=== PATIENT | male | born 1960 | race Caucasian/White ===

== ENCOUNTER → 2018-09-13 | Outpatient (CLI) | payer MEDICAID ==
[~2018-09-13] MED LIST: AMIT100T2 PO; ASPI325T4 PO; ATEN50TA PO; CLON2TAB3 PO; FLUO40CA PO; FLUT1DIS27 INH; HYDR50TA3 PO; NIAC1TBM5 PO; POTA20TA15 PO; REGADENOSON 0.4 MG/5 ML SYR (LEXISCAN) IV ONE; SPIRIVA INH; ZOLP10TA5 PO
[2018-09-13] MEDS: CATHETER FLUSH 10 ML SYR IV PRN ×2 (12:56→13:38)
[2018-09-13 13:36] VITALS: BP 127/93
--- NOTE | 2018-09-13 20:23 | STRESS TEST ---
DATE OF SERVICE: 09/13/2018 LEXISCAN MYOVIEW STRESS TEST REPORT REFERRING PHYSICIAN: Dr. Chela Madrid. Baseline heart rate is 55. Baseline blood pressure 139/88. Baseline EKG sinus rhythm with no ischemic changes. In summary, the patient was injected with 9.81 mCi of technetium-99 Myoview and the resting images were obtained. Then, the patient received 0.4 mg of Lexiscan followed by 30.0 mCi of technetium-99 Myoview. Throughout the test, there were no EKG changes. The resting and stress images were reviewed and compared in the short axis, horizontal long axis, and vertical long axis views. Review of the images showed diaphragmatic attenuation with mild decreased uptake at the mid to apical inferolateral wall with subtle reversibility, no significant ischemia was noted. SSS is 3, SDS 3, TID value 1.02. On the gated images, the left ventricle appeared to be normal size with normal contractility. Calculated ejection fraction 61%. CONCLUSION: 1. The patient tolerated Lexiscan well. 2. Diaphragmatic attenuation with mild decreased uptake at the mid to apical inferolateral wall with subtle reversibility, no significant ischemia or infarction was noted. 3. Normal left ventricular size with normal contractility. Calculated ejection fraction 61%. Job ID: [id number] DocumentID: [id number] Dictated Date: 09/13/2018 15:02:43 [employer] Machine Operator Date: 09/13/2018 20:23:03 Dictated By: YESICA ACEVEDO MD
== END ==
LOC: CARD 12:39
PROVIDERS: ATTEND Internal Medicine Cardiovascular Disease
DX: R07.9 Chest pain, unspecified (principal); I10 Essential (primary) hypertension; I08.1 Rheumatic disorders of both mitral and tricuspid valves; J44.9 Chronic obstructive pulmonary disease, unspecified; E66.9 Obesity, unspecified
CPT/HCPCS: 78452; 93017

== ENCOUNTER → 2019-09-03 | Outpatient (CLI) | payer MEDICAID ==
[~2019-09-03] MED LIST changes: -REGADENOSON 0.4 MG/5 ML SYR (LEXISCAN) IV ONE
== END ==
LOC: CARD 11:12
PROVIDERS: ATTEND Internal Medicine Cardiovascular Disease
DX: I08.1 Rheumatic disorders of both mitral and tricuspid valves (principal); I10 Essential (primary) hypertension; J44.9 Chronic obstructive pulmonary disease, unspecified
CPT/HCPCS: 93306

== ENCOUNTER → 2020-09-03 | Outpatient (CLI) | payer MEDICAID ==
[~2020-09-03] VITALS: Ht 170 cm; Wt 114.0 kg
[~2020-09-03] MED LIST changes: +CATHETER FLUSH 10 ML SYR IV PRN; +REGADENOSON 0.4 MG/5 ML SYR (LEXISCAN) IV ONE
[2020-09-03 11:28] VITALS: BP 132/69
--- NOTE | 2020-09-03 14:10 | Cardiology Stress Test Report ---
Stress Test Report Date of Procedure/Referring: Date of Procedure: Sep 03, 2020 PCP Chrissy Jenkins Admitting Physician Santana Mckenna MD Indications: Hypertension, hyperlipidemia Baseline Heart Rate: 46 Baseline Blood Pressure: Blood Pressure Systolic: 132 Blood Pressure Diastolic: 69 Baseline Vitals Vital Signs Date Time Temp Pulse Resp B/P (MAP) Pulse Ox O2 Delivery O2 Flow Rate FiO2 09/03/20 11:28 46 18 132/69 (90) 99 Room Air Baseline EKG: Baseline EKG: normal sinus rhythm Summary After explaining the procedure to the patient, he signed a consent and then brought to the stress nuclear laboratory. Patient received 0.4 mg Lexiscan for stress test, ECG, heart rate and blood pressure were monitored continuously. Resting and stress dose of radio tracer were injected, imaging was acquired and reviewed in short axis, horizontal long axis and vertical long axis views. TID: 1.1 SSS: 1 SDS: 1 EF: 52 1. Patient tolerated Lexiscan well 2. Baseline sinus bradycardia persisted during test 3. Diaphragmatic attenuation with typical male pattern with no significant ischemia or infarction on SPECT images 4. Normal left ventricular size, EF 52 percent YESICA ACEVEDO MD Sep 03, 2020 14:10
== END ==
LOC: CARD 11:30
PROVIDERS: ATTEND Physician Assistant
DX: J44.9 Chronic obstructive pulmonary disease, unspecified (principal); I10 Essential (primary) hypertension; Z72.0 Tobacco use
CPT/HCPCS: 78452; 93017

== ENCOUNTER → 2021-03-04 | Outpatient (CLI) | payer MEDICAID ==
[~2021-03-04] MED LIST changes: -CATHETER FLUSH 10 ML SYR IV PRN; -REGADENOSON 0.4 MG/5 ML SYR (LEXISCAN) IV ONE
== END ==
LOC: CARD 13:16
PROVIDERS: ATTEND Internal Medicine Cardiovascular Disease
DX: I10 Essential (primary) hypertension (principal)
CPT/HCPCS: 93306

== ENCOUNTER 2021-08-23 10:07 | Observation (INO) | payer MEDICAID ==
[~2021-08-23] VITALS: Ht 170.1 cm; Wt 90.8 kg
[2021-08-23] MEDS ORDERED: fentaNYL INJ 100 MCG/2 ML AMP IVP ONE ×2 (11:00→14:15)
[2021-08-23] MEDS ORDERED: NITROGLYCERIN 0.4 MG SL TABS BTL 25'S SL PRN (11:00)
[2021-08-23 11:12] LABS: BASOPHILS % (AUTO) 0 % (0-10); EOSINOPHILS % (AUTO) 0 % (0-10); HEMATOCRIT 29 % (40-54); HEMOGLOBIN 9.2 g/dL (13.3-17.7); LYMPHOCYTES # (AUTO) 1.3 10^3/uL (1.0-4.0); LYMPHOCYTES % (AUTO) 12 % (12-44); MEAN CORPUSCULAR HEMOGLOBIN 25 pg (25-34); MEAN CORPUSCULAR HGB CONC 32 g/dL (32-36); MEAN CORPUSCULAR VOLUME 80 fL (80-99); MEAN PLATELET VOLUME 8.9 fL (9.0-12.2); MONOCYTES # (AUTO) 0.9 10^3/uL (0.0-1.0); MONOCYTES % (AUTO) 8 % (0-12); NEUTROPHILS # (AUTO) 8.8 10^3/uL (1.8-7.8); NEUTROPHILS % (AUTO) 78 % (42-75); PLATELET COUNT 500 10^3/uL (130-400); WHITE BLOOD COUNT 11.3 10^3/uL (4.3-11.0)
[2021-08-23 11:31] LABS: LIPASE 27 U/L (8-78)
[2021-08-23 11:33] LABS: ALBUMIN 3.7 GM/DL (3.2-4.5); BILIRUBIN,TOTAL 0.2 MG/DL (0.1-1.0); CALCIUM 9.6 MG/DL (8.5-10.1); CREATININE SERUM 1.2 MG/DL (0.60-1.30); MAGNESIUM 1.6 MG/DL (1.6-2.4); POTASSIUM 5.1 MMOL/L (3.6-5.0); TOTAL PROTEIN 7.7 GM/DL (6.4-8.2)
[2021-08-23 11:40] LABS: FIBRIN DEGRADATION PRODUCTS 0.64 UG/ML (0.00-0.49); INR 1.1 (0.8-1.4); PROTHROMBIN TIME PATIENT 14.1 SEC (12.2-14.7)
--- NOTE | 2021-08-23 11:41 | Diagnostic Imaging Report ---
Indication: Chest pain COMPARISON: None available. TECHNIQUE: Single frontal radiograph of the chest dated 08/23/2021 FINDINGS: The cardiac silhouette is within normal limits in size. Minimal central pulmonary vascular congestion. The lungs are clear. No pleural effusion. No pneumothorax. No acute osseous abnormality. IMPRESSION: Minimal central pulmonary vascular congestion without significant interstitial edema or pleural effusion. Dictated by: Dictated on workstation # [id number]
[2021-08-23] MEDS ORDERED: NS IV 1000 ML 1,000 ML ONE ×2 (11:50→16:02)
[2021-08-23] MEDS ORDERED: NS IV 1000 ML 1,000 ML IV SCH (12:00)
[2021-08-23] MEDS ORDERED: NS 100 ML (IVPB) BAG IV ONE (12:15)
[2021-08-23] MEDS ORDERED: IOHEXOL 350 MG/ML 100 ML (OMNIPAQUE 350) VIAL IV ONE (12:15)
[2021-08-23] MEDS ORDERED: HOLD METFORMIN - RECEIVED CONTRAST 20 ML VIAL IV SCH (12:15)
--- NOTE | 2021-08-23 12:36 | Diagnostic Imaging Report ---
INDICATION: Chest and abdominal pain. Back pain. CTA chest, abdomen and pelvis Thin axial sections through the chest, abdomen and pelvis are obtained following intravenous contrast bolus. Multiplanar MIP images were reconstructed and reviewed. All CT scans use one or more of the following dose optimizing techniques: automated exposure control, MA and/or KvP adjustment based on patient size and exam type or iterative reconstruction. COMPARISON: None. CTA chest: No evidence of pulmonary emboli to the subsegmental pulmonary arteries. Thoracic aorta is normal. The heart size is within normal limits. No pericardial effusion is present. There is no mediastinal, hilar, or axillary lymphadenopathy. The lung windows demonstrate no pulmonary nodules or masses. There are no focal areas of consolidation. No pneumothoraces are present. No central endobronchial obstructing lesions are identified. There are no pleural effusions. No acute fracture is identified. Old right 10th rib fracture is seen. CT abdomen and pelvis: There is wall thickening throughout the esophagus with moderate hiatal hernia present. Fluid is seen up to the midesophagus. Additional wall thickening is seen in the stomach. There is hyperemia in the distal stomach/proximal duodenum. No bowel obstruction. No free fluid or free air. Normal appendix. The liver, spleen, pancreas, adrenal glands, and kidneys have a normal appearance. There is no pathologically enlarged mesenteric or retroperitoneal adenopathy. No acute fractures identified. There is grade 1 anterolisthesis of L4 on L5. Ureters and bladder are grossly normal. There is no free air, loculated collection, or adenopathy in the pelvis. IMPRESSION: 1. Findings suggestive of esophagitis, gastritis, and duodenitis. Reflux is seen up to the middle 3rd of the esophagus. There is also bowel wall hyperemia in the distal stomach/proximal duodenum which may represent gastric or duodenal ulcer. No free fluid or free air suggests perforation. 2. No evidence of pulmonary emboli to the subsegmental pulmonary arteries. No evidence of dissection in the thoracic and abdominal aorta. Dictated by: Dictated on workstation # [id number]
[2021-08-23 14:14] LABS: BILIRUBIN,URINE NEGATIVE (NEGATIVE); CLARITY,URINE CLEAR; COLOR,URINE YELLOW; GLUCOSE, URINE (UA) NEGATIVE (NEGATIVE); KETONES,URINE NEGATIVE (NEGATIVE); LEUKOCYTE ESTERASE ,URINE NEGATIVE (NEGATIVE); NITRITE,URINE NEGATIVE (NEGATIVE); PROTEIN,URINE NEGATIVE (NEGATIVE)
[2021-08-23] MEDS ORDERED: PANTOPRAZOLE 40 MG (PROTONIX) VIAL IV ONE (14:15)
[2021-08-23] MEDS ORDERED: FAMOTIDINE 20MG/2ML IV (PEPCID) IVP ONE (14:15)
[2021-08-23 14:21] LABS: BACTERIA,URINE NEGATIVE /HPF
--- NOTE | 2021-08-23 14:25 | ED General ---
General Chief Complaint: Chest Pain Stated Complaint: BACK PAIN Nursing Triage Note: PATIENT REPORTS HE HAS CHRONIC BACK PAIN BUT THE BACK PAIN IS WORSE TODAY THAN USUAL, ITS ALSO ACCOMPANIED BY RIB AND SHOULDER PAIN. PATIENT DOES REPORT HE ACCIDENTALLY ROLLED OUT OF BED THIS MORNING BUT DID NOT EXPERIENCE ANY PAIN WHEN THIS OCCURRED. Source of Information: Patient Exam Limitations: No Limitations History of Present Illness Date Seen by Provider: Aug 23, 2021 Time Seen by Provider: 10:43 Initial Comments This is 60-year-old gentleman presents to the emergency room with progressive worsening of upper back pain and chest pain which he has noted for 2-3 weeks. He also is noted to have upper abdominal tenderness on exam. Patient reports x- rays were ordered by his primary care provider for evaluation of the spine. He reports they noted degenerative disc disease but no other abnormalities. His pain was becoming intolerable today. He denies any fever, cough, vomiting, or diarrhea. Dr. Mckenna is his primary care provider. He has seen Dr. Servin in the past but he denies any cardiac disease. Stress test a year ago demonstrated no ischemic changes. 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 WITH PRICING CONSULTANT DEMEROL, 09/13/18) Patient Home Medication List Home Medication List Reviewed: Yes Amitriptyline Hcl (Amitriptyline Hcl) 100 Mg Tablet, 100 MG PO HS, (Reported) Entered as Reported by: MARVEL WILSON on 12/24/13 1141 Aspirin (Aspirin Tab) 325 Mg Tab, 325 MG PO DAILY, (Reported) Entered as Reported by: MARVEL WILSON on 12/24/13 1141 Atenolol (Tenormin 50 Mg) 50 Mg Tablet, 50 MG PO DAILY, (Reported) Entered as Reported by: MARVEL WILSON on 12/24/13 1142 Cetirizine HCl (Zyrtec) 10 Mg Capsule, 10 MG PO DAILY, (Reported) Entered as Reported by: Mallory Ewing on 08/23/21 1721 Last Action: New Order Clonazepam (Clonazepam) 2 Mg Tablet, 2 MG PO HS, (Reported) Entered as Reported by: MARVEL WILSON on 12/24/13 1141 Clonazepam (Clonazepam) 0.5 Mg Tab.rapdis, 0.5 MG PO TID, (Reported) Entered as Reported by: Mallory Ewing on 08/23/211720 Last Action: New Order Fluoxetine Hcl (Fluoxetine Hcl) 40 Mg Capsule, 40 MG PO DAILY, (Reported) Entered as Reported by: MARVEL WILSON on 12/24/13 114 Fluticasone/Salmeterol (Advair 500 Mcg/50 Mcg 60's) 1 Disk Inhp, 1 PUFF INH BID, (Reported) Entered as Reported by: MARVEL WILSON on 12/24/13 114 Furosemide (Lasix) 20 Mg Tablet, 20 MG PO DAILY , (Reported) Entered as Reported by: Mallory Ewing on 08/23/211720 Last Action: New Order Lisinopril (Lisinopril) 10 Mg Tablet, 10 MG PO DAILY, (Reported) Entered as Reported by: Mallory Ewing on 08/23/211720 Last Action: New Order Meloxicam (Mobic) 15 Mg Tablet, 15 MG PO DAILY, (Reported) Entered as Reported by: Mallory Ewing on 08/23/211710 Last Action: New Order Naproxen Sodium (Anaprox Ds) 550 Mg Tablet, 250 MG PO BID, (Reported) Entered as Reported by: Mallory Ewing on 08/23/211720 Last Action: New Order Niacin/Simvastatin (Simcor 500-20 Mg Tablet) 1 Each Tbmp.24hr, 20 MG PO DAILY, (Reported) Entered as Reported by: MARVEL WILSON on 12/24/13 114 Potassium Chloride (Potassium Chloride) 20 Meq Tab.prt.sr, 20 MEQ PO BID, (Reported) Entered as Reported by: AMRVEL WILSON on 12/24/13 114 Potassium Chloride (Potassium Chloride) 10 Meq Capsule.er, 10 MEQ PO DAILY, (Reported) Entered as Reported by: Mallory Ewing on 08/23/211720 Last Action: New Order Tiotropium [place] (Spiriva) 1 Inh Aerp, 1 INH IH PRN, (Reported) Entered as Reported by: Mallory Ewing on 08/23/211720 Last Action: New Order Zolpidem Tartrate (Zolpidem Tartrate) 10 Mg Tablet, 10 MG PO HS, (Reported) Entered as Reported by: MARVEL WILSON on 12/24/13 1141 [Spiriva] , 1 PUFF INH DAILY, (Reported) Entered as Reported by: MARVEL WILSON on 12/24/13 1141 Discontinued Medications Hydrochlorothiazide (Hydrochlorothiazide) 50 Mg Tablet, 50 MG PO HS, (Reported) Discontinued Reason: No Longer Taking Entered as Reported by: MARVEL WILSON on 12/24/13 1141 Last Action: Discontinued Review of Systems Review of Systems Constitutional: no symptoms reported EENTM: no symptoms reported Respiratory: no symptoms reported Cardiovascular: see HPI Gastrointestinal: see HPI Genitourinary: no symptoms reported Musculoskeletal: see HPI Skin: no symptoms reported Psychiatric/Neurological: No Symptoms Reported Hematologic/Lymphatic: No Symptoms Reported Immunological/Allergic: no symptoms reported Past Ceewxzm-Eioiik-Nzeyfr Hx Patient Social History Tobacco Use?: Yes Tobacco type used: Cigarettes Smoking Status: Current Everyday Smoker Substance use?: No Alcohol Use?: No Immunizations Up To Date Tetanus Booster (TDap): More than 5yrs Influenza Vaccine Up-to-Date: No; Not Current First/Initial COVID19 Vaccinat: 0 Second COVID19 Vaccination Yoshi: 0 Third COVID19 Vaccination Date: 0 Past Medical History Surgeries: Yes Gallbladder Respiratory: Yes COPD Cardiac: Yes High Cholesterol, Hypertension Neurological: No Genitourinary: No Gastrointestinal: No Musculoskeletal: No Gout Endocrine: Yes (History of hypokalemia) HEENT: No Cancer: No Psychosocial: Yes Anxiety, Depression Adverse Reaction/Blood Tranf: No Physical Exam Vital Signs Vital Signs - First Documented 08/23/21 08/23/21 08/23/21 10:14 12:48 14:41 Temp 36.3 Pulse 63 Resp 20 B/P (MAP) 156/87 (110) Pulse Ox 100 O2 Delivery Room Air Capillary Refill : Less Than 3 Seconds Height, Weight, BMI Height: 5'9" Weight: 250lbs. oz. 113.268280jq; 160.00 BMI Method:Stated General Appearance: WD/WN, Mild Distress HEENT: PERRL/EOMI, Normal ENT Inspection Neck: Normal Inspection Respiratory: Lungs Clear, Normal Breath Sounds, No Accessory Muscle Use Cardiovascular: Regular Rate, Rhythm, No Edema, No Murmur Gastrointestinal: Normal Bowel Sounds, Soft, Tenderness (Across the upper abdomen) Back: Normal Inspection Extremity: Normal Inspection, No Pedal Edema Neurologic/Psychiatric: Alert, Oriented x3, No Motor/Sensory Deficits, Normal Mood/Affect, merchandiser II-XII Norm as Tested Skin: Normal Color, Warm/Dry Progress/Results/Core Measures Suspected Sepsis SIRS Temperature: Pulse: 63 Respiratory Rate: 20 Laboratory Tests 08/23/21 11:07: White Blood Count 11.3H Blood Pressure 156 /87 Mean: 89 Laboratory Tests 08/23/21 11:07: Creatinine 1.20, INR Comment 1.1, Platelet Count 500H, Total Bilirubin 0.2 Results/Orders Lab Results Laboratory Tests Test 08/23/21 11:07 08/23/21 14:00 Range/Units White Blood Count 11.3 H 4.3-11.0 10^3/uL Red Blood Count 3.63 L 4.30-5.52 10^6/uL Hemoglobin 9.2 L 13.3-17.7 g/dL Hematocrit 29 L 40-54 % Mean Corpuscular Volume 80 80-99 fL Mean Corpuscular Hemoglobin 25 25-34 pg Mean Corpuscular Hemoglobin Concent 32 32-36 g/dL Red Cell Distribution Width 15.8 H 10.0-14.5 % Platelet Count 500 H 130-400 10^3/uL Mean Platelet Volume 8.9 L 9.0-12.2 fL Immature Granulocyte % (Auto) 2 % Neutrophils (%) (Auto) 78 H 42-75 % Lymphocytes (%) (Auto) 12 12-44 % Monocytes (%) (Auto) 8 0-12 % Eosinophils (%) (Auto) 0 0-10 % Basophils (%) (Auto) 0 0-10 % Neutrophils # (Auto) 8.8 H 1.8-7.8 10^3/uL Lymphocytes # (Auto) 1.3 1.0-4.0 10^3/uL Monocytes # (Auto) 0.9 0.0-1.0 10^3/uL Eosinophils # (Auto) 0.0 0.0-0.3 10^3/uL Basophils # (Auto) 0.0 0.0-0.1 10^3/uL Immature Granulocyte # (Auto) 0.2 H 0.0-0.1 10^3/uL Prothrombin Time 14.1 12.2-14.7 SEC INR Comment 1.1 0.8-1.4 Activated Partial Thromboplast Time 37 H 24-35 SEC D-Dimer 0.64 H 0.00-0.49 UG/ML Sodium Level 119 *L 135-145 MMOL/L Potassium Level 5.1 H 3.6-5.0 MMOL/L Chloride Level 88 L 98-107 MMOL/L Carbon Dioxide Level 20 L 21-32 MMOL/L Anion Gap 11 5-14 MMOL/L Blood Urea Nitrogen 27 H 7-18 MG/DL Creatinine 1.20 0.60-1.30 MG/DL Estimat Glomerular Filtration Rate 62 BUN/Creatinine Ratio 23 Glucose Level 116 H 70-105 MG/DL Calcium Level 9.6 8.5-10.1 MG/DL Corrected Calcium 9.8 8.5-10.1 MG/DL Magnesium Level 1.6 1.6-2.4 MG/DL Total Bilirubin 0.2 0.1-1.0 MG/DL Aspartate Amino Transf (AST/SGOT) 78 H 5-34 U/L Alanine Aminotransferase (ALT/SGPT) 77 H 0-55 U/L Alkaline Phosphatase 86 40-136 U/L Myoglobin 57.4 10.0-92.0 NG/ML Troponin I < 0.028 <0.028 NG/ML Total Protein 7.7 6.4-8.2 GM/DL Albumin 3.7 3.2-4.5 GM/DL Lipase 27 8-78 U/L Serum Alcohol < 10 <10 MG/DL Urine Color YELLOW Urine Clarity CLEAR Urine pH 6.0 5-9 Urine Specific [place] <=1.005 1.016-1.022 Urine Protein NEGATIVE NEGATIVE Urine Glucose (UA) NEGATIVE NEGATIVE Urine Ketones NEGATIVE NEGATIVE Urine Nitrite NEGATIVE NEGATIVE Urine Bilirubin NEGATIVE NEGATIVE Urine Urobilinogen 0.2 < = 1.0 MG/DL Urine Leukocyte Esterase NEGATIVE NEGATIVE Urine RBC (Auto) NEGATIVE NEGATIVE Urine RBC NONE /HPF Urine WBC NONE /HPF Urine Squamous Epithelial Cells NONE /HPF Urine Crystals NONE /LPF Urine Bacteria NEGATIVE /HPF Urine Casts NONE /LPF Urine Mucus NEGATIVE /LPF Urine Culture Indicated NO Urine Opiates Screen NEGATIVE NEGATIVE Urine Oxycodone Screen NEGATIVE NEGATIVE Urine Methadone Screen NEGATIVE NEGATIVE Urine Propoxyphene Screen NEGATIVE NEGATIVE Urine Barbiturates Screen NEGATIVE NEGATIVE Ur Tricyclic Antidepressants Screen NEGATIVE NEGATIVE Urine Phencyclidine Screen NEGATIVE NEGATIVE Urine Amphetamines Screen NEGATIVE NEGATIVE Urine Methamphetamines Screen NEGATIVE NEGATIVE Urine Benzodiazepines Screen NEGATIVE NEGATIVE Urine Cocaine Screen NEGATIVE NEGATIVE Urine Cannabinoids Screen NEGATIVE NEGATIVE My Orders Orders - MONAE BAUTISTA MD Cbc With Automated Diff (08/23/21 10:44) Magnesium (08/23/21 10:44) Chest 1 View, Ap/Pa Only (08/23/21 10:44) Ekg Tracing (08/23/21 10:44) Comprehensive Metabolic Panel (08/23/21 10:44) Myoglobin Serum (08/23/21 10:44) Protime With Inr (08/23/21 10:44) Partial Thromboplastin Time (08/23/21 10:44) O2 (08/23/21 10:44) Monitor-Rhythm Ecg Trace Only (08/23/21 10:44) Lipid Panel (08/24/21 06:00) Ed Iv/Invasive Line Start (08/23/21 10:44) Troponin I (08/23/21 10:44) Nitroglycerin 0.4 Mg Btl 25's (Nitrostat (08/23/21 11:00) Fentanyl Inj (Sublimaze Injection) (08/23/21 11:00) Lipase (08/23/21 10:52) Fibrin Degradation Products (08/23/21 11:07) Ns Iv 1000 Ml (Sodium Chloride 0.9%) (08/23/21 11:50) Ed Iv/Invasive Line Start (08/23/21 11:54) Ns Iv 1000 Ml (Sodium Chloride 0.9%) (08/23/21 12:00) Ct [place] Chest/Noang Abd-Pelv W (08/23/21 11:54) Alcohol (08/23/21 11:55) Drug Screen Stat (Urine) (08/23/21 11:55) Ua Culture If Indicated (08/23/21 11:55) Iohexol Injection (Omnipaque 350 Mg/Ml 1 (08/23/21 12:15) Received Contrast (Hold Metformin- Contr (08/23/21 12:15) Ns (Ivpb) (Sodium Chloride 0.9% Ivpb Bag (08/23/21 12:15) Fentanyl Inj (Sublimaze Injection) (08/23/21 14:15) Famotidine Injection (Pepcid Injection) (08/23/21 14:15) Pantoprazole Injection (Protonix Injecti (08/23/21 14:15) Medications Given in ED Current Medications Medications Dose Ordered Sig/Jarek Route Start Time Stop Time Status Last Admin Dose Admin Famotidine 20 mg ONCE ONCE IVP 08/23/21 14:15 08/23/21 14:16 DC 08/23/21 14:15 20 MG Fentanyl Citrate 50 mcg ONCE ONCE IVP 08/23/21 11:00 08/23/21 11:01 DC 08/23/21 11:28 50 MCG Fentanyl Citrate 50 mcg ONCE ONCE IVP 08/23/21 14:15 08/23/21 14:16 DC 08/23/21 14:15 50 MCG Iohexol 75 ml ONCE ONCE IV 08/23/21 12:15 08/23/21 12:16 DC 08/23/21 12:17 73 ML Nitroglycerin 0.4 mg UD PRN SL 08/23/21 11:00 08/23/21 16:03 DC 08/23/21 11:08 0.4 MG Pantoprazole 40 mg ONCE ONCE IV 08/23/21 14:15 08/23/21 14:16 DC 08/23/21 14:14 40 MG Vital Signs/I&O 08/23/21 08/23/21 08/23/21 08/23/21 10:14 12:48 13:45 14:41 Temp 36.3 Pulse 63 59 61 61 Resp 20 23 15 B/P (MAP) 156/87 (110) 128/68 134/67 148/88 Pulse Ox 100 100 O2 Delivery Room Air 08/23/21 14:47 Pulse 61 Resp 16 B/P (MAP) 149/83 Pulse Ox 100 Capillary Refill : Less Than 3 Seconds Blood Pressure Mean: 89 Progress Note : Progress Note Cardiopulmonary work-up was relatively unremarkable. No explanation for his pain was revealed through lab work-up. Because of the extensive nature of his pain including the back, chest, and abdomen, thorough imaging with CT scan was obtained. CT angiogram of the chest and CT of the abdomen and pelvis with contrast were ordered. No pulmonary emboli or significant thoracic pathology was noted. He did have significant inflammation of the esophagus, stomach, and duodenum with possible ulcer. He was treated with Pepcid and Protonix. Dr. Siegel was consulted. Patient was also found to be significantly hyponatremic. Treatment was started with a normal saline infusion in the ER. Patient was ultimately admitted to Dr. Oliva. CODE STATUS was discussed and he would like to remain full code. Pain was treated with fentanyl. ECG Initial ECG Impression Date: Aug 23, 2021 Initial ECG Impression Time: 11:38 Initial ECG Rate: 61 Initial ECG Rhythm: Normal Sinus Initial ECG Intervals: Normal Initial ECG Impression: Normal Comment Normal sinus rhythm with no ST elevation or depression. Right bundle branch b lock. No axis deviation. Diagnostic Imaging Diagonstic Imaging: Xray Plain Films/CT/US/NM/MRI: chest Comments Chest x-ray viewed by me and report reviewed. See report below: NAME: [facility] REC#: [id number] PT STATUS: REG ER : 1960 PHYSICIAN: MONAE BAUTISTA MD ADMIT DATE: 08/23/21/ER Signed Date of Exam:08/23/21 CHEST 1 VIEW, AP/PA ONLY Indication: Chest pain COMPARISON: None available. TECHNIQUE: Single frontal radiograph of the chest dated 08/23/2021 FINDINGS: The cardiac silhouette is within normal limits in size. Minimal central pulmonary vascular congestion. The lungs are clear. No pleural effusion. No pneumothorax. No acute osseous abnormality. IMPRESSION: Minimal central pulmonary vascular congestion without significant interstitial edema or pleural effusion. Dictated by: Dictated on workstation # [id number] Dict: 08/23/21 1136 Trans: 08/23/21 1140 [facility] [id number] Interpreted by: ELIAN PARTIDA MD Electronically signed by: ELIAN PARTIDA MD 08/23/21 1140 Diagonstic Imaging: CT Plain Films/CT/US/NM/MRI: chest, abdomen, pelvis Comments CT chest, abdomen and pelvis with angiogram of the chest reviewed by me and report reviewed. See report below: NAME: TARA BARRETT [facility] REC#: [id number] PT STATUS: REG ER : 1960 PHYSICIAN: MONAE BAUTISTA MD ADMIT DATE: 08/23/21/ER Signed Date of Exam:08/23/21 CT SLOANE CHEST/NOANG ABD-PELV W INDICATION: Chest and abdominal pain. Back pain. CTA chest, abdomen and pelvis Thin axial sections through the chest, abdomen and pelvis are obtained following intravenous contrast bolus. Multiplanar MIP images were reconstructed and reviewed. All CT scans use one or more of the following dose optimizing techniques: automated exposure control, MA and/or KvP adjustment based on patient size and exam type or iterative reconstruction. COMPARISON: None. CTA chest: No evidence of pulmonary emboli to the subsegmental pulmonary arteries. Thoracic aorta is normal. The heart size is within normal limits. No pericardial effusion is present. There is no mediastinal, hilar, or axillary lymphadenopathy. The lung windows demonstrate no pulmonary nodules or masses. There are no focal areas of consolidation. No pneumothoraces are present. No central endobronchial obstructing lesions are identified. There are no pleural effusions. No acute fracture is identified. Old right 10th rib fracture is seen. CT abdomen and pelvis: There is wall thickening throughout the esophagus with moderate hiatal hernia present. Fluid is seen up to the midesophagus. Additional wall thickening is seen in the stomach. There is hyperemia in the distal stomach/proximal duodenum. No bowel obstruction. No free fluid or free air. Normal appendix. The liver, spleen, pancreas, adrenal glands, and kidneys have a normal appearance. There is no pathologically enlarged mesenteric or retroperitoneal adenopathy. No acute fractures identified. There is grade 1 anterolisthesis of L4 on L5. Ureters and bladder are grossly normal. There is no free air, loculated collection, or adenopathy in the pelvis. IMPRESSION: 1. Findings suggestive of esophagitis, gastritis, and duodenitis. Reflux is seen up to the middle 3rd of the esophagus. There is also bowel wall hyperemia in the distal stomach/proximal duodenum which may represent gastric or duodenal ulcer. No free fluid or free air suggests perforation. 2. No evidence of pulmonary emboli to the subsegmental pulmonary arteries. No evidence of dissection in the thoracic and abdominal aorta. Dictated by: Dictated on workstation # [id number] Dict: 08/23/21 1228 Trans: 08/23/21 1251 [facility] [id number] Interpreted by: ELINA SULLIVAN DO Electronically signed by: ELINA SULLIVAN DO 08/23/21 1251 Departure Communication (Admissions) Time/Spoke to Admitting Phy: 14:00 Dr. Oliva Time/Spoke to Consulting Phy: 13:00 Dr. Siegel Impression Primary Impression: Hyponatremia Additional Impressions: Atypical chest pain Upper abdominal pain Gastritis Qualified Codes: K29.70 - Gastritis, unspecified, without bleeding Esophagitis Duodenitis Anemia Qualified Codes: D64.9 - Anemia, unspecified Disposition: ADMITTED INPATIENT Condition: Improved Admissions Decision to Admit Reason: Admit from ER (General) Decision to Admit/Date: Aug 23, 2021 Time/Decision to Admit Time: 13:00 Departure-Patient Inst. Referrals: VALENTINE MCKENNA MD (PCP/Family) Primary Care Physician MONAE BAUTISTA MD Aug 23, 2021 14:25
[2021-08-23 14:26] LABS: AMPHETAMINE SCREEN, URINE NEGATIVE (NEGATIVE); BARBITURATE SCREEN URINE NEGATIVE (NEGATIVE); BENZODIAZEPINES SCREEN URINE NEGATIVE (NEGATIVE); CANNABINOID SCREEN, URINE NEGATIVE (NEGATIVE); COCAINE SCREEN URINE NEGATIVE (NEGATIVE); METHADONE STAT NEGATIVE (NEGATIVE); METHAMPHETAMINE SCREEN URINE S NEGATIVE (NEGATIVE); OPIATE SCREEN URINE NEGATIVE (NEGATIVE); OXYCODONE STAT NEGATIVE (NEGATIVE); PROPOXYPHENE STAT NEGATIVE (NEGATIVE); TRICYCLIC ANTIDEPRESSANTS SCRE NEGATIVE (NEGATIVE)
--- NOTE | 2021-08-23 15:19 | CONSULTATION REPORT ---
DATE OF SERVICE: HISTORY OF PRESENT ILLNESS: The patient is a 60-year-old male who presented to the Emergency Department with chronic back pain, which is not new; however, this was worse today. He also states that he had some rib and shoulder pain as well. He also had reported substernal chest pain and underwent a CT scan of the chest and abdomen with the chest CT being a PE protocol, which was negative. The CT scan also did show a significant esophagitis, middle third of the esophagus as well as gastritis, duodenitis and bowel wall hyperemia along the distal stomach and proximal duodenum, which may indicate a gastric or duodenal ulcer, there is no perforation. He has a known history of peptic ulcer disease. PAST MEDICAL HISTORY: Hypertension, hypercholesterolemia, depression, COPD, gout. PAST SURGICAL HISTORY: Open cholecystectomy. ALLERGIES: SULFA, MEPERIDINE. MEDICATIONS: 1. Amitriptyline 100 mg daily. 2. Aspirin 325 mg daily. 3. Atenolol 50 mg daily. 4. Clonazepam 2 mg daily. 5. Fluoxetine 40 mg daily. 6. Advair 1 puff b.i.d. 7. Hydrochlorothiazide 50 mg daily. 8. 500/20 mg daily. 9. Potassium 20 mEq daily. 10. Zolpidem 10 mg at bedtime. 11. Spiriva 1 puff daily. SOCIAL HISTORY: Positive smoke 40 pack years. Negative alcohol. FAMILY HISTORY: Noncontributory. VITAL SIGNS: Temperature 36.3, blood pressure 158/87, pulse 63, respirations 20, pulse ox 100% on room air. REVIEW OF SYSTEMS: Well-nourished male in no acute distress. He is not experiencing any shortness of breath or difficulty breathing. No chest pain, palpitations, diaphoresis. He does have epigastric as well as substernal chest crampy pain as well as mild nausea; however, no vomiting. No hematemesis, no coffee ground emesis. He states that his bowel movements have been normal. No red blood per rectum, no dark tarry stools. No fever, chills, no recent inadvertent weight loss. All other review of systems negative. PHYSICAL EXAMINATION: CHEST: Scattered wheezes bilaterally. HEART: Regular, no murmurs. EXTREMITIES: No lower extremity edema, negative Homans sign. HEENT: No scleral icterus. NECK: No cervical lymphadenopathy. ABDOMEN: Soft, nondistended. There is pain in the epigastric region upon deep palpation, voluntary guarding, no rebound. No hernias. SKIN: Warm, dry. LABORATORY DATA: WBC 11.3, hemoglobin 9.2, hematocrit 29, platelets 500. Sodium was 119. Potassium 5.1, BUN 27, creatinine 1.20. Liver function enzymes are for the most part normal. ASSESSMENT AND PLAN: A 60-year-old male with a strong suspicion for gastroesophageal reflux disease as well as peptic ulcer disease. We will start with medical management with clear liquids, IV hydration as well as PPI acid pole shaver on a b.i.d. basis. At some point on this admission, we will also proceed with an EGD as well as biopsies as appropriate. Job ID: [id number] DocumentID: [id number] Dictated Date: 08/23/2021 14:56:15 Treating And Pumping Supervisor Date: 08/23/2021 15:18:53 Dictated By: MEL SHOEMAKER MD
[2021-08-23 16:00] VITALS: BP 125/86
[2021-08-23] MEDS: NS IV 1000 ML 1,000 ML IV SCH (16:09)
[2021-08-23] MEDS ORDERED: ONDANSETRON 4 MG/2 ML (SDV) Z0FRAN IV PRN (16:15)
[2021-08-23] MEDS: HYDROcodone/APAP 5 MG/325 MG (LORTAB) TAB PO PRN ×2 (16:15→21:50)
[2021-08-23] MEDS ORDERED: fentaNYL INJ 100 MCG/2 ML AMP IV PRN (16:15)
[2021-08-23] MEDS ORDERED: CATHETER FLUSH 10 ML SYR IV PRN (16:15)
[2021-08-23] MEDS ORDERED: MELO15TA14 PO (17:11)
[2021-08-23] MEDS ORDERED: CLON0.5T25 PO (17:21)
[2021-08-23] MEDS ORDERED: TIOT18CA2 IH (17:21)
[2021-08-23] MEDS ORDERED: POTA10CA43 PO (17:21)
[2021-08-23] MEDS ORDERED: FURO-125 PO (17:21)
[2021-08-23] MEDS ORDERED: LISI10TA25 PO (17:21)
[2021-08-23] MEDS ORDERED: CETI10CA PO (17:21)
[2021-08-23] MEDS ORDERED: NAPR-1070 PO (17:21)
[2021-08-23] MEDS: PANTOPRAZOLE 40 MG (PROTONIX) VIAL IV SCH (19:42)
[2021-08-23] MEDS: FAMOTIDINE 20MG/2ML IV (PEPCID) IV SCH (19:42)
[2021-08-23 19:55] VITALS: BP_SYST 115; BP_SYST 97; BP_DIAS 45; BP_DIAS 65
[2021-08-23] MEDS: SUCRALFATE 1 GM (CARAFATE) TAB PO SCH (21:50)
[2021-08-24 00:14] VITALS: BP 109/58
[2021-08-24] MEDS: NS IV 1000 ML 1,000 ML IV SCH ×2 (00:19→08:27)
[2021-08-24] MEDS: HYDROcodone/APAP 5 MG/325 MG (LORTAB) TAB PO PRN ×2 (03:48→09:44)
[2021-08-24 04:11] VITALS: BP 103/57
[2021-08-24 06:48] LABS: BASOPHILS % (AUTO) 0 % (0-10); EOSINOPHILS % (AUTO) 0 % (0-10); HEMATOCRIT 28 % (40-54); HEMOGLOBIN 8.7 g/dL (13.3-17.7); LYMPHOCYTES # (AUTO) 1.3 10^3/uL (1.0-4.0); LYMPHOCYTES % (AUTO) 15 % (12-44); MEAN CORPUSCULAR HEMOGLOBIN 26 pg (25-34); MEAN CORPUSCULAR HGB CONC 32 g/dL (32-36); MEAN CORPUSCULAR VOLUME 81 fL (80-99); MEAN PLATELET VOLUME 8.1 fL (9.0-12.2); MONOCYTES # (AUTO) 0.7 10^3/uL (0.0-1.0); MONOCYTES % (AUTO) 8 % (0-12); NEUTROPHILS # (AUTO) 6.5 10^3/uL (1.8-7.8); NEUTROPHILS % (AUTO) 76 % (42-75); PLATELET COUNT 398 10^3/uL (130-400); WHITE BLOOD COUNT 8.6 10^3/uL (4.3-11.0)
[2021-08-24 07:16] LABS: TRIGLYCERIDES 110 MG/DL (<150); VLDL CHOLESTEROL 22 MG/DL (5-40)
[2021-08-24 07:21] LABS: CHOLESTEROL 83 MG/DL (< 200)
[2021-08-24 07:22] LABS: HDL CHOLESTEROL 29 MG/DL (40-60)
[2021-08-24 07:49] LABS: POTASSIUM 4.5 MMOL/L (3.6-5.0)
[2021-08-24 07:50] LABS: CALCIUM 9.2 MG/DL (8.5-10.1)
[2021-08-24 07:54] LABS: CREATININE SERUM 0.97 MG/DL (0.60-1.30)
[2021-08-24 08:00] VITALS: BP 120/77
[2021-08-24] MEDS: FAMOTIDINE 20MG/2ML IV (PEPCID) IV SCH (08:26)
[2021-08-24] MEDS: PANTOPRAZOLE 40 MG (PROTONIX) VIAL IV SCH (08:26)
[2021-08-24] MEDS: SUCRALFATE 1 GM (CARAFATE) TAB PO SCH (08:27)
[2021-08-24 09:08] VITALS: BP 120/77
--- NOTE | 2021-08-24 10:01 | Short Stay Summary-Hospitalist ---
History of Present Illness HPI/Chief Complaint Pt is a 60yoCM with a PMH of HTN, tobacco abuse and remote history of alcohol and illicit drug abuse who presented to the ER due to abdominal pain. He had originally complained of chest pain in triage but with further questioning describes it as upper abdominal pain. This has been going on for a few weeks and he has been seen by his primary care provider who ordered x-rays of his back. Yesterday the symptoms worsened prompting him to seek evaluation in the emergency department. He was found to be quite tender on exam and CT abdomen revealed inflammation of the esophagus stomach, and duodenum. He was admitted for pain control. This morning he reports that his pain is much improved and is controlled with oral pain medication. He has tolerated a clear liquid diet already. Source: patient Date Seen 08/24/21 Time Seen by a Provider: 09:56 Attending Physician Ju Oliva MD PCP Santana Mckenna MD Referring Physician Date of Admission Aug 23, 2021 at 15:04 Home Medications & Allergies Home Medications Reviewed patient Home Medication Reconciliation performed by pharmacy medication reconciliations ammonia technician and/or nursing. Patients Allergies have been reviewed. Allergies Allergies Coded Allergies Sulfa (Sulfonamide Antibiotics) (Unverified Allergy, Unknown, GETS SICK, 09/13/18) meperidine (Unverified Allergy, Unknown, PSYCHOTIC EVENTS WITH ENGINEERING MANAGER DEMEROL, 09/13/18) Past Rijvcwq-Pyndzr-Ciahsh Hx Patient Social History Tobacco Use?: Yes Tobacco type used: Cigarettes Smoking Status: Current Everyday Smoker Substance use?: No (quit 11 years ago) Alcohol Use?: No (quit 2 years ago) Immunizations Up To Date First/Initial COVID19 Vaccinat: 0 Second COVID19 Vaccination Yoshi: 0 Current Status Advance Directives: No Primary Language: Urdu Preferred Spoken Language: Urdu Past Medical History Surgeries: Gallbladder COPD High Cholesterol, Hypertension Gout Anxiety, Depression Adverse Reaction/Blood Tranf: No Family Medical History Reviewed Nursing Family Hx Diabetes Review of Systems Constitutional: No chills, No fever, No malaise EENTM: no symptoms reported Respiratory: No cough, No short of breath Cardiovascular: see HPI; No edema, No Hx of Intervention Gastrointestinal: see HPI Genitourinary: no symptoms reported Musculoskeletal: back pain; No joint pain Skin: no symptoms reported Psychiatric/Neurological: No Symptoms Reported Physical Exam Physical Exam Vital Signs Vital Signs - First Documented 08/23/21 08/23/21 08/23/21 10:14 12:48 14:41 Temp 36.3 Pulse 63 Resp 20 B/P (MAP) 156/87 (110) Pulse Ox 100 O2 Delivery Room Air Capillary Refill : Less Than 3 Seconds Height, Weight, BMI Height: 5'9" Weight: 250lbs. oz. 113.013413iu; 31.38 BMI Method:Stated General Appearance: No Apparent Distress, Chronically ill, Obese HEENT: PERRL/EOMI, Moist Mucous Membranes; No Scleral Icterus (L), No Scleral Icterus (R) Neck: Normal Inspection, Supple Respiratory: Lungs Clear, No Accessory Muscle Use, No Respiratory Distress Cardiovascular: Regular Rate, Rhythm, No Edema, No Murmur Gastrointestinal: Normal Bowel Sounds, Non Tender, Soft; No Distended, No Guarding, No Rebound Back: Normal Inspection Extremity: Normal Inspection, No Pedal Edema Neurologic/Psychiatric: Alert, Oriented x3, Normal Mood/Affect; No Aphasia, No Facial Droop Skin: Normal Color, Warm/Dry Results Results/Procedures Labs Laboratory Tests 08/23/21 11:07 08/24/21 06:10 08/24/21 06:40 Patient resulted labs reviewed. Imaging: Reviewed Imaging Report Imaging [facility], [place] NAME: TARA BARRETT [facility] REC#: [id number] PT STATUS: REG ER : 1960 PHYSICIAN: MONAE BAUTISTA MD ADMIT DATE: 08/23/21/ER Signed Date of Exam:08/23/21 CHEST 1 VIEW, AP/PA ONLY Indication: Chest pain COMPARISON: None available. TECHNIQUE: Single frontal radiograph of the chest dated 08/23/2021 FINDINGS: The cardiac silhouette is within normal limits in size. Minimal central pulmonary vascular congestion. The lungs are clear. No pleural effusion. No pneumothorax. No acute osseous abnormality. IMPRESSION: Minimal central pulmonary vascular congestion without significant interstitial edema or pleural effusion. Dictated by: Dictated on workstation # [id number] Dict: 08/23/21 1136 Trans: 08/23/21 1140 [facility] [id number] Interpreted by: ELIAN PARTIDA MD Electronically signed by: ELIAN PARTIDA MD 08/23/21 1140 [facility] [place], [place] NAME: TARA BARRETT [facility] REC#: [id number] PT STATUS: REG ER : 1960 PHYSICIAN: MONAE BAUTISTA MD ADMIT DATE: 08/23/21/ER Signed Date of Exam:08/23/21 CT SUZE CHEST/NOANG ABD-PELV W INDICATION: Chest and abdominal pain. Back pain. CTA chest, abdomen and pelvis Thin axial sections through the chest, abdomen and pelvis are obtained following intravenous contrast bolus. Multiplanar MIP images were reconstructed and reviewed. All CT scans use one or more of the following dose optimizing techniques: automated exposure control, MA and/or KvP adjustment based on patient size and exam type or iterative reconstruction. COMPARISON: None. CTA chest: No evidence of pulmonary emboli to the subsegmental pulmonary arteries. Thoracic aorta is normal. The heart size is within normal limits. No pericardial effusion is present. There is no mediastinal, hilar, or axillary lymphadenopathy. The lung windows demonstrate no pulmonary nodules or masses. There are no focal areas of consolidation. No pneumothoraces are present. No central endobronchial obstructing lesions are identified. There are no pleural effusions. No acute fracture is identified. Old right 10th rib fracture is seen. CT abdomen and pelvis: There is wall thickening throughout the esophagus with moderate hiatal hernia present. Fluid is seen up to the midesophagus. Additional wall thickening is seen in the stomach. There is hyperemia in the distal stomach/proximal duodenum. No bowel obstruction. No free fluid or free air. Normal appendix. The liver, spleen, pancreas, adrenal glands, and kidneys have a normal appearance. There is no pathologically enlarged mesenteric or retroperitoneal adenopathy. No acute fractures identified. There is grade 1 anterolisthesis of L4 on L5. Ureters and bladder are grossly normal. There is no free air, loculated collection, or adenopathy in the pelvis. IMPRESSION: 1. Findings suggestive of esophagitis, gastritis, and duodenitis. Reflux is seen up to the middle 3rd of the esophagus. There is also bowel wall hyperemia in the distal stomach/proximal duodenum which may represent gastric or duodenal ulcer. No free fluid or free air suggests perforation. 2. No evidence of pulmonary emboli to the subsegmental pulmonary arteries. No evidence of dissection in the thoracic and abdominal aorta. Dictated by: Dictated on workstation # [id number] Dict: 08/23/21 1228 Trans: 08/23/21 1251 [facility] [id number] Interpreted by: ELINA SULLIVAN DO Electronically signed by: ELINA SULLIVAN DO 08/23/21 1251 Short Stay Diagnosis Discharge Diagnosis-Short Stay Admission Diagnosis Intractable abdominal pain Final Discharge Diagnosis Intractable abdominal pain Conclusion Plan Intractable abdominal pain Likely duet o esophagitis and gastritis as seen on imaging Surgery consulted, appreciate recs Pain now improved and tolerating diet Due to scheduling unable to get patient in for EGD before 08/26 Will monitor with bland diet and if pain remains controlled will DC home with outpatient follow up on 08/26 HTN Continue home meds Tobacco abuse Recommended cessation, states he is not ready and has no desire to quit Clinical Quality Measures AMI/AHF: ASA po Prior to arrival: No Copy Copies To 1: JU Marshall MD Aug 24, 2021 10:01
--- NOTE | 2021-08-24 10:16 | Discharge Inst-Simple/Standard ---
Discharge Inst-Standard Discharge Medications New, Converted or Re-Newed RX: Transmitted to Pharmacy Patient Instructions/Follow Up Plan of Care/Instructions/FU: Please continue to take your medications as written. Please follow up with your primary care doctor to follow up this hospital stay and with Dr Siegel for your EGD this week. Activity as Tolerated: Yes Discharge Diet: No Restrictions Return to The Hospital For: Chest pain, abdominal pain, shortness of breath, fever, vomiting, if you feel you are getting worse. JU SAMANIEGO MD Aug 24, 2021 10:12
[2021-08-24] MEDS ORDERED: FAMO-119 PO (11:15)
[2021-08-24] MEDS ORDERED: PANT40TA2 PO (11:15)
[2021-08-24] MEDS ORDERED: SUCR1TAB PO (11:15)
== END 2021-08-24 12:15 | disposition home or self-care (01) ==
LOC: ER 10:07 → 4TH 15:04
PROVIDERS: ADMIT Family Medicine; ATTEND Family Medicine
DX: R10.9 Unspecified abdominal pain (principal); J44.9 Chronic obstructive pulmonary disease, unspecified; E78.00 Pure hypercholesterolemia, unspecified; I10 Essential (primary) hypertension; M10.9 Gout, unspecified; K29.70 Gastritis, unspecified, without bleeding; K29.80 Duodenitis without bleeding; K20.90 Esophagitis, unspecified without bleeding; E87.1 Hypo-osmolality and hyponatremia; R07.89 Other chest pain; D64.9 Anemia, unspecified; F32.A Depression, unspecified; F41.9 Anxiety disorder, unspecified; F17.210 Nicotine dependence, cigarettes, uncomplicated; Z79.82 Long term (current) use of aspirin; Z79.899 Other long term (current) drug therapy; Z83.3 Family history of diabetes mellitus
CPT/HCPCS: 36415; 71045; 71275; 74177; 80048; 80053; 80061; 80306; 80320; 81000; 83690; 83735; 83874; 84484; 85025; 85379; 85610; 85730; 87081; 87636; 93005; 93041; 96374; 96375; 96376; G0378

== ENCOUNTER 2021-09-08 06:01 | Outpatient (RCR) | payer MEDICAID ==
[~2021-09-08] VITALS: Ht 170 cm; Wt 89.0 kg
[~2021-09-08 06:01] MED LIST changes: +CETI10CA PO; +CLON0.5T25 PO; +FAMO-119 PO; +FURO-125 PO; +LISI10TA25 PO; +MELO15TA14 PO; +NAPR-1070 PO; +PANT40TA2 PO; +POTA10CA43 PO; +RT-ALBUINH IH; +SUCR1TAB PO; +TIOT18CA2 IH
[2021-09-15] MEDS ORDERED: ATEN50TA PO (11:40)
[2021-09-15] MEDS ORDERED: AMIT100T2 PO (11:40)
[2021-09-15] MEDS ORDERED: SIMV20TA26 PO (11:40)
[2021-09-15] MEDS ORDERED: NIAC-4 PO (11:40)
[2021-09-15] MEDS ORDERED: POTA10TA PO (11:40)
[2021-09-15] MEDS ORDERED: ACET-2840 PO (11:40)
[2021-09-15] MEDS ORDERED: FLUT1DIS27 INH (11:40)
[2021-09-15] MEDS ORDERED: CLON0.5T4 PO (11:40)
[2021-09-15] MEDS ORDERED: NAPR-1088 PO (11:40)
[2021-09-15] MEDS ORDERED: ZOLP5TAB7 PO (11:40)
[2021-09-15] MEDS ORDERED: CETI10TA17 PO (11:40)
[2021-09-15] MEDS ORDERED: FLUO40CA PO (11:40)
[2021-09-15] MEDS ORDERED: OMEP40CA6 PO (11:40)
[2021-10-02] MEDS ORDERED: FAMO20TA5 PO (11:07)
[2021-10-02] MEDS ORDERED: ATEN50TA PO (11:07)
[2021-10-02] MEDS ORDERED: RT-ALBUINH IH (11:07)
[2021-10-02] MEDS ORDERED: FURO-125 PO (11:07)
[2021-10-02] MEDS ORDERED: ACHD5005 PO (11:07)
[2021-10-02] MEDS ORDERED: PANT40TA52 PO (11:07)
[2021-10-02] MEDS ORDERED: LACT20SO2 PO (11:07)
[2021-10-02] MEDS ORDERED: ACET-2840 PO (11:07)
[2021-10-02] MEDS ORDERED: POTA10TA PO (11:07)
[2021-10-02] MEDS ORDERED: LEVE10006 PO (11:07)
[2021-10-02] MEDS ORDERED: ZOLP5TAB7 PO (11:07)
[2021-10-02] MEDS ORDERED: FLUT1DIS27 INH (11:07)
[2021-10-02] MEDS ORDERED: TIOT18CA2 IH (11:07)
[2021-10-02] MEDS ORDERED: AMIT100T2 PO (11:07)
[2021-10-02] MEDS ORDERED: SIMV20TA26 PO (11:07)
[2021-10-02] MEDS ORDERED: ENOX40DI8 SC (11:07)
[2021-10-02] MEDS ORDERED: FLUO40CA PO (11:07)
[2021-10-02] MEDS ORDERED: NIAC-4 PO (11:07)
[2021-10-02] MEDS ORDERED: CLON0.5T4 PO (11:07)
[2021-10-02] MEDS ORDERED: CETI10TA17 PO (11:07)
[2021-10-02] MEDS ORDERED: LISI10TA25 PO (11:07)
== END 2021-10-16 | disposition home or self-care (01) ==
LOC: PREOP 06:01
PROVIDERS: ATTEND Surgery
DX: Z01.812 Encounter for preprocedural laboratory examination (principal); K21.9 Gastro-esophageal reflux disease without esophagitis; Z20.822 Contact with and (suspected) exposure to COVID-19; Z01.818 Encounter for other preprocedural examination
CPT/HCPCS: 87635; 87636

== ENCOUNTER 2021-09-09 11:23 | Day surgery (SDC) | payer MEDICAID ==
[~2021-09-09] VITALS: Ht 170 cm; Wt 89.0 kg
--- NOTE | 2021-09-09 11:29 | Progress Note-Pre Operative ---
Pre-Operative Progress Note H&P Reviewed The H&P was reviewed, patient examined and no changes noted. Date Seen by Provider: Sep 09, 2021 Time Seen by Provider: 11:20 Date H&P Reviewed: Sep 09, 2021 Time H&P Reviewed: 11:20 Pre-Operative Diagnosis: dysphagia/GERD MEL SHOEMAKER MD Sep 09, 2021 11:29
[2021-09-09] MEDS ORDERED: ONDANSETRON 4 MG/2 ML (SDV) Z0FRAN IVP PRN (11:30)
[2021-09-09] MEDS ORDERED: ONDANSETRON 4 MG (ZOFRAN) ORAL DISSOLVE TAB PO PRN (11:30)
--- NOTE | 2021-09-09 11:30 | Discharge Inst-Surgical ---
D/C Lap Instructions-SAHARA Follow Up Activity as tolerated High Fiber Diet 25g or more per day Avoid Alcohol, Caffeine, Spicy Lefors and Acid foods. Drink 64 fluid oz or more of fluids per day. Symptoms to Report: Fever over 101 degree F, Nausea/Vomiting If any problems/questions: Contact your physician or go to Emergency Room MEL SHOEMAKER MD Sep 09, 2021 11:30
[2021-09-09] MEDS ORDERED: LACTATED RINGERS 1,000 ML IV ONE (11:32)
[2021-09-09] MEDS ORDERED: LACTATED RINGERS 1,000 ML IV STA (11:33)
[2021-09-09 11:39] VITALS: BP 114/69
[2021-09-09] MEDS ORDERED: LIDOCAINE JELLY 2% 6 ML SYRINGE MM PRN (11:45)
[2021-09-09] MEDS ORDERED: HURRICAINE EXT TUBE (BENZOCAINE) XX PRN (11:45)
[2021-09-09] MEDS ORDERED: proPOfol 200 MG/20 ML (DIPRIVAN) VIAL IV ONE ×2 (12:12→12:46)
[2021-09-09] MEDS ORDERED: MIDAZOLAM 2 MG/2 ML (VERSED) VIAL ONE (12:12)
--- NOTE | 2021-09-09 13:10 | Progress Note-Post Operative ---
Post-Operative Progess Note Surgeon (s)/Stumper Feller (s) Surgeon MEL SHOEMAKER MD Stumper Feller: none Pre-Operative Diagnosis dysphagia/GERD Post-Operative Diagnosis reflux esophagitis(stage 3), dist esoph stricture, large HH(4cm), severe gastritis with type 4 and type 3 gastric ulcers(1cm). Procedure & Operative Findings Date of Procedure 09/09/21 Procedure Performed/Findings EGD with bx and balloon dilatation. Anesthesia Type mac Estimated Blood Loss Estimated blood loss (mL): minimal Specimens/Packing Specimens Removed 2 gastic ulcers, antrum, ge jxn MEL SHOEMAKER MD Sep 09, 2021 13:09
--- NOTE | 2021-09-09 13:15 | Anesthesia-General Post-Op ---
MAC Patient Condition Mental Status/LOC: Same as Preop Cardiovascular: Satisfactory Nausea/Vomiting: Absent Respiratory: Satisfactory Pain: Controlled Complications: Absent Post Op Complications Complications None Follow Up Care/Instructions Patient Instructions None needed. Anesthesiology Discharge Order Discharge Order Patient is doing well, no complaints, stable vital signs, no apparent adverse anesthesia problems. No complications reported per nursing. MAC DAVIS CRNA Sep 09, 2021 13:15
[2021-09-09 13:20] VITALS: BP 114/69
[2021-09-09 13:45] VITALS: BP 110/69
[2021-09-09 14:10] VITALS: BP 110/69
--- NOTE | 2021-09-09 18:33 | OPERATIVE REPORT ---
DATE OF SERVICE: 09/09/2021 ATTENDING PRIMARY CARE PHYSICIAN: Dr. Jian Mckenna. PREOPERATIVE DIAGNOSES: Gastroesophageal reflux disease and peptic ulcer disease. POSTOPERATIVE DIAGNOSES: Reflux esophagitis stage III with distal esophageal stricture, moderate to large hiatal hernia approximately 4 cm in size, type 4 ulcer along the lesser curvature as well as a type 3 prepyloric ulcer. PROCEDURES PERFORMED: EGD with biopsy and balloon dilatation. SURGEON: Mel Shoemaker MD. ANESTHESIA: Monitored anesthesia care. ESTIMATED BLOOD LOSS: Minimal. FINDINGS: Reflux esophagitis stage III with distal esophageal stricture, moderate to large hiatal hernia approximately 4 cm in size, type 4 ulcer along the lesser curvature as well as a type 3 prepyloric ulcer. DISPOSITION: The patient tolerated the procedure well. INDICATIONS FOR PROCEDURE: The patient is a 60-year-old male, who has had difficulty swallowing and has constant reflux as well as epigastric burning sensation as well as crampy pain. He does have risk factors for peptic ulcer disease and reflux esophagitis including smoking one and a half packs a day for many years. DESCRIPTION OF PROCEDURE: The patient was brought to the endoscopy suite and laid in the left lateral decubitus position. After adequate IV pain and sedative medications and monitored anesthesia care, the mouthpiece was applied. The endoscope was then placed in the mouth, visualizing the pharynx and hypopharyngeal region. Vocal cords, epiglottis, and vallecula identified and appeared to be normal. The endoscope was intubated, the esophageal opening and esophagus insufflated. The endoscope was then advanced through the first, second and third portion of the esophagus. At the level of the GE junction, a reflux esophagitis stage III with a distal esophageal stricture identified. A biopsy was taken with forceps with visualization of good hemostasis. The endoscope was then advanced into the stomach, where a significant size type 4 gastric ulcer along the lesser curvature distal to the GE junction and was approximately 1 cm in size. This was biopsied at the edge with forceps with visualization of good hemostasis. A moderate to severe gastritis was noted and he also was found to have a type 3 prepyloric ulcer approximately the same size and this was also biopsied as well. The antrum was also biopsied to rule out H. pylori. The endoscope was retroflexed, visualizing a significant size hiatal hernia approximately 4 cm in size. The endoscope was then advanced to the pylorus and the first and second portion of the duodenum with no distal obstructions identified. We then proceeded with balloon dilatation of distal esophageal stricture and the balloon was placed in the stomach and pulled back to the area of the stricture. We then proceeded in a graded stepwise fashion from 2, 4, and then eventually 6 atmospheres of pressure or 20 mm in luminal diameter with moderate resistance and left this in place for approximately 60 seconds. The balloon was then desufflated and removed with visualization of good hemostasis as well as no mucosal tears. The endoscope was then slowly withdrawn while taking a second look and suctioning of residual air with no additional findings. The patient tolerated the procedure well. He has a severe peptic ulcer disease, reflux esophagitis as well as a hiatal hernia and symptomatic esophageal stricture. He will need to proceed with all the necessary lifestyle and dietary changes to promote resolution of these ulcers, which would first encompass smoking cessation as well as avoidance of caffeinated beverages, spicy, greasy, and acidic foods. He also needs to take in small and more frequent meals and avoidance of eating at night. At this time, we are unsure of how medically compliant he is with his medications; however, we will place him on two proton pump inhibitors to be taken at different times during the day. We will also await the biopsy results. He will need a followup EGD in eight weeks to see if there is resolution of the ulcers or persistence. Job ID: [id number] DocumentID: [id number] Dictated Date: 09/09/2021 13:05:37 Thermometer Maker Date: 09/09/2021 18:32:33 Dictated By: MEL SHOEMAKER MD [facility]
== END 2021-09-09 14:10 | disposition home or self-care (01) ==
LOC: ENDO 11:23
PROVIDERS: ATTEND Surgery
DX: K21.00 Gastro-esophageal reflux disease with esophagitis, without bleeding (principal); K22.2 Esophageal obstruction; K44.9 Diaphragmatic hernia without obstruction or gangrene; K25.9 Gastric ulcer, unspecified as acute or chronic, without hemorrhage or perforation; K31.89 Other diseases of stomach and duodenum; K29.50 Unspecified chronic gastritis without bleeding; I10 Essential (primary) hypertension; J44.9 Chronic obstructive pulmonary disease, unspecified; F32.A Depression, unspecified; G89.29 Other chronic pain; M54.50 Low back pain, unspecified; M10.9 Gout, unspecified; Z90.49 Acquired absence of other specified parts of digestive tract; Z79.899 Other long term (current) drug therapy

== ENCOUNTER 2021-09-14 17:40 | Inpatient (IN) | payer MEDICAID ==
[~2021-09-14] VITALS: Ht 172.7 cm; Wt 81.8 kg
[2021-09-14] MEDS ORDERED: MELATONIN 3 MG TABLET PO PRN (19:30)
[2021-09-14] MEDS ORDERED: LOPERAMIDE 2 MG (IMODIUM) TABLET PO PRN (19:30)
[2021-09-14] MEDS ORDERED: HEParin 1000 UNIT/ML (10ML VIAL) FOR BOLUS IV SCH (19:30)
[2021-09-14] MEDS ORDERED: diphenhydrAMINE 25 MG TAB (BENADRYL) PO PRN (19:30)
[2021-09-14] MEDS ORDERED: ALPRAZolam 0.25 MG (XANAX) TAB PO PRN (19:30)
[2021-09-14] MEDS ORDERED: DOCUSATE SODIUM 100 MG (COLACE) CAP PO PRN (19:30)
[2021-09-14] MEDS ORDERED: dilTIAZem DRIP PRE-MIX 125 ML IV SCH (19:30)
[2021-09-14] MEDS ORDERED: ACETAMINOPHEN 500 MG TAB (TYLENOL) PO PRN (19:30)
[2021-09-14] MEDS ORDERED: ONDANSETRON 4 MG (ZOFRAN) ORAL DISSOLVE TAB PO PRN (19:30)
[2021-09-14] MEDS ORDERED: NS IV 1000 ML 1,000 ML ONE (20:53)
[2021-09-14] MEDS ORDERED: CEFEPIME INJECTION 1,000 MG in NS (IVPB) 50 ML IV ONE (22:00)
[2021-09-14] MEDS ORDERED: VANCOMYCIN INJECTION 1,000 MG in NS (IVPB) 250 ML IV ONE (22:00)
[2021-09-14] MEDS ORDERED: NS (IVPB) 100 ML ONE (22:05)
[2021-09-14] MEDS ORDERED: HEParin DRIP 25000 UNIT/500ML 500 ML IV ONE (22:14)
[2021-09-14] MEDS: SENNA W/DOCUSATE (SENOKOT S) TABLET PO SCH (22:35)
[2021-09-14] MEDS: FAMOTIDINE 20MG/2ML IV (PEPCID) IVP SCH (22:35)
[2021-09-14] MEDS: polyethylene glycoL POWDER 17 GM (MIRALAX) PACK PO SCH (22:35)
[2021-09-14] MEDS: NS IV 1000 ML 1,000 ML IV SCH (22:38)
[2021-09-14 23:19] LABS: BASOPHILS % (AUTO) 0 % (0-10); EOSINOPHILS % (AUTO) 0 % (0-10); HEMATOCRIT 24 % (40-54); HEMOGLOBIN 7.9 g/dL (13.3-17.7); LYMPHOCYTES # (AUTO) 1.1 10^3/uL (1.0-4.0); LYMPHOCYTES % (AUTO) 12 % (12-44); MEAN CORPUSCULAR HEMOGLOBIN 25 pg (25-34); MEAN CORPUSCULAR HGB CONC 33 g/dL (32-36); MEAN CORPUSCULAR VOLUME 76 fL (80-99); MEAN PLATELET VOLUME 8.4 fL (9.0-12.2); MONOCYTES # (AUTO) 0.7 10^3/uL (0.0-1.0); MONOCYTES % (AUTO) 8 % (0-12); NEUTROPHILS # (AUTO) 7.1 10^3/uL (1.8-7.8); NEUTROPHILS % (AUTO) 79 % (42-75); PLATELET COUNT 292 10^3/uL (130-400)
[2021-09-14] MEDS ORDERED: inSUlin ASPART (NovoLOG) 1 UNIT/0.01 ML (CHARGE PER UNIT) SC SCH (23:30)
[2021-09-14] MEDS ORDERED: HEParin 1000 UNIT/ML (10ML VIAL) FOR BOLUS IV PRN (23:30)
[2021-09-14] MEDS ORDERED: HEParin DRIP 25000 UNIT/500ML 500 ML IV SCH (23:30)
--- NOTE | 2021-09-14 23:35 | Tele-ICU Progress Note ---
Progress Note 60M with HTN, DM, HLD, COPD, gout, open jon, GERD/PUD s/p EGD 09/09/21 with reflux esophagitis stage 3 with distal esophageal stricture, moderate to large hiatal hernia and multiple ulcerations. Underwent balloon dilation of stricture. Apparently experienced some sort of weakness and fell in the shower. Unclear whether he syncopized or collapsed. He was confused on arrival to outside hospital and unable to provide a history. In ER had witnessed seizure and afib. Had planned on shocking afib but patient converted spontaneously. Reported CT head negative - awaiting outside chart for review. - seizure: first seizure of unclear etiology. Has been started on keppra. Add acyclovir to cover for viral meningitis. Cefepime and vanco already initiated. May need transfer to hospital with neuro services. Noted to have Na 119 on 08/23 without follow up. Potential etiology - awaiting fax from OSH for lab review - afib: resolved, likely provoked secondary to seizure, catacholamine storm. Hold cardizem. Heparin ongoing, will defer to cardiology whether it is still needed. - DM: initiate insulin sliding scale. - PUD: add BID protonix as indicated by recent Focused Exam Height, Weight, BMI Height: 5'9" Weight: 250lbs. oz. 113.937826qw; 29.10 BMI Method:Stated ALDEN GORDON MD Sep 14, 2021 23:35
[2021-09-14 23:41] LABS: CALCIUM 7.9 MG/DL (8.5-10.1)
[2021-09-14 23:41] LABS: ABG BASE EXCESS -4.2 MMOL/L (-2.5-2.5); ABG OXYGEN SATURATION 100 % (94-100); ABG PCO2 32 MMHG (35-45); ABG PH 7.41 (7.37-7.43); ABG PO2 158 MMHG (79-93); ABG TCO2 20.8 MMOL/L (21.0-31.0)
[2021-09-14 23:42] LABS: ALLENS TEST ART LINE; INSPIRED O2 4L; PATIENT TEMP 36.5; VENTILATOR NO
[2021-09-14 23:42] LABS: TOTAL PROTEIN 5.5 GM/DL (6.4-8.2)
[2021-09-14 23:44] LABS: BILIRUBIN,TOTAL 0.2 MG/DL (0.1-1.0)
[2021-09-14] MEDS: inSUlin ASPART (NovoLOG) 1 UNIT/0.01 ML (CHARGE PER UNIT) SC SCH (23:44)
[2021-09-14 23:46] LABS: CREATININE SERUM 1.01 MG/DL (0.60-1.30)
[2021-09-14 23:47] LABS: INR 1.2 (0.8-1.4); PROTHROMBIN TIME PATIENT 15.3 SEC (12.2-14.7)
[2021-09-15 00:12] VITALS: BP 119/64
[2021-09-15] MEDS ORDERED: RT-ALBUTEROL/IPRATROPIUM 3 ML (DUONEB) VIAL INH PRN (00:30)
[2021-09-15] MEDS: HYDROcodone/APAP 5 MG/325 MG (LORTAB) TAB PO PRN (02:33)
[2021-09-15] MEDS ORDERED: NS (IVPB) 250 ML ONE (05:28)
[2021-09-15] MEDS ORDERED: KCL 20 MEQ TAB (K-DUR) PO SCH (06:00)
[2021-09-15] MEDS ORDERED: POTASSIUM CL 10MEQ/50ML IVPB 50 ML IV SCH (06:00)
[2021-09-15] MEDS ORDERED: MAGNESIUM 1 GM/100 ML IVPB 100 ML IV SCH (06:00)
[2021-09-15] MEDS: NS IV 1000 ML 1,000 ML IV SCH ×3 (06:03→20:23)
[2021-09-15] MEDS: PANTOPRAZOLE 40 MG (PROTONIX) TAB PO SCH ×2 (06:03→16:55)
[2021-09-15] MEDS: ACYCLOVIR INJECTION 800 MG in NS (IVPB) 250 ML IV SCH ×3 (06:03→20:29)
[2021-09-15] MEDS: CEFEPIME INJECTION 1,000 MG in NS (IVPB) 50 ML IV SCH ×4 (06:03→23:54)
[2021-09-15 06:25] LABS: BASOPHILS % (AUTO) 0 % (0-10); EOSINOPHILS % (AUTO) 0 % (0-10); HEMATOCRIT 23 % (40-54); HEMOGLOBIN 7.3 g/dL (13.3-17.7); LYMPHOCYTES # (AUTO) 1.7 10^3/uL (1.0-4.0); LYMPHOCYTES % (AUTO) 18 % (12-44); MEAN CORPUSCULAR HEMOGLOBIN 25 pg (25-34); MEAN CORPUSCULAR HGB CONC 32 g/dL (32-36); MEAN CORPUSCULAR VOLUME 77 fL (80-99); MEAN PLATELET VOLUME 8.3 fL (9.0-12.2); MONOCYTES # (AUTO) 0.8 10^3/uL (0.0-1.0); MONOCYTES % (AUTO) 9 % (0-12); NEUTROPHILS # (AUTO) 6.4 10^3/uL (1.8-7.8); NEUTROPHILS % (AUTO) 71 % (42-75); PLATELET COUNT 268 10^3/uL (130-400); WHITE BLOOD COUNT 9.1 10^3/uL (4.3-11.0)
[2021-09-15 06:31] LABS: ALBUMIN 2.8 GM/DL (3.2-4.5); POTASSIUM 3.7 MMOL/L (3.6-5.0)
[2021-09-15 06:33] LABS: CALCIUM 7.7 MG/DL (8.5-10.1)
[2021-09-15] MEDS: inSUlin ASPART (NovoLOG) 1 UNIT/0.01 ML (CHARGE PER UNIT) SC SCH (06:35)
[2021-09-15 06:36] LABS: BILIRUBIN,TOTAL 0.2 MG/DL (0.1-1.0)
[2021-09-15 06:37] LABS: PHOSPHORUS 3.1 MG/DL (2.3-4.7)
[2021-09-15 06:38] LABS: CREATININE SERUM 0.83 MG/DL (0.60-1.30)
[2021-09-15 06:41] LABS: MAGNESIUM 1.8 MG/DL (1.6-2.4)
[2021-09-15] MEDS: SENNA W/DOCUSATE (SENOKOT S) TABLET PO SCH ×2 (08:00→23:54)
[2021-09-15] MEDS: polyethylene glycoL POWDER 17 GM (MIRALAX) PACK PO SCH ×2 (08:00→23:53)
[2021-09-15] MEDS: VANCOMYCIN INJECTION 1,000 MG in NS (IVPB) 250 ML IV SCH ×2 (08:58→20:23)
[2021-09-15] MEDS: FAMOTIDINE 20MG/2ML IV (PEPCID) IVP SCH ×2 (08:59→20:28)
--- NOTE | 2021-09-15 10:28 | Diagnostic Imaging Report ---
EXAMINATION: Chest 1 view, AP/PA only. INDICATION: Pneumonia. COMPARISON: 08/23/2021. FINDINGS: The right IJ central venous catheter has its tip terminating in the superior cavoatrial junction. Right basilar opacities have developed along with a probable small right pleural effusion. Subacute fracture of a lateral lower right rib. No pneumothorax. Stable cardiac silhouette. IMPRESSION: 1. Well-positioned right IJ central venous catheter without pneumothorax. 2. Basilar pulmonary opacities have worsened and could be due to multifocal pneumonia, especially with the provided history. Dictated by: Dictated on workstation # [id number]
[2021-09-15] MEDS: ENOXAPARIN 100 MG/1 ML (LOVENOX) SYR SQ SCH ×2 (11:01→20:28)
[2021-09-15] MEDS ORDERED: NIAC-4 PO (11:40)
[2021-09-15] MEDS ORDERED: SIMV20TA26 PO (11:40)
[2021-09-15] MEDS ORDERED: FLUT1DIS27 INH (11:40)
[2021-09-15] MEDS ORDERED: FLUO40CA PO (11:40)
[2021-09-15] MEDS ORDERED: POTA10TA PO (11:40)
[2021-09-15] MEDS ORDERED: CETI10TA17 PO (11:40)
[2021-09-15] MEDS ORDERED: ZOLP5TAB7 PO (11:40)
[2021-09-15] MEDS ORDERED: CLON0.5T4 PO (11:40)
[2021-09-15] MEDS ORDERED: AMIT100T2 PO (11:40)
[2021-09-15] MEDS ORDERED: NAPR-1088 PO (11:40)
[2021-09-15] MEDS ORDERED: ACET-2840 PO (11:40)
[2021-09-15] MEDS ORDERED: OMEP40CA6 PO (11:40)
[2021-09-15] MEDS ORDERED: ATEN50TA PO (11:40)
[2021-09-15] MEDS ORDERED: GADOTERATE 0.5 MMOL/ML (CLARISCAN) 20 ML VIAL IV ONE (12:00)
--- NOTE | 2021-09-15 12:18 | History & Physical-Hospitalist ---
HOSSEIN WARD 09/15/21 1218: History of Present Illness HPI/Chief Complaint CC: Syncope HPI: Mr. Carrasco is a 60 year old male with a PMHx of HTN who presented to [facility] from [facility] after a syncopal episode yesterday. Patient is a poor historian. He reports he had a seizure while sitting on the edge of his bed which caused him to lose consciousness, fall, and hit his head on the ground. He reported a prodrome of lightheadedness before he lost consciousness. He denied nausea or vomiting. He reports the was witnessed by two of his children. An ambulance was called and [place] [facility] [place] he was transferred to the ICU in [facility]. He was in AFib last night but was in sinus rhythm this morning. He says he has never had a seizure before or an event like this before. This morning he reports he is feeling okay and denied any pain. He follows Dr. Servin with cardiology but he does not know why. He denied a history of an TX or CVA. Source: patient Exam Limitations: no limitations Date Seen 09/15/21 Time Seen by a Provider: 08:21 Attending Physician Merlyn Rodriguez Ronald D MD Referring Physician Date of Admission Sep 14, 2021 at 20:39 Home Medications & Allergies Home Medications Reviewed patient Home Medication Reconciliation performed by pharmacy medication reconciliations ammonia refrigeration technician and/or nursing. Patients Allergies have been reviewed. Allergies Allergies Coded Allergies Sulfa (Sulfonamide Antibiotics) (Unverified Allergy, Unknown, GETS SICK, 09/13/18) meperidine (Unverified Allergy, Unknown, PSYCHOTIC EVENTS WITH STORE [employer] DEMEROL, 09/13/18) Past Zuemebm-Vxloqn-Mcojan Hx Patient Social History Tobacco Use?: Yes Tobacco type used: Cigarettes Smoking Status: Current Everyday Smoker (Smoked 1.5 PPD for 50 years) Smokeless Tobacco Frequency: Never a User Substance use?: No (Former. Has not used in 1 year.) Substance type: Marijuana (Former) Alcohol Use?: No (Has not drank for 1 year.) Pt feels they are or have been: No Immunizations Up To Date First/Initial COVID19 Vaccinat: 0 Second COVID19 Vaccination Yoshi: 0 Tetanus Booster (TDap): Unknown Current Status Advance Directives: No Communicates: Verbally Primary Language: Israeli Preferred Spoken Language: Israeli Is interpretation needed?: No Implanted or Applied Medical D: Central venous access Past Medical History Surgeries: Abdominal (Inguinal hernia repair), Gallbladder, Tonsillectomy Asthma, COPD Atrial Fibrillation, High Cholesterol, Hypertension Hiatal Hernia, Ulcer Gout Anxiety, Depression Blood Disorders: No Adverse Reaction/Blood Tranf: No Family Medical History Diabetes (Mom, brother, sister, son) Review of Systems Constitutional: No chills; other (Fatigue) Respiratory: cough (Productive), short of breath Cardiovascular: No chest pain, No palpitations Gastrointestinal: abdominal pain; No constipation, No diarrhea, No nausea, No vomiting Physical Exam Physical Exam Vital Signs Vital Signs - First Documented 09/14/21 09/14/21 09/15/21 20:49 20:56 00:12 Temp 36.5 Pulse 65 Resp 12 B/P (MAP) 119/64 Pulse Ox 98 O2 Delivery Nasal Cannula O2 Flow Rate 4.00 FiO2 36 Capillary Refill : Height, Weight, BMI Height: 5'9" Weight: 250lbs. oz. [id number]; 29.10 BMI Method:Stated General Appearance: No Apparent Distress, WD/WN HEENT: PERRL/EOMI, Moist Mucous Membranes; No Scleral Icterus (L), No Scleral Icterus (R) Neck: Normal Inspection, Non Tender; No Lymphadenopathy (L), No Lymphadenopathy (R) Respiratory: Chest Non Tender, Lungs Clear, Normal Breath Sounds, No Accessory Muscle Use, No Respiratory Distress Cardiovascular: Regular Rate, Rhythm (Had AFib yesterday. Sinus this morning.), No Edema, No Murmur, Normal Peripheral Pulses Gastrointestinal: Normal Bowel Sounds, Non Tender, Soft Extremity: Normal Capillary Refill, Normal Inspection, Non Tender, No Pedal Edema Neurologic/Psychiatric: Alert, Oriented x3, No Motor/Sensory Deficits, Normal Mood/Affect, hypoid gear tester II-XII Norm as Tested Skin: Normal Color, Warm/Dry Lymphatic: No Adenopathy (Head and neck) Results Results/Procedures Labs Laboratory Tests 09/14/21 23:10 09/15/21 06:15 Patient resulted labs reviewed. Assessment/Plan Admission Diagnosis Assessment Syncope of unknown origin - Denies cardiac history - Consider pursuing cardiac w/u, anemia w/u, and/or neuro w/u Paroxysmal Atrial Fibrillation - Sinus this morning Anemia - Hgb at 7.3 from 7.9 yesterday Poor historian - Largely denies any medical history Hyponatremic Plan Cardiology consult for AFib and w/u for syncope of unknown origin (Holter or ILR?) Surgery consult for possible anemia d/t GIB - Endorsed h/o ulcers Continue cefepime Move to 4th floor MERLYN RODRIGUEZ DO 09/16/21 0605: History of Present Illness HPI/Chief Complaint CC: AFIB with RVR new onset HPI: This is a 60yoWM who is chronically ill of Dr. Mckenna who presented to [place] [facility] with AFIB with RVR, Pt was in need of transfer to [facility], empiric antibiotics will be initiated, and Hgb was noted to be decreased, Heparin was DC and Lovenox was initiated by Dr. Servin and Dr. Fajardo will be consulted for colonoscopy and EGD. He will be transferred to the fourth floor. Source: patient Exam Limitations: no limitations Past Soemjgy-Pjjgxp-Jsziea Hx Patient Social History Marrital Status: single Employed/Student: unemployed Smoking Status: Current Everyday Smoker (Smoked 1.5 PPD for 50 years) Past Medical History Atrial Fibrillation, High Cholesterol, Hypertension Review of Systems Constitutional: see HPI, malaise, weakness EENTM: no symptoms reported Respiratory: no symptoms reported Cardiovascular: palpitations Gastrointestinal: no symptoms reported Genitourinary: no symptoms reported Musculoskeletal: no symptoms reported Skin: no symptoms reported Psychiatric/Neurological: No Symptoms Reported All Other Systems Reviewed Negative Unless Noted: Yes Physical Exam Physical Exam General Appearance: No Apparent Distress, Chronically ill Eyes: Right Eye Normal Inspection, Right Eye PERRL HEENT: PERRL/EOMI, Normal ENT Inspection, Pharynx Normal, Moist Mucous Membranes Neck: Full Range of Motion, Normal Inspection, Non Tender Respiratory: Chest Non Tender, Lungs Clear, No Accessory Muscle Use, No Respiratory Distress, Decreased Breath Sounds Cardiovascular: Regular Rate, Rhythm, No Edema, No Gallop, No JVD, No Murmur, Normal Peripheral Pulses Gastrointestinal: Normal Bowel Sounds, No Organomegaly, No Pulsatile Mass, Non Tender, Soft Back: Normal Inspection, No CVA Tenderness, No Vertebral Tenderness Extremity: Normal Capillary Refill, Normal Inspection, Normal Range of Motion, Non Tender, No Calf Tenderness, No Pedal Edema Neurologic/Psychiatric: Alert, Oriented x3, No Motor/Sensory Deficits, Normal Mood/Affect Skin: Normal Color, Warm/Dry Lymphatic: No Adenopathy Assessment/Plan Admission Diagnosis Assessment: Sepsis Pneumonia A. fib with RVR Syncopal episode suspicious for new onset seizure disorder Right-sided weakness but MRI showed no evidence of CVA Anemia Plan: Consult Dr. Servin Consult Dr. Scotty Coto Anemia work-up Admission Status: Inpatient Order (span 2 midnights) Reason for Inpatient Admission: Sepsis with pneumonia and A. fib with RVR Diagnosis/Problems Diagnosis/Problems (1) Sepsis (2) Seizures (3) Syncope (4) Right sided weakness (5) Atrial fibrillation with rapid ventricular response (6) Anemia Status: Acute Supervisory-Addendum Brief Verification & Attestation Participated in pt care: history, MDM, physical Personally performed: exam, history, MDM, supervision of care Care discussed with: Medical Student Procedures: n/a Results interpretation: Verified all documentation Verification and Attestation of Medical Student E/M Service A medical student performed and documented this service in my presence. I reviewed and verified all information documented by the medical student and made modifications to such information, when appropriate. I personally performed the physical exam and medical decision making. Merlyn Rodriguez, Sep 16, 2021,06:06 HOSSEIN WARD Sep 15, 2021 12:18 MERLYN RODRIGUEZ DO Sep 16, 2021 06:05
--- NOTE | 2021-09-15 13:09 | Diagnostic Imaging Report ---
PROCEDURE: MR imaging of the brain with and without contrast. TECHNIQUE: Multiplanar, multisequence MR imaging of the brain was performed with and without contrast. INDICATION: Seizure. COMPARISON: None available. FINDINGS: No restricted diffusion that would indicate acute infarct. No gradient blooming hypointensities that would suggest ischemia or vascular malformation. Cerebral atrophy appears more pronounced in the bilateral parietal lobes relative to the degree of volume loss elsewhere. Periventricular and subcortical FLAIR hyperintensities are most compatible with chronic microvascular ischemic disease. The mesial temporal lobes are symmetric. Postcontrast imaging does not show any concerning mass-like or meningeal enhancement. Small air-fluid level in the left maxillary sinus has mucoperiosteal thickening and is likely chronic in nature. Other paranasal sinuses are clear. Orbits are unremarkable. Pituitary and pineal regions are normal. No sagging of the brainstem. IMPRESSION: 1. No acute intracranial process. Specifically, no infarct, hemorrhage, or hydrocephalus. 2. No mass or pathologic enhancement. 3. Advanced atrophy in the bilateral parietal lobes is nonspecific, but can be seen with certain forms of dementia. Dictated by: Dictated on workstation # [id number]
--- NOTE | 2021-09-15 13:36 | Physical Therapy Evaluation ---
PT Evaluation-General Medical Diagnosis Admission Date Sep 14, 2021 at 20:39 Medical Diagnosis: syncopal episode Onset Date: Sep 14, 2021 Therapy Diagnosis Therapy Diagnosis: impaired mobility, strength, endurance, balance Height/Weight Height (Feet): 5 Height (Inches): 9 Weight (Pounds): 250 Precautions Precautions/Isolations: Seizure, Fall Prevention, Standard Precautions Referral Physician: Merlyn Armstrong DO Reason for Referral: Evaluation/Treatment Medical History Additional Medical History Past Medical History Surgeries: Abdominal (Inguinal hernia repair), Gallbladder, Tonsillectomy Asthma, COPD Atrial Fibrillation, High Cholesterol, Hypertension Hiatal Hernia, Ulcer Gout Anxiety, Depression Reviewed History: Yes Social History Home: Apartment Current Living Status: Alone Entry Into Home: Level Entry Prior Prior Level of Function SCALE: Activities may be completed with or without assistive devices. 2-Dqfojcwewj-nhkdqfm completes the activity by him/herself with no assistance from a helper. 5-Set-up or Clean-up Assistance-helper sets up or cleans up; patient completes activity. [place] assists only prior to or following the activity. 4-Supervision or Touching Assistance-helper provides verbal cues and/or touching/steadying and/or contact guard assistance as patient completes activity. Assistance may be provided throughout the activity or intermittently. 3-Partial/Moderate Assistance-helper does LESS THAN HALF the effort. [place] lifts, holds or supports trunk or limbs, but provides less than half the effort. 2-Substantial/Maximal Assistance-helper does MORE THAN HALF the effort. [place] lifts or holds trunk or limbs and provides more than half the effort. 1-Urwsueoaw-uhwaoe does ALL the effort. Patient does none of the effort to complete the activity. Or, the assistance of 2 or more helpers is required for the patient to complete the activity. If activity was not attempted, code reason: 7-Patient Refused. 9-Not Applicable-not attempted and the patient did not perform the activity before the current illness, exacerbation or injury. 10-Not Attempted due to Environmental Limitations-(lack of equipment, weather restraints, etc.). 88-Not Attempted due to Medical Conditions or Safety Concerns. Bed Mobility: 6 Transfers (B,C,W/C): 6 Gait: 6 Indoor Mobility (Ambulation): Independent Prior Devices Use: Walker PT Evaluation-Current Subjective Patient in bed pre tx, agrees to PT, has no complaints of pain. Pt/Family Goals to be independent at home Objective Patient Orientation: Person, Eyes Open Attachments: Moore Catheter ROM/Strength ROM Lower Extremities WNL Strength Lower Extremities LLE (hip flexion 3/5, knee flexion 3+/5, knee extension 4+/5, dorsiflexion 5/5), RLE (hip flexion 3+/5, knee flexion 4/5, knee extension 4+/5, dorsiflexion 5/5) Neuromuscular (Tone, Coordination, Reflexes) Patient seems to have impaired peripheral vision bilaterally but worse on the left side, impaired tracking on the left side Sensory Hearing: Functional Sensation Right Lower Extremit: Impaired Sensation Left Lower Extremity: Impaired Transfers Roll Left to Right (QC): 6 Sit to Lying (QC): 4 Lying to Sitting/Side of Bed(Q: 3 Sit to Stand (QC): 3 Chair/Wxo-xy-Aaufd Xfer(QC): 3 Patient needs assist with supine to sit and sit to stand, he is unsteady on his feet and needs assist with transfers using a rolling walker Gait Does the Patient Walk?: Yes Mode of Locomotion: Walk Anticipated Mode of Locomotion: Walk Walk 10 feet (QC): 3 Walk 50 ft with 2 Turns(QC): 3 Distance: 80' Gait Assistive Device: FWW Comments/Gait Description Patient has very unsteady gait, required occasional assist for balance and to guide walker, he tends to drift to the left side and catch his left wheel of his walker on things. Balance Sitting Static: Fair Sitting Dynamic: Fair Standing Static: Poor Standing Dynamic: Poor Assessment/Needs Patient in bed post tx with nurse call, phone, tray, all needs met. Patient has impaired mobility ,strength, endurance, balance. He needs assist with transfers and ambulation. Rehab Potential: Fair PT Granite Worker Goals Granite Worker Goals PT Mcfp Goals Time Frame: Sep 22, 2021 Roll Left & Right (QC): 6 Sit to Lying (QC): 4 Lying-Sitting on Side/Bed(QC): 4 Sit to Stand (QC): 4 Chair/Ixd-vg-Wmwgh Xfer(QC): 4 Walk 10 feet (QC): 4 Walk 50ft with 2 Turns (QC): 4 Walk 150 ft (QC): 4 PT Plan Problem List Problem List: Activity Tolerance, Functional Strength, Safety, Balance, Gait, Transfer, Bed Mobility, ROM Treatment/Plan Treatment Plan: Continue Plan of Care Treatment Plan: Bed Mobility, Education, Functional Activity Shannon, Functional Strength, Gait, Safety, Therapeutic Exercise, Transfers Treatment Duration: Sep 22, 2021 Frequency: 6 times per week Estimated Hrs Per Day: .25 hour per day Patient and/or Family Agrees t: Yes Safety Risks/Education Patient Education: Gait Training, Transfer Techniques, Correct Positioning, Safety Issues Teaching Recipient: Patient Teaching Methods: Demonstration, Discussion Response to Teaching: Reinforcement Needed Discharge Recommendations Plan Patient will perform bed mobility and transfer training, balance and endurance training, functional strengthening, stair training, gait training, and education, to improve functional mobility and independence at home. Therapy Discharge Recommendati: Scheduled Assistance, Home & Family, Post Acute PT Time/GCodes Time In: 1305 Time Out: 1323 Total Billed Treatment Time: 18 Total Billed Treatment 1 visit LAURIE 18' ALFONZO GARCIA PT Sep 15, 2021 13:36
--- NOTE | 2021-09-15 13:36 | Occupational Therapy Eval ---
OT Evaluation-General/PLF Medical Diagnosis Admission Date Sep 14, 2021 at 20:39 Medical Diagnosis: Syncope episode Onset Date: Sep 15, 2021 Therapy Diagnosis Therapy Diagnosis: impaired balance, adls, vision, endurance, safety Height/Weight Height (Feet): 5 Height (Inches): 9 Weight (Pounds): 250 Precautions Precautions/Isolations: Seizure, Fall Prevention, Standard Precautions Safety Interventions: Bed Exit Alarm Referral Physician: macho Referral Reason: Evaluation/Treatment Medical History Pertinent Medical History: Atrial Fib, COPD, HTN Current History Pt presents to ER post syncopal episode. Per chart, pt had a seizure at [facility], fell, and hit his head. Per caregiver, pt had a seizure in shower and fell. Pt is a poor historian, confused. Caregiver reports he was indep with adls. He receives 7 hours per week for iadl assistance. He was not using a walker due to fear after falling over the top of his walker. Reviewed History: Yes Social History Home: Apartment Current Living Status: Alone Entry Into Home: Level Entry ADL-Prior Level of Function SCALE: Activities may be completed with or without assistive devices. 4-Huqjlfwwmi-lncaxwn completes the activity by him/herself with no assistance from a helper. 5-Set-up or Clean-up Assistance-helper sets up or cleans up; patient completes activity. [place] assists only prior to or following the activity. 4-Supervision or Touching Assistance-helper provides verbal cues and/or touching/steadying and/or contact guard assistance as patient completes activity. Assistance may be provided throughout the activity or intermittently. 3-Partial/Moderate Assistance-helper does LESS THAN HALF the effort. [place] lifts, holds or supports trunk or limbs, but provides less than half the effort. 2-Substantial/Maximal Assistance-helper does MORE THAN HALF the effort. [place] lifts or holds trunk or limbs and provides more than half the effort. 4-Aimohrkbe-kissui does ALL the effort. Patient does none of the effort to complete the activity. Or, the assistance of 2 or more helpers is required for the patient to complete the activity. If activity was not attempted, code reason: 7-Patient Refused. 9-Not Applicable-not attempted and the patient did not perform the activity before the current illness, exacerbation or injury. 10-Not Attempted due to Environmental Limitations-(lack of equipment, weather restraints, etc.). 88-Not Attempted due to Medical Conditions or Safety Concerns. Self Care: Independent Functional Cognition: Needed Some Help DME/Equipment: Tub/Shower Drive Self: No OT Current Status Subjective Pt reluctant to participate. Confused, requires extra time for processing. Appearance Returned to supine in bed with lunch tray in front. Caregiver in room. Mental Status/Objective Patient Orientation: Person, Confused Attachments: Ann Catheter, Telemetry Current Hand Dominance: Right Upper Extremity ROM Extra time to come to full range Upper Extremity Coordination impaired Upper Extremity Strength Difficulty following directions, unable to accurately assess Impaired tracking ADL-Treatment Lower Body Dressing (QC): 1 On/Off Footwear (QC): 1 Toileting Hygiene (QC): 1 (ann catheter) Supine>sit: CGA. Reduced sitting balance during functional tasks with pt falling back towards bed. No c/o dizziness upon sitting upright. Pt able to demonstrate ability to cross feet over contralateral knee however unable to complete task of donning socks due to impaired sequencing and comprehension. Pt often asking how to perform. Dep to don. Sit<>stand: min-mod A. He ambulated ~80 feet with min- mod A. Very unsteady on feet with poor safety awareness and obstacle avoidance. Needs mod-max a for management of walker, especially with turns. Appears to have some left sided neglect. Education OT Patient Education: Correct positioning, Instructions to caregiver, Progress toward Goal/Update tx plan, Purpose of tx/functional activities, Reviewed precautions, Safety issues, Transfer techniques Teaching Recipient: Patient Teaching Methods: Discussion Response to Teaching: Unable to Return Demonstration, Unable to Comprehend, Reinforcement Needed OT Fci Goals Fci Goals Time Frame: Oct 06, 2021 Oral Hygiene (QC): 5 Toileting Hygiene (QC): 4 Upper Body Dressing (QC): 4 Lower Body Dressing (QC): 4 On/Off Footwear (QC): 4 1=Demonstrate adherence to instructed precautions during ADL tasks. 2=Patient will verbalize/demonstrate understanding of assistive devices/modifications for ADL. 3=Patient will improve strength/tolerance for activity to enable patient to perform ADL's. OT Education/Plan Problem List/Assessment Assessment: Decreased Activ Tolerance, Decreased Safety Aware, Decreased UE Strength, Impaired Coordination, Impaired Funct Balance, Impaired Self-Care Skills, Visual-Perceptual Deficit Discharge Recommendations Plan/Recommendations: Continue POC Therapy Discharge Recommendati: Post Acute OT Treatment Plan/Plan of Care Treatment,Training & Education: Yes Patient would benefit from OT for education, treatment and training to promote independence in ADL's, mobility, safety and/or upper extremity function for ADL's. Plan of Care: ADL Retraining, Caregiver Training, Functional Mobility, Group Exercise/Act as Ind, UE Funct Exercise/Act, UE Neuromus Re-Ed/Coord, Visual/Perceptual Retrain Treatment Duration: Oct 06, 2021 Frequency: 5 times per week Estimated Hrs Per Day: .25 hour per day Time/GCodes Start Time: 13:05 Stop Time: 13:23 Total Time Billed (hr/min): 18 Billed Treatment Time 1 visit Ronda Ngo OT Sep 15, 2021 13:36
--- NOTE | 2021-09-15 13:49 | Consultation-Cardiology ---
HPI-Cardiology Cardiology Consultation Date of Consultation 09/15/21 Date of Admission Time Seen by Provider: 09:00 Indication: Atrial fibrillation HPI 60 years old gentleman with history of hypertension, transferred from urology emergency room, he is a poor historian, very questionable seizure episode while he was sitting in the edge of the bed. He was confused on arrival to the hospital, was in atrial fibrillation converted to sinus rhythm, had abnormal electrolytes with metabolic acidosis and all his lab improved today. On my evaluation he was laying down in bed comfortably, denied any active chest pain, complaining of generalized fatigue and weakness. 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, 09/13/18) Home Medication List Reviewed: Yes [id number] Hx Patient Social History Smoking Status: Current Everyday Smoker (Smoked 1.5 PPD for 50 years) Type Used: Cigarettes 2nd Hand Smoke Exposure: No Have you traveled recently?: No Alcohol Use?: No (Has not drank for 1 year.) Substance type: Marijuana (Former) Immunizations Up To Date Tetanus Booster (TDap): More than 5yrs Past Medical History Discussed with Family Medical History Significant Family History: Diabetes (Mom, brother, sister, son) Family Medical Hx Noncontributory Review of Systems-General Review of Systems Constitutional: No chills; malaise, weakness EENTM: see HPI, no symptoms reported Respiratory: see HPI, cough (Productive), short of breath Cardiovascular: see HPI; No chest pain, No palpitations Gastrointestinal: see HPI, abdominal pain; No constipation, No diarrhea, No nausea, No vomiting Genitourinary: no symptoms reported, see HPI Musculoskeletal: no symptoms reported, see HPI Skin: no symptoms reported, see HPI Psychiatric/Neurological: No Symptoms Reported, See HPI Reviewed Test Results Reviewed Test Results Lab Laboratory Tests Test 09/14/21 23:10 09/14/21 23:30 09/15/21 06:15 Range/Units White Blood Count 9.0 9.1 4.3-11.0 10^3/uL Red Blood Count 3.17 L 2.98 L 4.30-5.52 10^6/uL Hemoglobin 7.9 L 7.3 L 13.3-17.7 g/dL Hematocrit 24 L 23 L 40-54 % Mean Corpuscular Volume 76 L 77 L 80-99 fL Mean Corpuscular Hemoglobin 25 25 25-34 pg Mean Corpuscular Hemoglobin Concent 33 32 32-36 g/dL Red Cell Distribution Width 15.9 H 16.0 H 10.0-14.5 % Platelet Count 292 268 130-400 10^3/uL Mean Platelet Volume 8.4 L 8.3 L 9.0-12.2 fL Immature Granulocyte % (Auto) 1 1 % Neutrophils (%) (Auto) 79 H 71 42-75 % Lymphocytes (%) (Auto) 12 18 12-44 % Monocytes (%) (Auto) 8 9 0-12 % Eosinophils (%) (Auto) 0 0 0-10 % Basophils (%) (Auto) 0 0 0-10 % Neutrophils # (Auto) 7.1 6.4 1.8-7.8 10^3/uL Lymphocytes # (Auto) 1.1 1.7 1.0-4.0 10^3/uL Monocytes # (Auto) 0.7 0.8 0.0-1.0 10^3/uL Eosinophils # (Auto) 0.0 0.0 0.0-0.3 10^3/uL Basophils # (Auto) 0.0 0.0 0.0-0.1 10^3/uL Immature Granulocyte # (Auto) 0.1 0.1 0.0-0.1 10^3/uL Prothrombin Time 15.3 H 12.2-14.7 SEC INR Comment 1.2 0.8-1.4 Activated Partial Thromboplast Time 34 168 *H 24-35 SEC Sodium Level 131 L 131 L 135-145 MMOL/L Potassium Level 4.0 3.7 3.6-5.0 MMOL/L Chloride Level 104 104 98-107 MMOL/L Carbon Dioxide Level 18 L 20 L 21-32 MMOL/L Anion Gap 9 7 5-14 MMOL/L Blood Urea Nitrogen 29 H 23 H 7-18 MG/DL Creatinine 1.01 0.83 0.60-1.30 MG/DL Estimat Glomerular Filtration Rate 75 94 BUN/Creatinine Ratio 29 28 Glucose Level 108 H 89 70-105 MG/DL Calcium Level 7.9 L 7.7 L 8.5-10.1 MG/DL Corrected Calcium 8.7 8.7 8.5-10.1 MG/DL Total Bilirubin 0.2 0.2 0.1-1.0 MG/DL Aspartate Amino Transf (AST/SGOT) 26 24 5-34 U/L Alanine Aminotransferase (ALT/SGPT) 41 37 0-55 U/L Alkaline Phosphatase 65 63 40-136 U/L Total Protein 5.5 L 5.0 L 6.4-8.2 GM/DL Albumin 3.0 L 2.8 L 3.2-4.5 GM/DL Blood Gas Puncture Site LEFT ART LINE Blood Gas Patient Temperature 36.5 Arterial Blood pH 7.41 7.37-7.43 Arterial Blood Partial Pressure CO2 32 L 35-45 MMHG Arterial Blood Partial Pressure O2 158 H 79-93 MMHG Arterial Blood HCO3 20 L 23-27 MMOL/L Arterial Blood Total CO2 20.8 L 21.0-31.0 MMOL/L Arterial Blood Oxygen Saturation 100 94-100 % Arterial Blood Base Excess -4.2 L -2.5-2.5 MMOL/L Casey Test ART LINE Blood Gas Ventilator Setting NO Blood Gas Inspired Oxygen 4L Phosphorus Level 3.1 2.3-4.7 MG/DL Magnesium Level 1.8 1.6-2.4 MG/DL Physical Exam Physical Exam Vital Signs Vital Signs - First Documented 09/14/21 09/14/21 09/15/21 20:49 20:56 00:12 Temp 36.5 Pulse 65 Resp 12 B/P (MAP) 119/64 Pulse Ox 98 O2 Delivery Nasal Cannula O2 Flow Rate 4.00 FiO2 36 Capillary Refill : Height, Weight, BMI Height: 5'9" Weight: 250lbs. oz. 113.389600xp; 29.10 BMI Method:Stated General Appearance: No Apparent Distress, WD/WN Eyes: Bilateral Eye Normal Inspection, Bilateral Eye PERRL, Bilateral Eye EOMI HEENT: PERRL/EOMI, Moist Mucous Membranes; No Scleral Icterus (L), No Scleral Icterus (R) Neck: Normal Inspection, Non Tender; No Lymphadenopathy (L), No Lymphadenopathy (R) Respiratory: Chest Non Tender, Lungs Clear, Normal Breath Sounds, No Accessory Muscle Use, No Respiratory Distress Cardiovascular: Regular Rate, Rhythm (Had AFib yesterday. Sinus this morning.), No Edema, No Murmur, Normal Peripheral Pulses Gastrointestinal: Normal Bowel Sounds, Non Tender, Soft Back: Normal Inspection, No CVA Tenderness, No Vertebral Tenderness Extremity: Normal Capillary Refill, Normal Inspection, Non Tender, No Pedal Edema Neurologic/Psychiatric: Alert, Oriented x3, No Motor/Sensory Deficits, Normal Mood/Affect, snout puller II-XII Norm as Tested Skin: Normal Color, Warm/Dry Lymphatic: No Adenopathy (Head and neck) A/P-Cardiology Admission Diagnosis Syncope Paroxysmal atrial fibrillation Anemia Metabolic acidosis Assessment/Plan Syncope, questionable seizure episode, regained consciousness had another seizure-like episode during the emergency room stay. No further episodes were reported. Comfortable at this time. No new complaint Paroxysmal atrial fibrillation, converted to sinus rhythm while in the emergency room in [place]. Has been in sinus rhythm primary no further episodes of syncope [id number] score of 2, yearly risk of stroke without oral anticoagulation is 3%. Patient will need to be on oral anticoagulation to reduce the risk of stroke. At this time due to his significant anemia and concern about having an underlying GI loss. We will continue Lovenox and monitor Electrolyte imbalance with hyponatremia, metabolic acidosis, lactic acidosis. Improved. Work-up is in progress Anemia, managed by primary care physician Echocardiogram was done in September 15, 2021 showing normal LV size, ejection fraction 60%, normal PA pressure. YESICA ACEVEDO MD Sep 15, 2021 13:49
--- NOTE | 2021-09-15 15:51 | Consultation - Surgery ---
LEANDRA MCLEAN MED STUDENT 09/15/21 1550: History of Present Illness History of Present Illness Patient Consulted On(la nena/time) 09/15/21 15:43 Date Seen by Provider: Sep 15, 2021 Time Seen by Provider: 14:00 Reason for Visit: Atrial fibrillation History of Present Illness This is Zeus a 60 yo male with the chief complaint of afib RVR. Pt was laying in bed upon entering the room. Surgery was consulted for anemia. He fell at home yesterday and hit his head. Pt states that he lives alone but that a friend of his was sleeping on his couch and witnessed the event and was able to take him to [facility]. At [facility] he experienced new onset seizures and was taken to [facility] via EMS. Pt states that he has only had that one seizure and that he doesn't remember anything about the event. Pt is a very poor historian. His chief complaint was trouble swallowing that has been present for the last week. He has been unable to eat and has been drinking only milk and water during this time. Pt states that he has lost about 50 pound in the last couple weeks as a result. 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, 09/13/18) Patient Home Medication List Acetaminophen (Tylenol 8 Hour) 650 Mg Tablet.er, 1,300 MG PO Q8H PRN for PAIN- MILD (1-4), (Reported) Entered as Reported by: CAIO BUENO on 09/15/21 114 Last Action: Converted Albuterol Sulfate (Proair Hfa) 1 Puff Puff, 2 PUFF IH Q4H PRN for SHORTNESS OF BREATH, (Reported) Entered as Reported by: NILAM SETHI on 09/02/21 4405 Last Action: Continued Amitriptyline HCl (Amitriptyline HCl) 100 Mg Tablet, 100 MG PO HS, (Reported) Entered as Reported by: CAIO BUENO on 09/15/21 114 Last Action: Converted Atenolol (Atenolol) 50 Mg Tablet, 50 MG PO BID, (Reported) Entered as Reported by: CAIO BUENO on 11/1139 Last Action: Continued Cetirizine HCl (Cetirizine HCl) 10 Mg Tablet, 10 MG PO DAILY, (Reported) Entered as Reported by: CAIO BUENO on 09/15/211139 Last Action: Converted Clonazepam (Clonazepam) 0.5 Mg Tablet, 0.5 MG PO TID, (Reported) Entered as Reported by: CAIO BUENO on 09/15/211139 Last Action: Continued Fluoxetine HCl (Fluoxetine HCl) 40 Mg Capsule, 40 MG PO DAILY, (Reported) Entered as Reported by: CAIO BUENO on 09/15/211139 Last Action: Converted Fluticasone/Salmeterol (Advair 500-50 Diskus) 1 Each Blst.w.dev, 1 PUFF INH BID, (Reported) Entered as Reported by: CAIO BUENO on 09/15/211139 Last Action: Converted Furosemide (Lasix) 20 Mg Tablet, 20 MG PO 1400, (Reported) Entered as Reported by: Mallory Ewing on 08/23/211720 Last Action: Continued Lisinopril (Lisinopril) 10 Mg Tablet, 10 MG PO DAILY, (Reported) Entered as Reported by: Mallory Ewing on 08/23/211720 Last Action: Continued Naproxen (Naproxen) 250 Mg Tablet, 500 MG PO BID, (Reported) Entered as Reported by: CAIO BUENO on 09/15/211139 Last Action: Held Niacin (Niacin ER) 500 Mg Tab.er.24h, 500 MG PO HS, (Reported) Entered as Reported by: CAIO BUENO on 09/15/211139 Last Action: Continued Omeprazole (Omeprazole) 40 Mg Capsule.dr, 40 MG PO 1400, (Reported) Entered as Reported by: CAIO BUENO on 09/15/211139 Last Action: Converted Potassium Chloride (K-Tab ER) 10 Meq Tablet.er, 10 MEQ PO 1400, (Reported) Entered as Reported by: CAIO BUENO on 09/15/211139 Last Action: Continued Simvastatin (Simvastatin) 20 Mg Tablet, 20 MG PO HS, (Reported) Entered as Reported by: CAIO BUENO on 09/15/211139 Last Action: Continued Tiotropium [place] (Spiriva) 1 Inh Aerp, 1 INH IH 1400, (Reported) Entered as Reported by: NILAM SETHI on 09/02/21 1515 Last Action: Continued Zolpidem Tartrate (Zolpidem Tartrate) 5 Mg Tablet, 5 MG PO HS, (Reported) Entered as Reported by: CAIO BUENO on 09/15/21 1140 Last Action: Continued Discontinued Medications Atenolol (Tenormin 50 Mg) 50 Mg Tablet, 50 MG PO DAILY, (Reported) Discontinued Reason: Duplicate Order Entered as Reported by: MARVEL WILSON on 12/24/13 1142 Last Action: Discontinued Clonazepam (Clonazepam) 0.5 Mg Tab.rapdis, 0.5 MG PO TID, (Reported) Discontinued Reason: Duplicate Order Entered as Reported by: Mallory Ewing on 08/23/211720 Last Action: Discontinued Famotidine (Pepcid) 20 Mg Tablet, 20 MG PO BID Discontinued Reason: No Longer Taking Prescribed by: JU SAMANIEGO on 08/24/211114 Last Action: Discontinued Fluoxetine Hcl (Fluoxetine Hcl) 40 Mg Capsule, 40 MG PO DAILY, (Reported) Discontinued Reason: Duplicate Order Entered as Reported by: MARVEL WILSON on 12/24/13 1141 Last Action: Discontinued Fluticasone/Salmeterol (Advair 500 Mcg/50 Mcg 60's) 1 Disk Inhp, 1 PUFF INH BID, (Reported) Discontinued Reason: Duplicate Order Entered as Reported by: MARVEL WILSON on 12/24/13 1141 Last Action: Discontinued Naproxen Sodium (Anaprox Ds) 550 Mg Tablet, 250 MG PO BID, (Reported) Discontinued Reason: Duplicate Order Entered as Reported by: Mallory Ewing on 08/23/211720 Last Action: Discontinued Pantoprazole Sodium (Protonix) 40 Mg Tablet.dr, 40 MG PO DAILY Discontinued Reason: No Longer Taking Prescribed by: JU SAMANIEGO on 08/24/211114 Last Action: Discontinued Potassium Chloride (Potassium Chloride) 10 Meq Capsule.er, 10 MEQ PO DAILY, (Reported) Discontinued Reason: No Longer Taking Entered as Reported by: Mallory Ewing on 08/23/211720 Last Action: Discontinued Sucralfate (Sucralfate) 1 Gm Tablet, 1 GM PO BID Discontinued Reason: No Longer Taking Prescribed by: JU SAMANIEGO on 08/24/21 1115 Last Action: Discontinued Past Tgqrovp-Viwbjs-Bdlasq Hx Patient Social History Smoking Status: Former Smoker (1.5 packs for 50 years) Cigarettes Per Day: 30 Type Used: Cigarettes 2nd Hand Smoke Exposure: No Alcohol Use?: No (Has not drank for 1 year.) Substance type: Marijuana (Former) Have you traveled recently?: No Immunizations Up To Date Tetanus Booster (TDap): More than 5yrs Surgeries History of Surgeries: Yes (HERNIA) Surgeries: Abdominal (Inguinal hernia repair), Gallbladder, Tonsillectomy Respiratory History of Respiratory Disorde: Yes Respiratory Disorders: Asthma, COPD Cardiovascular History of Cardiac Disorders: Yes Cardiac Disorders: Atrial Fibrillation, High Cholesterol, Hypertension Neurological History of Neurological Disord: Yes Neurological Disorders: Seizure Disorder (new onset) Genitourinary History of Genitourinary Disor: No Gastrointestinal History of Gastrointestinal Di: Yes Gastrointestinal Disorders: Hiatal Hernia, Ulcer Musculoskeletal History of Musculoskeletal Dis: Yes Musculoskeletal Disorders: Gout Endocrine History of Endocrine Disorders: No (History of hypokalemia) HEENT History of HEENT Disorders: No Cancer History of Cancer: No Psychosocial History of Psychiatric Problem: Yes Behavioral Health Disorders: Anxiety, Depression Integumentary History of Skin or Integumenta: No Blood Transfusions History of Blood Disorders: No Adverse Reaction to a Blood Tr: No Family Medical History Significant Family History: Diabetes (Mom, brother, sister, son) Review of Systems-General Constitutional: No chills, No diaphoresis, No fever; weakness (primarily in his right leg); No weight gain; weight loss EENTM: blurred vision, throat pain; No ear pain, No double vision, No eye pain, No hoarseness Respiratory: cough; No hemoptysis; short of breath Cardiovascular: No chest pain, No Hx of Intervention, No palpitations Gastrointestinal: abdominal pain (diffuse), constipation (cannot recall when last BM was); No diarrhea, No hematemesis; loss of appetite, nausea, vomiting Genitourinary: No decreased output, No discharge, No dysuria, No frequency, No hematuria, No pain Musculoskeletal: No back pain, No joint pain, No muscle pain; muscle weakness; No neck pain Skin: No change in color, No lesions, No rash Psychiatric/Neurological: Denies Anxiety; Depressed, Numbness, Seizure, Other (neuropathy in right leg) Physical Exam-General Problems Physical Exam Vital Signs Vital Signs - First Documented 09/14/21 09/14/21 09/15/21 20:49 20:56 00:12 Temp 36.5 Pulse 65 Resp 12 B/P (MAP) 119/64 Pulse Ox 98 O2 Delivery Nasal Cannula O2 Flow Rate 4.00 FiO2 36 Capillary Refill : General Appearance: no apparent distress HEENT: PERRL/EOMI, pharynx normal Neck: non-tender, supple, normal inspection Respiratory: chest non-tender, no respiratory distress, no accessory muscle use, crackles (scattered fine crackles throughout ) Cardiovascular: normal peripheral pulses, regular rate, rhythm, no edema, no gallop, no murmur Gastrointestinal: non tender (non tender to palptation even though he stated he has diffuse abdominal pain/discomfort), soft Rectal: deferred Back: normal inspection, no CVA tenderness, no vertebral tenderness Extremities: normal inspection, no pedal edema, other (pain in right leg to palpation) Neurologic/Psychiatric: alert, oriented x 3 Skin: normal color, warm/dry Lymphatic: no adenopathy (cervical and supraclavicular) Data Review Labs Laboratory Tests 09/14/21 23:10: White Blood Count 9.0, Red Blood Count 3.17L, Hemoglobin 7.9L, Hematocrit 24L, Mean Corpuscular Volume 76L, Mean Corpuscular Hemoglobin 25, Mean Corpuscular Hemoglobin Concent 33, Red Cell Distribution Width 15.9H, Platelet Count 292, Mean Platelet Volume 8.4L, Immature Granulocyte % (Auto) 1, Neutrophils (%) (Auto) 79H, Lymphocytes (%) (Auto) 12, Monocytes (%) (Auto) 8, Eosinophils (%) (Auto) 0, Basophils (%) (Auto) 0, Neutrophils # (Auto) 7.1, Lymphocytes # (Auto) 1.1, Monocytes # (Auto) 0.7, Eosinophils # (Auto) 0.0, Basophils # (Auto) 0.0, Immature Granulocyte # (Auto) 0.1, Prothrombin Time 15.3H, INR Comment 1.2, Activated Partial Thromboplast Time 34, Sodium Level 131L, Potassium Level 4.0, Chloride Level 104, Carbon Dioxide Level 18L, Anion Gap 9, Blood Urea Nitrogen 29H, Creatinine 1.01, Estimat Glomerular Filtration Rate 75, BUN/Creatinine Ratio 29, Glucose Level 108H, Calcium Level 7.9L, Corrected Calcium 8.7, Total Bilirubin 0.2, Aspartate Amino Transf (AST/SGOT) 26, Alanine Aminotransferase (ALT/SGPT) 41, Alkaline Phosphatase 65, Total Protein 5.5L, Albumin 3.0L 09/14/21 23:30: Blood Gas Puncture Site LEFT ART LINE, Blood Gas Patient Temperature 36.5, Arterial Blood pH 7.41, Arterial Blood Partial Pressure CO2 32L, Arterial Blood Partial Pressure O2 158H, Arterial Blood HCO3 20L, Arterial Blood Total CO2 20.8L, Arterial Blood Oxygen Saturation 100, Arterial Blood Base Excess -4.2L, Casey Test ART LINE, Blood Gas Ventilator Setting NO, Blood Gas Inspired Oxygen 4L 09/15/21 06:15: White Blood Count 9.1, Red Blood Count 2.98L, Hemoglobin 7.3L, Hematocrit 23L, Mean Corpuscular Volume 77L, Mean Corpuscular Hemoglobin 25, Mean Corpuscular Hemoglobin Concent 32, Red Cell Distribution Width 16.0H, Platelet Count 268, Mean Platelet Volume 8.3L, Immature Granulocyte % (Auto) 1, Neutrophils (%) (Auto) 71, Lymphocytes (%) (Auto) 18, Monocytes (%) (Auto) 9, Eosinophils (%) (Auto) 0, Basophils (%) (Auto) 0, Neutrophils # (Auto) 6.4, Lymphocytes # (Auto) 1.7, Monocytes # (Auto) 0.8, Eosinophils # (Auto) 0.0, Basophils # (Auto) 0.0, Immature Granulocyte # (Auto) 0.1, Activated Partial Thromboplast Time 168*H, Sodium Level 131L, Potassium Level 3.7, Chloride Level 104, Carbon Dioxide Level 20L, Anion Gap 7, Blood Urea Nitrogen 23H, Creatinine 0.83, Estimat Glomerular Filtration Rate 94, BUN/Creatinine Ratio 28, Glucose Level 89, Calcium Level 7.7L, Corrected Calcium 8.7, Total Bilirubin 0.2, Aspartate Amino Transf (AST/SGOT) 24, Alanine Aminotransferase (ALT/SGPT) 37, Alkaline Phosphatase 63, Total Protein 5.0L, Albumin 2.8L, Phosphorus Level 3.1, Magnesium Level 1.8 Assessment/Plan Assessment/Plan Assessment/Plan Assessment: anemia- Hgb of 7.3 on 09/15 new onset seizures multifocal pneumonia difficulty swallowing Plan: monitor labs and symptoms of anemia continue antibiotics possible colonoscopy after prep MARLINE DOMINGUEZ DO 09/15/212126: History of Present Illness History of Present Illness Time Seen by Provider: 19:08 History of Present Illness Surgery asked to consult regarding Anemia. When I spoke to pt this evening he denied any abdominal pain. States he does not ever remember being told he was anemic previously and does not have any medical conditions that could cause anemia. He denied hematemesis, hematachezia and melena. He denies any hx of previous EGD or colonoscopy. 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, 09/13/18) Patient Home Medication List Home Medication List Reviewed: Yes Acetaminophen (Tylenol 8 Hour) 650 Mg Tablet.er, 1,300 MG PO Q8H PRN for PAIN- MILD (1-4), (Reported) Entered as Reported by: CAIO BUENO on 09/15/21 114 Last Action: Converted Albuterol Sulfate (Proair Hfa) 1 Puff Puff, 2 PUFF IH Q4H PRN for SHORTNESS OF BREATH, (Reported) Entered as Reported by: NILAM SETHI on 09/02/21 1515 Last Action: Continued Amitriptyline HCl (Amitriptyline HCl) 100 Mg Tablet, 100 MG PO HS, (Reported) Entered as Reported by: CAIO BUENO on 09/15/21 114 Last Action: Converted Atenolol (Atenolol) 50 Mg Tablet, 50 MG PO BID, (Reported) Entered as Reported by: CAIO BUENO on 09/15/21 114 Last Action: Continued Cetirizine HCl (Cetirizine HCl) 10 Mg Tablet, 10 MG PO DAILY, (Reported) Entered as Reported by: CAIO BUENO on 09/15/21 114 Last Action: Converted Clonazepam (Clonazepam) 0.5 Mg Tablet, 0.5 MG PO TID, (Reported) Entered as Reported by: CAIO BUENO on 09/15/211139 Last Action: Continued Fluoxetine HCl (Fluoxetine HCl) 40 Mg Capsule, 40 MG PO DAILY, (Reported) Entered as Reported by: CAIO BUENO on 09/15/211139 Last Action: Converted Fluticasone/Salmeterol (Advair 500-50 Diskus) 1 Each Blst.w.dev, 1 PUFF INH BID, (Reported) Entered as Reported by: CAIO BUENO on 09/15/211139 Last Action: Converted Furosemide (Lasix) 20 Mg Tablet, 20 MG PO 1400, (Reported) Entered as Reported by: Mallory Ewing on 08/23/211720 Last Action: Continued Lisinopril (Lisinopril) 10 Mg Tablet, 10 MG PO DAILY, (Reported) Entered as Reported by: Mallory Ewing on 08/23/211720 Last Action: Continued Naproxen (Naproxen) 250 Mg Tablet, 500 MG PO BID, (Reported) Entered as Reported by: CAIO BUENO on 09/15/211139 Last Action: Held Niacin (Niacin ER) 500 Mg Tab.er.24h, 500 MG PO HS, (Reported) Entered as Reported by: CAIO BUENO on 09/15/211139 Last Action: Continued Omeprazole (Omeprazole) 40 Mg Capsule.dr, 40 MG PO 1400, (Reported) Entered as Reported by: CAIO BUENO on 09/15/211139 Last Action: Converted Potassium Chloride (K-Tab ER) 10 Meq Tablet.er, 10 MEQ PO 1400, (Reported) Entered as Reported by: CAIO BUENO on 09/15/211139 Last Action: Continued Simvastatin (Simvastatin) 20 Mg Tablet, 20 MG PO HS, (Reported) Entered as Reported by: CAIO BUENO on 09/15/211139 Last Action: Continued Tiotropium [place] (Spiriva) 1 Inh Aerp, 1 INH IH 1400, (Reported) Entered as Reported by: NILAM SETHI on 09/02/21 1515 Last Action: Continued Zolpidem Tartrate (Zolpidem Tartrate) 5 Mg Tablet, 5 MG PO HS, (Reported) Entered as Reported by: CAIO BUENO on 09/15/211139 Last Action: Continued Discontinued Medications Atenolol (Tenormin 50 Mg) 50 Mg Tablet, 50 MG PO DAILY, (Reported) Discontinued Reason: Duplicate Order Entered as Reported by: MARVEL WILSON on 12/24/13 114 Last Action: Discontinued Clonazepam (Clonazepam) 0.5 Mg Tab.rapdis, 0.5 MG PO TID, (Reported) Discontinued Reason: Duplicate Order Entered as Reported by: Mallory Ewing on 08/23/211720 Last Action: Discontinued Famotidine (Pepcid) 20 Mg Tablet, 20 MG PO BID Discontinued Reason: No Longer Taking Prescribed by: JU SAMANIEGO on 08/24/211114 Last Action: Discontinued Fluoxetine Hcl (Fluoxetine Hcl) 40 Mg Capsule, 40 MG PO DAILY, (Reported) Discontinued Reason: Duplicate Order Entered as Reported by: MARVEL WILSON on 12/24/131140 Last Action: Discontinued Fluticasone/Salmeterol (Advair 500 Mcg/50 Mcg 60's) 1 Disk Inhp, 1 PUFF INH BID, (Reported) Discontinued Reason: Duplicate Order Entered as Reported by: MARVEL WILSON on 12/24/13 114 Last Action: Discontinued Naproxen Sodium (Anaprox Ds) 550 Mg Tablet, 250 MG PO BID, (Reported) Discontinued Reason: Duplicate Order Entered as Reported by: Mallory Ewing on 08/23/211720 Last Action: Discontinued Pantoprazole Sodium (Protonix) 40 Mg Tablet.dr, 40 MG PO DAILY Discontinued Reason: No Longer Taking Prescribed by: JU SAMANIEGO on 08/24/211114 Last Action: Discontinued Potassium Chloride (Potassium Chloride) 10 Meq Capsule.er, 10 MEQ PO DAILY, (Reported) Discontinued Reason: No Longer Taking Entered as Reported by: Mallory Ewing on 08/23/211720 Last Action: Discontinued Sucralfate (Sucralfate) 1 Gm Tablet, 1 GM PO BID Discontinued Reason: No Longer Taking Prescribed by: JU SAMANIEGO on 08/24/211114 Last Action: Discontinued Past [id number]-Hoqzlp-[id number] Hx Patient Social History Smoking Status: Former Smoker (1.5 packs for 50 years) Surgeries History of Surgeries: Yes Surgeries: Abdominal (hernia), Gallbladder, Tonsillectomy Respiratory History of Respiratory Disorde: Yes Respiratory Disorders: Asthma, COPD Cardiovascular History of Cardiac Disorders: Yes Cardiac Disorders: Atrial Fibrillation, High Cholesterol, Hypertension Neurological History of Neurological Disord: Yes Neurological Disorders: Seizure Disorder (new onset) Genitourinary History of Genitourinary Disor: No Gastrointestinal History of Gastrointestinal Di: Yes Gastrointestinal Disorders: Hiatal Hernia, Ulcer Musculoskeletal History of Musculoskeletal Dis: Yes Musculoskeletal Disorders: Gout Endocrine History of Endocrine Disorders: Yes (hyponatremia) HEENT History of HEENT Disorders: No Cancer History of Cancer: No Psychosocial History of Psychiatric Problem: Yes Behavioral Health Disorders: Anxiety, Depression Family Medical History Significant Family History: Diabetes Review of Systems-General Constitutional: No chills, No diaphoresis, No fever; weakness (primarily in his right leg), weight loss EENTM: blurred vision, throat pain; No ear pain, No double vision, No hoarseness Respiratory: cough; No hemoptysis; short of breath Cardiovascular: No chest pain, No Hx of Intervention; palpitations Gastrointestinal: abdominal pain (diffuse), constipation (cannot recall when last BM was); No diarrhea, No hematemesis; loss of appetite; No melena; nausea, vomiting Genitourinary: No decreased output, No discharge, No dysuria, No frequency, No hematuria Musculoskeletal: No back pain, No joint pain, No muscle pain; muscle weakness; No neck pain Skin: No change in color, No lesions, No rash Psychiatric/Neurological: Anxiety, Depressed, Headache; Denies Numbness; Seizure, Other (neuropathy in right leg, was confused this am) Physical Exam-General Problems Physical Exam General Appearance: WD/WN, no apparent distress Eyes: Bilateral Eye PERRL, Bilateral Eye EOMI HEENT: pharynx normal; No scleral icterus (R), No scleral icterus (L) Neck: non-tender, supple Respiratory: chest non-tender, no respiratory distress, no accessory muscle use, crackles (scattered fine crackles throughout ) Cardiovascular: normal peripheral pulses, regular rate, rhythm, no murmur Gastrointestinal: non tender (non tender to palptation even though he stated he has diffuse abdominal pain/discomfort), soft, no organomegaly Rectal: deferred Back: no CVA tenderness, no vertebral tenderness Extremities: normal inspection, no pedal edema Neurologic/Psychiatric: alert, oriented x 3 Skin: normal color, warm/dry Lymphatic: no adenopathy (cervical and supraclavicular) Assessment/Plan Assessment/Plan Assessment/Plan Assessment: Anemia- Hgb of 7.3 on 09/15 new onset seizures multifocal pneumonia difficulty swallowing Plan: Plan to start bowel prep tomorrow and do EGD and Colonoscopy on . Discussed procedure with pt; including risks and complications not limited to pain, bleeding, infection, even intestinal or esophageal perforation and need for further procedure. In the meantime will monitor labs and symptoms of anemia, continue antibiotics. Supervisory-Addendum Brief Verification & Attestation Participated in pt care: history, MDM, physical Personally performed: exam, history, MDM, supervision of care Care discussed with: Medical Student Procedures: n/a Verification and Attestation of Medical Student E/M Service A medical student performed and documented this service. I then reviewed and verified all information documented by the medical student and made modifications to such information, when appropriate. I personally performed a physical exam, medical decision making and then discussed any differences betwee n the notes and made revisions as necessary to create one note. Marline Dominguez , 09/15/21 , 21:32 LEANDRA MCLEAN MED STUDENT Sep 15, 2021 15:50 MARLINE DOMINGUEZ DO Sep 15, 2021 21:27
[2021-09-15] MEDS ORDERED: RT-ALBUTEROL SULF 2.5 MG/3 ML PRE-MIX VIAL IH PRN (21:00)
[2021-09-15] MEDS: AMITRIPTYLINE 50 MG (ELAVIL) TAB PO SCH (23:53)
[2021-09-15] MEDS: ZOLPIDEM 5 MG (AMBIEN) TAB PO SCH (23:54)
[2021-09-15] MEDS: SIMvastatin 20 MG (ZOCOR) TAB PO SCH (23:54)
[2021-09-15] MEDS: clonazePAM 0.5 MG (KlonoPIN) TAB PO SCH (23:54)
[2021-09-16] MEDS: ATENOLOL 50 MG (TENORMIN) TAB PO SCH ×3 (00:05→20:29)
[2021-09-16] MEDS: NIACIN ER (NIASPAN) 500 MG TAB PO SCH ×2 (00:06→20:28)
[2021-09-16] MEDS: ACYCLOVIR INJECTION 800 MG in NS (IVPB) 250 ML IV SCH (04:44)
[2021-09-16] MEDS: NS IV 1000 ML 1,000 ML IV SCH ×3 (04:44→17:50)
[2021-09-16 05:05] LABS: BASOPHILS % (AUTO) 0 % (0-10); EOSINOPHILS % (AUTO) 0 % (0-10); HEMATOCRIT 23 % (40-54); LYMPHOCYTES # (AUTO) 0.6 10^3/uL (1.0-4.0); LYMPHOCYTES % (AUTO) 16 % (12-44); MEAN CORPUSCULAR HEMOGLOBIN 24 pg (25-34); MEAN CORPUSCULAR HGB CONC 31 g/dL (32-36); MEAN CORPUSCULAR VOLUME 78 fL (80-99); MEAN PLATELET VOLUME 8.6 fL (9.0-12.2); MONOCYTES # (AUTO) 0.4 10^3/uL (0.0-1.0); MONOCYTES % (AUTO) 11 % (0-12); NEUTROPHILS # (AUTO) 2.8 10^3/uL (1.8-7.8); NEUTROPHILS % (AUTO) 72 % (42-75); PLATELET COUNT 231 10^3/uL (130-400); WHITE BLOOD COUNT 3.8 10^3/uL (4.3-11.0)
[2021-09-16 05:19] LABS: ALBUMIN 2.8 GM/DL (3.2-4.5); POTASSIUM 3.8 MMOL/L (3.6-5.0)
[2021-09-16 05:20] LABS: CALCIUM 7.8 MG/DL (8.5-10.1)
[2021-09-16 05:23] LABS: BILIRUBIN,TOTAL 0.3 MG/DL (0.1-1.0)
[2021-09-16 05:25] LABS: CREATININE SERUM 0.83 MG/DL (0.60-1.30)
[2021-09-16] MEDS: CEFEPIME INJECTION 1,000 MG in NS (IVPB) 50 ML IV SCH ×3 (06:16→17:51)
[2021-09-16] MEDS: PANTOPRAZOLE 40 MG (PROTONIX) TAB PO SCH ×2 (06:16→16:14)
[2021-09-16] MEDS ORDERED: CYANOCOBALAMIN INJ 1000 MCG/ML IM ONE (07:00)
[2021-09-16] MEDS ORDERED: IRON DEXTRAN INJECTION 1,000 MG in NS (IVPB) 250 ML IV ONE (07:00)
[2021-09-16] MEDS ORDERED: IRON DEXTRAN INJECTION 25 MG in NS (IVPB) 5.75 ML, SYRINGE-IVPB 1 SYRINGE IV ONE ×3 (07:00)
[2021-09-16] MEDS ORDERED: ACETAMINOPHEN 325 MG TABLET PO PRN (08:00)
[2021-09-16] MEDS ORDERED: TROUGH ORDER-PHARMACY XX ONE (08:00)
--- NOTE | 2021-09-16 08:56 | Physical Therapy Daily Note ---
PT Daily Note-Current Subjective Patient in bed pre tx, agrees to exercises in bed, has no complaints of pain. Encouraged patient to ambulate and he says "oh, no, no, no, not today". Educated patient on the importance of ambulation for strengthening and to work on his balance but he continued to refuse. Appearance Patient in bed post tx with nurse call, phone, tray, all needs met. Mental Status Patient Orientation: Person, Place, Situation Attachments: IV Transfers SCALE: Activities may be completed with or without assistive devices. 7-Cbmwpnwpti-pouudtm completes the activity by him/herself with no assistance from a helper. 5-Set-up or Clean-up Assistance-helper sets up or cleans up; patient completes activity. [place] assists only prior to or following the activity. 4-Supervision or Touching Assistance-helper provides verbal cues and/or touching/steadying and/or contact guard assistance as patient completes activity. Assistance may be provided throughout the activity or intermittently. 3-Partial/Moderate Assistance-helper does LESS THAN HALF the effort. [place] lifts, holds or supports trunk or limbs, but provides less than half the effort. 2-Substantial/Maximal Assistance-helper does MORE THAN HALF the effort. [place] lifts or holds trunk or limbs and provides more than half the effort. 0-Otzbtwsei-wcruhk does ALL the effort. Patient does none of the effort to complete the activity. Or, the assistance of 2 or more helpers is required for the patient to complete the activity. If activity was not attempted, code reason: 7-Patient Refused. 9-Not Applicable-not attempted and the patient did not perform the activity before the current illness, exacerbation or injury. 10-Not Attempted due to Environmental Limitations-(lack of equipment, weather restraints, etc.). 88-Not Attempted due to Medical Conditions or Safety Concerns. Exercises Supine Ex: Ankle pumps, Quad Set, Glut sets, Heel Slides, Straight leg raise, Hip abd/add Supine Reps: 20 Treatments LE exercise Assessment Current Status: Poor Progress Patient refused to get out of bed today PT Figure Model Goals Assisted Goals PT Assisted Goals Time Frame: Sep 22, 2021 Roll Left & Right (QC): 6 Sit to Lying (QC): 4 Lying-Sitting on Side/Bed(QC): 4 Sit to Stand (QC): 4 Chair/Hzv-pj-Ftxdu Xfer(QC): 4 Walk 10 feet (QC): 4 Walk 50ft with 2 Turns (QC): 4 Walk 150 ft (QC): 4 PT Plan Problem List Problem List: Activity Tolerance, Functional Strength, Safety, Balance, Gait, Transfer, Bed Mobility, ROM Treatment/Plan Treatment Plan: Continue Plan of Care Treatment Plan: Bed Mobility, Education, Functional Activity Shannon, Functional Strength, Gait, Safety, Therapeutic Exercise, Transfers Treatment Duration: Sep 22, 2021 Frequency: 6 times per week Estimated Hrs Per Day: .25 hour per day Patient and/or Family Agrees t: Yes Safety Risks/Education Patient Education: Correct Positioning, Safety Issues Teaching Recipient: Patient Teaching Methods: Demonstration, Discussion Response to Teaching: Reinforcement Needed Time/GCodes Time In: 0839 Time Out: 0849 Total Billed Treatment Time: 10 Total Billed Treatment 1 visit EX Papi' ALFONZO GARCIA PT Sep 16, 2021 08:55
--- NOTE | 2021-09-16 09:14 | Cardiology Progress Note ---
Subjective Date Seen by Provider: Sep 16, 2021 Time Seen by Provider: 08:35 Subjective/Events-last exam Zeus is lying in bed this morning, watching tv. He states that he is feeling slightly better, but still having complaints of fatigue. Denies any chest pain, tachycardia, palpitations, dyspnea, or edema. Pt is still unsure of what happened during his self-described seizures leading to his admission. Review of Systems General: Fatigue, Malaise HEENT: No Head Aches, No Visual Changes Pulmonary: No Dyspnea, No Cough Cardiovascular: No: Chest Pain, Palpitations, Edema Gastrointestinal: No: Nausea, Vomiting Objective-Cardiology Exam Last Set of Vital Signs Vital Signs 09/15/21 09/15/21 09/16/21 00:12 09:15 16:04 Temp 36.7 Pulse 64 Resp 18 B/P (MAP) 97/63 Pulse Ox 93 O2 Delivery Room Air O2 Flow Rate 4.00 FiO2 36 I&O Intake and Output 09/16/21 00:00 Intake Total 3812 ml Output Total 1725 ml Balance 2087 ml Intake Oral 690 ml IV Total 3122 ml Output Urine Total 1625 ml Oral Regurgitation 100 ml General: Alert, Oriented X3, Cooperative, No Acute Distress Neck: Supple Lungs: Clear to Auscultation, Normal Air Movement Heart: Regular Rate, Normal S1, Normal S2, No Murmurs Extremities: No Cyanosis, No Edema, Normal Pulses, No Tenderness/Swelling Psych/Mental Status: Mental Status NL Results Lab Laboratory Tests 09/16/21 04:00 A/P-Cardiology Admission Diagnosis Syncope Paroxysmal atrial fibrillation Anemia Metabolic acidosis Assessment/Plan Syncope - Self-reported seizure episode, regained consciousness had another seizure-like episode during the emergency room stay. - No further episodes during current admission - No complaints at this time Paroxysmal atrial fibrillation, - Return to to sinus rhythm after [facility] [place] [facility] - Stable in sinus rhythm - No further syncopal episodes during current admission Anemia - Oral anticoagulation needed for CHADS-VASC score of 2, will not start due to Hgb of 7.0 - Will continue Lovenox for upcoming EGD/Colonoscopy - Continue to monitor Electrolyte imbalance - Hyponatremia - Hypocalcemia - Metabolic acidosis - Mild improvement - Continue management with medical services Anemia - Managed by primary care physician - Stable at 7.0 Echocardiogram was done in September 15, 2021 showing normal LV size, ejection fraction 60%, normal PA pressure. Supervisory-Addendum Brief Verification & Attestation Participated in pt care: history, MDM, physical Personally performed: exam, history, MDM, supervision of care Care discussed with: Medical Student Procedures: n/a Results interpretation: Verified all documentation Verification and Attestation of Medical Student E/M Service A medical student performed and documented this service in my presence. I reviewed and verified all information documented by the medical student and made modifications to such information, when appropriate. I personally performed the physical exam and medical decision making. Patient was seen and evaluated, doing better at this time. No changes are recommended. Continue to monitor Yesica Servin, Sep 16, 2021,16:13 MARIEL ALCALA MED STUDENT Sep 16, 2021 09:14 YESICA SERVIN MD Sep 16, 2021 16:13
[2021-09-16] MEDS: LORATADINE (CLARITIN) 10 MG TAB PO SCH (09:46)
[2021-09-16] MEDS: SENNA W/DOCUSATE (SENOKOT S) TABLET PO SCH ×4 (09:46→20:27)
[2021-09-16] MEDS: lisINopril 10 MG (PRINIVIL) TABLET PO SCH (09:46)
[2021-09-16] MEDS: polyethylene glycoL POWDER 17 GM (MIRALAX) PACK PO SCH ×3 (09:48→20:28)
[2021-09-16] MEDS: clonazePAM 0.5 MG (KlonoPIN) TAB PO SCH ×3 (09:59→20:27)
[2021-09-16] MEDS: FLUoxetine HCL 20 MG (PROzac) CAP PO SCH (09:59)
--- NOTE | 2021-09-16 09:59 | Progress Note - Surgery ---
SUNITATRENT 09/16/21 0959: Subjective Date Seen by a Provider: Sep 16, 2021 Time Seen by a Provider: 07:53 Subjective/Events-last exam When I visited the pt today he was resting comfortably in bed, but very tired and grogy. Confirmed that he has not observed any blood in his stool nor vomiting any blood. He does state that he continues to have difficulty swallowing food and when he does it alonzo as it travels down and continues to burn in his stomach until he vomits up the food. At this time he has only been able to consume water. He was encouraged to consume as much of the bowel prep solution as possible for EGD and Colonoscopy scheduled for tomorrow. 09/17/2021 He states it has been at least a week since he was able to consume a normal meal. Hgb and protiens continue to trend down. Pt indicates that he understands. He has no other comlaints at this time. Review of Systems General: No Chills, No Night Sweats; Fatigue; No Appetite HEENT: No Head Aches; Dysphasia, Sore Throat Pulmonary: No Dyspnea; Cough; No Pleuritic Chest Pain Cardiovascular: No: Chest Pain, Palpitations, Edema Gastrointestinal: Nausea, Vomiting, Abdominal Pain ( - only after eating); No: Diarrhea, Melena, Hematochezia Genitourinary: No Dysuria, No Frequency Musculoskeletal: No: neck pain, shoulder pain, back pain, hand pain Neurological: No: Numbness, Change in speech, Confusion Objective Exam Vital Signs Date Time Temp Pulse Resp B/P (MAP) Pulse Ox O2 Delivery O2 Flow Rate FiO2 09/16/21 09:08 93 Room Air 09/16/21 07:00 80 09/16/21 04:07 36.8 78 18 110/66 93 Room Air 09/16/21 01:00 80 09/16/21 00:00 36.8 77 20 128/74 97 Room Air 09/15/21 22:00 94 Room Air 09/15/21 21:00 94 Room Air 09/15/21 20:00 36.4 73 20 117/58 96 Room Air 09/15/21 19:06 Room Air 09/15/21 19:00 70 09/15/21 16:00 36.4 76 20 111/54 94 Room Air 09/15/21 14:30 94 Room Air 09/15/21 13:00 75 09/15/21 11:25 37.0 I & O 09/16/21 06:59 Intake Total 4012 ml Output Total 1575 ml Balance 2437 ml Capillary Refill : General Appearance: No Apparent Distress, Chronically ill HEENT: PERRL/EOMI, Normal ENT Inspection, Pharynx Normal, Moist Mucous Membranes Neck: Full Range of Motion, Normal Inspection, Non Tender Respiratory: Chest Non Tender, Lungs Clear, Normal Breath Sounds, No Accessory Muscle Use, No Respiratory Distress Cardiovascular: Regular Rate, Rhythm, No Edema, No Gallop, No JVD, No Murmur, Normal Peripheral Pulses Gastrointestinal: non tender ( - pain only after consuming a meal), soft, no organomegaly, no pulsatile mass Extremity: Normal Capillary Refill, Normal Inspection, Normal Range of Motion, Non Tender, No Calf Tenderness, No Pedal Edema Neurologic/Psychiatric: Alert, Oriented x3, No Motor/Sensory Deficits, Normal Mood/Affect Skin: Normal Color, Warm/Dry Lymphatic: No Adenopathy (cervical and axillary) Results Lab Laboratory Tests 09/16/21 04:00: White Blood Count 3.8L, Red Blood Count 2.89L, Hemoglobin 7.0L, Hematocrit 23L, Mean Corpuscular Volume 78L, Mean Corpuscular Hemoglobin 24L, Mean Corpuscular Hemoglobin Concent 31L, Red Cell Distribution Width 15.9H, Platelet Count 231, Mean Platelet Volume 8.6L, Immature Granulocyte % (Auto) 1, Neutrophils (%) (Auto) 72, Lymphocytes (%) (Auto) 16, Monocytes (%) (Auto) 11, Eosinophils (%) (Auto) 0, Basophils (%) (Auto) 0, Neutrophils # (Auto) 2.8, Lymphocytes # (Auto) 0.6L, Monocytes # (Auto) 0.4, Eosinophils # (Auto) 0.0, Basophils # (Auto) 0.0, Immature Granulocyte # (Auto) 0.0, Sodium Level 132L, Potassium Level 3.8, Chloride Level 104, Carbon Dioxide Level 20L, Anion Gap 8, Blood Urea Nitrogen 13, Creatinine 0.83, Estimat Glomerular Filtration Rate 94, BUN/Creatinine Ratio 16, Glucose Level 92, Calcium Level 7.8L, Corrected Calcium 8.8, Total Bilirubin 0.3, Aspartate Amino Transf (AST/SGOT) 24, Alanine Aminotransferase (ALT/SGPT) 36, Alkaline Phosphatase 68, Total Protein 5.0L, Albumin 2.8L 09/16/21 09:00: Microbiology 09/14/21 MRSA Screen - Final, Complete MRSA not isolated Assessment/Plan Assessment/Plan Assessment/Plan Assessment: Anemia- Hgb of 7.3 on 09/15 new onset seizures multifocal pneumonia difficulty swallowing Plan: Plan to start bowel prep today and do EGD and Colonoscopy on . - monitor labs and symptoms of anemia, continue antibiotics. YOHAN FAJARDO DO 09/16/21 1444: Subjective Time Seen by a Provider: 12:13 Subjective/Events-last exam Pt seen and examined, no new complaints. States he has started his prep. Review of Systems General: No Chills; Fatigue Pulmonary: No Dyspnea; Cough; No Pleuritic Chest Pain Cardiovascular: No: Palpitations Gastrointestinal: Nausea, Vomiting, Abdominal Pain ( - only after eating); No: Hematochezia Genitourinary: No Dysuria, No Frequency Objective Exam General Appearance: No Apparent Distress, Chronically ill HEENT: PERRL/EOMI, Moist Mucous Membranes Respiratory: Lungs Clear, Normal Breath Sounds, No Accessory Muscle Use, No Respiratory Distress Cardiovascular: Regular Rate, Rhythm, No Murmur Gastrointestinal: non tender ( - pain only after consuming a meal), soft, no organomegaly Neurologic/Psychiatric: Alert, Oriented x3 Skin: Pallor Assessment/Plan Assessment/Plan Assessment/Plan Assessment: Anemia- Hgb of 7.3 on 09/15 new onset seizures multifocal pneumonia difficulty swallowing Plan: Plan to start bowel prep today and do EGD and Colonoscopy on . - monitor labs and symptoms of anemia, continue antibiotics. Supervisory-Addendum Brief Verification & Attestation Participated in pt care: history, MDM, physical Personally performed: exam, history, MDM, supervision of care Care discussed with: Medical Student Procedures: n/a Verification and Attestation of Medical Student E/M Service A medical student performed and documented this service. I then reviewed and verified all information documented by the medical student and made modifications to such information, when appropriate. I personally performed a physical exam, medical decision making and then discussed any differences between the notes and made revisions as necessary to create one note. Yohan Fajardo , 09/16/21 , 14:44 TRENT DORSEY Sep 16, 2021 09:59 YOHAN FAJARDO DO Sep 16, 2021 14:44
[2021-09-16] MEDS: FAMOTIDINE 20MG/2ML IV (PEPCID) IVP SCH ×2 (10:01→20:28)
--- NOTE | 2021-09-16 10:54 | Occupational Ther Daily Note ---
OT Current Status-Daily Note Subjective Pt still with some confusion, but able to follow instruction better this date. Appearance Returned to supine, all needs within reach. Mental Status/Objective Patient Orientation: Person, Confused ADL-Treatment Therapy Code Descriptions/Definitions Functional [place] Measure: 0=Not Assessed/NA 4=Minimal Assistance 1=Total Assistance 5=Supervision or Setup 2=Maximal Assistance 6=Modified [place] 3=Moderate Assistance 7=Complete IndependenceSCALE: Activities may be completed with or without assistive devices. 8-Lxypbhsxqn-fdnkdxi completes the activity by him/herself with no assistance from a helper. 5-Set-up or Clean-up Assistance-helper sets up or cleans up; patient completes activity. [place] assists only prior to or following the activity. 4-Supervision or Touching Assistance-helper provides verbal cues and/or touching/steadying and/or contact guard assistance as patient completes a ctivity. Assistance may be provided throughout the activity or intermittently. 3-Partial/Moderate Assistance-helper does LESS THAN HALF the effort. [place] lifts, holds or supports trunk or limbs, but provides less than half the effort. 2-Substantial/Maximal Assistance-helper does MORE THAN HALF the effort. [place] lifts or holds trunk or limbs and provides more than half the effort. 0-Ualtxhuug-kcphrs does ALL the effort. Patient does none of the effort to complete the activity. Or, the assistance of 2 or more helpers is required for the patient to complete the activity. If activity was not attempted, code reason: 7-Patient Refused. 9-Not Applicable-not attempted and the patient did not perform the activity before the current illness, exacerbation or injury. 10-Not Attempted due to Environmental Limitations-(lack of equipment, weather restraints, etc.). 88-Not Attempted due to Medical Conditions or Safety Concerns. Other Treatment Pt able to follow directions better this date. Improved tracking notable. Supine<>sit: min-mod a. Initially, fait+ sitting balance. With dynamic tasks, balance worsens. Returned to supine to complete UE exercises due to poor sitting balance without UE support. Several tactile cues to slow pace with all movements. Poor coordination notable, L >R. 10 x1 in all planes. Education OT Patient Education: Correct positioning, Exercise program, Modified ADL techniques, Purpose of tx/functional activities, Safety issues, Transfer techniques Teaching Recipient: Patient Teaching Methods: Demonstration, Discussion Response to Teaching: Verbalize Understanding, Reinforcement Needed OT Half-Way Goals Business Analyst Consultant Goals Time Frame: Oct 06, 2021 Oral Hygiene (QC): 5 Toileting Hygiene (QC): 4 Upper Body Dressing (QC): 4 Lower Body Dressing (QC): 4 On/Off Footwear (QC): 4 1=Demonstrate adherence to instructed precautions during ADL tasks. 2=Patient will verbalize/demonstrate understanding of assistive devices/modifications for ADL. 3=Patient will improve strength/tolerance for activity to enable patient to perform ADL's. OT Education/Plan Problem List/Assessment Assessment: Decreased Activ Tolerance, Decreased Safety Aware, Decreased UE Strength, Impaired Cognition, Impaired Coordination, Impaired Funct Balance, Impaired I ADL's, Impaired Self-Care Skills Discharge Recommendations Plan/Recommendations: Continue POC Treatment Plan/Plan of Care Treatment,Training & Education: Yes Patient would benefit from OT for education, treatment and training to promote independence in ADL's, mobility, safety and/or upper extremity function for ADL's. Plan of Care: ADL Retraining, Caregiver Training, Functional Mobility, Group Exercise/Act as Ind, UE Funct Exercise/Act, UE Neuromus Re-Ed/Coord, Visual/Perceptual Retrain Treatment Duration: Oct 06, 2021 Frequency: 5 times per week Estimated Hrs Per Day: .25 hour per day Rehab Potential: Fair Time/GCodes Start Time: 10:03 Stop Time: 10:17 Total Time Billed (hr/min): 14 Billed Treatment Time 1 visit EX Ronda Ortega OT Sep 16, 2021 10:54
[2021-09-16] MEDS: HYDROcodone/APAP 5 MG/325 MG (LORTAB) TAB PO PRN (11:35)
[2021-09-16] MEDS: LACTULOSE SYRUP 10GM/15ML (ENULOSE) 30ML UDC PO SCH ×2 (11:36→20:27)
[2021-09-16] MEDS ORDERED: BISACODYL 5 MG (DULCOLAX) TABLET PO SCH ×2 (12:00→15:00)
--- NOTE | 2021-09-16 13:23 | Progress Note - Hospitalist ---
IVONNE ZAVALA MED STUDENT 09/16/21 1323: Subjective HPI/CC On Admission Date Seen by Provider: Sep 16, 2021 Time Seen by Provider: 07:45 CC: AFIB with RVR new onset HPI: This is a 60yoWM who is chronically ill of Dr. Mckenna who presented to [facility] with AFIB with RVR, Pt was in need of transfer to [facility], empiric antibiotics will be initiated, and Hgb was noted to be decreased, Heparin was DC and Lovenox was initiated by Dr. Servin and Dr. Fajardo will be consulted for colonoscopy and EGD. He will be transferred to the fourth floor. Subjective/Events-last exam Mr Carrasco is sitting up in bed watching TV this morning. He does not appear to be in any discomfort. He is a poor historian and while he remembers he is in the hospital for a seizure he has no recollection of being told he is anemic and that a scope is planned for tomorrow. He is alert and oriented x3. He states boy t he is not in any pain this morning. He is currently receiving an iron transfusion. He states that he has not had a bowel movement since coming to the hospital. He will be starting bowel prep today though. He did complain of an episode of vomiting after eating this morning. He also states he has been coughing up a lot of phlegm. He does not have any concerns or questions this morning. He was seen by surgery and has EGD/Colonoscopy scheduled for tomorrow. Review of Systems General: No Chills, No Night Sweats, No Appetite HEENT: No Head Aches, No Visual Changes Pulmonary: Cough Cardiovascular: No: Chest Pain, Palpitations, Edema Gastrointestinal: Vomiting, Constipation; No: Nausea, Abdominal Pain, Diarrhea, Melena, Hematochezia Genitourinary: No Dysuria, No Hematuria Musculoskeletal: No: leg pain, foot pain Objective Exam Vital Signs Vital Signs Date Time Temp Pulse Resp B/P (MAP) Pulse Ox O2 Delivery O2 Flow Rate FiO2 09/16/21 09:08 93 Room Air 09/16/21 07:00 80 09/16/21 04:07 36.8 18 110/66 09/15/21 09:15 4.00 09/15/21 00:12 36 Capillary Refill : General Appearance: No Apparent Distress, WD/WN HEENT: PERRL/EOMI, Pharynx Normal Neck: Supple Respiratory: Chest Non Tender, Lungs Clear, No Accessory Muscle Use, No Respiratory Distress, Decreased Breath Sounds (Bilaterally), Other (Productive cough with clear sputum) Cardiovascular: Regular Rate, Rhythm, No Edema, No Murmur, Normal Peripheral Pulses Gastrointestinal: Normal Bowel Sounds, No Organomegaly, No Pulsatile Mass, Non Tender, Soft Rectal: Deferred Extremity: Non Tender, No Calf Tenderness, No Pedal Edema Neurologic/Psychiatric: Alert, Oriented x3 Skin: Normal Color, Warm/Dry Results/Procedures Lab Laboratory Tests 09/16/21 04:00 Patient resulted labs reviewed. Assessment/Plan Assessment and Plan Assess & Plan/Chief Complaint Pneumonia -Continue ABX -Still coughing up sputum, watch for any sign of worsening infection Anemia -Pt receiving Iron transfusion -If HGB continues to fall consider transfusion, currently now showing clinical signs of anemia -EGD/Colonoscopy tomorrow -Continue CBCs Hyponatremia -Fluid restriction Constipation -Bowel prep for colonoscopy started Supervisory-Addendum Brief Verification & Attestation Participated in pt care: history, physical Personally performed: exam, history Care discussed with: Medical Student Procedures: n/a n/a MERLYN RODRIGUEZ DO 09/17/21 0527: Subjective Subjective/Events-last exam Pt very debilitated Complaining of right knee and right hip pain so will get X-rays PT and OT think he is a rehab candidate Holding Lovenox and due to the falls he is just not a candidate and especially with the Hgb at 7.0 Receiving iron infusion NFED of 1000 mg Bowel regimen ordered Updated Dr. Servin Review of Systems General: Fatigue Musculoskeletal: leg pain Objective Exam General Appearance: No Apparent Distress, WD/WN, Chronically ill Respiratory: No Accessory Muscle Use, No Respiratory Distress, Decreased Breath Sounds (Bilaterally) Cardiovascular: Regular Rate, Rhythm Neurologic/Psychiatric: Alert, Oriented x3, Depressed Affect Assessment/Plan Assessment and Plan Assess & Plan/Chief Complaint Supportive care Scopes Inpatient rehab Iron infusion Supervisory-Addendum Brief Verification & Attestation Participated in pt care: history, MDM, physical Personally performed: exam, history, MDM, supervision of care Care discussed with: Medical Student Procedures: n/a Results interpretation: Verified all documentation Verification and Attestation of Medical Student E/M Service A medical student performed and documented this service in my presence. I reviewed and verified all information documented by the medical student and made modifications to such information, when appropriate. I personally performed the physical exam and medical decision making. Merlyn Rodriguez, Sep 17, 2021,05:27 IVONNE ZAVALA MED STUDENT Sep 16, 2021 13:23 MERLYN RODRIGUEZ DO Sep 17, 2021 05:27
[2021-09-16] MEDS: FUROSEMIDE 20 MG (LASIX) TAB PO SCH (13:49)
[2021-09-16] MEDS: KCL 10 MEQ TAB (MICRO K) PO SCH (13:49)
[2021-09-16] MEDS ORDERED: UMECLIDINIUM BROMIDE (INCRUSE ELLIPTA) 7'S IH SCH (14:00)
[2021-09-16] MEDS ORDERED: NON-FORMULARY MEDICATION 1 EA EA (Omeprazole 40 MG) PO SCH (14:00)
[2021-09-16] MEDS: RT--FLUTICASONE/SALMETEROL 232-14 (AIRDUO RespiCLICK) IH SCH ×2 (14:27→20:39)
--- NOTE | 2021-09-16 14:37 | Diagnostic Imaging Report ---
INDICATION: Pain. 2 views were obtained FINDINGS: There is moderate 3 compartment osteoarthritic change. There is no fracture or dislocation. No joint effusion. Soft tissues are unremarkable. IMPRESSION: Moderate 3 compartment osteoarthritic change. Dictated by: Dictated on workstation # [id number]
--- NOTE | 2021-09-16 17:08 | Diagnostic Imaging Report ---
HISTORY: Right hip pain. TECHNIQUE: Frontal view of the pelvis. Frontal and lateral views of the right hip. COMPARISON: None. FINDINGS: No acute fracture is seen in the pelvis or the right hip. Alignment appears normal. Joint spaces are generally preserved. Bilateral sacroiliac joints appear patent. IMPRESSION: 1. No acute osseous abnormality is seen in the pelvis or right hip. Dictated by: Dictated on workstation # [id number]
[2021-09-16] MEDS ORDERED: polyethylene glycoL Bowel Prep(MIRALAX) 238 GM PO SCH (18:00)
[2021-09-16] MEDS: AMITRIPTYLINE 50 MG (ELAVIL) TAB PO SCH (20:27)
[2021-09-16] MEDS: SIMvastatin 20 MG (ZOCOR) TAB PO SCH (20:27)
[2021-09-16] MEDS: ZOLPIDEM 5 MG (AMBIEN) TAB PO SCH (20:40)
[2021-09-17] VITALS (9 sets, daily range): BP systolic 82–120; BP diastolic 51–77
[2021-09-17] MEDS: CEFEPIME INJECTION 1,000 MG in NS (IVPB) 50 ML IV SCH ×4 (00:15→18:13)
[2021-09-17] MEDS: NS IV 1000 ML 1,000 ML IV SCH ×3 (02:00→16:45)
[2021-09-17 04:17] LABS: BASOPHILS % (AUTO) 0 % (0-10); EOSINOPHILS % (AUTO) 1 % (0-10); HEMATOCRIT 23 % (40-54); LYMPHOCYTES # (AUTO) 0.8 10^3/uL (1.0-4.0); LYMPHOCYTES % (AUTO) 24 % (12-44); MEAN CORPUSCULAR HEMOGLOBIN 24 pg (25-34); MEAN CORPUSCULAR HGB CONC 31 g/dL (32-36); MEAN CORPUSCULAR VOLUME 79 fL (80-99); MEAN PLATELET VOLUME 8.6 fL (9.0-12.2); MONOCYTES # (AUTO) 0.5 10^3/uL (0.0-1.0); MONOCYTES % (AUTO) 14 % (0-12); NEUTROPHILS # (AUTO) 2.1 10^3/uL (1.8-7.8); NEUTROPHILS % (AUTO) 61 % (42-75); PLATELET COUNT 182 10^3/uL (130-400); WHITE BLOOD COUNT 3.4 10^3/uL (4.3-11.0)
[2021-09-17 04:20] LABS: HEMOGLOBIN 6.9 g/dL (13.3-17.7)
[2021-09-17 04:29] LABS: ALBUMIN 2.7 GM/DL (3.2-4.5)
[2021-09-17 04:30] LABS: POTASSIUM 3.5 MMOL/L (3.6-5.0)
[2021-09-17 04:31] LABS: CALCIUM 7.9 MG/DL (8.5-10.1)
[2021-09-17 04:34] LABS: BILIRUBIN,TOTAL 0.2 MG/DL (0.1-1.0)
[2021-09-17 04:36] LABS: CREATININE SERUM 0.82 MG/DL (0.60-1.30)
[2021-09-17] MEDS: PANTOPRAZOLE 40 MG (PROTONIX) TAB PO SCH ×2 (05:07→16:45)
[2021-09-17] MEDS ORDERED: NS IV 500 ML 500 ML IV SCH (07:00)
[2021-09-17] MEDS: LORATADINE (CLARITIN) 10 MG TAB PO SCH (08:28)
[2021-09-17] MEDS: FLUoxetine HCL 20 MG (PROzac) CAP PO SCH (08:29)
[2021-09-17] MEDS: ATENOLOL 50 MG (TENORMIN) TAB PO SCH ×2 (08:29→19:44)
[2021-09-17] MEDS: SENNA W/DOCUSATE (SENOKOT S) TABLET PO SCH ×4 (08:29→19:44)
[2021-09-17] MEDS: LACTULOSE SYRUP 10GM/15ML (ENULOSE) 30ML UDC PO SCH ×2 (08:29→19:43)
[2021-09-17] MEDS: polyethylene glycoL POWDER 17 GM (MIRALAX) PACK PO SCH ×2 (08:29→19:43)
[2021-09-17] MEDS: clonazePAM 0.5 MG (KlonoPIN) TAB PO SCH ×3 (08:29→19:42)
[2021-09-17] MEDS: lisINopril 10 MG (PRINIVIL) TABLET PO SCH (08:30)
--- NOTE | 2021-09-17 08:30 | Cardiology Progress Note ---
Subjective Date Seen by Provider: Sep 17, 2021 Time Seen by Provider: 08:22 Subjective/Events-last exam Zeus is lying in bed this morning. He endorses continuing fatigue, L knee pain and R hip pain. Denies any chest pain, dyspnea, tachycardia, edema, or palpitations. He has completed bowel prep for EGD/Colonoscopy today. Review of Systems General: Fatigue, Malaise HEENT: No Head Aches, No Visual Changes Pulmonary: No Dyspnea, No Cough Cardiovascular: No: Chest Pain, Palpitations, Edema Gastrointestinal: No: Nausea, Vomiting Objective-Cardiology Exam Last Set of Vital Signs Vital Signs 09/15/21 09/17/21 09/17/21 00:12 11:30 11:59 Temp 36.2 Pulse 59 Resp 20 B/P (MAP) 101/64 Pulse Ox 95 O2 Delivery Room Air O2 Flow Rate 10 FiO2 36 I&O Intake and Output 09/17/21 00:00 Intake Total 2400 ml Output Total 3350 ml Balance -950 ml Intake Oral 2190 ml IV Total 210 ml Output Urine Total 3350 ml # Bowel Movements 4 General: Alert, Oriented X3, Cooperative, No Acute Distress Neck: Supple Lungs: Clear to Auscultation, Normal Air Movement Heart: Regular Rate, Normal S1, Normal S2, No Murmurs Extremities: No Cyanosis, No Edema, Normal Pulses, No Tenderness/Swelling Neuro: Normal Speech Psych/Mental Status: Mental Status NL Results Lab Laboratory Tests 09/17/21 04:08 A/P-Cardiology Admission Diagnosis Syncope Paroxysmal atrial fibrillation Anemia Metabolic acidosis Assessment/Plan Syncope - Self-reported seizure episode, regained consciousness had another seizure-like episode during the emergency room stay. - No further episodes during current admission - Complaints of L knee pain and R hip pain at this time, medical management Paroxysmal atrial fibrillation, - Return to to sinus rhythm after conversion, [facility] - Stable in sinus rhythm - No further syncopal episodes during current admission Anemia - Oral anticoagulation needed for CHADS-VASC score of 2, will not start due to Hgb of 7.0 - Will continue to hold Lovenox for upcoming EGD/Colonoscopy - Hgb of 6.9 today, despite transfusion of 1 unit yesterday - Transfusion ordered for today - FOBT positive - Planned EGD and Colonscopy today with Dr. Fajardo Electrolyte imbalance - Hyponatremia - Hypocalcemia, improved, normal corrected calcium - Hypokalemia, on Potassium Chloride supplement while taking Furosemide - Metabolic acidosis - Mild improvement - Continue management with medical services Echocardiogram was done in September 15, 2021 showing normal LV size, ejection fraction 60%, normal PA pressure. Supervisory-Addendum Brief Verification & Attestation Participated in pt care: history, MDM, physical Personally performed: exam, history, MDM, supervision of care Care discussed with: Medical Student Procedures: n/a Results interpretation: Verified all documentation Verification and Attestation of Medical Student E/M Service A medical student performed and documented this service in my presence. I reviewed and verified all information documented by the medical student and made modifications to such information, when appropriate. I personally performed the physical exam and medical decision making. Patient was seen at bedside laying down comfortably, no new complaint, still having generalized fatigue Blood transfusion x2 units today, monitor H&H He is scheduled for EGD Cannot tolerate anticoagulation at this time Yesica Servin, Sep 17, 2021,12:33 MARIEL ALCALA MED STUDENT Sep 17, 2021 08:30 YESICA SERVIN MD Sep 17, 2021 12:34
[2021-09-17] MEDS: FAMOTIDINE 20MG/2ML IV (PEPCID) IVP SCH (08:36)
--- NOTE | 2021-09-17 08:38 | Progress Note - Surgery ---
TRENT DORSEY 09/17/21 0838: Subjective Date Seen by a Provider: Sep 17, 2021 Time Seen by a Provider: 08:02 Subjective/Events-last exam When I visited the pt today he was resting comfortably in bed. He states that he is feeling okay, but does feel weak. He is able to sit up and use the bathroom as needed. He denies any difficulty breathing and has completed his bowel prep for the EGD and colonoscopy scheduled today. Review of Systems General: No Chills, No Night Sweats, No Fatigue; Malaise HEENT: No Head Aches, No Visual Changes; Other (odenophasia) Pulmonary: No Dyspnea; Cough; No Pleuritic Chest Pain Cardiovascular: Lt Headedness; No: Chest Pain, Palpitations, Edema Gastrointestinal: Abdominal Pain, Diarrhea; No: Nausea, Vomiting Genitourinary: No Dysuria, No Frequency, No Incontinence Musculoskeletal: leg pain, foot pain; No: neck pain, shoulder pain, back pain Neurological: Weakness; No: Numbness, Confusion, Seizures Objective Exam Vital Signs Date Time Temp Pulse Resp B/P (MAP) Pulse Ox O2 Delivery O2 Flow Rate FiO2 09/17/21 08:21 94 Room Air 09/17/21 07:41 37.2 69 18 121/71 91 Room Air 09/17/21 07:00 80 09/17/21 03:13 36.5 65 18 92/60 94 09/17/21 01:00 60 09/17/21 00:00 36.4 61 18 96/61 93 09/16/21 21:41 94 Room Air 09/16/21 20:54 95 Room Air 09/16/21 20:24 65 18 94/60 93 09/16/21 19:00 70 09/16/21 16:04 36.7 64 18 97/63 93 Room Air 09/16/21 14:27 91 Room Air 09/16/21 12:00 35.9 61 16 151/72 94 Room Air 09/16/21 09:08 93 Room Air 09/16/21 09:00 94 Room Air I & O 09/17/21 07:00 Intake Total 2100 ml Output Total 2750 ml Balance -650 ml Capillary Refill : General Appearance: No Apparent Distress, WD/WN, Chronically ill HEENT: PERRL/EOMI, Pharynx Normal, Moist Mucous Membranes Neck: Full Range of Motion, Non Tender, Supple Respiratory: Chest Non Tender, Lungs Clear, Normal Breath Sounds, No Accessory Muscle Use, No Respiratory Distress Cardiovascular: Regular Rate, Rhythm, No Edema, No Gallop, No Murmur, Normal Peripheral Pulses Peripheral Pulses: 2+ Radial Pulses (R), 2+ Radial Pulses (L) Gastrointestinal: normal bowel sounds, non tender ( - pain only after consuming a meal), soft, no organomegaly, no pulsatile mass Extremity: Normal Capillary Refill, Normal Range of Motion, Non Tender, No Calf Tenderness, No Pedal Edema Neurologic/Psychiatric: Alert, Oriented x3, No Motor/Sensory Deficits, Depressed Affect Skin: Warm/Dry, Pallor Lymphatic: No Adenopathy (cervical and axillary) Results Lab Laboratory Tests 09/16/21 09:00: Vitamin B12 Level 301 09/16/21 11:56: Glucometer 96 09/16/21 19:30: Stool Occult Blood Immunoassay POSITIVEH 09/17/21 04:08: White Blood Count 3.4L, Red Blood Count 2.87L, Hemoglobin 6.9*L, Hematocrit 23L, Mean Corpuscular Volume 79L, Mean Corpuscular Hemoglobin 24L, Mean Corpuscular Hemoglobin Concent 31L, Red Cell Distribution Width 16.0H, Platelet Count 182, Mean Platelet Volume 8.6L, Immature Granulocyte % (Auto) 1, Neutrophils (%) (Auto) 61, Lymphocytes (%) (Auto) 24, Monocytes (%) (Auto) 14H, Eosinophils (%) (Auto) 1, Basophils (%) (Auto) 0, Neutrophils # (Auto) 2.1, Lymphocytes # (Auto) 0.8L, Monocytes # (Auto) 0.5, Eosinophils # (Auto) 0.0, Basophils # (Auto) 0.0, Immature Granulocyte # (Auto) 0.0, Sodium Level 132L, Potassium Level 3.5L, Chloride Level 104, Carbon Dioxide Level 20L, Anion Gap 8, Blood Urea Nitrogen 7, Creatinine 0.82, Estimat Glomerular Filtration Rate 96, BUN/Creatinine Ratio 9, Glucose Level 88, Calcium Level 7.9L, Corrected Calcium 8.9, Total Bilirubin 0.2, Aspartate Amino Transf (AST/SGOT) 21, Alanine Aminotransferase (ALT/SGPT) 34, Alkaline Phosphatase 66, Total Protein 5.0L, Albumin 2.7L Microbiology 09/14/21 MRSA Screen - Final, Complete MRSA not isolated Assessment/Plan Assessment/Plan Assessment/Plan Assessment: Anemia- Hgb of 7.3 on 09/15 new onset seizures multifocal pneumonia difficulty swallowing Plan: Plan do EGD and Colonoscopy today - monitor labs and symptoms of anemia, continue antibiotics. YOHAN FAJARDO DO 09/17/21 1342: Subjective Time Seen by a Provider: 10:31 Subjective/Events-last exam Pt seen and examined, just prior to endo. He stated he was weak, but no other complaints. Did have a FOBT that was positive. Review of Systems General: No Chills, No Night Sweats; Fatigue, Malaise Pulmonary: No Dyspnea; Cough Cardiovascular: No: Chest Pain, Palpitations Gastrointestinal: Abdominal Pain, Diarrhea; No: Nausea, Vomiting Objective Exam General Appearance: No Apparent Distress, Chronically ill HEENT: PERRL/EOMI, Moist Mucous Membranes Respiratory: Lungs Clear, Normal Breath Sounds, No Accessory Muscle Use, No Respiratory Distress Cardiovascular: Regular Rate, Rhythm, No Murmur Gastrointestinal: non tender ( - pain only after consuming a meal), soft, no organomegaly, no pulsatile mass Neurologic/Psychiatric: Depressed Affect Skin: Pallor Assessment/Plan Assessment/Plan Assessment/Plan Assessment: Anemia- Hgb of 7.3 on 09/15 new onset seizures multifocal pneumonia difficulty swallowing Plan: Plan do EGD and Colonoscopy today - monitor labs and symptoms of anemia, continue antibiotics. Supervisory-Addendum Brief Verification & Attestation Participated in pt care: history, MDM, physical Personally performed: exam, history, MDM, supervision of care Care discussed with: Medical Student Procedures: n/a Verification and Attestation of Medical Student E/M Service A medical student performed and documented this service. I then reviewed and verified all information documented by the medical student and made modifications to such information, when appropriate. I personally performed a ph ysical exam, medical decision making and then discussed any differences between the notes and made revisions as necessary to create one note. Yohan Fajardo , 09/17/21 , 13:41 TRENT DORSEY Sep 17, 2021 08:38 YOHAN FAJARDO DO Sep 17, 2021 13:42
--- NOTE | 2021-09-17 10:11 | Occupational Ther Daily Note ---
OT Current Status-Daily Note Subjective Pt reports pain as 7/10 in L wrist and Aron legs. RN notified. Appearance Returned to supine in bed, all needs within reach, RN notified. Mental Status/Objective Patient Orientation: Person, Confused Attachments: Moore Catheter, IV, Telemetry ADL-Treatment Therapy Code Descriptions/Definitions Functional [place] Measure: 0=Not Assessed/NA 4=Minimal Assistance 1=Total Assistance 5=Supervision or Setup 2=Maximal Assistance 6=Modified [place] 3=Moderate Assistance 7=Complete IndependenceSCALE: Activities may be completed with or without assistive devices. 1-Jqvkcqlcwm-eobpfey completes the activity by him/herself with no assistance from a helper. 5-Set-up or Clean-up Assistance-helper sets up or cleans up; patient completes activity. [place] assists only prior to or following the activity. 4-Supervision or Touching Assistance-helper provides verbal cues and/or touch ing/steadying and/or contact guard assistance as patient completes activity. Assistance may be provided throughout the activity or intermittently. 3-Partial/Moderate Assistance-helper does LESS THAN HALF the effort. Kathleen lifts, holds or supports trunk or limbs, but provides less than half the effort. 2-Substantial/Maximal Assistance-helper does MORE THAN HALF the effort. Kathleen lifts or holds trunk or limbs and provides more than half the effort. 1-Wnztypsxc-mvfmii does ALL the effort. Patient does none of the effort to complete the activity. Or, the assistance of 2 or more helpers is required for the patient to complete the activity. If activity was not attempted, code reason: 7-Patient Refused. 9-Not Applicable-not attempted and the patient did not perform the activity before the current illness, exacerbation or injury. 10-Not Attempted due to Environmental Limitations-(lack of equipment, weather restraints, etc.). 88-Not Attempted due to Medical Conditions or Safety Concerns. Toileting Hygiene (QC): 2 Toilet Transfer (QC): 3 Pt supine at therapy arrival. Reports urgency to have BM. Able to sit EOB with CGA. Slight improvement in sitting balance observed this date. Sit<>stand: min- mod a for initial boost. Pt ambulated ~3-4 feet to/from commode. Unsteady on feet, min-mod a for balance. Cues for walker management. Pt able to stand from commode with CGA-min A. Dep for andrew care secondary to needing BUE support to maintain balance. He was able to return to supine with CGA. Education OT Patient Education: Correct positioning, Progress toward Goal/Update tx plan, Purpose of tx/functional activities, Safety issues, Transfer techniques Teaching Recipient: Patient Teaching Methods: Discussion Response to Teaching: Return Demonstration, Reinforcement Needed OT Phlebotomy Supervisor Goals Phlebotomy Supervisor Goals Time Frame: Oct 06, 2021 Oral Hygiene (QC): 5 Toileting Hygiene (QC): 4 Upper Body Dressing (QC): 4 Lower Body Dressing (QC): 4 On/Off Footwear (QC): 4 1=Demonstrate adherence to instructed precautions during ADL tasks. 2=Patient will verbalize/demonstrate understanding of assistive devices/modifications for ADL. 3=Patient will improve strength/tolerance for activity to enable patient to perform ADL's. OT Education/Plan Problem List/Assessment Assessment: Decreased Activ Tolerance, Decreased Safety Aware, Decreased UE Strength, Impaired Cognition, Impaired Coordination, Impaired Funct Balance, Impaired I ADL's, Impaired Self-Care Skills Discharge Recommendations Plan/Recommendations: Continue POC Treatment Plan/Plan of Care Treatment,Training & Education: Yes Patient would benefit from OT for education, treatment and training to promote independence in ADL's, mobility, safety and/or upper extremity function for ADL's. Plan of Care: ADL Retraining, Caregiver Training, Functional Mobility, Group Exercise/Act as Ind, UE Funct Exercise/Act, UE Neuromus Re-Ed/Coord, Visual/Perceptual Retrain Treatment Duration: Oct 06, 2021 Frequency: 5 times per week Estimated Hrs Per Day: .25 hour per day Rehab Potential: Fair Time/GCodes Start Time: 09:20 Stop Time: 09:32 Total Time Billed (hr/min): 12 Billed Treatment Time 1 visit ADL Ronda Ortega OT Sep 17, 2021 10:11
[2021-09-17] MEDS ORDERED: HURRICAINE EXT TUBE (BENZOCAINE) XX PRN (10:15)
[2021-09-17] MEDS ORDERED: LACTATED RINGERS 1,000 ML IV STA (10:15)
--- NOTE | 2021-09-17 10:19 | Physical Therapy Daily Note ---
PT Daily Note-Current Subjective Patient reluctantly agrees to PT. Mental Status Patient Orientation: Normal For Age Attachments: Moore Catheter, IV Transfers SCALE: Activities may be completed with or without assistive devices. 3-Cqczdvwszx-ijvnysy completes the activity by him/herself with no assistance from a helper. 5-Set-up or Clean-up Assistance-helper sets up or cleans up; patient completes activity. [place] assists only prior to or following the activity. 4-Supervision or Touching Assistance-helper provides verbal cues and/or touching/steadying and/or contact guard assistance as patient completes activity. Assistance may be provided throughout the activity or intermittently. 3-Partial/Moderate Assistance-helper does LESS THAN HALF the effort. [place] lifts, holds or supports trunk or limbs, but provides less than half the effort. 2-Substantial/Maximal Assistance-helper does MORE THAN HALF the effort. [place] lifts or holds trunk or limbs and provides more than half the effort. 8-Seavvtsnr-mwgkjc does ALL the effort. Patient does none of the effort to complete the activity. Or, the assistance of 2 or more helpers is required for the patient to complete the activity. If activity was not attempted, code reason: 7-Patient Refused. 9-Not Applicable-not attempted and the patient did not perform the activity before the current illness, exacerbation or injury. 10-Not Attempted due to Environmental Limitations-(lack of equipment, weather restraints, etc.). 88-Not Attempted due to Medical Conditions or Safety Concerns. Lying to Sitting/Side of Bed(Q: 6 Sit to Stand (QC): 4 Chair/Tif-az-Gdiby Xfer(QC): 4 Gait Training Does the Patient Walk?: Yes Distance: 300' Walk 10 feet (QC): 4 Walk 50 ft with 2 Turns(QC): 4 Walk 150 ft (QC): 4 Gait Assistive Device: FWW steady gait sequence with increase c/o right knee pain with activity. Assessment Patient to receive PRBC on this date. Up in recliner with needs met. Increase activity as tolerated by patient. PT Group Home Goals Soccer Referee Goals PT Soccer Referee Goals Time Frame: Sep 22, 2021 Roll Left & Right (QC): 6 Sit to Lying (QC): 4 Lying-Sitting on Side/Bed(QC): 4 Sit to Stand (QC): 4 Chair/Nqs-qz-Orlgk Xfer(QC): 4 Walk 10 feet (QC): 4 Walk 50ft with 2 Turns (QC): 4 Walk 150 ft (QC): 4 PT Plan Treatment/Plan Treatment Plan: Continue Plan of Care Treatment Plan: Bed Mobility, Education, Functional Activity Shannon, Functional Strength, Gait, Safety, Therapeutic Exercise, Transfers Treatment Duration: Sep 22, 2021 Frequency: 6 times per week Estimated Hrs Per Day: .25 hour per day Patient and/or Family Agrees t: Yes Time/GCodes Time In: 950 Time Out: 959 Total Billed Treatment Time: 9 Total Billed Treatment 1 visit FA 9 min DANNIE PRETTY PT Sep 17, 2021 10:19
[2021-09-17] MEDS ORDERED: PROPOFOL INJECTION 50 ML IV ONE (10:28)
[2021-09-17] MEDS ORDERED: KETAMINE SYRINGE 50 MG/5 ML SYRINGE ONE (10:28)
[2021-09-17] MEDS ORDERED: MIDAZOLAM 2 MG/2 ML (VERSED) VIAL ONE (10:28)
--- NOTE | 2021-09-17 11:39 | Anesthesia-General Post-Op ---
MAC Patient Condition Mental Status/LOC: Same as Preop Cardiovascular: Satisfactory Nausea/Vomiting: Absent Respiratory: Satisfactory Pain: Controlled Complications: Absent Post Op Complications Complications None Follow Up Care/Instructions Patient Instructions None needed. Anesthesiology Discharge Order Discharge Order Patient is doing well, no complaints, stable vital signs, no apparent adverse anesthesia problems. SUELLEN SAUCEDA DO Sep 17, 2021 11:39
--- NOTE | 2021-09-17 13:57 | Progress Note-Post Operative ---
Post-Operative Progess Note Surgeon (s)/Freight Receiver (s) Surgeon MARLINE DOMINGUEZ DO Freight Receiver: Hernán Orellana, MSIII Pre-Operative Diagnosis dysphagia/GERD, anemia Post-Operative Diagnosis Esophagitis Gastritis Hiatal hernia Polyp int hemorrhoids poor prep Procedure & Operative Findings Date of Procedure 09/17/21 Procedure Performed/Findings EGD with biopsy Colonoscopy with cold biopsy PROCEDURE NOTE: After informed consent was obtained, the patient was brought to the endoscopy suite, placed in bed in left lateral decubitus position. He was administered IV sedation by the FOOD SCIENCE PROFESSOR who then monitored vitals the entire time, heart rate, blood pressure and pulse ox and the scope was inserted down the mouth through the esophagus into the stomach. On the way down, noted some changes at the GE junction and took a picture. Pushed into the stomach and noted some gastritis, pushed past the antrum where there appeared to be some more inflamation and into the duodenum. Duodenum looked good. Pulled back and saw inflammation at antrum; however Dr. Siegel apparently just did EGD and bx. I then retroflexed the scope, saw 1-2cm hiatal hernia, took a picture of this and then pulled the scope into the GE junction. Saw what looked like a polyp took a picture and then did a biopsy of this polyp at GE junction. Pushed the scope back into the stomach, suctioned all the air out of the stomach. I did not see any ulcers, which also apparently were seen during last EGD. At this point pulled the scope up the esophagus and out the mouth. Switched camera, switched gloves, went down below, started the colonoscopy. Pushed all the way into about 160 cm to get all the way to cecum; unfortunately pt had a lot of retained liquid feces and large fecal pieces. Couldn't take a picture of the appendiceal orifice because it was covered by fecal material. did note the ileocecal valve and then slowly withdrew the scope, insufflating to look circumferentially at the lama starting at the cecum, up the ascending colon to the hepatic flexure, then down the transverse colon, splenic flexure and into the descending colon. Saw a polyp and did a cold biopsy. Then continued down into the sigmoid and finally into the rectum, retroflexed in the rectal vault again full of fecal material also saw some minimal internal hemorrhoids and took a picture of this. I did not see any bleeding or large mass, but could have missed something because of retained fecal material. Probably needs a repeat colonoscopy in a year. The patient tolerated the procedure and he recovered in the endoscopy suite. Anesthesia Type IV sedation by FOOD SCIENCE PROFESSOR Estimated Blood Loss Estimated blood loss (mL): scant Specimens/Packing Specimens Removed GE bx of mass Descending colon polyp MARLINE DOMINGUEZ DO Sep 17, 2021 13:57
[2021-09-17] MEDS: HYDROcodone/APAP 5 MG/325 MG (LORTAB) TAB PO PRN (14:01)
[2021-09-17] MEDS: KCL 10 MEQ TAB (MICRO K) PO SCH (14:01)
[2021-09-17] MEDS: FUROSEMIDE 20 MG (LASIX) TAB PO SCH (14:01)
--- NOTE | 2021-09-17 14:16 | Progress Note - Hospitalist ---
IVONNE ZAVALA MED STUDENT 09/17/21 1416: Subjective HPI/CC On Admission Date Seen by Provider: Sep 17, 2021 Time Seen by Provider: 08:10 CC: AFIB with RVR new onset HPI: This is a 60yoWM who is chronically ill of Dr. Mckenna who presented to [facility] with AFIB with RVR, Pt was in need of transfer to [facility], empiric antibiotics will be initiated, and Hgb was noted to be decreased, Heparin was DC and Lovenox was initiated by Dr. Servin and Dr. Fajardo will be consulted for colonoscopy and EGD. He will be transferred to the fourth floor. Subjective/Events-last exam Pt is lying in bed this morning and watching TV. He states that he is doing alright with pain and is not worse today that it is usually for him. He does have a scope scheduled for later in the day. Surgeon states after completion that he saw "minimal internal hemorrhoids and took a picture of this. Did not see any bleeding or large mass, but couldhave missed something because of retained fecal material. Probably needs a repeat colonoscopy in a year." He had been NPO/Bowel prep and been having lots of bowel movements. No blood as far as he could tell in BM. No problems urinating. Not nausea or vomiting. States that he denied PT yesterday. He does not have any other concerns or questions. Still continuing with abx. Is still coughing up some phlegm. Review of Systems General: No Chills, No Night Sweats HEENT: Head Aches; No Visual Changes Pulmonary: No Dyspnea; Cough Cardiovascular: No: Chest Pain, Palpitations, Edema Gastrointestinal: Diarrhea (Bowel Prep); No: Nausea, Vomiting, Abdominal Pain, Constipation, Melena, Hematochezia Genitourinary: No Dysuria, No Frequency Objective Exam Vital Signs Vital Signs Date Time Temp Pulse Resp B/P (MAP) Pulse Ox O2 Delivery O2 Flow Rate FiO2 09/17/21 13:25 36.7 63 18 116/77 93 Room Air 09/17/21 11:30 10 09/15/21 00:12 36 Capillary Refill : General Appearance: No Apparent Distress, WD/WN HEENT: Pharynx Normal, Moist Mucous Membranes Neck: Supple Respiratory: Chest Non Tender, Lungs Clear, Normal Breath Sounds, No Accessory Muscle Use, No Respiratory Distress, Other (productive cough with clear sputum) Cardiovascular: Regular Rate, Rhythm, No Edema, No Murmur, Normal Peripheral Pulses Gastrointestinal: Normal Bowel Sounds, No Organomegaly, No Pulsatile Mass, Non Tender, Soft Rectal: Deferred Extremity: Normal Capillary Refill, Normal Inspection, Non Tender, No Calf Tenderness, No Pedal Edema Neurologic/Psychiatric: Alert, Oriented x3, Normal Mood/Affect Skin: Normal Color, Warm/Dry Results/Procedures Lab Laboratory Tests 09/17/21 04:08 Patient resulted labs reviewed. Assessment/Plan Assessment and Plan Assess & Plan/Chief Complaint Pneumonia -Continue ABX -Still coughing up sputum, watch for any sign of worsening infection Anemia -Pt received transfusion 1 unit today -Recheck CBC -EGD/Colonoscopy showed some internal hemorrhoids but no obvious bleeding -Continue CBCs Hyponatremia -Fluid restriction Hypokalemia -KCl supplementation Supervisory-Addendum Brief Verification & Attestation Participated in pt care: history, physical Personally performed: exam, history Care discussed with: Medical Student Procedures: n/a n/a MERLYN RODRIGUEZ DO 09/18/21 0518: Subjective Subjective/Events-last exam Pt doing okay Hgb 6.9 requiring one unit of blood Scopes today revealed no evidence of any type of source Finished Infed iron infusion yesterday Review of Systems General: Fatigue, Malaise Objective Exam General Appearance: No Apparent Distress, WD/WN Respiratory: Lungs Clear Cardiovascular: Regular Rate, Rhythm Neurologic/Psychiatric: Alert, Oriented x3 Assessment/Plan Assessment and Plan Assess & Plan/Chief Complaint Monitor hemoglobin Supervisory-Addendum Brief Verification & Attestation Participated in pt care: history, MDM, physical Personally performed: exam, history, MDM, supervision of care Care discussed with: Medical Student Procedures: n/a Results interpretation: Verified all documentation Verification and Attestation of Medical Student E/M Service A medical student performed and documented this service in my presence. I reviewed and verified all information documented by the medical student and made modifications to such information, when appropriate. I personally performed the physical exam and medical decision making. Merlyn Rodriguez, Sep 18, 2021,05:18 IVONNE ZAVALA MED STUDENT Sep 17, 2021 14:16 MERLYN RODRIGUEZ DO Sep 18, 2021 05:18
[2021-09-17] MEDS: UMECLIDINIUM BROMIDE (INCRUSE ELLIPTA) 7'S IH SCH (14:38)
[2021-09-17] MEDS: RT--FLUTICASONE/SALMETEROL 232-14 (AIRDUO RespiCLICK) IH SCH ×2 (14:38→21:51)
[2021-09-17] MEDS: morphine INJ 4 MG/ML 1 ML (VIAL/SYRINGE) IVP PRN (15:36)
[2021-09-17 17:03] LABS: HEMOGLOBIN 9.3 g/dL (13.3-17.7)
[2021-09-17] MEDS: SIMvastatin 20 MG (ZOCOR) TAB PO SCH (19:42)
[2021-09-17] MEDS: FAMOTIDINE 20 MG (PEPCID) TABLET PO SCH (19:42)
[2021-09-17] MEDS: ZOLPIDEM 5 MG (AMBIEN) TAB PO SCH (19:42)
[2021-09-17] MEDS: AMITRIPTYLINE 50 MG (ELAVIL) TAB PO SCH (19:43)
[2021-09-17] MEDS: NIACIN ER (NIASPAN) 500 MG TAB PO SCH (19:43)
[2021-09-18] MEDS: HYDROcodone/APAP 5 MG/325 MG (LORTAB) TAB PO PRN ×5 (00:13→23:00)
[2021-09-18] MEDS: NS IV 1000 ML 1,000 ML IV SCH ×2 (00:13→10:07)
[2021-09-18] MEDS: CEFEPIME INJECTION 1,000 MG in NS (IVPB) 50 ML IV SCH ×2 (00:13→05:17)
[2021-09-18 04:22] LABS: BASOPHILS % (AUTO) 1 % (0-10); EOSINOPHILS % (AUTO) 1 % (0-10); HEMATOCRIT 29 % (40-54); HEMOGLOBIN 8.9 g/dL (13.3-17.7); LYMPHOCYTES # (AUTO) 0.7 10^3/uL (1.0-4.0); LYMPHOCYTES % (AUTO) 19 % (12-44); MEAN CORPUSCULAR HEMOGLOBIN 25 pg (25-34); MEAN CORPUSCULAR HGB CONC 31 g/dL (32-36); MEAN CORPUSCULAR VOLUME 80 fL (80-99); MEAN PLATELET VOLUME 10.3 fL (9.0-12.2); MONOCYTES # (AUTO) 0.3 10^3/uL (0.0-1.0); MONOCYTES % (AUTO) 10 % (0-12); NEUTROPHILS # (AUTO) 2.3 10^3/uL (1.8-7.8); NEUTROPHILS % (AUTO) 68 % (42-75); PLATELET COUNT 190 10^3/uL (130-400); WHITE BLOOD COUNT 3.4 10^3/uL (4.3-11.0)
[2021-09-18 04:38] LABS: ALBUMIN 2.7 GM/DL (3.2-4.5); POTASSIUM 3.3 MMOL/L (3.6-5.0)
[2021-09-18 04:39] LABS: CALCIUM 7.7 MG/DL (8.5-10.1)
[2021-09-18 04:42] LABS: BILIRUBIN,TOTAL 0.4 MG/DL (0.1-1.0)
[2021-09-18 04:44] LABS: CREATININE SERUM 0.78 MG/DL (0.60-1.30)
[2021-09-18 04:47] LABS: MAGNESIUM 1.4 MG/DL (1.6-2.4)
[2021-09-18] MEDS: PANTOPRAZOLE 40 MG (PROTONIX) TAB PO SCH ×2 (05:17→17:24)
[2021-09-18] MEDS ORDERED: KCL 20 MEQ TAB (K-DUR) PO NR (07:00)
[2021-09-18] MEDS: clonazePAM 0.5 MG (KlonoPIN) TAB PO SCH ×3 (08:44→20:17)
[2021-09-18] MEDS: FLUoxetine HCL 20 MG (PROzac) CAP PO SCH (08:44)
[2021-09-18] MEDS: LORATADINE (CLARITIN) 10 MG TAB PO SCH (08:44)
[2021-09-18] MEDS: FAMOTIDINE 20 MG (PEPCID) TABLET PO SCH ×2 (08:44→20:17)
[2021-09-18] MEDS: lisINopril 10 MG (PRINIVIL) TABLET PO SCH (08:44)
[2021-09-18] MEDS: polyethylene glycoL POWDER 17 GM (MIRALAX) PACK PO SCH ×2 (09:01→20:18)
--- NOTE | 2021-09-18 09:02 | Progress Note - Surgery ---
SUNITATRENT 09/18/21 0902: Subjective Date Seen by a Provider: Sep 18, 2021 Time Seen by a Provider: 08:13 Subjective/Events-last exam Pt was resting comfortably in bed when I visited him today. He was eating breakfast, and states that he is not having any upper gastric pain or dysphasia at this time. His only complaint today is MSK pain from his LLE - with muscle fasciculation. - I performed muscle energy OMT which gave him some relief & modest improvement of muscle fasciculation. I suggested that we need him to be up and moving some more today. Review of Systems General: No Chills, No Night Sweats; Fatigue, Appetite HEENT: No Head Aches, No Visual Changes, No Dysphasia, No Sore Throat Pulmonary: No Dyspnea; Cough; No Pleuritic Chest Pain Cardiovascular: Edema; No: Chest Pain, Palpitations, Orthopnea, Lt Headedness Gastrointestinal: No: Nausea, Vomiting, Abdominal Pain, Diarrhea, Melena, Hematochezia Genitourinary: No Dysuria, No Frequency, No Incontinence Musculoskeletal: leg pain; No: neck pain, shoulder pain, back pain Neurological: Weakness; No: Numbness, Confusion, Seizures Objective Exam Vital Signs Date Time Temp Pulse Resp B/P (MAP) Pulse Ox O2 Delivery O2 Flow Rate FiO2 09/18/21 07:59 36.2 67 20 128/73 91 Room Air 09/18/21 07:00 63 09/18/21 04:00 36.2 97 18 119/70 95 Room Air 09/18/21 01:00 61 09/18/21 00:18 36.1 78 19 130/68 97 Room Air 09/17/21 20:33 94 Room Air 09/17/21 19:12 36.6 98 18 109/70 93 Room Air 09/17/21 19:08 60 09/17/21 15:52 36.6 62 16 120/75 93 Room Air 09/17/21 15:47 36.6 75 16 120/75 93 Room Air 09/17/21 14:38 90 Room Air 09/17/21 13:25 36.7 63 18 116/77 93 Room Air 09/17/21 13:10 36.0 76 20 111/71 93 Room Air 09/17/21 13:00 66 09/17/21 12:55 36.0 76 20 111/71 94 Room Air 09/17/21 11:59 36.2 59 20 101/64 95 Room Air 09/17/21 11:35 80 18 94 Room Air 09/17/21 11:30 85 18 90 OxyMask 10 09/17/21 11:25 87 18 92 OxyMask 10 09/17/21 10:20 36.9 75 16 120/62 96 Room Air 09/17/21 09:55 36.8 78 16 116/65 99 Room Air I & O 09/18/21 07:00 Intake Total 1910 ml Output Total 3500 ml Balance -1590 ml Capillary Refill : General Appearance: No Apparent Distress, WD/WN HEENT: PERRL/EOMI, Normal ENT Inspection, Pharynx Normal, Moist Mucous Membranes Neck: Full Range of Motion, Non Tender, Supple Respiratory: Chest Non Tender, Lungs Clear, Normal Breath Sounds, No Accessory Muscle Use, No Respiratory Distress Cardiovascular: Regular Rate, Rhythm, No Gallop, No Murmur, Normal Peripheral Pulses Peripheral Pulses: 2+ Radial Pulses (R), 2+ Radial Pulses (L) Gastrointestinal: normal bowel sounds, non tender, soft, no organomegaly, no pulsatile mass Extremity: Normal Capillary Refill, Normal Inspection, Normal Range of Motion, Non Tender, No Calf Tenderness, No Pedal Edema Neurologic/Psychiatric: Alert, Oriented x3, Normal Mood/Affect Skin: Normal Color, Warm/Dry Lymphatic: No Adenopathy (cervical and axillary) Results Lab Laboratory Tests 09/17/21 16:55: Hemoglobin 9.3#L, Hematocrit 29L 09/18/21 04:05: Hemoglobin 8.9L, Hematocrit 29L, White Blood Count 3.4L, Red Blood Count 3.59L, Mean Corpuscular Volume 80, Mean Corpuscular Hemoglobin 25, Mean Corpuscular Hemoglobin Concent 31L, Red Cell Distribution Width 15.6H, Platelet Count 190, Mean Platelet Volume 10.3, Immature Granulocyte % (Auto) 1, Neutrophils (%) (Auto) 68, Lymphocytes (%) (Auto) 19, Monocytes (%) (Auto) 10, Eosinophils (%) (Auto) 1, Basophils (%) (Auto) 1, Neutrophils # (Auto) 2.3, Lymphocytes # (Auto) 0.7L, Monocytes # (Auto) 0.3, Eosinophils # (Auto) 0.0, Basophils # (Auto) 0.0, Immature Granulocyte # (Auto) 0.0, Sodium Level 137, Potassium Level 3.3L, Chloride Level 106, Carbon Dioxide Level 22, Anion Gap 9, Blood Urea Nitrogen 4L , Creatinine 0.78, Estimat Glomerular Filtration Rate 101, BUN/Creatinine Ratio 5, Glucose Level 85, Calcium Level 7.7L, Corrected Calcium 8.7, Magnesium Level 1.4L, Total Bilirubin 0.4, Aspartate Amino Transf (AST/SGOT) 22, Alanine Aminotransferase (ALT/SGPT) 37, Alkaline Phosphatase 112, Total Protein 5.0L, Albumin 2.7L Microbiology 09/16/21 MRSA Screen - Final, Complete MRSA not isolated Assessment/Plan Assessment/Plan Assessment/Plan Assessment: Anemia- Hgb of 7.3 on 09/15 new onset seizures - focal seizure? multifocal pneumonia difficulty swallowing Plan: Completed EGD and Colonoscopy yesterday - no obvious bleeding Supportive care PT&OT Neurology consult - monitor labs and symptoms of anemia, continue antibiotics. Cardiology also following YOHAN FAJARDO DO 09/18/21 1220: Subjective Time Seen by a Provider: 10:05 Subjective/Events-last exam Pt seen and examined, sitting up in chair in NAD. Pt without any complaints Review of Systems General: Fatigue Pulmonary: No Dyspnea; Cough; No Pleuritic Chest Pain Cardiovascular: Edema; No: Chest Pain, Palpitations Gastrointestinal: No: Nausea, Vomiting, Abdominal Pain, Melena, Hematochezia Musculoskeletal: leg pain Neurological: Weakness; No: Numbness, Seizures Objective Exam General Appearance: No Apparent Distress, Obese HEENT: PERRL/EOMI, Moist Mucous Membranes Respiratory: Lungs Clear, Normal Breath Sounds, No Accessory Muscle Use Cardiovascular: Regular Rate, Rhythm, No Murmur Gastrointestinal: non tender, soft, no organomegaly Extremity: No Pedal Edema Neurologic/Psychiatric: Alert, Oriented x3 Assessment/Plan Assessment/Plan Assessment/Plan Anemia- improved after transfusion New onset seizures - focal seizure?, nothing seen on MRI Multifocal pneumonia Difficulty swallowing Plan: Completed EGD and Colonoscopy yesterday - no obvious bleeding Supportive care PT&OT Neurology consult - monitor labs and symptoms of anemia, continue antibiotics. Cardiology also following Supervisory-Addendum Brief Verification & Attestation Participated in pt care: history, MDM, physical Personally performed: exam, history, MDM, supervision of care Care discussed with: Medical Student Procedures: n/a Verification and Attestation of Medical Student E/M Service A medical student performed and documented this service. I then reviewed and verified all information documented by the medical student and made modifications to such information, when appropriate. I personally performed a physical exam, medical decision making and then discussed any differences between the notes and made revisions as necessary to create one note. Yohan Fajardo , 09/18/21 , 12:20 TRENT DORSEY Sep 18, 2021 09:02 YOHAN FAJARDO DO Sep 18, 2021 12:20
[2021-09-18] MEDS: LACTULOSE SYRUP 10GM/15ML (ENULOSE) 30ML UDC PO SCH ×2 (09:11→20:18)
[2021-09-18] MEDS: ATENOLOL 50 MG (TENORMIN) TAB PO SCH ×2 (09:12→23:27)
[2021-09-18] MEDS: SENNA W/DOCUSATE (SENOKOT S) TABLET PO SCH ×4 (09:12→20:18)
--- NOTE | 2021-09-18 10:09 | Physical Therapy Daily Note ---
PT Daily Note-Current Subjective Patient reluctantly agrees to PT. Pain Numeric Pain Scale: 10-Worst Possible Pain Location: Right Location Body Site: Hip Pain Description: Sharp Comment: with pain medication issued Mental Status Patient Orientation: Normal For Age Attachments: Central Line, Moore Catheter Transfers SCALE: Activities may be completed with or without assistive devices. 3-Zcniuyndjl-mlftjpa completes the activity by him/herself with no assistance from a helper. 5-Set-up or Clean-up Assistance-helper sets up or cleans up; patient completes activity. Emden assists only prior to or following the activity. 4-Supervision or Touching Assistance-helper provides verbal cues and/or touching/steadying and/or contact guard assistance as patient completes activity. Assistance may be provided throughout the activity or intermittently. 3-Partial/Moderate Assistance-helper does LESS THAN HALF the effort. Emden lifts, holds or supports trunk or limbs, but provides less than half the effort. 2-Substantial/Maximal Assistance-helper does MORE THAN HALF the effort. Emden lifts or holds trunk or limbs and provides more than half the effort. 1-Ieumlxaje-eosjvn does ALL the effort. Patient does none of the effort to complete the activity. Or, the assistance of 2 or more helpers is required for the patient to complete the activity. If activity was not attempted, code reason: 7-Patient Refused. 9-Not Applicable-not attempted and the patient did not perform the activity before the current illness, exacerbation or injury. 10-Not Attempted due to Environmental Limitations-(lack of equipment, weather restraints, etc.). 88-Not Attempted due to Medical Conditions or Safety Concerns. Lying to Sitting/Side of Bed(Q: 6 Sit to Stand (QC): 4 (SBA) Chair/Edf-gk-Etefw Xfer(QC): 4 (SBA) Gait Training Distance: 300' Walk 10 feet (QC): 4 (SBA) Walk 50 ft with 2 Turns(QC): 4 (SBA) Walk 150 ft (QC): 4 (SBA) Gait Assistive Device: FWW steady, antalgic gait due to right hip pain Exercises Seated Therapy Exercises: Long arc quads Seated Reps: 2 (patient ceased exercises due to pain) Assessment Patient ceased session due to right hip pain. RN is aware. PT to increase activity as tolerated and allowed by patient. PT Physician Office Specialist Goals Physician Office Specialist Goals PT Jail Goals Time Frame: Sep 22, 2021 Roll Left & Right (QC): 6 Sit to Lying (QC): 4 Lying-Sitting on Side/Bed(QC): 4 Sit to Stand (QC): 4 Chair/Abv-yf-Vsvtv Xfer(QC): 4 Walk 10 feet (QC): 4 Walk 50ft with 2 Turns (QC): 4 Walk 150 ft (QC): 4 PT Plan Treatment/Plan Treatment Plan: Continue Plan of Care Treatment Plan: Bed Mobility, Education, Functional Activity Shannon, Functional Strength, Gait, Safety, Therapeutic Exercise, Transfers Treatment Duration: Sep 22, 2021 Frequency: 6 times per week Estimated Hrs Per Day: .25 hour per day Patient and/or Family Agrees t: Yes Time/GCodes Time In: 933 Time Out: 947 Total Billed Treatment Time: 14 Total Billed Treatment 1 visit FA 14 min DANNIE PRETTY PT Sep 18, 2021 10:09
--- NOTE | 2021-09-18 10:39 | Cardiology Progress Note ---
Subjective Date Seen by Provider: Sep 18, 2021 Time Seen by Provider: 10:36 Subjective/Events-last exam Patient was seen at bedside, laying down comfortably, still having generalized body ache Review of Systems General: No Chills, No Night Sweats; Fatigue, Malaise; No Appetite, No Other HEENT: No Head Aches, No Visual Changes, No Eye Pain, No Ear Pain, No Dysphasia, No Sinus Congestion, No Post Nasal Drip, No Sore Throat, No Other Pulmonary: No Dyspnea, No Cough, No Pleuritic Chest Pain, No Other Cardiovascular: No: Chest Pain, Palpitations, Orthopnea, Paroxysmal Noc. Dyspnea, Edema, Lt Headedness, Other Objective-Cardiology Exam Last Set of Vital Signs Vital Signs 09/15/21 09/17/21 09/18/21 09/18/21 00:12 11:30 07:59 09:00 Temp 36.2 Pulse 67 Resp 20 B/P (MAP) 128/73 Pulse Ox 94 O2 Delivery Room Air O2 Flow Rate 10 FiO2 36 I&O Intake and Output 09/18/21 00:00 Intake Total 1910 ml Output Total 2500 ml Balance -590 ml Intake Oral 200 ml IV Total 1710 ml Output Urine Total 2500 ml # Voids 3 # Bowel Movements 4 General: Alert, Oriented X3, Cooperative, No Acute Distress Neck: Supple Lungs: Clear to Auscultation, Normal Air Movement Heart: Regular Rate, Normal S1, Normal S2, No Murmurs Extremities: No Cyanosis, No Edema, Normal Pulses, No Tenderness/Swelling Neuro: Normal Speech, Strength at 5/5 X4 Ext Psych/Mental Status: Mental Status NL Results Lab Laboratory Tests 09/17/21 16:55 09/18/21 04:05 A/P-Cardiology Admission Diagnosis Syncope Paroxysmal atrial fibrillation Anemia Metabolic acidosis Assessment/Plan Syncope, reported having seizure episode, had another seizure-like episode during the emergency room stay. No further episodes noted on this admission. Managed by primary care team Left knee and hip pain, x-ray did not show any acute abnormality, managed by primary care team Paroxysmal atrial fibrillation, converted to sinus rhythm in [facility] emergency ro om, has been in sinus rhythm, no further episodes were noted during this admission Anemia, GI bleed, endoscopy showed esophagitis and gastritis in addition to polyp, no identified active bleeding. Received another 2 units of packed RBCs on September 17, 2021, H&H are better. Continue to monitor Patient will be unable to tolerate oral anticoagulation due to the significant blood loss while on anticoagulation. Echocardiogram was done in September 15, 2021 showing normal LV size, ejection fraction 60%, normal PA pressure. YESICA ACEVEDO MD Sep 18, 2021 10:39
[2021-09-18] MEDS: RT--FLUTICASONE/SALMETEROL 232-14 (AIRDUO RespiCLICK) IH SCH ×2 (12:53→20:43)
[2021-09-18] MEDS: UMECLIDINIUM BROMIDE (INCRUSE ELLIPTA) 7'S IH SCH (12:53)
[2021-09-18] MEDS: KCL 10 MEQ TAB (MICRO K) PO SCH (13:01)
[2021-09-18] MEDS: FUROSEMIDE 20 MG (LASIX) TAB PO SCH (13:01)
--- NOTE | 2021-09-18 13:32 | Progress Note - Hospitalist ---
IVONNE ZAVALA MED STUDENT 09/18/21 1332: Subjective HPI/CC On Admission Date Seen by Provider: Sep 18, 2021 Time Seen by Provider: 08:15 CC: AFIB with RVR new onset HPI: This is a 60yoWM who is chronically ill of Dr. Mckenna who presented to [facility] with AFIB with RVR, Pt was in need of transfer to [facility], empiric antibiotics will be initiated, and Hgb was noted to be decreased, Heparin was DC and Lovenox was initiated by Dr. Servin and Dr. Fajardo will be consulted for colonoscopy and EGD. He will be transferred to the fourth floor. Subjective/Events-last exam Mr moreno is being interviewed by surgery student this morning when I walk in. He advised be that he had performed some OMT on Mr. moreno due to his leg, foot and hip pain and that he seemed to have gotten some relief out of it. Mr moreno states that his chronic pains are a bit worse than they usually are this morning and that he does not remember when he got his last dose of pain meds. He states that his throat hurts when he swallows, likely due to EGD previous day. But he has been able to eat and has had no nausea or vomiting. He also states that he had a bowel movement and no pain or bleeding with urination or BM. He denied PT yesterday and states that he does not really want to get out of his chair today due to pain. Discussed with patient going to group home. Review of Systems General: No Chills, No Night Sweats HEENT: Head Aches; No Visual Changes, No Ear Pain; Dysphasia Pulmonary: No Dyspnea, No Cough, No Pleuritic Chest Pain Cardiovascular: No: Chest Pain, Palpitations, Edema Gastrointestinal: No: Nausea, Vomiting, Abdominal Pain, Diarrhea, Constipation, Melena Genitourinary: No Dysuria, No Frequency, No Hematuria Musculoskeletal: other (hip pain), leg pain, foot pain Objective Exam Vital Signs Vital Signs Date Time Temp Pulse Resp B/P (MAP) Pulse Ox O2 Delivery O2 Flow Rate FiO2 09/18/21 11:42 36.6 56 18 100/55 99 Room Air 09/17/21 11:30 10 09/15/21 00:12 36 Capillary Refill : General Appearance: Chronically ill, Mild Distress HEENT: Pharynx Normal, Moist Mucous Membranes Neck: Supple Respiratory: Chest Non Tender, Lungs Clear, Normal Breath Sounds, No Accessory Muscle Use, No Respiratory Distress Cardiovascular: Regular Rate, Rhythm, No Edema, No Murmur, Normal Peripheral Pulses Gastrointestinal: Normal Bowel Sounds, No Organomegaly, No Pulsatile Mass, Non Tender, Soft Rectal: Deferred Extremity: Normal Capillary Refill, Normal Inspection, Non Tender, No Calf Tenderness, No Pedal Edema Neurologic/Psychiatric: Alert, Oriented x3 Skin: Normal Color, Warm/Dry Results/Procedures Lab Laboratory Tests 09/17/21 16:55 09/18/21 04:05 Patient resulted labs reviewed. Assessment/Plan Assessment and Plan Assess & Plan/Chief Complaint Pneumonia -Continue ABX -Pt does not complain of SOB of sputum this morning Anemia -Pt received transfusion 1 unit yesterday, HGB 8.9 -Recheck CBC tomorrow -EGD/Colonoscopy showed some internal hemorrhoids but no obvious bleeding -Continue CBCs Hyponatremia -resolved today -Continue routine labs Hypokalemia -KCl supplementation Will work on finding patient placement in group home or with rehab Supervisory-Addendum Brief Verification & Attestation Participated in pt care: history, physical Personally performed: exam, history Care discussed with: Medical Student Procedures: n/a n/a MERLYN RODRIGUEZ DO 09/19/21 0709: Subjective Subjective/Events-last exam Pt doing a lot better Will heplock IV fluids Walking pretty well DC catheter Scopes had negative source for bleed Hgb 8.9 Potassium 3.3 adding supplement Chronic pain is an issue [facility] placement will be pursued Review of Systems General: Fatigue, Malaise Objective Exam General Appearance: No Apparent Distress, WD/WN, Chronically ill Respiratory: Lungs Clear, Normal Breath Sounds Cardiovascular: Regular Rate, Rhythm Neurologic/Psychiatric: Alert, Oriented x3 Assessment/Plan Assessment and Plan Assess & Plan/Chief Complaint Supportive care Monitor closely Supervisory-Addendum Brief Verification & Attestation Participated in pt care: history, MDM, physical Personally performed: exam, history, MDM, supervision of care Care discussed with: Medical Student Procedures: n/a Results interpretation: Verified all documentation Verification and Attestation of Medical Student E/M Service A medical student performed and documented this service in my presence. I reviewed and verified all information documented by the medical student and made modifications to such information, when appropriate. I personally performed the physical exam and medical decision making. Merlyn Rodriguez, Sep 19, 2021,07:09 IVONNE ZAVALA MED STUDENT Sep 18, 2021 13:32 MERLYN RODRIGUEZ DO Sep 19, 2021 07:09
--- NOTE | 2021-09-18 14:04 | Occupational Ther Daily Note ---
OT Current Status-Daily Note Subjective Pt reports 10/10 pain in RLE/hip. RN notified. Appearance Pt left sitting in chair, all needs within reach. Mental Status/Objective Patient Orientation: Person, Confused Attachments: Moore Catheter, IV ADL-Treatment Therapy Code Descriptions/Definitions Functional Ashley Measure: 0=Not Assessed/NA 4=Minimal Assistance 1=Total Assistance 5=Supervision or Setup 2=Maximal Assistance 6=Modified Ashley 3=Moderate Assistance 7=Complete IndependenceSCALE: Activities may be completed with or without assistive devices. 7-Jalmslzvwk-hynzcub completes the activity by him/herself with no assistance from a helper. 5-Set-up or Clean-up Assistance-helper sets up or cleans up; patient completes activity. [place] assists only prior to or following the activity. 4-Supervision or Touching Assistance-helper provides verbal cues and/or touching/steadying and/or contact guard assistance as patient completes activity. Assistance may be provided throughout the activity or intermittently. 3-Partial/Moderate Assistance-helper does LESS THAN HALF the effort. [place] lifts, holds or supports trunk or limbs, but provides less than half the effort. 2-Substantial/Maximal Assistance-helper does MORE THAN HALF the effort. [place] lifts or holds trunk or limbs and provides more than half the effort. 6-Xnlnzegzp-rsooci does ALL the effort. Patient does none of the effort to complete the activity. Or, the assistance of 2 or more helpers is required for the patient to complete the activity. If activity was not attempted, code reason: 7-Patient Refused. 9-Not Applicable-not attempted and the patient did not perform the activity before the current illness, exacerbation or injury. 10-Not Attempted due to Environmental Limitations-(lack of equipment, weather restraints, etc.). 88-Not Attempted due to Medical Conditions or Safety Concerns. Eating (QC): 6 Other Treatment Pt reluctant to participate. Requires encouragement. Declines any standing task secondary to 10/10 RLE/hip pain. Discussed using walker outside of hospital and pt verbalizes that he will not use one due to falling over his in the past. Pt completed UE exercises with goal to improve endurance and strength needed for adls and transfers; 10x1 in all planes. Several tactile cues to slow pace with all movements. Requires cues to continue through full 10 reps as pt will lose focus easily and stop after ~5-6 reps. Education OT Patient Education: Correct positioning, Exercise program, Purpose of tx/functional activities Teaching Recipient: Patient Teaching Methods: Demonstration, Discussion Response to Teaching: Reinforcement Needed OT Visitor Services Assistant Goals Visitor Services Assistant Goals Time Frame: Oct 06, 2021 Oral Hygiene (QC): 5 Toileting Hygiene (QC): 4 Upper Body Dressing (QC): 4 Lower Body Dressing (QC): 4 On/Off Footwear (QC): 4 1=Demonstrate adherence to instructed precautions during ADL tasks. 2=Patient will verbalize/demonstrate understanding of assistive devices/modifications for ADL. 3=Patient will improve strength/tolerance for activity to enable patient to perform ADL's. OT Education/Plan Problem List/Assessment Assessment: Decreased Activ Tolerance, Decreased UE Strength, Impaired Cognition, Impaired Funct Balance, Impaired Self-Care Skills Discharge Recommendations Plan/Recommendations: Continue POC Treatment Plan/Plan of Care Treatment,Training & Education: Yes Patient would benefit from OT for education, treatment and training to promote independence in ADL's, mobility, safety and/or upper extremity function for ADL's. Plan of Care: ADL Retraining, Caregiver Training, Functional Mobility, Group Exercise/Act as Ind, UE Funct Exercise/Act, UE Neuromus Re-Ed/Coord, Visual/Perceptual Retrain Treatment Duration: Oct 06, 2021 Frequency: 5 times per week Estimated Hrs Per Day: .25 hour per day Rehab Potential: Fair Time/GCodes Start Time: 13:20 Stop Time: 13:30 Total Time Billed (hr/min): 10 Billed Treatment Time 1 visit EX Ronda Ortega OT Sep 18, 2021 14:04
[2021-09-18] MEDS: morphine INJ 4 MG/ML 1 ML (VIAL/SYRINGE) IVP PRN (14:46)
[2021-09-18] MEDS: ZOLPIDEM 5 MG (AMBIEN) TAB PO SCH (20:17)
[2021-09-18] MEDS: CEFDINIR 300 MG (OMNICEF) CAP PO SCH (20:17)
[2021-09-18] MEDS: SIMvastatin 20 MG (ZOCOR) TAB PO SCH (20:17)
[2021-09-18] MEDS: AMITRIPTYLINE 50 MG (ELAVIL) TAB PO SCH (20:17)
[2021-09-18] MEDS: NIACIN ER (NIASPAN) 500 MG TAB PO SCH (23:00)
[2021-09-19] MEDS: HYDROcodone/APAP 5 MG/325 MG (LORTAB) TAB PO PRN ×4 (04:36→22:43)
[2021-09-19] MEDS: PANTOPRAZOLE 40 MG (PROTONIX) TAB PO SCH ×2 (05:47→16:11)
[2021-09-19 05:59] LABS: BASOPHILS % (AUTO) 0 % (0-10); EOSINOPHILS # (AUTO) 0.1 10^3/uL (0.0-0.3); EOSINOPHILS % (AUTO) 2 % (0-10); HEMATOCRIT 29 % (40-54); LYMPHOCYTES # (AUTO) 0.7 10^3/uL (1.0-4.0); LYMPHOCYTES % (AUTO) 24 % (12-44); MEAN CORPUSCULAR HEMOGLOBIN 25 pg (25-34); MEAN CORPUSCULAR HGB CONC 32 g/dL (32-36); MEAN CORPUSCULAR VOLUME 80 fL (80-99); MEAN PLATELET VOLUME 9.3 fL (9.0-12.2); MONOCYTES # (AUTO) 0.4 10^3/uL (0.0-1.0); MONOCYTES % (AUTO) 12 % (0-12); NEUTROPHILS # (AUTO) 1.8 10^3/uL (1.8-7.8); NEUTROPHILS % (AUTO) 61 % (42-75); PLATELET COUNT 151 10^3/uL (130-400); WHITE BLOOD COUNT 2.9 10^3/uL (4.3-11.0)
[2021-09-19 06:31] LABS: ALBUMIN 2.7 GM/DL (3.2-4.5); POTASSIUM 3.3 MMOL/L (3.6-5.0)
[2021-09-19 06:33] LABS: CALCIUM 7.8 MG/DL (8.5-10.1)
[2021-09-19 06:35] LABS: BILIRUBIN,TOTAL 0.3 MG/DL (0.1-1.0)
[2021-09-19 06:37] LABS: CREATININE SERUM 0.82 MG/DL (0.60-1.30)
[2021-09-19] MEDS: UMECLIDINIUM BROMIDE (INCRUSE ELLIPTA) 7'S IH SCH (07:41)
[2021-09-19] MEDS: RT--FLUTICASONE/SALMETEROL 232-14 (AIRDUO RespiCLICK) IH SCH ×2 (07:41→18:35)
[2021-09-19] MEDS: CEFDINIR 300 MG (OMNICEF) CAP PO SCH ×2 (09:02→19:52)
[2021-09-19] MEDS: lisINopril 10 MG (PRINIVIL) TABLET PO SCH ×2 (09:02→09:27)
[2021-09-19] MEDS: clonazePAM 0.5 MG (KlonoPIN) TAB PO SCH ×3 (09:02→22:43)
[2021-09-19] MEDS: LORATADINE (CLARITIN) 10 MG TAB PO SCH (09:02)
[2021-09-19] MEDS: FAMOTIDINE 20 MG (PEPCID) TABLET PO SCH ×2 (09:02→19:52)
[2021-09-19] MEDS: FLUoxetine HCL 20 MG (PROzac) CAP PO SCH (09:02)
[2021-09-19] MEDS: ATENOLOL 50 MG (TENORMIN) TAB PO SCH ×3 (09:03→19:39)
--- NOTE | 2021-09-19 09:14 | Progress Note - Hospitalist ---
Subjective HPI/CC On Admission Date Seen by Provider: Sep 19, 2021 Time Seen by Provider: 11:00 CC: AFIB with RVR new onset HPI: This is a 60yoWM who is chronically ill of Dr. Mckenna who presented to [facility] with AFIB with RVR, Pt was in need of transfer to [facility], empiric antibiotics will be initiated, and Hgb was noted to be decreased, Heparin was DC and Lovenox was initiated by Dr. Servin and Dr. Fajardo will be consulted for colonoscopy and EGD. He will be transferred to the fourth floor. Subjective/Events-last exam Patient doing okay Sleeping soundly Hemoglobin 9.0 Overall extremely debilitated Review of Systems General: Fatigue, Malaise Objective Exam Vital Signs Vital Signs Date Time Temp Pulse Resp B/P (MAP) Pulse Ox O2 Delivery O2 Flow Rate FiO2 09/20/21 04:20 36.9 53 20 119/60 94 Room Air 09/19/21 07:41 0.00 09/15/21 00:12 36 Capillary Refill : General Appearance: No Apparent Distress, WD/WN, Chronically ill Respiratory: Lungs Clear, Normal Breath Sounds Cardiovascular: Regular Rate, Rhythm Results/Procedures Lab Laboratory Tests 09/20/21 04:25 Patient resulted labs reviewed. Assessment/Plan Assessment and Plan Assess & Plan/Chief Complaint Pneumonia -Continue ABX Anemia -Pt received transfusion 1 unit yesterday, HGB 8.9 -Recheck CBC tomorrow -EGD/Colonoscopy showed some internal hemorrhoids but no obvious bleeding -Continue CBCs Hyponatremia -resolved today -Continue routine labs Hypokalemia -KCl supplementation Will work on finding patient placement in senior care or with rehab 09/19/2021: Supportive care Monitor hemoglobin Diagnosis/Problems Diagnosis/Problems (1) Sepsis (2) Seizures (3) Syncope (4) Right sided weakness (5) Atrial fibrillation with rapid ventricular response (6) Anemia Status: Acute VITO RODRIGUEZ DO Sep 19, 2021 09:14
[2021-09-19] MEDS: LACTULOSE SYRUP 10GM/15ML (ENULOSE) 30ML UDC PO SCH ×2 (09:27→19:53)
[2021-09-19] MEDS: SENNA W/DOCUSATE (SENOKOT S) TABLET PO SCH ×4 (09:27→19:52)
[2021-09-19] MEDS: polyethylene glycoL POWDER 17 GM (MIRALAX) PACK PO SCH ×2 (09:27→19:54)
--- NOTE | 2021-09-19 10:10 | Physical Therapy Progress Note ---
Therapy Progress Note Patient declined PT on this date due to fatigue. PT will resume Tuesday. 1 ref DANNIE PRETTY PT Sep 19, 2021 10:09
[2021-09-19] MEDS: morphine INJ 4 MG/ML 1 ML (VIAL/SYRINGE) IVP PRN ×2 (11:10→16:11)
[2021-09-19] MEDS: FUROSEMIDE 20 MG (LASIX) TAB PO SCH (13:10)
[2021-09-19] MEDS: KCL 10 MEQ TAB (MICRO K) PO SCH (13:10)
[2021-09-19] MEDS: NIACIN ER (NIASPAN) 500 MG TAB PO SCH (19:52)
[2021-09-19] MEDS: AMITRIPTYLINE 50 MG (ELAVIL) TAB PO SCH (19:52)
[2021-09-19] MEDS: SIMvastatin 20 MG (ZOCOR) TAB PO SCH (19:52)
[2021-09-19] MEDS: ZOLPIDEM 5 MG (AMBIEN) TAB PO SCH (22:42)
[2021-09-20] MEDS: morphine INJ 4 MG/ML 1 ML (VIAL/SYRINGE) IVP PRN (00:12)
[2021-09-20 04:40] LABS: BASOPHILS % (AUTO) 0 % (0-10); EOSINOPHILS % (AUTO) 1 % (0-10); HEMATOCRIT 29 % (40-54); HEMOGLOBIN 9.1 g/dL (13.3-17.7); LYMPHOCYTES # (AUTO) 0.6 10^3/uL (1.0-4.0); LYMPHOCYTES % (AUTO) 23 % (12-44); MEAN CORPUSCULAR HEMOGLOBIN 25 pg (25-34); MEAN CORPUSCULAR HGB CONC 31 g/dL (32-36); MEAN CORPUSCULAR VOLUME 81 fL (80-99); MEAN PLATELET VOLUME 11.4 fL (9.0-12.2); MONOCYTES # (AUTO) 0.4 10^3/uL (0.0-1.0); MONOCYTES % (AUTO) 13 % (0-12); NEUTROPHILS # (AUTO) 1.8 10^3/uL (1.8-7.8); NEUTROPHILS % (AUTO) 63 % (42-75); PLATELET COUNT 172 10^3/uL (130-400); WHITE BLOOD COUNT 2.8 10^3/uL (4.3-11.0)
[2021-09-20 05:05] LABS: ALBUMIN 2.7 GM/DL (3.2-4.5); POTASSIUM 3.4 MMOL/L (3.6-5.0)
[2021-09-20 05:06] LABS: CALCIUM 7.9 MG/DL (8.5-10.1)
[2021-09-20 05:08] LABS: TOTAL PROTEIN 5.1 GM/DL (6.4-8.2)
[2021-09-20 05:09] LABS: BILIRUBIN,TOTAL 0.3 MG/DL (0.1-1.0)
[2021-09-20 05:11] LABS: CREATININE SERUM 0.82 MG/DL (0.60-1.30)
[2021-09-20] MEDS: PANTOPRAZOLE 40 MG (PROTONIX) TAB PO SCH ×2 (05:59→16:46)
[2021-09-20] MEDS: RT--FLUTICASONE/SALMETEROL 232-14 (AIRDUO RespiCLICK) IH SCH ×2 (08:00→21:14)
[2021-09-20] MEDS: FAMOTIDINE 20 MG (PEPCID) TABLET PO SCH ×2 (08:21→20:22)
[2021-09-20] MEDS: CEFDINIR 300 MG (OMNICEF) CAP PO SCH ×2 (08:21→20:22)
[2021-09-20] MEDS: HYDROcodone/APAP 5 MG/325 MG (LORTAB) TAB PO PRN ×4 (08:21→20:55)
[2021-09-20] MEDS: LORATADINE (CLARITIN) 10 MG TAB PO SCH (08:21)
[2021-09-20] MEDS: FLUoxetine HCL 20 MG (PROzac) CAP PO SCH (08:27)
[2021-09-20] MEDS: clonazePAM 0.5 MG (KlonoPIN) TAB PO SCH ×3 (08:27→20:22)
[2021-09-20] MEDS: LACTULOSE SYRUP 10GM/15ML (ENULOSE) 30ML UDC PO SCH ×2 (09:08→20:13)
[2021-09-20] MEDS: polyethylene glycoL POWDER 17 GM (MIRALAX) PACK PO SCH ×2 (09:08→20:13)
[2021-09-20] MEDS: SENNA W/DOCUSATE (SENOKOT S) TABLET PO SCH ×4 (09:08→20:13)
[2021-09-20] MEDS: ATENOLOL 50 MG (TENORMIN) TAB PO SCH ×2 (09:09→20:22)
[2021-09-20] MEDS: lisINopril 10 MG (PRINIVIL) TABLET PO SCH (09:09)
--- NOTE | 2021-09-20 12:26 | Progress Note - Hospitalist ---
Subjective HPI/CC On Admission Date Seen by Provider: Sep 20, 2021 Time Seen by Provider: 11:30 CC: AFIB with RVR new onset HPI: This is a 60yoWM who is chronically ill of Dr. Mckenna who presented to [place] [facility] with AFIB with RVR, Pt was in need of transfer to [facility], empiric antibiotics will be initiated, and Hgb was noted to be decreased, Heparin was DC and Lovenox was initiated by Dr. Servin and Dr. Fajardo will be consulted for colonoscopy and EGD. He will be transferred to the fourth floor. Subjective/Events-last exam Patient doing better Denies any new issues We will ambulate today Check meds and labs Overall no other concerns Review of Systems General: Fatigue, Malaise Objective Exam Vital Signs Vital Signs Date Time Temp Pulse Resp B/P (MAP) Pulse Ox O2 Delivery O2 Flow Rate FiO2 09/20/21 16:17 36.4 68 95 09/20/21 16:00 18 118/63 Room Air 09/19/21 07:41 0.00 09/15/21 00:12 36 Capillary Refill : General Appearance: No Apparent Distress, WD/WN, Chronically ill Respiratory: Lungs Clear, Normal Breath Sounds Cardiovascular: Regular Rate, Rhythm Neurologic/Psychiatric: Alert, Oriented x3, No Motor/Sensory Deficits, Normal Mood/Affect Results/Procedures Lab Laboratory Tests 09/20/21 04:25 Patient resulted labs reviewed. Assessment/Plan Assessment and Plan Assess & Plan/Chief Complaint Pneumonia -Continue ABX Anemia -Pt received transfusion 1 unit yesterday, HGB 8.9 -Recheck CBC tomorrow -EGD/Colonoscopy showed some internal hemorrhoids but no obvious bleeding -Continue CBCs Hyponatremia -resolved today -Continue routine labs Hypokalemia -KCl supplementation Will work on finding patient placement in half-way or with rehab 09/19/2021: Supportive care Monitor hemoglobin 09/20/2021: Supportive care Ambulate Diagnosis/Problems Diagnosis/Problems (1) Sepsis (2) Seizures (3) Syncope (4) Right sided weakness (5) Atrial fibrillation with rapid ventricular response (6) Anemia Status: Acute VITO RODRIGUEZ DO Sep 20, 2021 12:26
[2021-09-20] MEDS: KCL 10 MEQ TAB (MICRO K) PO SCH (13:42)
[2021-09-20] MEDS: FUROSEMIDE 20 MG (LASIX) TAB PO SCH (13:42)
--- NOTE | 2021-09-20 14:34 | Progress Note - Cardiology ---
Cardiology SOAP Progress Note Subjective: Gen weakness and malaise present Notes hip and knee pain, more on L No cp or palp No syncope / seizure since admission No n/v/d Objective: I&O/Vital Signs 09/20/21 09/20/21 09/20/21 09/20/21 04:20 07:00 07:50 09:18 Temp 36.9 36.2 Pulse 53 60 63 Resp 20 18 B/P (MAP) 119/60 103/64 Pulse Ox 94 96 O2 Delivery Room Air Room Air Room Air 09/20/21 11:13 Temp 36.4 Pulse 75 Resp 20 B/P (MAP) 112/78 Pulse Ox 93 O2 Delivery Room Air 09/20/21 00:00 Intake Total 1740 ml Output Total 1400 ml Balance 340 ml Weight (Pounds): 250 Weight (Calculated Kilograms): 113.132437 Constitutional: AAO x 3, well-developed, well-nourished Respiratory: No accessory muscle use; other (fair to good, bilateral air entry) Cardiovascular: regular rate-rhythm, systolic murmur (soft HIPOLITO at card base) Gastrointestional: No tender; soft; No guarding, No rebound; audible bowel sounds Extremities: No clubbing, No cyanosis, No significant edema Neurologic/Psychiatric: oriented x 3, other (moves all limbs eequally) Skin: warm/dry; No rash on exposed areas, No ulcerations on exposed areas Results/Procedures: Labs Laboratory Tests 09/20/21 04:25: White Blood Count 2.8L, Red Blood Count 3.64L, Hemoglobin 9.1L, Hematocrit 29L, Mean Corpuscular Volume 81, Mean Corpuscular Hemoglobin 25, Mean Corpuscular Hemoglobin Concent 31L, Red Cell Distribution Width 16.8H, Platelet Count 172, Mean Platelet Volume 11.4, Immature Granulocyte % (Auto) 1, Neutrophils (%) (Auto) 63, Lymphocytes (%) (Auto) 23, Monocytes (%) (Auto) 13H, Eosinophils (%) (Auto) 1, Basophils (%) (Auto) 0, Neutrophils # (Auto) 1.8, Lymphocytes # (Auto) 0.6L, Monocytes # (Auto) 0.4, Eosinophils # (Auto) 0.0, Basophils # (Auto) 0.0, Immature Granulocyte # (Auto) 0.0, Sodium Level 135, Potassium Level 3.4L, Chloride Level 101, Carbon Dioxide Level 24, Anion Gap 10, Blood Urea Nitrogen 6L, Creatinine 0.82, Estimat Glomerular Filtration Rate 96, BUN/Creatinine Ratio 7, Glucose Level 95, Calcium Level 7.9L, Corrected Calcium 8.9, Total Bilirubin 0.3, Aspartate Amino Transf (AST/SGOT) 116H, Alanine Aminotransferase (ALT/SGPT) 111H, Alkaline Phosphatase 538H, Total Protein 5.1L, Albumin 2.7L Microbiology 09/16/21 MRSA Screen - Final, Complete MRSA not isolated Laboratory Tests 09/19/21 05:45 09/20/21 04:25 A/P: Assessment: PAF, currently NSR - intolerance to anticoag due to active GI bleed requiring transfusion - Echocardiogram was done in September 15, 2021 showing normal LV size, ejection fraction 60%, normal PA pressure. Anemia due to GI bleed; endoscopy showed esophagitis and gastritis, in addition to polyp; has received multiple transfusions Syncope / Seizure on the day prior to admission on 09/14/21, no recurrence, managed by the primary care team Left knee and hip pain, x-ray did not show any acute abnormality, managed by primary care team Plan: * I interviewed and examined him and reviewed his records * Continue current regimen * Monitor labs * Remains on tele YULIANA AREVALO MD [facility] Sep 20, 2021 14:34
[2021-09-20 16:17] VITALS: BP 118/63
[2021-09-20] MEDS: UMECLIDINIUM BROMIDE (INCRUSE ELLIPTA) 7'S IH SCH (20:12)
[2021-09-20] MEDS: ZOLPIDEM 5 MG (AMBIEN) TAB PO SCH (20:21)
[2021-09-20] MEDS: SIMvastatin 20 MG (ZOCOR) TAB PO SCH (20:22)
[2021-09-20] MEDS: NIACIN ER (NIASPAN) 500 MG TAB PO SCH (20:22)
[2021-09-20] MEDS: AMITRIPTYLINE 50 MG (ELAVIL) TAB PO SCH (20:22)
[2021-09-21 05:03] LABS: BASOPHILS % (AUTO) 0 % (0-10); EOSINOPHILS % (AUTO) 1 % (0-10); HEMATOCRIT 31 % (40-54); HEMOGLOBIN 9.6 g/dL (13.3-17.7); LYMPHOCYTES # (AUTO) 0.7 10^3/uL (1.0-4.0); LYMPHOCYTES % (AUTO) 24 % (12-44); MEAN CORPUSCULAR HEMOGLOBIN 26 pg (25-34); MEAN CORPUSCULAR HGB CONC 31 g/dL (32-36); MEAN CORPUSCULAR VOLUME 83 fL (80-99); MEAN PLATELET VOLUME 10.9 fL (9.0-12.2); MONOCYTES # (AUTO) 0.3 10^3/uL (0.0-1.0); MONOCYTES % (AUTO) 12 % (0-12); NEUTROPHILS # (AUTO) 1.7 10^3/uL (1.8-7.8); NEUTROPHILS % (AUTO) 61 % (42-75); PLATELET COUNT 180 10^3/uL (130-400); WHITE BLOOD COUNT 2.7 10^3/uL (4.3-11.0)
[2021-09-21] MEDS: PANTOPRAZOLE 40 MG (PROTONIX) TAB PO SCH ×2 (05:04→17:05)
[2021-09-21 05:08] LABS: ALBUMIN 2.8 GM/DL (3.2-4.5)
[2021-09-21 05:09] LABS: POTASSIUM 3.5 MMOL/L (3.6-5.0)
[2021-09-21 05:10] LABS: CALCIUM 8.2 MG/DL (8.5-10.1)
[2021-09-21 05:11] LABS: TOTAL PROTEIN 5.2 GM/DL (6.4-8.2)
[2021-09-21 05:13] LABS: BILIRUBIN,TOTAL 0.3 MG/DL (0.1-1.0)
[2021-09-21 05:15] LABS: CREATININE SERUM 0.86 MG/DL (0.60-1.30)
[2021-09-21] MEDS: HYDROcodone/APAP 5 MG/325 MG (LORTAB) TAB PO PRN ×2 (05:49→20:43)
[2021-09-21] MEDS: UMECLIDINIUM BROMIDE (INCRUSE ELLIPTA) 7'S IH SCH (08:17)
[2021-09-21] MEDS: RT--FLUTICASONE/SALMETEROL 232-14 (AIRDUO RespiCLICK) IH SCH ×2 (08:17→20:08)
[2021-09-21] MEDS: ONDANSETRON 4 MG/2 ML (SDV) Z0FRAN IVP PRN (08:30)
[2021-09-21] MEDS: clonazePAM 0.5 MG (KlonoPIN) TAB PO SCH ×3 (08:41→20:44)
[2021-09-21] MEDS: FLUoxetine HCL 20 MG (PROzac) CAP PO SCH (08:41)
[2021-09-21] MEDS: FAMOTIDINE 20 MG (PEPCID) TABLET PO SCH ×2 (08:41→20:44)
[2021-09-21] MEDS: LORATADINE (CLARITIN) 10 MG TAB PO SCH (08:41)
[2021-09-21] MEDS: CEFDINIR 300 MG (OMNICEF) CAP PO SCH ×2 (10:00→20:44)
[2021-09-21] MEDS: polyethylene glycoL POWDER 17 GM (MIRALAX) PACK PO SCH ×2 (10:00→20:43)
[2021-09-21] MEDS: SENNA W/DOCUSATE (SENOKOT S) TABLET PO SCH ×4 (10:00→20:44)
[2021-09-21] MEDS: LACTULOSE SYRUP 10GM/15ML (ENULOSE) 30ML UDC PO SCH ×2 (10:01→20:43)
[2021-09-21] MEDS: morphine INJ 4 MG/ML 1 ML (VIAL/SYRINGE) IVP PRN ×2 (10:14→12:44)
--- NOTE | 2021-09-21 10:41 | Physical Therapy Daily Note ---
PT Daily Note-Current Subjective Patient agrees to PT. Pain Numeric Pain Scale: 10-Worst Possible Pain Location: Right Location Body Site: Hip Pain Description: Sharp Comment: RN in to issue pain medication Mental Status Patient Orientation: Normal For Age Transfers SCALE: Activities may be completed with or without assistive devices. 8-Yrbyvnnrsb-ehshnsu completes the activity by him/herself with no assistance from a helper. 5-Set-up or Clean-up Assistance-helper sets up or cleans up; patient completes activity. [place] assists only prior to or following the activity. 4-Supervision or Touching Assistance-helper provides verbal cues and/or touching/steadying and/or contact guard assistance as patient completes activity. Assistance may be provided throughout the activity or intermittently. 3-Partial/Moderate Assistance-helper does LESS THAN HALF the effort. [place] lifts, holds or supports trunk or limbs, but provides less than half the effort. 2-Substantial/Maximal Assistance-helper does MORE THAN HALF the effort. [place] lifts or holds trunk or limbs and provides more than half the effort. 6-Txpisdadv-ipguji does ALL the effort. Patient does none of the effort to complete the activity. Or, the assistance of 2 or more helpers is required for the patient to complete the activity. If activity was not attempted, code reason: 7-Patient Refused. 9-Not Applicable-not attempted and the patient did not perform the activity before the current illness, exacerbation or injury. 10-Not Attempted due to Environmental Limitations-(lack of equipment, weather restraints, etc.). 88-Not Attempted due to Medical Conditions or Safety Concerns. Sit to Lying (QC): 6 Sit to Stand (QC): 4 Chair/Xlp-de-[place] Xfer(QC): 4 Gait Training Distance: 275' Walk 10 feet (QC): 4 Walk 50 ft with 2 Turns(QC): 4 Walk 150 ft (QC): 4 Gait Assistive Device: FWW slightly unsteady initially with self correct/steady gait sequence remainder of session Assessment Patient ceases session and returns to bed with RN present to issue pain medication. PT to increase activity as tolerated by patient. PT Stock And Station Agent Goals Stock And Station Agent Goals PT Stock And Station Agent Goals Time Frame: Sep 22, 2021 Roll Left & Right (QC): 6 Sit to Lying (QC): 4 Lying-Sitting on Side/Bed(QC): 4 Sit to Stand (QC): 4 Chair/Zhn-yj-Rqkre Xfer(QC): 4 Walk 10 feet (QC): 4 Walk 50ft with 2 Turns (QC): 4 Walk 150 ft (QC): 4 PT Plan Treatment/Plan Treatment Plan: Continue Plan of Care Treatment Plan: Bed Mobility, Education, Functional Activity Shannon, Functional Strength, Gait, Safety, Therapeutic Exercise, Transfers Treatment Duration: Sep 22, 2021 Frequency: 6 times per week Estimated Hrs Per Day: .25 hour per day Patient and/or Family Agrees t: Yes Time/GCodes Time In: 1001 Time Out: 1013 Total Billed Treatment Time: 12 Total Billed Treatment 1 visit FA 12 min DANNIE PRETTY PT Sep 21, 2021 10:41
--- NOTE | 2021-09-21 11:04 | Progress Note ---
IVONNE ZAVALA MED STUDENT 09/21/21 1104: Subjective Date Seen by a Provider: Sep 21, 2021 Time Seen by a Provider: 08:00 Subjective/Events-last exam Mr. Carrasco is laying in bed this morning. He does state that he is in a little pain this morning, it is his usual chronic pain in his legs and hips. He does state the pain is a little less than usual but that its bad enough that he doesn't want to get out of bed or have to walk around. He does state that he's been eating and drinking okay, with some discomfort on swallowing. He has been doing some work with therapy. LBM was a couple of days ago at this point and he cannot remember exactly when. Review of Systems General: No Chills, No Night Sweats HEENT: Head Aches; No Visual Changes; Dysphasia Pulmonary: No Dyspnea; Cough Cardiovascular: No: Chest Pain, Palpitations Gastrointestinal: Constipation; No: Nausea, Vomiting, Abdominal Pain, Diarrhea Genitourinary: No Dysuria, No Frequency, No Hematuria Musculoskeletal: other (Hip pain), leg pain Objective Exam Last Set of Vital Signs Vital Signs Date Time Temp Pulse Resp B/P (MAP) Pulse Ox O2 Delivery O2 Flow Rate FiO2 09/21/21 09:49 36.4 61 20 115/71 94 Room Air 09/19/21 07:41 0.00 09/15/21 00:12 36 Capillary Refill : I&O Intake and Output 09/21/21 00:00 Intake Total 2230 ml Output Total 3475 ml Balance -1245 ml Intake Oral 2230 ml Output Urine Total 3475 ml General: Alert, Oriented X3, Cooperative, No Acute Distress HEENT: Mucous Memb Moist/[place] Neck: Supple Lungs: Clear to Auscultation, Normal Air Movement Heart: Regular Rate, No Murmurs Abdomen: Normal Bowel Sounds, Soft, No Tenderness Extremities: No Edema, Normal Pulses Skin: No Rashes Results Lab Laboratory Tests 09/21/21 04:54: White Blood Count 2.7L, Red Blood Count 3.73L, Hemoglobin 9.6L, Hematocrit 31L, Mean Corpuscular Volume 83, Mean Corpuscular Hemoglobin 26, Mean Corpuscular Hemoglobin Concent 31L, Red Cell Distribution Width 17.2H, Platelet Count 180, Mean Platelet Volume 10.9, Immature Granulocyte % (Auto) 1, Neutrophils (%) (Auto) 61, Lymphocytes (%) (Auto) 24, Monocytes (%) (Auto) 12, Eosinophils (%) ( Auto) 1, Basophils (%) (Auto) 0, Neutrophils # (Auto) 1.7L, Lymphocytes # (Auto) 0.7L, Monocytes # (Auto) 0.3, Eosinophils # (Auto) 0.0, Basophils # (Auto) 0.0, Immature Granulocyte # (Auto) 0.0, Sodium Level 138, Potassium Level 3.5L, Chloride Level 102, Carbon Dioxide Level 27, Anion Gap 9, Blood Urea Nitrogen 6L , Creatinine 0.86, Estimat Glomerular Filtration Rate 90, BUN/Creatinine Ratio 7, Glucose Level 92, Calcium Level 8.2L, Corrected Calcium 9.2, Total Bilirubin 0.3, Aspartate Amino Transf (AST/SGOT) 98H, Alanine Aminotransferase (ALT/SGPT) 104H, Alkaline Phosphatase 714H, Total Protein 5.2L, Albumin 2.8L Microbiology 09/16/21 MRSA Screen - Final, Complete MRSA not isolated Assessment/Plan Assessment/Plan Assess & Plan/Chief Complaint Anemia -HGB 9.6 today, 2 total units transfused since admission -Stable, check cbc daily Pneumonia -Pt on ABX -Pt improving Hypokalemia -Potassium replacement -3.5 today will recheck tomorrow Continue working w/ PT and OT. Pt should be encouraged to get out of bed Working on finding care home placement Supervisory-Addendum Brief Verification & Attestation Participated in pt care: history, physical Personally performed: exam, history Care discussed with: Medical Student Procedures: n/a n/a MERLYN RODRIGUEZ DO 09/22/21 0527: Subjective Subjective/Events-last exam Pt doing well Up in a chair Reports vomiting EGD reviewed Labs stable Hgb 9.6 Review of Systems General: Fatigue, Malaise Objective Exam General: Alert, Oriented X3, Cooperative, No Acute Distress Lungs: Clear to Auscultation Heart: Regular Rate Neuro: Normal Gait, Normal Speech, Strength at 5/5 X4 Ext Psych/Mental Status: Mental Status NL Assessment/Plan Assessment/Plan Assess & Plan/Chief Complaint Supportive care Supervisory-Addendum Brief Verification & Attestation Participated in pt care: history, MDM, physical Personally performed: exam, history, MDM, supervision of care Care discussed with: Medical Student Procedures: n/a Results interpretation: Verified all documentation Verification and Attestation of Medical Student E/M Service A medical student performed and documented this service in my presence. I reviewed and verified all information documented by the medical student and made modifications to such information, when appropriate. I personally performed the physical exam and medical decision making. Merlyn Rodriguez, Sep 22, 2021,05:27 IVONNE ZAVALA MED STUDENT Sep 21, 2021 11:04 MERLYN RODRIGUEZ DO Sep 22, 2021 05:27
--- NOTE | 2021-09-21 11:05 | Progress Note - Cardiology ---
Cardiology SOAP Progress Note Subjective: Nauseated this morning Objective: I&O/Vital Signs 09/21/21 09/21/21 09/21/21 09/21/21 04:49 05:01 07:00 08:00 Temp 36.9 36.4 Pulse 64 131 63 61 Resp 18 20 B/P (MAP) 124/75 115/71 Pulse Ox 95 94 O2 Delivery Room Air Room Air 09/21/21 09/21/21 09/21/21 09/21/21 08:17 09:06 09:49 12:00 Temp 36.4 36.5 Pulse 61 71 Resp 20 24 B/P (MAP) 115/71 120/74 Pulse Ox 92 94 93 O2 Delivery Room Air Room Air Room Air Room Air 09/21/21 09/21/21 12:23 16:04 Temp 36.4 Pulse 64 72 Resp 18 B/P (MAP) 95/60 Pulse Ox 95 O2 Delivery Room Air 09/21/21 00:00 Intake Total 1630 ml Output Total 2325 ml Balance -695 ml Weight (Pounds): 250 Weight (Calculated Kilograms): 113.364678 Constitutional: AAO x 3, well-developed, well-nourished Respiratory: No accessory muscle use; other (fair to good, bilateral air entry) Cardiovascular: regular rate-rhythm, systolic murmur (soft HIPOLITO at card base) Gastrointestional: No tender; soft; No guarding, No rebound; audible bowel sounds Extremities: No clubbing, No cyanosis, No significant edema Neurologic/Psychiatric: oriented x 3, other (moves all limbs eequally) Skin: warm/dry; No rash on exposed areas, No ulcerations on exposed areas Results/Procedures: Labs Laboratory Tests 09/21/21 04:54: White Blood Count 2.7L, Red Blood Count 3.73L, Hemoglobin 9.6L, Hematocrit 31L, Mean Corpuscular Volume 83, Mean Corpuscular Hemoglobin 26, Mean Corpuscular Hemoglobin Concent 31L, Red Cell Distribution Width 17.2H, Platelet Count 180, Mean Platelet Volume 10.9, Immature Granulocyte % (Auto) 1, Neutrophils (%) (Auto) 61, Lymphocytes (%) (Auto) 24, Monocytes (%) (Auto) 12, Eosinophils (%) (Auto) 1, Basophils (%) (Auto) 0, Neutrophils # (Auto) 1.7L, Lymphocytes # (Auto) 0.7L, Monocytes # (Auto) 0.3, Eosinophils # (Auto) 0.0, Basophils # (Auto) 0.0, Immature Granulocyte # (Auto) 0.0, Sodium Level 138, Potassium Level 3.5L, Chloride Level 102, Carbon Dioxide Level 27, Anion Gap 9, Blood Urea Nitrogen 6L, Creatinine 0.86, Estimat Glomerular Filtration Rate 90, BUN/Creatinine Ratio 7, Glucose Level 92, Calcium Level 8.2L, Corrected Calcium 9.2, Total Bilirubin 0.3, Aspartate Amino Transf (AST/SGOT) 98H, Alanine Aminotransferase (ALT/SGPT) 104H, Alkaline Phosphatase 714H, Total Protein 5.2L, Albumin 2.8L Microbiology 09/16/21 MRSA Screen - Final, Complete MRSA not isolated A/P: Assessment: PAF, currently NSR - intolerance to anticoag due to active GI bleed requiring transfusion - Echocardiogram was done in September 15, 2021 showing normal LV size, ejection fraction 60%, normal PA pressure. Anemia due to GI bleed; endoscopy showed esophagitis and gastritis, in addition to polyp; has received multiple transfusions Syncope / Seizure on the day prior to admission on 09/14/21, no recurrence, managed by the primary care team Left knee and hip pain, x-ray did not show any acute abnormality, managed by primary care team Liver enzyme elevation of undetermined etiology - management per medical services Plan: * Has not been receiving anti-hypertensives d/t episodes of low HR and low blood pressure - stop JOSE RAFAEL (normal LVEF on recent echo) and reduce BB * Monitor labs * Remains on tele * Management of liver enzyme elevation per medical services NADIA BLACKMAN Sep 21, 2021 11:05
--- NOTE | 2021-09-21 11:35 | Occupational Ther Daily Note ---
OT Current Status-Daily Note Subjective Pt verbalizes pain with swallowing. Requests throat lozenge. RN notified. Appearance Left supine in bed, all needs within reach, RN notified. Mental Status/Objective Patient Orientation: Person, Confused Attachments: Moore Catheter, IV ADL-Treatment Therapy Code Descriptions/Definitions Functional [place] Measure: 0=Not Assessed/NA 4=Minimal Assistance 1=Total Assistance 5=Supervision or Setup 2=Maximal Assistance 6=Modified [place] 3=Moderate Assistance 7=Complete IndependenceSCALE: Activities may be completed with or without assistive devices. 5-Xxtypaxoya-uknsaxq completes the activity by him/herself with no assistance from a helper. 5-Set-up or Clean-up Assistance-helper sets up or cleans up; patient completes activity. [place] assists only prior to or following the activity. 4-Supervision or Touching Assistance-helper provides verbal cues and/or touching/steadying and/or contact guard assistance as patient completes activity. Assistance may be provided throughout the activity or intermittently. 3-Partial/Moderate Assistance-helper does LESS THAN HALF the effort. [place] lifts, holds or supports trunk or limbs, but provides less than half the effort. 2-Substantial/Maximal Assistance-helper does MORE THAN HALF the effort. [place] lifts or holds trunk or limbs and provides more than half the effort. 2-Ldhwiqize-hihprg does ALL the effort. Patient does none of the effort to complete the activity. Or, the assistance of 2 or more helpers is required for the patient to complete the activity. If activity was not attempted, code reason: 7-Patient Refused. 9-Not Applicable-not attempted and the patient did not perform the activity before the current illness, exacerbation or injury. 10-Not Attempted due to Environmental Limitations-(lack of equipment, weather restraints, etc.). 88-Not Attempted due to Medical Conditions or Safety Concerns. Other Treatment Pt supine at OT arrival. Refuses all OOB/EOB activities due to c/o nausea. Poor motivation/participation, requires encouragement to complete UE exercises. Goal to increase strength and endurance needed for adls and transfers. Pt continues to have speedy movements and requires cues on pacing. Able to perform all movements within full range. 10x1 in all planes. Continues to have some incoordination with movements but appears slightly better than last session. Simple coordination activity performed in supine, R slightly worse than L with some over/under shooting present. Education OT Patient Education: Energy conservation, Exercise program, Progress toward Goal/Update tx plan, Purpose of tx/functional activities Teaching Recipient: Patient Teaching Methods: Discussion Response to Teaching: Reinforcement Needed OT Mcfp Goals Mcfp Goals Time Frame: Oct 06, 2021 Oral Hygiene (QC): 5 Toileting Hygiene (QC): 4 Upper Body Dressing (QC): 4 Lower Body Dressing (QC): 4 On/Off Footwear (QC): 4 1=Demonstrate adherence to instructed precautions during ADL tasks. 2=Patient will verbalize/demonstrate understanding of assistive devices/modifications for ADL. 3=Patient will improve strength/tolerance for activity to enable patient to perform ADL's. OT Education/Plan Problem List/Assessment Assessment: Decreased Activ Tolerance, Decreased Safety Aware, Decreased UE Strength, Impaired Cognition, Impaired Funct Balance, Impaired I ADL's, Impaired Self-Care Skills Discharge Recommendations Plan/Recommendations: Continue POC Treatment Plan/Plan of Care Treatment,Training & Education: Yes Patient would benefit from OT for education, treatment and training to promote independence in ADL's, mobility, safety and/or upper extremity function for ADL's. Plan of Care: ADL Retraining, Caregiver Training, Functional Mobility, Group Exercise/Act as Ind, UE Funct Exercise/Act, UE Neuromus Re-Ed/Coord, Visual/Perceptual Retrain Treatment Duration: Oct 06, 2021 Frequency: 5 times per week Estimated Hrs Per Day: .25 hour per day Rehab Potential: Fair Time/GCodes Start Time: 11:16 Stop Time: 11:27 Total Time Billed (hr/min): 11 Billed Treatment Time 1 visit EX Ronda Ortega OT Sep 21, 2021 11:35
[2021-09-21] MEDS: CHLORASEPTIC LOZENGE MM PRN ×2 (13:26→17:08)
[2021-09-21] MEDS: FUROSEMIDE 20 MG (LASIX) TAB PO SCH (13:59)
[2021-09-21] MEDS: KCL 10 MEQ TAB (MICRO K) PO SCH (13:59)
--- NOTE | 2021-09-21 15:57 | Progress Note - Cardiology ---
Cardiology SOAP Progress Note Subjective: No cp or palp or syncope No shortness of breath at rest No n/v/d Gen weakness and malaise are improving Notes a sore throat. Requests lozenge/throat spray Objective: I&O/Vital Signs 09/21/21 09/21/21 09/21/21 09/21/21 04:49 05:01 07:00 08:00 Temp 36.9 36.4 Pulse 64 131 63 61 Resp 18 20 B/P (MAP) 124/75 115/71 Pulse Ox 95 94 O2 Delivery Room Air Room Air 09/21/21 09/21/21 09/21/21 09/21/21 08:17 09:06 09:49 12:00 Temp 36.4 36.5 Pulse 61 71 Resp 20 24 B/P (MAP) 115/71 120/74 Pulse Ox 92 94 93 O2 Delivery Room Air Room Air Room Air Room Air 09/21/21 12:23 Pulse 64 09/21/21 00:00 Intake Total 1630 ml Output Total 2325 ml Balance -695 ml Weight (Pounds): 250 Weight (Calculated Kilograms): [id number] Constitutional: AAO x 3, well-developed, well-nourished Respiratory: No accessory muscle use; other (fair to good, bilateral air entry) Cardiovascular: regular rate-rhythm, systolic murmur (soft HIP[place]O at card base) Gastrointestional: No tender; soft; No guarding, No rebound; audible bowel sounds Extremities: No clubbing, No cyanosis, No significant edema Neurologic/Psychiatric: oriented x 3, other (moves all limbs eequally) Skin: warm/dry; No rash on exposed areas, No ulcerations on exposed areas Results/Procedures: Labs Laboratory Tests 09/21/21 04:54: White Blood Count 2.7L, Red Blood Count 3.73L, Hemoglobin 9.6L, Hematocrit 31L, Mean Corpuscular Volume 83, Mean Corpuscular Hemoglobin 26, Mean Corpuscular Hemoglobin Concent 31L, Red Cell Distribution Width 17.2H, Platelet Count 180, Mean Platelet Volume 10.9, Immature Granulocyte % (Auto) 1, Neutrophils (%) (Auto) 61, Lymphocytes (%) (Auto) 24, Monocytes (%) (Auto) 12, Eosinophils (%) (Auto) 1, Basophils (%) (Auto) 0, Neutrophils # (Auto) 1.7L, Lymphocytes # (Auto) 0.7L, Monocytes # (Auto) 0.3, Eosinophils # (Auto) 0.0, Basophils # (Auto) 0.0, Immature Granulocyte # (Auto) 0.0, Sodium Level 138, Potassium Level 3.5L, Chloride Level 102, Carbon Dioxide Level 27, Anion Gap 9, Blood Urea Nitrogen 6L, Creatinine 0.86, Estimat Glomerular Filtration Rate 90, BUN/Creatinine Ratio 7, Glucose Level 92, Calcium Level 8.2L, Corrected Calcium 9.2, Total Bilirubin 0.3, Aspartate Amino Transf (AST/SGOT) 98H, Alanine Aminotransferase (ALT/SGPT) 104H, Alkaline Phosphatase 714H, Total Protein 5.2L, Albumin 2.8L Microbiology 09/16/21 MRSA Screen - Final, Complete MRSA not isolated Laboratory Tests 09/20/21 04:25 09/21/21 04:54 A/P: Assessment: PAF, currently NSR - intolerance to anticoag due to active GI bleed requiring transfusion - Echocardiogram was done in September 15, 2021 showing normal LV size, ejection fraction 60%, normal PA pressure. Anemia due to GI bleed; endoscopy showed esophagitis and gastritis, in addition to polyp; has received multiple transfusions Syncope / Seizure on the day prior to admission on 09/14/21, no recurrence, managed by the primary care team Left knee and hip pain, x-ray did not show any acute abnormality, managed by primary care team Liver enzyme elevation of undetermined etiology - management per medical services Plan: * Has not been receiving anti-hypertensives d/t episodes of low HR and low blood pressure - stop JOSE RAFAEL (normal LVEF on recent echo) and reduce BB * Monitor labs * Remains on tele * Management of liver enzyme elevation per Medical services * Throat lozenges per pt request YULIANA AREVALO MD [facility] Sep 21, 2021 15:57
[2021-09-21] MEDS ORDERED: CHLORASEPTIC LOZENGE MM PRN (16:00)
[2021-09-21] MEDS: NIACIN ER (NIASPAN) 500 MG TAB PO SCH (20:44)
[2021-09-21] MEDS: AMITRIPTYLINE 50 MG (ELAVIL) TAB PO SCH (20:44)
[2021-09-21] MEDS: ZOLPIDEM 5 MG (AMBIEN) TAB PO SCH (20:44)
[2021-09-22] MEDS: HYDROcodone/APAP 5 MG/325 MG (LORTAB) TAB PO PRN ×4 (00:45→21:43)
[2021-09-22] MEDS: morphine INJ 4 MG/ML 1 ML (VIAL/SYRINGE) IVP PRN ×2 (02:29→19:36)
[2021-09-22 04:52] LABS: BASOPHILS % (AUTO) 0 % (0-10); EOSINOPHILS # (AUTO) 0.1 10^3/uL (0.0-0.3); EOSINOPHILS % (AUTO) 2 % (0-10); HEMATOCRIT 32 % (40-54); HEMOGLOBIN 9.8 g/dL (13.3-17.7); LYMPHOCYTES # (AUTO) 0.5 10^3/uL (1.0-4.0); LYMPHOCYTES % (AUTO) 21 % (12-44); MEAN CORPUSCULAR HEMOGLOBIN 25 pg (25-34); MEAN CORPUSCULAR HGB CONC 30 g/dL (32-36); MEAN CORPUSCULAR VOLUME 83 fL (80-99); MEAN PLATELET VOLUME 11.5 fL (9.0-12.2); MONOCYTES # (AUTO) 0.3 10^3/uL (0.0-1.0); MONOCYTES % (AUTO) 10 % (0-12); NEUTROPHILS # (AUTO) 1.7 10^3/uL (1.8-7.8); NEUTROPHILS % (AUTO) 66 % (42-75); PLATELET COUNT 184 10^3/uL (130-400); WHITE BLOOD COUNT 2.5 10^3/uL (4.3-11.0)
[2021-09-22 05:02] LABS: ALBUMIN 2.9 GM/DL (3.2-4.5)
[2021-09-22 05:03] LABS: POTASSIUM 3.5 MMOL/L (3.6-5.0)
[2021-09-22 05:04] LABS: CALCIUM 8.2 MG/DL (8.5-10.1)
[2021-09-22 05:05] LABS: TOTAL PROTEIN 5.4 GM/DL (6.4-8.2)
[2021-09-22 05:07] LABS: BILIRUBIN,TOTAL 0.5 MG/DL (0.1-1.0)
[2021-09-22 05:09] LABS: CREATININE SERUM 0.8 MG/DL (0.60-1.30)
[2021-09-22] MEDS: PANTOPRAZOLE 40 MG (PROTONIX) TAB PO SCH ×2 (05:57→17:53)
[2021-09-22] MEDS: RT--FLUTICASONE/SALMETEROL 232-14 (AIRDUO RespiCLICK) IH SCH ×2 (07:56→20:00)
[2021-09-22] MEDS: UMECLIDINIUM BROMIDE (INCRUSE ELLIPTA) 7'S IH SCH (07:57)
[2021-09-22] MEDS: SENNA W/DOCUSATE (SENOKOT S) TABLET PO SCH ×3 (09:00→22:21)
[2021-09-22] MEDS: ATENOLOL 25 MG (TENORMIN) TAB PO SCH (09:00)
[2021-09-22] MEDS: LORATADINE (CLARITIN) 10 MG TAB PO SCH (09:18)
[2021-09-22] MEDS: polyethylene glycoL POWDER 17 GM (MIRALAX) PACK PO SCH ×2 (09:18→22:21)
[2021-09-22] MEDS: LACTULOSE SYRUP 10GM/15ML (ENULOSE) 30ML UDC PO SCH ×5 (09:18→21:43)
[2021-09-22] MEDS: FLUoxetine HCL 20 MG (PROzac) CAP PO SCH (09:19)
[2021-09-22] MEDS: FAMOTIDINE 20 MG (PEPCID) TABLET PO SCH ×2 (09:19→21:42)
[2021-09-22] MEDS: CEFDINIR 300 MG (OMNICEF) CAP PO SCH ×2 (09:19→21:42)
[2021-09-22] MEDS: clonazePAM 0.5 MG (KlonoPIN) TAB PO SCH ×3 (09:19→21:42)
--- NOTE | 2021-09-22 10:01 | Cardiology Progress Note ---
Subjective Date Seen by Provider: Sep 22, 2021 Time Seen by Provider: 08:45 Subjective/Events-last exam Patient sitting up in bed, eating breakfast, complaining of fatigue. Denies any chest pain or palpitations. Review of Systems General: No Chills, No Night Sweats; Fatigue, Malaise; No Appetite, No Other HEENT: No Head Aches, No Visual Changes, No Eye Pain, No Ear Pain, No Dysphasia, No Sinus Congestion, No Post Nasal Drip, No Sore Throat, No Other Pulmonary: No Dyspnea, No Cough, No Pleuritic Chest Pain, No Other Cardiovascular: No: Chest Pain, Palpitations, Orthopnea, Paroxysmal Noc. Dyspnea, Edema, Lt Headedness, Other Objective-Cardiology Exam Last Set of Vital Signs Vital Signs 09/22/21 09/22/21 09/22/21 00:23 08:00 09:20 Temp 36.4 Pulse 62 Resp 20 B/P (MAP) 107/62 Pulse Ox 93 O2 Delivery Nasal Cannula O2 Flow Rate 1.50 I&O Intake and Output 09/22/21 00:00 Intake Total 1290 ml Output Total 2600 ml Balance -1310 ml Intake Oral 1290 ml Output Urine Total 2600 ml General: Alert, Oriented X3, Cooperative, No Acute Distress HEENT: Mucous Memb Moist/[place] Neck: Supple Lungs: Clear to Auscultation Heart: Regular Rate Abdomen: Normal Bowel Sounds, Soft, No Tenderness Extremities: No Edema, Normal Pulses Skin: No Rashes Neuro: Normal Gait, Normal Speech, Strength at 5/5 X4 Ext Psych/Mental Status: Mental Status NL Results Lab Laboratory Tests 09/22/21 04:20 A/P-Cardiology Admission Diagnosis Syncope Paroxysmal atrial fibrillation Anemia Metabolic acidosis Assessment/Plan Syncope, reported having seizure episode, had another seizure-like episode during the emergency room stay. No further episodes noted on this admission. Managed by primary care team Left knee and hip pain, x-ray did not show any acute abnormality, managed by primary care team Paroxysmal atrial fibrillation, converted to sinus rhythm in [place] emergency room, has been in sinus rhythm, no further episodes were noted during this admission Anemia, GI bleed, endoscopy showed esophagitis and gastritis in addition to polyp, no identified active bleeding. Received another 2 units of packed RBCs on September 17, 2021, H&H are better. Continue to monitor Patient will be unable to tolerate oral anticoagulation due to the significant blood loss while on anticoagulation. Echocardiogram was done in September 15, 2021 showing normal LV size, ejection fraction 60%, normal PA pressure. Supervisory-Addendum Brief Supervisory Addendum Participated in pt care: history, MDM, physical Personally performed: exam, history, MDM Care discussed with: HONEY Results interpretation: Verified all documentation Notes: Patient was seen and evaluated with Niranjan, examination performed, management plan was discussed, agree with the current scribed note, I made few changes to the note using Italic font Patient was seen at bedside laying down comfortably, complains of generalized fatigue, hip pain No further syncope. Continue current medication monitor blood pressure NIRANJAN OLIVER Sep 22, 2021 10:00 YESICA ACEVEDO MD Sep 22, 2021 11:54
--- NOTE | 2021-09-22 10:10 | Physical Therapy Progress Note ---
Therapy Progress Note Patient refused PT stating, "I'm tired and I don't feel like it." Attempted to educate patient on importance of increasing activity and participating with therapy, however, patient declined. Will attempt later to day or in a.m. 1 ref DANNIE PRETTY PT Sep 22, 2021 10:10
--- NOTE | 2021-09-22 10:58 | Progress Note ---
IVONNE ZAVALA MED STUDENT 09/22/21 1058: Subjective Date Seen by a Provider: Sep 22, 2021 Time Seen by a Provider: 08:45 Subjective/Events-last exam Pt is awake and laying down in bed this morning. He states that his pain is doing alright this morning, still there but not worse than it usually is. He has been eating and drinking without any troubles. He does say that is has been a few days since his last bowel movement. He has been trying to do some PT and got out of bed for a bit. Has been accepted to [facility]. Review of Systems General: No Chills, No Night Sweats HEENT: No Head Aches, No Dysphasia Pulmonary: No Dyspnea, No Cough Cardiovascular: No: Chest Pain, Edema Gastrointestinal: Abdominal Pain, Constipation; No: Nausea, Vomiting, Diarrhea, Melena Genitourinary: No Dysuria, No Frequency, No Hematuria Musculoskeletal: other (hip pain), leg pain Objective Exam Last Set of Vital Signs Vital Signs Date Time Temp Pulse Resp B/P (MAP) Pulse Ox O2 Delivery O2 Flow Rate FiO2 09/22/21 09:20 93 Nasal Cannula 1.50 09/22/21 08:00 36.4 62 107/62 09/22/21 00:23 20 Capillary Refill : I&O Intake and Output 09/22/21 00:00 Intake Total 1290 ml Output Total 2600 ml Balance -1310 ml Intake Oral 1290 ml Output Urine Total 2600 ml General: Alert, Oriented X3, Cooperative, No Acute Distress Neck: Supple Lungs: Clear to Auscultation, Normal Air Movement Heart: Regular Rate, No Murmurs Abdomen: Normal Bowel Sounds, Soft, No Tenderness Extremities: No Clubbing, No Cyanosis, No Edema, Normal Pulses Skin: No Rashes Neuro: Normal Speech Psych/Mental Status: Mental Status NL Results Lab Laboratory Tests 09/22/21 04:20: White Blood Count 2.5L, Red Blood Count 3.86L, Hemoglobin 9.8L, Hematocrit 32L, Mean Corpuscular Volume 83, Mean Corpuscular Hemoglobin 25, Mean Corpuscular Hemoglobin Concent 30L, Red Cell Distribution Width 17.8H, Platelet Count 184, Mean Platelet Volume 11.5, Immature Granulocyte % (Auto) 1, Neutrophils (%) (Auto) 66, Lymphocytes (%) (Auto) 21, Monocytes (%) (Auto) 10, Eosinophils (%) (Auto) 2, Basophils (%) (Auto) 0, Neutrophils # (Auto) 1.7L, Lymphocytes # (Auto) 0.5L, Monocytes # (Auto) 0.3, Eosinophils # (Auto) 0.1, Basophils # (Auto) 0.0, Immature Granulocyte # (Auto) 0.0, Sodium Level 135, Potassium Level 3.5L, Chloride Level 97L, Carbon Dioxide Level 26, Anion Gap 12, Blood Urea Nitrogen 6L, Creatinine 0.80, Estimat Glomerular Filtration Rate 98, BUN/Creatinine Ratio 8, Glucose Level 91, Calcium Level 8.2L, Corrected Calcium 9.1, Total Bilirubin 0.5, Aspartate Amino Transf (AST/SGOT) 118H, Alanine Aminotransferase (ALT/SGPT) 124H, Alkaline Phosphatase 953H, Total Protein 5.4L, Albumin 2.9L Microbiology 09/16/21 MRSA Screen - Final, Complete MRSA not isolated Assessment/Plan Assessment/Plan Assess & Plan/Chief Complaint Anemia -HGB 9.8 today, 2 total units transfused since admission -Stable, check cbc daily Pneumonia -Pt on ABX -Pt improving Hypokalemia -Potassium replacement -3.4 today will recheck tomorrow Continue working w/ PT and OT. Pt should be encouraged to get out of bed Pt has gotten placement in [facility] Elevated LFT's Has been increasing over the past few days Will get Liver US Check ammonia Supervisory-Addendum Brief Verification & Attestation Participated in pt care: history, physical Personally performed: exam, history Care discussed with: Medical Student Procedures: n/a n/a MERLYN RODRIGUEZ DO 09/23/21 0515: Subjective Subjective/Events-last exam Patient doing well Denies any problems Very poor motivation Labs look good Abdominal ultrasound ordered due to history of alcoholism and elevated liver enzymes Fatty liver along with prior alcoholism and acute illness and statin therapy boy t was discontinued 3 days ago likely cause. Review of Systems General: Fatigue, Malaise Pulmonary: Cough Objective Exam General: Alert, Oriented X3, Cooperative, No Acute Distress Lungs: Clear to Auscultation, Normal Air Movement Heart: Regular Rate, Normal S1, Normal S2, No Murmurs Psych/Mental Status: Mental Status NL, Other (Flat affect) Assessment/Plan Assessment/Plan Assess & Plan/Chief Complaint Abdominal ultrasound Elevated liver enzymes likely from fatty liver and prior alcoholism and statin therapy now discontinued with acute illness Supervisory-Addendum Brief Verification & Attestation Participated in pt care: history, MDM, physical Personally performed: exam, history, MDM, supervision of care Care discussed with: Medical Student Procedures: n/a Results interpretation: Verified all documentation Verification and Attestation of Medical Student E/M Service A medical student performed and documented this service in my presence. I reviewed and verified all information documented by the medical student and made modifications to such information, when appropriate. I personally performed the physical exam and medical decision making. Merlyn Rodriguez, Sep 23, 2021,05:15 IVONNE ZAVALA MED STUDENT Sep 22, 2021 10:58 MERLYN RODRIGUEZ DO Sep 23, 2021 05:15
--- NOTE | 2021-09-22 11:30 | Occ Therapy Progress Note ---
Therapy Progress Note Pt sleeping at OT arrival. Slightly aggravated when woken. Refuses any therapy and states he just wants to sleep. OT to attempt again at a later time if schedule permits. Ronda Ortega OT Sep 22, 2021 11:30
[2021-09-22 12:15] LABS: INR 1.1 (0.8-1.4); PROTHROMBIN TIME PATIENT 14.5 SEC (12.2-14.7)
[2021-09-22] MEDS: KCL 10 MEQ TAB (MICRO K) PO SCH (13:00)
[2021-09-22] MEDS: FUROSEMIDE 20 MG (LASIX) TAB PO SCH (13:00)
--- NOTE | 2021-09-22 13:52 | Diagnostic Imaging Report ---
PROCEDURE: US Abdomen, limited. TECHNIQUE: Multiple realtime grayscale images were obtained over the abdomen in various projections. INDICATION: Elevated liver enzymes. FINDINGS: Liver is enlarged at 19.1 cm. The portal vein is patent and shows normal direction of flow. No liver mass is identified. The gallbladder is surgically absent. There is no biliary ductal dilatation. The pancreas and aorta were obscured by overlying bowel gas. IVC is patent. Right kidney is without calculi or hydronephrosis. There is no ascites. IMPRESSION: 1. Mild hepatomegaly. 2. Status post cholecystectomy. No other significant abnormality is detected, although the study was somewhat limited due to overlying bowel gas. Dictated by: Dictated on workstation # [id number]
[2021-09-22] MEDS: CALCIUM CARBONATE 500 MG (TUMS) TAB.CHEW PO PRN (14:14)
[2021-09-22] MEDS: AMITRIPTYLINE 50 MG (ELAVIL) TAB PO SCH (21:42)
[2021-09-22] MEDS: ZOLPIDEM 5 MG (AMBIEN) TAB PO SCH (21:42)
[2021-09-22] MEDS: NIACIN ER (NIASPAN) 500 MG TAB PO SCH (21:43)
[2021-09-22 22:10] LABS: HEPATITIS C ANTIBODY C Non-Reactive (Non-Reactive)
[2021-09-23] MEDS: HYDROcodone/APAP 5 MG/325 MG (LORTAB) TAB PO PRN ×4 (03:30→21:21)
[2021-09-23 03:49] LABS: BASOPHILS % (AUTO) 0 % (0-10); EOSINOPHILS # (AUTO) 0.1 10^3/uL (0.0-0.3); EOSINOPHILS % (AUTO) 3 % (0-10); HEMATOCRIT 34 % (40-54); HEMOGLOBIN 10.3 g/dL (13.3-17.7); LYMPHOCYTES # (AUTO) 0.7 10^3/uL (1.0-4.0); LYMPHOCYTES % (AUTO) 27 % (12-44); MEAN CORPUSCULAR HEMOGLOBIN 26 pg (25-34); MEAN CORPUSCULAR HGB CONC 30 g/dL (32-36); MEAN CORPUSCULAR VOLUME 84 fL (80-99); MONOCYTES # (AUTO) 0.3 10^3/uL (0.0-1.0); MONOCYTES % (AUTO) 13 % (0-12); NEUTROPHILS # (AUTO) 1.4 10^3/uL (1.8-7.8); NEUTROPHILS % (AUTO) 55 % (42-75); PLATELET COUNT 175 10^3/uL (130-400); WHITE BLOOD COUNT 2.6 10^3/uL (4.3-11.0)
[2021-09-23 04:02] LABS: POTASSIUM 3.7 MMOL/L (3.6-5.0)
[2021-09-23 04:04] LABS: CALCIUM 8.4 MG/DL (8.5-10.1)
[2021-09-23 04:05] LABS: TOTAL PROTEIN 5.8 GM/DL (6.4-8.2)
[2021-09-23 04:07] LABS: BILIRUBIN,TOTAL 0.4 MG/DL (0.1-1.0)
[2021-09-23 04:09] LABS: CREATININE SERUM 0.83 MG/DL (0.60-1.30)
[2021-09-23] MEDS: PANTOPRAZOLE 40 MG (PROTONIX) TAB PO SCH ×2 (06:09→16:30)
[2021-09-23] MEDS: morphine INJ 4 MG/ML 1 ML (VIAL/SYRINGE) IVP PRN ×2 (06:23→14:54)
[2021-09-23] MEDS: polyethylene glycoL POWDER 17 GM (MIRALAX) PACK PO SCH ×2 (08:25→19:58)
[2021-09-23] MEDS: FAMOTIDINE 20 MG (PEPCID) TABLET PO SCH ×2 (08:56→19:57)
[2021-09-23] MEDS: FLUoxetine HCL 20 MG (PROzac) CAP PO SCH (08:56)
[2021-09-23] MEDS: LACTULOSE SYRUP 10GM/15ML (ENULOSE) 30ML UDC PO SCH ×4 (08:56→19:58)
[2021-09-23] MEDS: clonazePAM 0.5 MG (KlonoPIN) TAB PO SCH ×3 (08:56→19:57)
[2021-09-23] MEDS: CEFDINIR 300 MG (OMNICEF) CAP PO SCH (08:56)
[2021-09-23] MEDS: LORATADINE (CLARITIN) 10 MG TAB PO SCH (08:56)
[2021-09-23] MEDS: ATENOLOL 25 MG (TENORMIN) TAB PO SCH (08:56)
[2021-09-23] MEDS: SENNA W/DOCUSATE (SENOKOT S) TABLET PO SCH ×2 (08:56→19:57)
[2021-09-23] MEDS: UMECLIDINIUM BROMIDE (INCRUSE ELLIPTA) 7'S IH SCH (09:25)
[2021-09-23] MEDS: RT--FLUTICASONE/SALMETEROL 232-14 (AIRDUO RespiCLICK) IH SCH ×2 (09:25→18:54)
--- NOTE | 2021-09-23 09:30 | Cardiology Progress Note ---
Subjective Date Seen by Provider: Sep 23, 2021 Time Seen by Provider: 08:50 Subjective/Events-last exam Patient in bed, no new complaints. Denies any chest pain or dyspnea. Objective-Cardiology Exam Last Set of Vital Signs Vital Signs 09/23/21 15:35 Temp 37.1 Pulse 75 Resp 20 B/P (MAP) 107/69 Pulse Ox 91 O2 Delivery Nasal Cannula O2 Flow Rate 2.00 I&O Intake and Output 09/23/21 00:00 Intake Total 1300 ml Output Total 1550 ml Balance -250 ml Intake Oral 1300 ml Output Urine Total 1550 ml # Bowel Movements 3 General: Alert, Oriented X3, Cooperative, No Acute Distress HEENT: Mucous Memb Moist/[place] Neck: Supple Lungs: Clear to Auscultation, Normal Air Movement Heart: Regular Rate, Normal S1, Normal S2, No Murmurs Abdomen: Normal Bowel Sounds, Soft, No Tenderness Extremities: No Clubbing, No Cyanosis, No Edema, Normal Pulses Skin: No Rashes Neuro: Normal Speech Psych/Mental Status: Mental Status NL, Other ([place] affect) Results Lab Laboratory Tests 09/23/21 03:35 A/P-Cardiology Admission Diagnosis Syncope Paroxysmal atrial fibrillation Anemia Metabolic acidosis Assessment/Plan Syncope, reported having seizure episode, had another seizure-like episode during the emergency room stay. No further episodes noted on this admission. Managed by primary care team Left knee and hip pain, x-ray did not show any acute abnormality, managed by primary care team Paroxysmal atrial fibrillation, converted to sinus rhythm in [place] emergency room, has been in sinus rhythm, no further episodes were noted during this admission Anemia, GI bleed, endoscopy showed esophagitis and gastritis in addition to polyp, no identified active bleeding. Received another 2 units of packed RBCs on September 17, 2021, H&H are better. Continue to monitor Patient will be unable to tolerate oral anticoagulation due to the significant blood loss while on anticoagulation. Echocardiogram was done in September 15, 2021 showing normal LV size, ejection fraction 60%, normal PA pressure. Supervisory-Addendum Brief Supervisory Addendum Participated in pt care: history, MDM, physical Personally performed: exam, history, MDM Care discussed with: HONEY Results interpretation: Verified all documentation Notes: Patient was seen and evaluated with Niranjan, examination performed, management plan was discussed, agree with the current scribed note, I made few changes to the note using Italic font Patient was seen at bedside, laying down comfortably Still having back and hip pain No chest pain No further syncopal episodes Continue to monitor H&H, monitor blood pressure NIRANJAN OLIVER Sep 23, 2021 09:30 YESICA ACEVEDO MD Sep 23, 2021 16:18
--- NOTE | 2021-09-23 10:48 | Progress Note ---
IVONNE ZAVALA MED STUDENT 09/23/21 1048: Subjective Date Seen by a Provider: Sep 23, 2021 Time Seen by a Provider: 07:55 Subjective/Events-last exam Mr Barrett is laying in bed this morning. He states that his pain is doing okay today compared to what it normally is. He does not complain about any problems with swallowing or nausea with meals but does say that he has a bit of a decreased appetite. He is not having any pain or blood with his bowel movements or urination. He did decline PT yesterday. He states he does not want to get out of bed. Also states that he does not want to go to shelter but does not want to do PT. U/S yesterday did now show any liver pathology. He was not able to be accepted to [facility] so will have to continue to look for placement. Review of Systems General: No Chills, No Night Sweats HEENT: No Head Aches, No Visual Changes, No Eye Pain, No Dysphasia Pulmonary: No Dyspnea; Cough Cardiovascular: No: Chest Pain, Palpitations, Edema Gastrointestinal: Other (decreased appetite); No: Nausea, Vomiting, Abdominal Pain, Diarrhea, Constipation, Melena, Hematochezia Genitourinary: No Dysuria, No Frequency, No Hematuria Musculoskeletal: other (chronic hip pain), leg pain, foot pain Neurological: No: Weakness, Numbness Objective Exam Last Set of Vital Signs Vital Signs Date Time Temp Pulse Resp B/P (MAP) Pulse Ox O2 Delivery O2 Flow Rate FiO2 09/23/21 09:25 95 Nasal Cannula 2.00 09/23/21 08:00 36.3 69 20 138/89 Capillary Refill : I&O Intake and Output 09/23/21 00:00 Intake Total 1300 ml Output Total 1550 ml Balance -250 ml Intake Oral 1300 ml Output Urine Total 1550 ml # Bowel Movements 3 General: Alert, Oriented X3, Cooperative, No Acute Distress HEENT: PERRLA Neck: Supple Lungs: Clear to Auscultation, Normal Air Movement Heart: Regular Rate, No Murmurs Abdomen: Normal Bowel Sounds, Soft, No Tenderness Extremities: No Clubbing, No Cyanosis, No Edema, Other (generalized pain in feet, legs, and hips ) Skin: No Rashes, No Breakdown Neuro: Normal Speech Psych/Mental Status: Mental Status NL Results Lab Laboratory Tests 09/22/21 11:35: Ammonia 26, Hepatitis A IgM Antibody Non-Reactive, Hepatitis B Surface Antigen Non-Reactive, Hepatitis B Core IgM Antibody Non-Reactive, Hepatitis C Antibody Non-Reactive 09/22/21 11:52: Prothrombin Time 14.5, INR Comment 1.1 09/23/21 03:35: White Blood Count 2.6L, Red Blood Count 4.03L, Hemoglobin 10.3L, Hematocrit 34L, Mean Corpuscular Volume 84, Mean Corpuscular Hemoglobin 26, Mean Corpuscular Hemoglobin Concent 30L, Red Cell Distribution Width 18.0H, Platelet Count 175, Mean Platelet Volume 10.0, Immature Granulocyte % (Auto) 2, Neutrophils (%) (Auto) 55, Lymphocytes (%) (Auto) 27, Monocytes (%) (Auto) 13H, Eosinophils (%) (Auto) 3, Basophils (%) (Auto) 0, Neutrophils # (Auto) 1.4L, Lymphocytes # (Auto) 0.7L, Monocytes # (Auto) 0.3, Eosinophils # (Auto) 0.1, Basophils # (Auto) 0.0, Immature Granulocyte # (Auto) 0.0, Sodium Level 136, Potassium Level 3.7, Chloride Level 98, Carbon Dioxide Level 26, Anion Gap 12, Blood Urea Nitrogen 6L, Creatinine 0.83, Estimat Glomerular Filtration Rate 94, BUN/Creatinine Ratio 7, Glucose Level 86, Calcium Level 8.4L, Corrected Calcium 9.2, Total Bilirubin 0.4, Aspartate Amino Transf (AST/SGOT) 45H, Alanine Aminotransferase (ALT/SGPT) 90H, Alkaline Phosphatase 776H, Total Protein 5.8L, Albumin 3.0L Microbiology 09/16/21 MRSA Screen - Final, Complete MRSA not isolated Radiology NAME: TARA BARRETT [facility] REC#: [id number] PT STATUS: ADM IN : 1960 PHYSICIAN: MERLYN RODRIGUEZ DO ADMIT DATE: 09/14/21 Signed Date of Exam:09/22/21 US ABDOMEN LIMITED [id number] PROCEDURE: US Abdomen, limited. TECHNIQUE: Multiple realtime grayscale images were obtained over the abdomen in various projections. INDICATION: Elevated liver enzymes. FINDINGS: Liver is enlarged at 19.1 cm. The portal vein is patent and shows normal direction of flow. No liver mass is identified. The gallbladder is surgically absent. There is no biliary ductal dilatation. The pancreas and aorta were obscured by overlying bowel gas. IVC is patent. Right kidney is without calculi or hydronephrosis. There is no ascites. IMPRESSION: 1. Mild hepatomegaly. 2. Status post cholecystectomy. No other significant abnormality is detected, although the study was somewhat limited due to overlying bowel gas. Dictated by: Dictated on workstation # [id number] Dict: 09/22/21 1346 Trans: 09/22/21 1658 [id number] [id number] Interpreted by: JESSICA KIDD MD Electronically signed by: JESSICA KIDD MD 09/22/21 1658 Assessment/Plan Assessment/Plan Assess & Plan/Chief Complaint Anemia -HGB 10.3 today, 2 total units transfused since admission -Stable, check cbc daily Pneumonia -ABX completed -Pt improving Hypokalemia -Potassium replacement if becomes hypokalemic again -3.7 today will recheck tomorrow Continue working w/ PT and OT. Pt declined PT, does not want to get out of bed Pt should be encouraged to get out of bed Placement in arma not possible, will look for new location Elevated LFT's Have decreased a bit today Liver US did not show acute pathology Stopped statin Continue to monitor Chronic pain -Continue pain meds Supervisory-Addendum Brief Verification & Attestation Participated in pt care: history, physical Personally performed: exam, history Care discussed with: Medical Student Procedures: n/a n/a MERLYN RODRIGUEZ DO 09/24/21 0521: Subjective Subjective/Events-last exam Pt very poorly motivated Refused therapy today Ultrasound of the liver looked good Decreasing liver enzymes Overall very poor prognosis Review of Systems General: Fatigue, Malaise Objective Exam General: Alert, Oriented X3, Cooperative, No Acute Distress Lungs: Clear to Auscultation, Normal Air Movement Heart: Regular Rate, Normal S1, Normal S2, No Murmurs Psych/Mental Status: Mental Status NL, Other (flat) Assessment/Plan Assessment/Plan Assess & Plan/Chief Complaint Await placement Supervisory-Addendum Brief Verification & Attestation Participated in pt care: history, MDM, physical Personally performed: exam, history, MDM, supervision of care Care discussed with: Medical Student Procedures: n/a Results interpretation: Verified all documentation Verification and Attestation of Medical Student E/M Service A medical student performed and documented this service in my presence. I reviewed and verified all information documented by the medical student and made modifications to such information, when appropriate. I personally performed the physical exam and medical decision making. Merlyn Rodriguez, Sep 24, 2021,05:21 IVONNE ZAVALA MED STUDENT Sep 23, 2021 10:48 MERLYN RODRIGUEZ DO Sep 24, 2021 05:21
[2021-09-23] MEDS: KCL 10 MEQ TAB (MICRO K) PO SCH (12:50)
[2021-09-23] MEDS: FUROSEMIDE 20 MG (LASIX) TAB PO SCH (12:50)
--- NOTE | 2021-09-23 13:33 | Occ Therapy Progress Note ---
Therapy Progress Note Attempt x2 for OT treatment. Pt refusing due to pain and "just wanting to sleep." Education provided and pt verbalizes understanding but still refuses. OT to attempt again 09/24/21 Ronda Ortega OT Sep 23, 2021 13:33
--- NOTE | 2021-09-23 13:36 | Physical Therapy Daily Note ---
PT Daily Note-Current Subjective Pt was visited at 915am, 1130am and 120pm. Pt refused all attempts at treatment today. Pt rates (R) hip and leg pain 07/26. Pt nurse was notified at 1130 who responded with pain meds. Pt refused ther ex in bed or standing at bedside in lieu of walking. Pt says "I'm sorry. I will tomorrow. I just have too much pain." Transfers SCALE: Activities may be completed with or without assistive devices. 8-Nvgrdyraea-ptflmhj completes the activity by him/herself with no assistance from a helper. 5-Set-up or Clean-up Assistance-helper sets up or cleans up; patient completes activity. [place] assists only prior to or following the activity. 4-Supervision or Touching Assistance-helper provides verbal cues and/or touching/steadying and/or contact guard assistance as patient completes act ivity. Assistance may be provided throughout the activity or intermittently. 3-Partial/Moderate Assistance-helper does LESS THAN HALF the effort. [place] lifts, holds or supports trunk or limbs, but provides less than half the effort. 2-Substantial/Maximal Assistance-helper does MORE THAN HALF the effort. [place] lifts or holds trunk or limbs and provides more than half the effort. 5-Zfxbgmcsd-wwgxuk does ALL the effort. Patient does none of the effort to complete the activity. Or, the assistance of 2 or more helpers is required for the patient to complete the activity. If activity was not attempted, code reason: 7-Patient Refused. 9-Not Applicable-not attempted and the patient did not perform the activity before the current illness, exacerbation or injury. 10-Not Attempted due to Environmental Limitations-(lack of equipment, weather restraints, etc.). 88-Not Attempted due to Medical Conditions or Safety Concerns. Assessment Current Status: Refused Treatment PT Jail Goals Jail Goals PT Jail Goals Time Frame: Sep 22, 2021 Roll Left & Right (QC): 6 Sit to Lying (QC): 4 Lying-Sitting on Side/Bed(QC): 4 Sit to Stand (QC): 4 Chair/Itc-px-Drryq Xfer(QC): 4 Walk 10 feet (QC): 4 Walk 50ft with 2 Turns (QC): 4 Walk 150 ft (QC): 4 PT Plan Treatment/Plan Treatment Plan: Continue Plan of Care Treatment Plan: Bed Mobility, Education, Functional Activity Shannon, Functional Strength, Gait, Safety, Therapeutic Exercise, Transfers Treatment Duration: Sep 22, 2021 Frequency: 6 times per week Estimated Hrs Per Day: .25 hour per day Patient and/or Family Agrees t: Yes Time/GCodes Time In: 1320 Time Out: 1325 Total Billed Treatment Time: 0 Total Billed Treatment 1, visit ALEXUS MAYES CPTA Sep 23, 2021 13:36
[2021-09-23] MEDS: AMITRIPTYLINE 50 MG (ELAVIL) TAB PO SCH (19:58)
[2021-09-23] MEDS: NIACIN ER (NIASPAN) 500 MG TAB PO SCH (19:58)
[2021-09-23] MEDS: ZOLPIDEM 5 MG (AMBIEN) TAB PO SCH (23:04)
[2021-09-24] MEDS: ONDANSETRON 4 MG/2 ML (SDV) Z0FRAN IVP PRN (01:01)
[2021-09-24] MEDS: PANTOPRAZOLE 40 MG (PROTONIX) TAB PO SCH ×2 (06:07→15:00)
[2021-09-24 06:14] LABS: BASOPHILS % (AUTO) 0 % (0-10); EOSINOPHILS % (AUTO) 1 % (0-10); HEMATOCRIT 34 % (40-54); HEMOGLOBIN 10.5 g/dL (13.3-17.7); LYMPHOCYTES # (AUTO) 0.5 10^3/uL (1.0-4.0); LYMPHOCYTES % (AUTO) 16 % (12-44); MEAN CORPUSCULAR HEMOGLOBIN 26 pg (25-34); MEAN CORPUSCULAR HGB CONC 31 g/dL (32-36); MEAN CORPUSCULAR VOLUME 83 fL (80-99); MEAN PLATELET VOLUME 10.2 fL (9.0-12.2); MONOCYTES # (AUTO) 0.4 10^3/uL (0.0-1.0); MONOCYTES % (AUTO) 12 % (0-12); NEUTROPHILS # (AUTO) 2.4 10^3/uL (1.8-7.8); NEUTROPHILS % (AUTO) 70 % (42-75); PLATELET COUNT 185 10^3/uL (130-400); WHITE BLOOD COUNT 3.4 10^3/uL (4.3-11.0)
[2021-09-24 06:31] LABS: POTASSIUM 3.9 MMOL/L (3.6-5.0)
[2021-09-24 06:32] LABS: CALCIUM 8.4 MG/DL (8.5-10.1)
[2021-09-24 06:33] LABS: TOTAL PROTEIN 5.9 GM/DL (6.4-8.2)
[2021-09-24 06:35] LABS: BILIRUBIN,TOTAL 0.3 MG/DL (0.1-1.0)
[2021-09-24 06:37] LABS: CREATININE SERUM 0.9 MG/DL (0.60-1.30)
[2021-09-24] MEDS: RT--FLUTICASONE/SALMETEROL 232-14 (AIRDUO RespiCLICK) IH SCH ×2 (07:33→19:14)
[2021-09-24] MEDS: UMECLIDINIUM BROMIDE (INCRUSE ELLIPTA) 7'S IH SCH (07:33)
--- NOTE | 2021-09-24 08:26 | Cardiology Progress Note ---
Subjective Date Seen by Provider: Sep 24, 2021 Time Seen by Provider: 08:26 Subjective/Events-last exam Patient is laying down in bed, feeling better. No new complaint Review of Systems General: No Chills, No Night Sweats; Fatigue, Malaise; No Appetite, No Other HEENT: No Head Aches, No Visual Changes, No Eye Pain, No Ear Pain, No Dysphasia, No Sinus Congestion, No Post Nasal Drip, No Sore Throat, No Other Pulmonary: No Dyspnea, No Cough, No Pleuritic Chest Pain, No Other Cardiovascular: No: Chest Pain, Palpitations, Orthopnea, Paroxysmal Noc. Dyspnea, Edema, Lt Headedness, Other Objective-Cardiology Exam Last Set of Vital Signs Vital Signs 09/24/21 09/24/21 07:59 08:17 Temp 36.8 Pulse 68 Resp 18 B/P (MAP) 109/70 Pulse Ox 91 O2 Delivery Nasal Cannula O2 Flow Rate 4.00 I&O Intake and Output 09/24/21 00:00 Intake Total 1560 ml Output Total 3125 ml Balance -1565 ml Intake Oral 1560 ml Output Urine Total 3125 ml General: Alert, Oriented X3, Cooperative, No Acute Distress HEENT: PERRLA Neck: Supple Lungs: Clear to Auscultation, Normal Air Movement Heart: Regular Rate, Normal S1, Normal S2, No Murmurs Abdomen: Normal Bowel Sounds, Soft, No Tenderness Extremities: No Clubbing, No Cyanosis, No Edema, Other (generalized pain in feet, legs, and hips ) Skin: No Rashes, No Breakdown Neuro: Normal Speech Psych/Mental Status: Mental Status NL, Other (flat) Results Lab Laboratory Tests 09/24/21 06:10 A/P-Cardiology Admission Diagnosis Syncope Paroxysmal atrial fibrillation Anemia Metabolic acidosis Assessment/Plan Syncope, reported having seizure episode, had another seizure-like episode during the emergency room stay. No further episodes noted on this admission. Managed by primary care team Left knee and hip pain, x-ray did not show any acute abnormality, managed by primary care team Paroxysmal atrial fibrillation, converted to sinus rhythm in [place] emergency room, has been in sinus rhythm, no further episodes were noted during this admission Anemia, GI bleed, endoscopy showed esophagitis and gastritis in addition to polyp, no identified active bleeding. Received another 2 units of packed RBCs on September 17, 2021, H&H are better. Continue to monitor Patient will be unable to tolerate oral anticoagulation due to the significant blood loss while on anticoagulation. Echocardiogram was done in September 15, 2021 showing normal LV size, ejection fraction 60%, normal PA pressure. YESICA ACEVEDO MD Sep 24, 2021 08:26
[2021-09-24] MEDS: ATENOLOL 25 MG (TENORMIN) TAB PO SCH (08:56)
[2021-09-24] MEDS: LORATADINE (CLARITIN) 10 MG TAB PO SCH (08:56)
[2021-09-24] MEDS: FAMOTIDINE 20 MG (PEPCID) TABLET PO SCH ×2 (08:56→20:58)
[2021-09-24] MEDS: clonazePAM 0.5 MG (KlonoPIN) TAB PO SCH ×3 (08:56→21:01)
[2021-09-24] MEDS: SENNA W/DOCUSATE (SENOKOT S) TABLET PO SCH ×2 (08:58→19:31)
[2021-09-24] MEDS: LACTULOSE SYRUP 10GM/15ML (ENULOSE) 30ML UDC PO SCH ×4 (08:58→19:31)
[2021-09-24] MEDS: FLUoxetine HCL 20 MG (PROzac) CAP PO SCH (08:58)
[2021-09-24] MEDS: polyethylene glycoL POWDER 17 GM (MIRALAX) PACK PO SCH ×2 (08:58→19:31)
--- NOTE | 2021-09-24 09:50 | Physical Therapy Progress Note ---
Therapy Progress Note Attempted treatment 940 am. Pt refused. He is nauseated and has been vomiting. He was educated on the importance of out of bed activity. He noted he has been up to the commode and will get up when he feels better. ADRIANA CLIFFORD PT Sep 24, 2021 09:50
--- NOTE | 2021-09-24 10:14 | Occupational Ther Daily Note ---
OT Current Status-Daily Note Subjective Pt laying supine in bed. No c/o pain. Pt reluctant to do therapy due to pt stating fatigue. Mental Status/Objective Patient Orientation: Person, Place, Non-Verbal/Aphasic, Situation Attachments: IV ADL-Treatment Pt requested urinal. Pt able to place and hold urinal while supine in bed then assist to empty after use. Pt educated on pursed lip breathing and conserving energy due to pt feeling fatigued. Pt demonstrated understanding skilled instruction with good return x3. Pt engaged in B hand squeezing/extension edger strength skilled exercise to strengthen B lower UE extension edger and increase activity tolerance for ADL completion, completed 10 reps x2 sets. After session, pt laying supine in bed with call light/phone within reach. All needs met in room. Therapy Code Descriptions/Definitions Functional [place] Measure: 0=Not Assessed/NA 4=Minimal Assistance 1=Total Assistance 5=Supervision or Setup 2=Maximal Assistance 6=Modified Starr 3=Moderate Assistance 7=Complete IndependenceSCALE: Activities may be completed with or without assistive devices. 0-Oxqvntakxs-yzhuqaq completes the activity by him/herself with no assistance from a helper. 5-Set-up or Clean-up Assistance-helper sets up or cleans up; patient completes activity. [place] assists only prior to or following the activity. 4-Supervision or Touching Assistance-helper provides verbal cues and/or touching/steadying and/or contact guard assistance as patient completes activity. Assistance may be provided throughout the activity or intermittently. 3-Partial/Moderate Assistance-helper does LESS THAN HALF the effort. [place] lifts, holds or supports trunk or limbs, but provides less than half the effort. 2-Substantial/Maximal Assistance-helper does MORE THAN HALF the effort. [place] lifts or holds trunk or limbs and provides more than half the effort. 1-Ujdzbvazx-gmxsbo does ALL the effort. Patient does none of the effort to complete the activity. Or, the assistance of 2 or more helpers is required for the patient to complete the activity. If activity was not attempted, code reason: 7-Patient Refused. 9-Not Applicable-not attempted and the patient did not perform the activity before the current illness, exacerbation or injury. 10-Not Attempted due to Environmental Limitations-(lack of equipment, weather restraints, etc.). 88-Not Attempted due to Medical Conditions or Safety Concerns. Education OT Patient Education: Energy conservation (Pursed lip breathing) Teaching Recipient: Patient Teaching Methods: Demonstration, Discussion Response to Teaching: Verbalize Understanding, Return Demonstration OT [place] Goals Half-Way Goals Time Frame: Oct 06, 2021 Oral Hygiene (QC): 5 Toileting Hygiene (QC): 4 Upper Body Dressing (QC): 4 Lower Body Dressing (QC): 4 On/Off Footwear (QC): 4 1=Demonstrate adherence to instructed precautions during ADL tasks. 2=Patient will verbalize/demonstrate understanding of assistive devices/modifications for ADL. 3=Patient will improve strength/tolerance for activity to enable patient to perform ADL's. OT Education/Plan Problem List/Assessment Assessment: Decreased Activ Tolerance, Impaired Cognition, Impaired Self-Care Skills Discharge Recommendations Plan/Recommendations: Continue POC Treatment Plan/Plan of Care Patient would benefit from OT for education, treatment and training to promote independence in ADL's, mobility, safety and/or upper extremity function for ADL's. Plan of Care: ADL Retraining, Caregiver Training, Functional Mobility, Group Exercise/Act as Ind, UE Funct Exercise/Act, UE Neuromus Re-Ed/Coord, Visual/Perceptual Retrain Treatment Duration: Oct 06, 2021 Frequency: 5 times per week Estimated Hrs Per Day: .25 hour per day Rehab Potential: Fair Time/GCodes Start Time: 09:50 Stop Time: 10:00 Total Time Billed (hr/min): 10 Billed Treatment Time 1 visit-1 FA (10 min) ANTHONY ALVAREZ Sep 24, 2021 10:13
--- NOTE | 2021-09-24 11:21 | Progress Note ---
IVONNE ZAVALA MED STUDENT 09/24/21 1121: Subjective Date Seen by a Provider: Sep 24, 2021 Time Seen by a Provider: 08:15 Subjective/Events-last exam Pt is awake and laying down in bed this morning. He states that he is in his normal amount of pain. He is eating and drinking alright but does say his appetite is a bit decreased. States he has no problems with bowel movements or urination. He did decline both PT and OT yesterday. Still looking for placement for him. Review of Systems General: No Chills, No Night Sweats, No Appetite (decreased) HEENT: No Head Aches, No Visual Changes, No Eye Pain, No Dysphasia Pulmonary: No Dyspnea; Cough Cardiovascular: No: Chest Pain, Palpitations, Edema Gastrointestinal: No: Nausea, Vomiting, Abdominal Pain, Diarrhea, Constipation Genitourinary: No Dysuria, No Frequency, No Hematuria Musculoskeletal: other (hip pain, chronic), leg pain, foot pain Neurological: No: Weakness, Numbness Objective Exam Last Set of Vital Signs Vital Signs Date Time Temp Pulse Resp B/P (MAP) Pulse Ox O2 Delivery O2 Flow Rate FiO2 09/24/21 09:00 95 Nasal Cannula 2.00 09/24/21 08:17 68 09/24/21 07:59 36.8 18 109/70 Capillary Refill : I&O Intake and Output 09/24/21 00:00 Intake Total 1560 ml Output Total 3125 ml Balance -1565 ml Intake Oral 1560 ml Output Urine Total 3125 ml General: Alert, Oriented X3, Cooperative, No Acute Distress HEENT: PERRLA Neck: Supple Lungs: Clear to Auscultation, Normal Air Movement Heart: Regular Rate, No Murmurs Abdomen: Normal Bowel Sounds, Soft, No Tenderness Extremities: No Clubbing, No Cyanosis, No Edema, Normal Pulses Skin: No Rashes Neuro: Normal Speech Psych/Mental Status: Mental Status NL, Other (Mood a little depressed) Results Lab Laboratory Tests 09/24/21 06:10: White Blood Count 3.4L, Red Blood Count 4.10L, Hemoglobin 10.5L, Hematocrit 34L, Mean Corpuscular Volume 83, Mean Corpuscular Hemoglobin 26, Mean Corpuscular Hemoglobin Concent 31L, Red Cell Distribution Width 18.2H, Platelet Count 185, Mean Platelet Volume 10.2, Immature Granulocyte % (Auto) 2, Neutrophils (%) (Auto) 70, Lymphocytes (%) (Auto) 16, Monocytes (%) (Auto) 12, Eosinophils (%) (Auto) 1, Basophils (%) (Auto) 0, Neutrophils # (Auto) 2.4, Lymphocytes # (Auto) 0.5L, Monocytes # (Auto) 0.4, Eosinophils # (Auto) 0.0, Basophils # (Auto) 0.0, Immature Granulocyte # (Auto) 0.1, Sodium Level 133L, Potassium Level 3.9, Chloride Level 95L, Carbon Dioxide Level 25, Anion Gap 13, Blood Urea Nitrogen 8, Creatinine 0.90, Estimat Glomerular Filtration Rate 86, BUN/Creatinine Ratio 9, Glucose Level 100, Calcium Level 8.4L, Corrected Calcium 9.2, Total Bilirubin 0.3, Aspartate Amino Transf (AST/SGOT) 36H, Alanine Aminotransferase (ALT/SGPT) 72H, Alkaline Phosphatase 800H, Total Protein 5.9L, Albumin 3.0L Microbiology 09/16/21 MRSA Screen - Final, Complete MRSA not isolated Assessment/Plan Assessment/Plan Assess & Plan/Chief Complaint Anemia -HGB 10.5 today, 2 total units transfused since admission -Stable, check cbc daily Pneumonia -ABX completed -Pt improving Hypokalemia -Potassium replacement if becomes hypokalemic again -3.9 today will recheck tomorrow Continue working w/ PT and OT. Pt declined PT, does not want to get out of bed Pt should be encouraged to get out of bed Placement in arma not possible, will look for new location Elevated LFT's Have increased a bit today, but about the same Liver US did not show acute pathology Stopped statin Continue to monitor Chronic pain -Continue pain meds Supervisory-Addendum Brief Verification & Attestation Participated in pt care: history, physical Personally performed: exam Care discussed with: Medical Student Procedures: n/a n/a MERLYN RODRIGUEZ DO 09/25/21 0527: Subjective Subjective/Events-last exam Apathy noted No concerns Diarrhea it went all over the room last night Covid test for fdc was positive for Covid patient has no symptoms Review of Systems General: Fatigue, Malaise Objective Exam General: Alert, Oriented X3, Cooperative, No Acute Distress Lungs: Clear to Auscultation, Normal Air Movement Psych/Mental Status: Mental Status NL, Mood NL Assessment/Plan Assessment/Plan Assess & Plan/Chief Complaint Covid positive Supervisory-Addendum Brief Verification & Attestation Participated in pt care: history, MDM, physical Personally performed: exam, history, MDM, supervision of care Care discussed with: Medical Student Procedures: n/a Results interpretation: Verified all documentation Verification and Attestation of Medical Student E/M Service A medical student performed and documented this service in my presence. I reviewed and verified all information documented by the medical student and made modifications to such information, when appropriate. I personally performed the physical exam and medical decision making. Merlyn Rodriguez, Sep 25, 2021,05:27 IVONNE ZAVALA MED STUDENT Sep 24, 2021 11:21 MERLYN RODRIGUEZ DO Sep 25, 2021 05:27
[2021-09-24] MEDS: FUROSEMIDE 20 MG (LASIX) TAB PO SCH (13:54)
[2021-09-24] MEDS: KCL 10 MEQ TAB (MICRO K) PO SCH (13:54)
[2021-09-24] MEDS: HYDROcodone/APAP 5 MG/325 MG (LORTAB) TAB PO PRN ×2 (14:17→18:51)
--- NOTE | 2021-09-24 15:07 | Physical Therapy Progress Note ---
Therapy Progress Note Attempted PT tx in the afternoon, patient refuses to get out of bed and also refuses to perform exercises in bed. Patient educated on the importance of PT but continues to refuse. ALFONZO GARCIA PT Sep 24, 2021 15:07
[2021-09-24 20:20] VITALS: BP 118/63
[2021-09-24] MEDS: ZOLPIDEM 5 MG (AMBIEN) TAB PO SCH (20:59)
[2021-09-24] MEDS: AMITRIPTYLINE 50 MG (ELAVIL) TAB PO SCH (20:59)
[2021-09-24] MEDS: NIACIN ER (NIASPAN) 500 MG TAB PO SCH (20:59)
[2021-09-25] MEDS: HYDROcodone/APAP 5 MG/325 MG (LORTAB) TAB PO PRN (05:21)
[2021-09-25] MEDS: PANTOPRAZOLE 40 MG (PROTONIX) TAB PO SCH ×2 (05:21→14:36)
[2021-09-25 05:33] LABS: BASOPHILS % (AUTO) 0 % (0-10); EOSINOPHILS % (AUTO) 0 % (0-10); HEMATOCRIT 36 % (40-54); HEMOGLOBIN 10.9 g/dL (13.3-17.7); LYMPHOCYTES # (AUTO) 0.8 10^3/uL (1.0-4.0); LYMPHOCYTES % (AUTO) 20 % (12-44); MEAN CORPUSCULAR HEMOGLOBIN 25 pg (25-34); MEAN CORPUSCULAR HGB CONC 30 g/dL (32-36); MEAN CORPUSCULAR VOLUME 83 fL (80-99); MEAN PLATELET VOLUME 9.9 fL (9.0-12.2); MONOCYTES # (AUTO) 0.5 10^3/uL (0.0-1.0); MONOCYTES % (AUTO) 12 % (0-12); NEUTROPHILS # (AUTO) 2.7 10^3/uL (1.8-7.8); NEUTROPHILS % (AUTO) 66 % (42-75); PLATELET COUNT 198 10^3/uL (130-400); WHITE BLOOD COUNT 4.1 10^3/uL (4.3-11.0)
[2021-09-25 05:48] LABS: ALBUMIN 3.2 GM/DL (3.2-4.5); POTASSIUM 4.1 MMOL/L (3.6-5.0)
[2021-09-25 05:50] LABS: CALCIUM 8.7 MG/DL (8.5-10.1)
[2021-09-25 05:51] LABS: TOTAL PROTEIN 6.2 GM/DL (6.4-8.2)
[2021-09-25 05:53] LABS: BILIRUBIN,TOTAL 0.3 MG/DL (0.1-1.0)
[2021-09-25 05:54] LABS: CREATININE SERUM 0.89 MG/DL (0.60-1.30)
[2021-09-25] MEDS: RT--FLUTICASONE/SALMETEROL 232-14 (AIRDUO RespiCLICK) IH SCH (06:50)
[2021-09-25] MEDS: UMECLIDINIUM BROMIDE (INCRUSE ELLIPTA) 7'S IH SCH (06:50)
[2021-09-25] MEDS: clonazePAM 0.5 MG (KlonoPIN) TAB PO SCH ×4 (08:18→21:18)
[2021-09-25] MEDS: SENNA W/DOCUSATE (SENOKOT S) TABLET PO SCH ×2 (08:19→21:00)
[2021-09-25] MEDS: LORATADINE (CLARITIN) 10 MG TAB PO SCH (08:19)
[2021-09-25] MEDS: FLUoxetine HCL 20 MG (PROzac) CAP PO SCH (08:19)
[2021-09-25] MEDS: ATENOLOL 25 MG (TENORMIN) TAB PO SCH (08:19)
[2021-09-25] MEDS: LACTULOSE SYRUP 10GM/15ML (ENULOSE) 30ML UDC PO SCH ×4 (08:19→21:00)
[2021-09-25] MEDS: FAMOTIDINE 20 MG (PEPCID) TABLET PO SCH ×2 (08:19→21:07)
[2021-09-25] MEDS: polyethylene glycoL POWDER 17 GM (MIRALAX) PACK PO SCH ×2 (08:19→21:00)
--- NOTE | 2021-09-25 09:50 | Diagnostic Imaging Report ---
INDICATION: Covid positive, shortness of breath, cough. COMPARISON: 11/15/2020. FINDINGS: Single view of the chest demonstrates new atelectasis, effusion, and infiltrate in the left base. The heart is prominent without overt pulmonary edema. There is right IJ catheter in good position. There is no pneumothorax. IMPRESSION: Atelectasis, effusion and infiltrate left lung base. Dictated by: Dictated on workstation # [id number]
--- NOTE | 2021-09-25 12:14 | Physical Therapy Daily Note ---
PT Daily Note-Current Subjective Pt in bed and agrees to PT agrees to perform bed exs. Pain Numeric Pain Scale: 5-Moderate Pain Location: Right, Left Location Body Site: Hip Mental Status Patient Orientation: Normal For Age Transfers SCALE: Activities may be completed with or without assistive devices. 6-Komfdrcxml-qvyjzrq completes the activity by him/herself with no assistance from a helper. 5-Set-up or Clean-up Assistance-helper sets up or cleans up; patient completes activity. [employer] assists only prior to or following the activity. 4-Supervision or Touching Assistance-helper provides verbal cues and/or touching/steadying and/or contact guard assistance as patient completes activ ity. Assistance may be provided throughout the activity or intermittently. 3-Partial/Moderate Assistance-helper does LESS THAN HALF the effort. [employer] lifts, holds or supports trunk or limbs, but provides less than half the effort. 2-Substantial/Maximal Assistance-helper does MORE THAN HALF the effort. [employer] lifts or holds trunk or limbs and provides more than half the effort. 0-Btovancut-goctxg does ALL the effort. Patient does none of the effort to complete the activity. Or, the assistance of 2 or more helpers is required for the patient to complete the activity. If activity was not attempted, code reason: 7-Patient Refused. 9-Not Applicable-not attempted and the patient did not perform the activity before the current illness, exacerbation or injury. 10-Not Attempted due to Environmental Limitations-(lack of equipment, weather restraints, etc.). 88-Not Attempted due to Medical Conditions or Safety Concerns. Gait Training Does the Patient Walk?: No and Walking Goal IS indicated Exercises Supine Ex: Bridging, Ankle pumps, Quad Set, Rolling, Glut sets, Heel Slides, Short Arc Quads, Scooting, Hip abd/add Supine Reps: 15 Treatments Pt in bed upon arrival and agrees to perform bed exs. Requires AAROM for first few reps and then able to perform AROM. Call light in hand and all needs met as PT departs. Assessment Current Status: Fair Progress Requires skilled verbal cues about hand and foot placement while performing bed mobility. PT [employer] Blender Goals [employer] Blender Goals PT [employer] Blender Goals Time Frame: Sep 22, 2021 Roll Left & Right (QC): 6 Sit to Lying (QC): 4 Lying-Sitting on Side/Bed(QC): 4 Sit to Stand (QC): 4 Chair/Whs-ha-Ccuhh Xfer(QC): 4 Walk 10 feet (QC): 4 Walk 50ft with 2 Turns (QC): 4 Walk 150 ft (QC): 4 PT Plan Problem List Problem List: Activity Tolerance, Functional Strength Treatment/Plan Treatment Plan: Continue Plan of Care Treatment Plan: Bed Mobility, Education, Functional Activity Shannon, Functional Strength, Gait, Safety, Therapeutic Exercise, Transfers Treatment Duration: Sep 22, 2021 Frequency: 6 times per week Estimated Hrs Per Day: .25 hour per day Patient and/or Family Agrees t: Yes Safety Risks/Education Patient Education: Correct Positioning Teaching Recipient: Patient Teaching Methods: Discussion Response to Teaching: Return Demonstration Time/GCodes Time In: 1030 Time Out: 1045 Total Billed Treatment Time: 15 Total Billed Treatment 1, EX TRAVIS CROWDER PTA Sep 25, 2021 12:14
[2021-09-25] MEDS: CHLORASEPTIC LOZENGE MM PRN ×2 (12:38→21:18)
--- NOTE | 2021-09-25 13:49 | Occ Therapy Progress Note ---
Therapy Progress Note Pt laying in bed, adamently declined OT tx at this time, as he just wants to rest. OT provided education to pt on purpose and benefit but he continues to refuse. OT will attempt again next available date. 1, refusal 1330 SANJANA ROWE OT Sep 25, 2021 13:49
--- NOTE | 2021-09-25 14:29 | Progress Note ---
STEFANIE ROMAN 09/25/21 1429: Subjective Date Seen by a Provider: Sep 25, 2021 Time Seen by a Provider: 08:00 Subjective/Events-last exam Patient was to be discharged to a skilled nursing yesterday but tested positive for COVID. Will continue managing until we are able to get him placed. Objective Exam Last Set of Vital Signs Vital Signs Date Time Temp Pulse Resp B/P (MAP) Pulse Ox O2 Delivery O2 Flow Rate FiO2 09/25/21 11:31 36.4 52 18 119/67 98 Nasal Cannula 3.00 Capillary Refill : I&O Intake and Output 09/25/21 00:00 Intake Total 1565 ml Output Total 1805 ml Balance -240 ml Intake Oral 1565 ml Output Urine Total 1805 ml # Bowel Movements 1 # Emeses 1 Results Lab Laboratory Tests 09/24/21 15:02: SARS-CoV-2 RNA (RT-PCR) DetectedH 09/25/21 05:27: White Blood Count 4.1L, Red Blood Count 4.36, Hemoglobin 10.9L, Hematocrit 36L, Mean Corpuscular Volume 83, Mean Corpuscular Hemoglobin 25, Mean Corpuscular Hemoglobin Concent 30L, Red Cell Distribution Width 18.1H, Platelet Count 198, Mean Platelet Volume 9.9, Immature Granulocyte % (Auto) 2, Neutrophils (%) (Auto) 66, Lymphocytes (%) (Auto) 20, Monocytes (%) (Auto) 12, Eosinophils (%) (Auto) 0, Basophils (%) (Auto) 0, Neutrophils # (Auto) 2.7, Lymphocytes # (Auto) 0.8L, Monocytes # (Auto) 0.5, Eosinophils # (Auto) 0.0, Basophils # (Auto) 0.0, Immature Granulocyte # (Auto) 0.1, Sodium Level 134L, Potassium Level 4.1, Chloride Level 95L, Carbon Dioxide Level 27, Anion Gap 12, Blood Urea Nitrogen 10, Creatinine 0.89, Estimat Glomerular Filtration Rate 87, BUN/Creatinine Ratio 11, Glucose Level 88, Calcium Level 8.7, Corrected Calcium 9.3, Total Bilirubin 0.3, Aspartate Amino Transf (AST/SGOT) 24, Alanine Aminotransferase (ALT/SGPT) 52, Alkaline Phosphatase 638H, Total Protein 6.2L, Albumin 3.2 Microbiology 09/16/21 MRSA Screen - Final, Complete MRSA not isolated Assessment/Plan Assessment/Plan Assess & Plan/Chief Complaint Assessment COVID + Elevated LFTs Chronic pain Pneumonia Anemia Plan Continue medical management Monitor labs PT/OT MERLYN RODRIGUEZ DO 09/26/21 0553: Subjective Subjective/Events-last exam Rapid Covid test positive awaiting PCR Patient very sluggish Monitoring closely Review of Systems General: Fatigue, Malaise Objective Exam General: Alert, Oriented X3, Cooperative, No Acute Distress Lungs: Clear to Auscultation, Normal Air Movement Heart: Regular Rate, Normal S1, Normal S2, No Murmurs Psych/Mental Status: Mental Status NL, Mood NL Assessment/Plan Assessment/Plan Assess & Plan/Chief Complaint Isolation Supervisory-Addendum Brief Verification & Attestation Participated in pt care: history, MDM, physical Personally performed: exam, history, MDM, supervision of care Care discussed with: Medical Student Procedures: n/a Results interpretation: Verified all documentation Verification and Attestation of Medical Student E/M Service A medical student performed and documented this service in my presence. I review ed and verified all information documented by the medical student and made modifications to such information, when appropriate. I personally performed the physical exam and medical decision making. Merlyn Rodriguez Sep 26, 2021,05:51 STEFANIE ROMAN Sep 25, 2021 14:29 MERLYN RODRIGUEZ DO Sep 26, 2021 05:53
[2021-09-25] MEDS: KCL 10 MEQ TAB (MICRO K) PO SCH (14:35)
[2021-09-25] MEDS: FUROSEMIDE 20 MG (LASIX) TAB PO SCH (14:36)
[2021-09-25] MEDS ORDERED: IOHEXOL 350 MG/ML 100 ML (OMNIPAQUE 350) VIAL IV ONE (16:15)
[2021-09-25] MEDS ORDERED: HOLD METFORMIN - RECEIVED CONTRAST 20 ML VIAL IV SCH (16:15)
[2021-09-25] MEDS ORDERED: NS 100 ML (IVPB) BAG IV ONE (16:15)
--- NOTE | 2021-09-25 17:28 | Diagnostic Imaging Report ---
PROCEDURE: CT angiography of the chest with contrast. TECHNIQUE: Multiple contiguous axial images were obtained through the chest after uneventful bolus administration of intravenous contrast. 3D reconstructed CTA MIP acquisitions were also performed. Auto Exposure Controls were utilized during the CT exam to meet ALARA standards for radiation dose reduction. DATE: September 25, 2021. COMPARISON: Chest radiograph September 25, 2021. CT angiography chest August 23, 2021. INDICATION: 60-year-old male, chest pain. Covid positive. FINDINGS: There is adjacent nodular opacification in the right lower lobe on axial image 70 and adjacent sequential images. There is additional nodular appearing airspace consolidation in the right lower lobe and also in the right upper lobe on axial image 63 and adjacent sequential images. There are additional subtle areas of patchy alveolar consolidation present in the right upper lobe. There are patchy areas of airspace consolidation in the left upper lobe and left lower lobe including areas of fairly nodular appearing consolidation. There is also more confluent left lower lobe airspace consolidation on axial image 99 and adjacent sequential images. There is a small left pleural effusion. There is no identified pneumothorax. There is gas within the main pulmonary vein which may relate to recent venous access. There is no identified pulmonary embolus. The main pulmonary artery diameter is within normal limits. The heart is not enlarged. There is no pericardial effusion. There is a right hilar lymph node on axial image 61 which measures 14 mm in short axis. There is a small hiatal hernia. There is an exophytic indeterminate right renal lesion on axial image 160 measuring 1.2 cm in size. There is an accessory splenule on axial image 129. There are degenerative changes of the spine. There is no identified acute bony abnormality. IMPRESSION: CT chest: 1. Patchy multifocal bilateral lung consolidation which would be consistent with provided history of Covid-19 infection and multifocal pneumonia/pneumonitis although it is not technically specific. 2. Small left pleural effusion. 3. No identified pulmonary embolus. 4. Incidental findings as above. Dictated by: Dictated on workstation # [id number]
[2021-09-25] MEDS: ENOXAPARIN 100 MG/1 ML (LOVENOX) SYR SC SCH (17:48)
[2021-09-25] MEDS: ZOLPIDEM 5 MG (AMBIEN) TAB PO SCH (20:59)
[2021-09-25] MEDS: NIACIN ER (NIASPAN) 500 MG TAB PO SCH (21:07)
[2021-09-25] MEDS: AMITRIPTYLINE 50 MG (ELAVIL) TAB PO SCH (21:07)
[2021-09-26] MEDS: HYDROcodone/APAP 5 MG/325 MG (LORTAB) TAB PO PRN ×3 (00:31→15:09)
[2021-09-26] MEDS: PANTOPRAZOLE 40 MG (PROTONIX) TAB PO SCH ×2 (04:41→15:04)
[2021-09-26] MEDS: ENOXAPARIN 100 MG/1 ML (LOVENOX) SYR SC SCH (04:41)
[2021-09-26 04:54] LABS: HEMATOCRIT 36 % (40-54); HEMOGLOBIN 10.9 g/dL (13.3-17.7); MEAN CORPUSCULAR HEMOGLOBIN 25 pg (25-34); MEAN CORPUSCULAR HGB CONC 30 g/dL (32-36); MEAN CORPUSCULAR VOLUME 83 fL (80-99); MEAN PLATELET VOLUME 9.9 fL (9.0-12.2); PLATELET COUNT 203 10^3/uL (130-400); WHITE BLOOD COUNT 4.1 10^3/uL (4.3-11.0)
[2021-09-26 05:03] LABS: CHLORIDE 94 MMOL/L (98-107); POTASSIUM 4.2 MMOL/L (3.6-5.0); SODIUM 133 MMOL/L (135-145)
[2021-09-26 05:04] LABS: CALCIUM 8.5 MG/DL (8.5-10.1)
[2021-09-26 05:05] LABS: GLUCOSE 81 MG/DL (70-105)
[2021-09-26 05:06] LABS: CARBON DIOXIDE 26 MMOL/L (21-32)
[2021-09-26 05:09] LABS: CREATININE SERUM 0.92 MG/DL (0.60-1.30); GFR ESTIMATED 84
[2021-09-26 05:10] LABS: BUN/CREATININE RATIO 12
[2021-09-26 06:04] LABS: ALBUMIN 3.2 GM/DL (3.2-4.5)
[2021-09-26 06:07] LABS: TOTAL PROTEIN 6.2 GM/DL (6.4-8.2)
[2021-09-26 06:08] LABS: BILIRUBIN,TOTAL 0.3 MG/DL (0.1-1.0)
[2021-09-26 06:12] LABS: BILIRUBIN,DIRECT 0.2 MG/DL (0.0-0.3); BILIRUBIN,INDIRECT 0.1 MG/DL
[2021-09-26] MEDS: UMECLIDINIUM BROMIDE (INCRUSE ELLIPTA) 7'S IH SCH (07:45)
[2021-09-26] MEDS: RT--FLUTICASONE/SALMETEROL 232-14 (AIRDUO RespiCLICK) IH SCH ×2 (07:45→19:06)
[2021-09-26] MEDS: FLUoxetine HCL 20 MG (PROzac) CAP PO SCH (08:57)
[2021-09-26] MEDS: LORATADINE (CLARITIN) 10 MG TAB PO SCH (08:57)
[2021-09-26] MEDS: FAMOTIDINE 20 MG (PEPCID) TABLET PO SCH ×2 (08:57→20:43)
[2021-09-26] MEDS: CHLORASEPTIC LOZENGE MM PRN (08:57)
[2021-09-26] MEDS: ATENOLOL 25 MG (TENORMIN) TAB PO SCH (08:58)
[2021-09-26] MEDS: SENNA W/DOCUSATE (SENOKOT S) TABLET PO SCH ×2 (10:20→20:46)
[2021-09-26] MEDS: polyethylene glycoL POWDER 17 GM (MIRALAX) PACK PO SCH ×2 (10:20→20:45)
[2021-09-26] MEDS: LACTULOSE SYRUP 10GM/15ML (ENULOSE) 30ML UDC PO SCH ×4 (10:20→20:45)
[2021-09-26] MEDS: clonazePAM 0.5 MG (KlonoPIN) TAB PO SCH ×3 (10:36→20:43)
--- NOTE | 2021-09-26 10:43 | Cardiology Progress Note ---
Subjective Date Seen by Provider: Sep 26, 2021 Time Seen by Provider: 10:42 Subjective/Events-last exam Patient is laying down in bed, complaining of generalized weakness and generalized body ache Had an episode of chest pain yesterday, EKG did not show any acute abnormality Review of Systems General: No Chills, No Night Sweats; Fatigue, Malaise; No Appetite, No Other HEENT: No Head Aches, No Visual Changes, No Eye Pain, No Ear Pain, No Dysphasia, No Sinus Congestion, No Post Nasal Drip, No Sore Throat, No Other Pulmonary: No Dyspnea, No Cough, No Pleuritic Chest Pain, No Other Cardiovascular: Chest Pain; No: Palpitations, Orthopnea, Paroxysmal Noc. Dyspnea, Edema, Lt Headedness, Other Objective-Cardiology Exam Last Set of Vital Signs Vital Signs 09/26/21 09/26/21 07:32 09:00 Temp 37.5 Pulse 64 Resp 20 B/P (MAP) 92/52 Pulse Ox 94 O2 Delivery Nasal Cannula O2 Flow Rate 3.00 I&O Intake and Output 09/26/21 00:00 Intake Total 1275 ml Output Total 1200 ml Balance 75 ml Intake Oral 1275 ml Output Urine Total 1200 ml General: Alert, Oriented X3, Cooperative, No Acute Distress HEENT: PERRLA Neck: Supple Lungs: Clear to Auscultation, Normal Air Movement Heart: Regular Rate, Normal S1, Normal S2, No Murmurs Abdomen: Normal Bowel Sounds, Soft, No Tenderness Extremities: No Clubbing, No Cyanosis, No Edema, Normal Pulses Skin: No Rashes Neuro: Normal Speech Psych/Mental Status: Mental Status NL, Mood NL Results Lab Laboratory Tests 09/26/21 04:35 A/P-Cardiology Admission Diagnosis Syncope Paroxysmal atrial fibrillation Anemia Metabolic acidosis Assessment/Plan Syncope, reported having seizure episode, had another seizure-like episode during the emergency room stay. No further episodes noted on this admission. Managed by primary care team Chest pain nonspecific etiology, musculoskeletal in nature, EKG did not show any acute abnormality, currently feeling better. Continue to monitor Left knee and hip pain, x-ray did not show any acute abnormality, managed by primary care team Paroxysmal atrial fibrillation, converted to sinus rhythm in [place] emergency room, has been in sinus rhythm, no further episodes were noted during this admission Anemia, GI bleed, endoscopy showed esophagitis and gastritis in addition to poly p, no identified active bleeding. Received another 2 units of packed RBCs on September 17, 2021, H&H are better. Continue to monitor Patient will be unable to tolerate oral anticoagulation due to the significant blood loss while on anticoagulation. Echocardiogram was done in September 15, 2021 showing normal LV size, ejection fraction 60%, normal PA pressure. YESICA ACEVEDO MD Sep 26, 2021 10:43
--- NOTE | 2021-09-26 12:34 | Progress Note - Hospitalist ---
ALEXSANDRA VERDUZCO 09/26/21 1234: Subjective HPI/CC On Admission CC: AFIB with RVR new onset HPI: This is a 60yoWM who is chronically ill of Dr. Mckenna who presented to [facility] with AFIB with RVR, Pt was in need of transfer to [facility], empiric antibiotics will be initiated, and Hgb was noted to be decreased, Heparin was DC and Lovenox was initiated by Dr. Servin and Dr. Fajardo will be consulted for colonoscopy and EGD. He will be transferred to the fourth floor. Subjective/Events-last exam PT was sitting comfortably this morning. He reports breathing "normally". He denies fevers, chills or night sweats. He did mention a decreased appetite. He reports pain in his right leg and right hip. No other complaints were reported. Review of Systems General: No Chills, No Night Sweats HEENT: No Head Aches, No Visual Changes Pulmonary: Dyspnea, Cough Cardiovascular: No: Chest Pain, Palpitations Gastrointestinal: No: Nausea, Vomiting Genitourinary: No Dysuria, No Hematuria Musculoskeletal: other (R hip pain), leg pain (In R leg ); No: shoulder pain Neurological: Weakness, Numbness Objective Exam Vital Signs Vital Signs Date Time Temp Pulse Resp B/P (MAP) Pulse Ox O2 Delivery O2 Flow Rate FiO2 09/26/21 12:19 36.8 61 20 86/51 93 Nasal Cannula 2.00 Capillary Refill : General Appearance: No Apparent Distress, Chronically ill HEENT: PERRL/EOMI, Pharynx Normal, Moist Mucous Membranes Respiratory: Chest Non Tender, Lungs Clear, Normal Breath Sounds, No Accessory Muscle Use, No Respiratory Distress Cardiovascular: Regular Rate, Rhythm, No Murmur Gastrointestinal: No Organomegaly, No Pulsatile Mass, Non Tender, Soft Extremity: No Calf Tenderness, No Pedal Edema Neurologic/Psychiatric: Alert, Oriented x3, Normal Mood/Affect Skin: Warm/Dry Results/Procedures Lab Laboratory Tests 09/26/21 04:35 Patient resulted labs reviewed. Assessment/Plan Assessment and Plan Assess & Plan/Chief Complaint 60 YO male with COVID-19, and Hx of Hypokalemia, Elevated LFTs, Chronic pain, Pneumonia, Anemia, and Afib with RVR COVID-19 Hypokalemia Elevated LFTs Chronic pain Pneumonia Anemia Afib with RVR Continue in isolation. Continue current medical management. MC HUGO MD 09/26/21 1446: Subjective HPI/CC On Admission Date Seen by Provider: Sep 26, 2021 Time Seen by Provider: 11:10 Objective Exam General Appearance: No Apparent Distress, WD/WN Respiratory: Lungs Clear, Normal Breath Sounds, No Respiratory Distress Cardiovascular: Regular Rate, Rhythm, No Edema, No Murmur Gastrointestinal: Normal Bowel Sounds, Non Tender, Soft Extremity: Normal Inspection, Non Tender, No Pedal Edema Neurologic/Psychiatric: Alert, Depressed Affect, Motor Weakness Skin: Normal Color, Warm/Dry Results/Procedures Imaging: Reviewed Imaging Report Assessment/Plan Assessment and Plan Assess & Plan/Chief Complaint Admitted with AFib with RVR. Diagnosed with COVID on fdc screening. Begin steroids in setting of hypoxia. Diagnosis/Problems Diagnosis/Problems (1) Acute respiratory failure due to COVID-19 Status: Acute (2) Atrial fibrillation with RVR Status: Acute (3) Debility Status: Acute Supervisory-Addendum Brief Verification & Attestation Participated in pt care: history, MDM, physical Personally performed: exam, history, MDM, supervision of care Care discussed with: Medical Student Procedures: n/a Results interpretation: Verified all documentation A medical student performed and documented this service in my presence. I reviewed and verified all information documented by the medical student and made modifications to such information, when appropriate. I personally performed the physical exam and medical decision making. ALEXSANDRA VERDUZCO Sep 26, 2021 12:34 MC HUGO MD Sep 26, 2021 14:46
--- NOTE | 2021-09-26 12:44 | Physical Therapy Progress Note ---
Therapy Progress Note Pt. in bed, refuses all attempts at therapy. States he has been up to the chair and has gotten out of bed already. Pt. encouraged to get up for all meals. We will return for treatment 09/28/21. 1150 DAPHNIE SON PT Sep 26, 2021 12:44
[2021-09-26] MEDS ORDERED: NS IV 1000 ML 1,000 ML IV SCH (13:15)
[2021-09-26] MEDS: FUROSEMIDE 20 MG (LASIX) TAB PO SCH (15:04)
[2021-09-26] MEDS: KCL 10 MEQ TAB (MICRO K) PO SCH (15:04)
[2021-09-26] MEDS: NIACIN ER (NIASPAN) 500 MG TAB PO SCH (20:43)
[2021-09-26] MEDS: AMITRIPTYLINE 50 MG (ELAVIL) TAB PO SCH (20:43)
[2021-09-26] MEDS: ZOLPIDEM 5 MG (AMBIEN) TAB PO SCH (20:43)
[2021-09-27] MEDS: HYDROcodone/APAP 5 MG/325 MG (LORTAB) TAB PO PRN ×3 (03:52→20:11)
[2021-09-27] MEDS: PANTOPRAZOLE 40 MG (PROTONIX) TAB PO SCH ×2 (05:37→14:56)
[2021-09-27] MEDS: RT--FLUTICASONE/SALMETEROL 232-14 (AIRDUO RespiCLICK) IH SCH ×2 (07:25→21:35)
[2021-09-27] MEDS: UMECLIDINIUM BROMIDE (INCRUSE ELLIPTA) 7'S IH SCH (07:26)
[2021-09-27] MEDS: polyethylene glycoL POWDER 17 GM (MIRALAX) PACK PO SCH ×2 (09:05→20:11)
[2021-09-27] MEDS: ENOXAPARIN 40 MG/0.4 ML (LOVENOX) SYR SC SCH (09:06)
[2021-09-27] MEDS: clonazePAM 0.5 MG (KlonoPIN) TAB PO SCH ×3 (09:06→20:10)
[2021-09-27] MEDS: FAMOTIDINE 20 MG (PEPCID) TABLET PO SCH ×2 (09:06→20:11)
[2021-09-27] MEDS: ATENOLOL 25 MG (TENORMIN) TAB PO SCH (09:06)
[2021-09-27] MEDS: FLUoxetine HCL 20 MG (PROzac) CAP PO SCH (09:06)
[2021-09-27] MEDS: LORATADINE (CLARITIN) 10 MG TAB PO SCH (09:06)
[2021-09-27] MEDS: LACTULOSE SYRUP 10GM/15ML (ENULOSE) 30ML UDC PO SCH ×4 (09:06→20:11)
[2021-09-27] MEDS: SENNA W/DOCUSATE (SENOKOT S) TABLET PO SCH ×2 (09:06→20:11)
[2021-09-27] MEDS: CHLORASEPTIC LOZENGE MM PRN ×2 (09:51→21:53)
[2021-09-27] MEDS: KCL 10 MEQ TAB (MICRO K) PO SCH (13:07)
[2021-09-27] MEDS: FUROSEMIDE 20 MG (LASIX) TAB PO SCH (13:07)
--- NOTE | 2021-09-27 18:30 | Progress Note - Hospitalist ---
Subjective HPI/CC On Admission Date Seen by Provider: Sep 27, 2021 Time Seen by Provider: 12:00 CC: AFIB with RVR new onset HPI: This is a 60yoWM who is chronically ill of Dr. Mckenna who presented to [place] [facility] with AFIB with RVR, Pt was in need of transfer to [facility], empiric antibiotics will be initiated, and Hgb was noted to be decreased, Heparin was DC and Lovenox was initiated by Dr. Servin and Dr. Fajardo will be consulted for colonoscopy and EGD. He will be transferred to the fourth floor. Subjective/Events-last exam He is feeling about the same. He is coughing up sputum. He denies fevers. He denies shortness of breath. He denies nausea. Objective Exam Vital Signs Vital Signs Date Time Temp Pulse Resp B/P (MAP) Pulse Ox O2 Delivery O2 Flow Rate FiO2 09/27/21 16:03 36.2 62 18 100/64 98 Nasal Cannula 2.00 Capillary Refill : General Appearance: No Apparent Distress, Chronically ill Respiratory: Lungs Clear, Normal Breath Sounds, No Respiratory Distress Cardiovascular: Regular Rate, Rhythm, No Edema, No Murmur Gastrointestinal: Normal Bowel Sounds, Non Tender, Soft Extremity: Normal Inspection, Non Tender, No Pedal Edema Neurologic/Psychiatric: Alert, Depressed Affect Skin: Normal Color, Warm/Dry Results/Procedures Lab Patient resulted labs reviewed. Imaging: Reviewed Imaging Report Assessment/Plan Assessment and Plan Assess & Plan/Chief Complaint COVID-19 Incidental finding on care home screening Not hypoxic Steroids not indicated AFib Continue Atenolol Unable to tolerate anticoagulation Cardiology following Anemia GI bleeding Esophagitis Gastritis s/p 2 units PRBC EGD/Colonoscopy with esophagitis, gastritis, hiatal hernia, polyp, hemorrhoids Continue PPI BID Debility PT/OT Planning on SNF placement Consider swing bed DVT prophylaxis: Lovenox Diagnosis/Problems Diagnosis/Problems (1) COVID-19 Status: Acute (2) Atrial fibrillation with RVR Status: Acute (3) Debility Status: Acute MC HUGO MD Sep 27, 2021 18:30
[2021-09-27] MEDS: ZOLPIDEM 5 MG (AMBIEN) TAB PO SCH (20:10)
[2021-09-27] MEDS: AMITRIPTYLINE 50 MG (ELAVIL) TAB PO SCH (20:11)
[2021-09-27] MEDS: NIACIN ER (NIASPAN) 500 MG TAB PO SCH (20:11)
[2021-09-27] MEDS: ONDANSETRON 4 MG/2 ML (SDV) Z0FRAN IVP PRN (22:00)
[2021-09-28 03:28] LABS: BASOPHILS % (AUTO) 0 % (0-10); EOSINOPHILS % (AUTO) 1 % (0-10); HEMATOCRIT 36 % (40-54); HEMOGLOBIN 10.9 g/dL (13.3-17.7); LYMPHOCYTES # (AUTO) 0.9 10^3/uL (1.0-4.0); LYMPHOCYTES % (AUTO) 23 % (12-44); MEAN CORPUSCULAR HEMOGLOBIN 25 pg (25-34); MEAN CORPUSCULAR HGB CONC 31 g/dL (32-36); MEAN CORPUSCULAR VOLUME 82 fL (80-99); MEAN PLATELET VOLUME 10.8 fL (9.0-12.2); MONOCYTES # (AUTO) 0.6 10^3/uL (0.0-1.0); MONOCYTES % (AUTO) 16 % (0-12); NEUTROPHILS # (AUTO) 2.1 10^3/uL (1.8-7.8); NEUTROPHILS % (AUTO) 56 % (42-75); PLATELET COUNT 238 10^3/uL (130-400); WHITE BLOOD COUNT 3.8 10^3/uL (4.3-11.0)
[2021-09-28 03:36] LABS: ALBUMIN 3.2 GM/DL (3.2-4.5)
[2021-09-28 03:37] LABS: POTASSIUM 4.3 MMOL/L (3.6-5.0)
[2021-09-28 03:38] LABS: CALCIUM 8.7 MG/DL (8.5-10.1)
[2021-09-28 03:39] LABS: TOTAL PROTEIN 6.2 GM/DL (6.4-8.2)
[2021-09-28 03:41] LABS: BILIRUBIN,TOTAL 0.3 MG/DL (0.1-1.0)
[2021-09-28 03:43] LABS: CREATININE SERUM 0.95 MG/DL (0.60-1.30)
[2021-09-28] MEDS: PANTOPRAZOLE 40 MG (PROTONIX) TAB PO SCH ×2 (05:11→14:24)
[2021-09-28] MEDS: ENOXAPARIN 40 MG/0.4 ML (LOVENOX) SYR SC SCH (09:26)
[2021-09-28] MEDS: clonazePAM 0.5 MG (KlonoPIN) TAB PO SCH ×3 (09:26→19:30)
[2021-09-28] MEDS: LACTULOSE SYRUP 10GM/15ML (ENULOSE) 30ML UDC PO SCH ×4 (09:26→21:06)
[2021-09-28] MEDS: FAMOTIDINE 20 MG (PEPCID) TABLET PO SCH ×2 (09:27→19:29)
[2021-09-28] MEDS: FLUoxetine HCL 20 MG (PROzac) CAP PO SCH (09:27)
[2021-09-28] MEDS: ATENOLOL 25 MG (TENORMIN) TAB PO SCH (09:27)
[2021-09-28] MEDS: polyethylene glycoL POWDER 17 GM (MIRALAX) PACK PO SCH ×2 (09:27→19:32)
[2021-09-28] MEDS: LORATADINE (CLARITIN) 10 MG TAB PO SCH (09:27)
[2021-09-28] MEDS: SENNA W/DOCUSATE (SENOKOT S) TABLET PO SCH ×2 (09:27→19:28)
[2021-09-28] MEDS: UMECLIDINIUM BROMIDE (INCRUSE ELLIPTA) 7'S IH SCH (09:29)
[2021-09-28] MEDS: RT--FLUTICASONE/SALMETEROL 232-14 (AIRDUO RespiCLICK) IH SCH ×2 (09:29→21:29)
--- NOTE | 2021-09-28 10:09 | Progress Note - Hospitalist ---
Subjective HPI/CC On Admission Date Seen by Provider: Sep 28, 2021 Time Seen by Provider: 11:00 CC: AFIB with RVR new onset HPI: This is a 60yoWM who is chronically ill of Dr. Mckenna who presented to [place] [facility] with AFIB with RVR, Pt was in need of transfer to [facility], empiric antibiotics will be initiated, and Hgb was noted to be decreased, Heparin was DC and Lovenox was initiated by Dr. Servin and Dr. Fajardo will be consulted for colonoscopy and EGD. He will be transferred to the fourth floor. Subjective/Events-last exam Pt declined to participate in any therapy All he does is sleep Labs stable No symptoms from Covid-19 Review of Systems General: Fatigue, Malaise Objective Exam Vital Signs Vital Signs Date Time Temp Pulse Resp B/P (MAP) Pulse Ox O2 Delivery O2 Flow Rate FiO2 09/29/21 04:35 36.7 70 20 103/64 94 Room Air 09/28/21 12:00 2.00 Capillary Refill : General Appearance: Chronically ill, Obese, Other (Asleep) Respiratory: Lungs Clear, Normal Breath Sounds Cardiovascular: Regular Rate, Rhythm Results/Procedures Lab Patient resulted labs reviewed. Imaging: Reviewed Imaging Report Assessment/Plan Assessment and Plan Assess & Plan/Chief Complaint Pneumonia -Continue ABX Anemia -Pt received transfusion 1 unit yesterday, HGB 8.9 -Recheck CBC tomorrow -EGD/Colonoscopy showed some internal hemorrhoids but no obvious bleeding -Continue CBCs Hyponatremia -resolved today -Continue routine labs Hypokalemia -KCl supplementation Will work on finding patient placement in [facility] or with rehab 09/19/2021: Supportive care Monitor hemoglobin 09/20/2021: Supportive care Ambulate 09/28/2021: Supportive care Diagnosis/Problems Diagnosis/Problems (1) Sepsis (2) Seizures (3) Syncope (4) Right sided weakness (5) Atrial fibrillation with rapid ventricular response (6) Anemia Status: Acute VITO RODRIGUEZ DO Sep 28, 2021 10:09
--- NOTE | 2021-09-28 12:04 | Physical Therapy Daily Note ---
PT Daily Note-Current Subjective Pt in bed upon arrival and agrees to PT. Says he doesn't want to ambulate says he has been out of bed w/ nursing to use the BR. Pain Numeric Pain Scale: 8 Location: Right Location Body Site: Hip Mental Status Patient Orientation: Normal For Age Transfers SCALE: Activities may be completed with or without assistive devices. 8-Tuvembijcc-uuzsbrc completes the activity by him/herself with no assistance from a helper. 5-Set-up or Clean-up Assistance-helper sets up or cleans up; patient completes activity. [place] assists only prior to or following the activity. 4-Supervision or Touching Assistance-helper provides verbal cues and/or touching/steadying and/or contact guard assistance as patient completes activity. Assistance may be provided throughout the activity or intermittently. 3-Partial/Moderate Assistance-helper does LESS THAN HALF the effort. [place] lifts, holds or supports trunk or limbs, but provides less than half the effort. 2-Substantial/Maximal Assistance-helper does MORE THAN HALF the effort. [place] lifts or holds trunk or limbs and provides more than half the effort. 0-Soteitsvx-phpjij does ALL the effort. Patient does none of the effort to complete the activity. Or, the assistance of 2 or more helpers is required for the patient to complete the activity. If activity was not attempted, code reason: 7-Patient Refused. 9-Not Applicable-not attempted and the patient did not perform the activity before the current illness, exacerbation or injury. 10-Not Attempted due to Environmental Limitations-(lack of equipment, weather restraints, etc.). 88-Not Attempted due to Medical Conditions or Safety Concerns. Roll Left & Right (QC): 5 Gait Training Does the Patient Walk?: No and Walking Goal IS indicated Exercises Supine Ex: Bridging, Ankle pumps, Quad Set, Rolling, Glut sets, Heel Slides, Scooting, Hip abd/add Supine Reps: 10 Treatments Pt denies ambulation this date but agrees to supine exs. Able to complete all exs w/ cues. Pt in bed upon departure and all needs met call light nearby. Assessment Current Status: Fair Progress Requires cues for hand and feet placement during bed mobility exs. PT Residential Goals Weatherization Director Goals PT Residential Goals Time Frame: Sep 22, 2021 Roll Left & Right (QC): 6 Sit to Lying (QC): 4 Lying-Sitting on Side/Bed(QC): 4 Sit to Stand (QC): 4 Chair/Ycu-zm-Wlvdk Xfer(QC): 4 Walk 10 feet (QC): 4 Walk 50ft with 2 Turns (QC): 4 Walk 150 ft (QC): 4 PT Plan Problem List Problem List: Activity Tolerance, Functional Strength Treatment/Plan Treatment Plan: Continue Plan of Care Treatment Plan: Bed Mobility, Education, Functional Activity Shannon, Functional Strength, Gait, Safety, Therapeutic Exercise, Transfers Treatment Duration: Sep 22, 2021 Frequency: 6 times per week Estimated Hrs Per Day: .25 hour per day Patient and/or Family Agrees t: Yes Safety Risks/Education Patient Education: Correct Positioning Teaching Recipient: Patient Teaching Methods: Discussion Response to Teaching: Return Demonstration Time/GCodes Time In: 950 Time Out: 1002 Total Billed Treatment Time: 12 Total Billed Treatment 1, Ex 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
--- NOTE | 2021-09-28 12:09 | Occ Therapy Progress Note ---
Therapy Progress Note Pt laying in bed, adamantly refusing OT tx. OT discussed purpose/benefits yet pt continues to decline. OT to discharge at this time due to consistent refusals and pt not actively participating in therapy. Ronda Ortega OT Sep 28, 2021 12:09
[2021-09-28] MEDS: KCL 10 MEQ TAB (MICRO K) PO SCH (14:24)
[2021-09-28] MEDS: FUROSEMIDE 20 MG (LASIX) TAB PO SCH (14:24)
[2021-09-28] MEDS: HYDROcodone/APAP 5 MG/325 MG (LORTAB) TAB PO PRN (19:29)
[2021-09-28] MEDS: AMITRIPTYLINE 50 MG (ELAVIL) TAB PO SCH (19:29)
[2021-09-28] MEDS: NIACIN ER (NIASPAN) 500 MG TAB PO SCH (19:31)
[2021-09-28] MEDS: ZOLPIDEM 5 MG (AMBIEN) TAB PO SCH (21:29)
[2021-09-29] MEDS: PANTOPRAZOLE 40 MG (PROTONIX) TAB PO SCH ×2 (05:26→16:24)
[2021-09-29] MEDS: HYDROcodone/APAP 5 MG/325 MG (LORTAB) TAB PO PRN ×3 (06:51→20:02)
--- NOTE | 2021-09-29 07:05 | Progress Note - Hospitalist ---
Subjective HPI/CC On Admission Date Seen by Provider: Sep 29, 2021 Time Seen by Provider: 10:30 CC: AFIB with RVR new onset HPI: This is a 60yoWM who is chronically ill of Dr. Mckenna who presented to [place] ER with AFIB with RVR, Pt was in need of transfer to [facility], empiric antibiotics will be initiated, and Hgb was noted to be decreased, Heparin was DC and Lovenox was initiated by Dr. Servin and Dr. Fajardo will be consulted for colonoscopy and EGD. He will be transferred to the fourth floor. Subjective/Events-last exam Pt doing okay Refusing to get out of bed No major issues Maybe a candidate for full anticoagulation since his Hgb remains stable Review of Systems General: Fatigue Musculoskeletal: arm pain Objective Exam Vital Signs Vital Signs Date Time Temp Pulse Resp B/P (MAP) Pulse Ox O2 Delivery O2 Flow Rate FiO2 09/30/21 04:30 36.4 66 18 106/60 92 Room Air 09/28/21 12:00 2.00 Capillary Refill : General Appearance: No Apparent Distress, WD/WN, Chronically ill Respiratory: Lungs Clear, Normal Breath Sounds Cardiovascular: Regular Rate, Rhythm Neurologic/Psychiatric: Alert, Oriented x3, No Motor/Sensory Deficits, Normal Mood/Affect Results/Procedures Lab Patient resulted labs reviewed. Imaging: Reviewed Imaging Report Assessment/Plan Assessment and Plan Assess & Plan/Chief Complaint Pneumonia -Continue ABX Anemia -Pt received transfusion 1 unit yesterday, HGB 8.9 -Recheck CBC tomorrow -EGD/Colonoscopy showed some internal hemorrhoids but no obvious bleeding -Continue CBCs Hyponatremia -resolved today -Continue routine labs Hypokalemia -KCl supplementation Will work on finding patient placement in [facility] or with rehab 09/19/2021: Supportive care Monitor hemoglobin 09/20/2021: Supportive care Ambulate 09/28/2021: Supportive care 09/29/2021: Asymptomatic COVID-19 Monitor liver Diagnosis/Problems Diagnosis/Problems (1) Sepsis (2) Seizures (3) Syncope (4) Right sided weakness (5) Atrial fibrillation with rapid ventricular response (6) Anemia Status: Acute VITO RODRIGUEZ DO Sep 29, 2021 07:05
[2021-09-29] MEDS: RT--FLUTICASONE/SALMETEROL 232-14 (AIRDUO RespiCLICK) IH SCH ×2 (07:31→20:55)
[2021-09-29] MEDS: UMECLIDINIUM BROMIDE (INCRUSE ELLIPTA) 7'S IH SCH (07:32)
[2021-09-29] MEDS: FAMOTIDINE 20 MG (PEPCID) TABLET PO SCH ×2 (08:57→20:02)
[2021-09-29] MEDS: SENNA W/DOCUSATE (SENOKOT S) TABLET PO SCH ×2 (08:57→20:02)
[2021-09-29] MEDS: FLUoxetine HCL 20 MG (PROzac) CAP PO SCH (08:57)
[2021-09-29] MEDS: LORATADINE (CLARITIN) 10 MG TAB PO SCH (08:57)
[2021-09-29] MEDS: clonazePAM 0.5 MG (KlonoPIN) TAB PO SCH ×3 (08:57→20:02)
[2021-09-29] MEDS: ENOXAPARIN 40 MG/0.4 ML (LOVENOX) SYR SC SCH (08:57)
[2021-09-29] MEDS: LACTULOSE SYRUP 10GM/15ML (ENULOSE) 30ML UDC PO SCH ×4 (08:57→20:02)
[2021-09-29] MEDS: ATENOLOL 25 MG (TENORMIN) TAB PO SCH (08:57)
[2021-09-29] MEDS: polyethylene glycoL POWDER 17 GM (MIRALAX) PACK PO SCH ×2 (08:58→20:03)
[2021-09-29] MEDS: FUROSEMIDE 20 MG (LASIX) TAB PO SCH (14:18)
[2021-09-29] MEDS: KCL 10 MEQ TAB (MICRO K) PO SCH (14:19)
--- NOTE | 2021-09-29 14:23 | Physical Therapy Progress Note ---
Therapy Progress Note Patient refused therapy this afternoon. He says he has too much pain in his wrists. He also declined LE exercises saying he has been doing them on his own. Will check back tomorrow. ALFONZO GARCIA PT Sep 29, 2021 14:23
[2021-09-29] MEDS: AMITRIPTYLINE 50 MG (ELAVIL) TAB PO SCH (20:02)
[2021-09-29] MEDS: ZOLPIDEM 5 MG (AMBIEN) TAB PO SCH (20:02)
[2021-09-29] MEDS: NIACIN ER (NIASPAN) 500 MG TAB PO SCH (20:03)
[2021-09-30] MEDS: PANTOPRAZOLE 40 MG (PROTONIX) TAB PO SCH ×2 (05:11→15:35)
--- NOTE | 2021-09-30 05:48 | Progress Note - Hospitalist ---
Subjective HPI/CC On Admission Date Seen by Provider: Sep 30, 2021 Time Seen by Provider: 10:30 CC: AFIB with RVR new onset HPI: This is a 60yoWM who is chronically ill of Dr. Mckenna who presented to [place] ER with AFIB with RVR, Pt was in need of transfer to [facility], empiric antibiotics will be initiated, and Hgb was noted to be decreased, Heparin was DC and Lovenox was initiated by Dr. Servin and Dr. Fajardo will be consulted for colonoscopy and EGD. He will be transferred to the fourth floor. Subjective/Events-last exam Pt doing better Feels like he is a little nauseated today No oxygen required Checked meds and labs Awaiting detention placement Review of Systems General: Fatigue, Malaise Objective Exam Vital Signs Vital Signs Date Time Temp Pulse Resp B/P (MAP) Pulse Ox O2 Delivery O2 Flow Rate FiO2 10/01/21 01:00 75 10/01/21 00:00 36.8 18 112/72 94 Room Air 09/28/21 12:00 2.00 Capillary Refill : General Appearance: No Apparent Distress, WD/WN, Chronically ill Respiratory: Lungs Clear, Normal Breath Sounds Cardiovascular: Regular Rate, Rhythm Neurologic/Psychiatric: Alert, Oriented x3, No Motor/Sensory Deficits, Normal Mood/Affect Results/Procedures Lab Laboratory Tests 09/30/21 06:21 Patient resulted labs reviewed. Imaging: Reviewed Imaging Report Assessment/Plan Assessment and Plan Assess & Plan/Chief Complaint Pneumonia -Continue ABX Anemia -Pt received transfusion 1 unit HGB stable -Recheck CBC tomorrow -EGD/Colonoscopy showed some internal hemorrhoids but no obvious bleeding -Continue CBCs Hyponatremia -resolved today -Continue routine labs Hypokalemia -KCl supplementation Will work on finding patient placement in detention or with rehab 09/19/2021: Supportive care Monitor hemoglobin 09/20/2021: Supportive care Ambulate 09/28/2021: Supportive care 09/29/2021: Asymptomatic COVID-19 Monitor liver 09/30/2021: Supportive care Await detention placement Diagnosis/Problems Diagnosis/Problems (1) Sepsis (2) Seizures (3) Syncope (4) Right sided weakness (5) Atrial fibrillation with rapid ventricular response (6) Anemia Status: Acute VITO RODRIGUEZ DO Sep 30, 2021 05:48
[2021-09-30 06:30] LABS: BASOPHILS % (AUTO) 0 % (0-10); EOSINOPHILS # (AUTO) 0.1 10^3/uL (0.0-0.3); EOSINOPHILS % (AUTO) 1 % (0-10); HEMATOCRIT 37 % (40-54); HEMOGLOBIN 11.3 g/dL (13.3-17.7); LYMPHOCYTES # (AUTO) 0.9 10^3/uL (1.0-4.0); LYMPHOCYTES % (AUTO) 17 % (12-44); MEAN CORPUSCULAR HEMOGLOBIN 25 pg (25-34); MEAN CORPUSCULAR HGB CONC 31 g/dL (32-36); MEAN CORPUSCULAR VOLUME 80 fL (80-99); MEAN PLATELET VOLUME 10.4 fL (9.0-12.2); MONOCYTES # (AUTO) 0.7 10^3/uL (0.0-1.0); MONOCYTES % (AUTO) 13 % (0-12); NEUTROPHILS # (AUTO) 3.4 10^3/uL (1.8-7.8); NEUTROPHILS % (AUTO) 67 % (42-75); PLATELET COUNT 277 10^3/uL (130-400); WHITE BLOOD COUNT 5.1 10^3/uL (4.3-11.0)
[2021-09-30 06:40] LABS: ALBUMIN 3.3 GM/DL (3.2-4.5); POTASSIUM 4.4 MMOL/L (3.6-5.0)
[2021-09-30 06:41] LABS: CALCIUM 9.1 MG/DL (8.5-10.1)
[2021-09-30 06:42] LABS: TOTAL PROTEIN 6.8 GM/DL (6.4-8.2)
[2021-09-30 06:44] LABS: BILIRUBIN,TOTAL 0.4 MG/DL (0.1-1.0)
[2021-09-30 06:46] LABS: CREATININE SERUM 0.93 MG/DL (0.60-1.30)
[2021-09-30] MEDS: UMECLIDINIUM BROMIDE (INCRUSE ELLIPTA) 7'S IH SCH (07:38)
[2021-09-30] MEDS: RT--FLUTICASONE/SALMETEROL 232-14 (AIRDUO RespiCLICK) IH SCH ×2 (07:38→23:05)
[2021-09-30] MEDS: FLUoxetine HCL 20 MG (PROzac) CAP PO SCH (09:06)
[2021-09-30] MEDS: LORATADINE (CLARITIN) 10 MG TAB PO SCH (09:07)
[2021-09-30] MEDS: ENOXAPARIN 40 MG/0.4 ML (LOVENOX) SYR SC SCH (09:07)
[2021-09-30] MEDS: clonazePAM 0.5 MG (KlonoPIN) TAB PO SCH ×3 (09:07→20:30)
--- NOTE | 2021-09-30 09:53 | Cardiology Progress Note ---
Subjective Date Seen by Provider: Sep 30, 2021 Time Seen by Provider: 08:50 Subjective/Events-last exam Patient is sitting up in bed, no new complaints. Objective-Cardiology Exam Last Set of Vital Signs Vital Signs 09/28/21 09/30/21 12:00 15:22 Temp 36.2 Pulse 66 Resp 18 B/P (MAP) 101/65 Pulse Ox 93 O2 Delivery Room Air O2 Flow Rate 2.00 I&O Intake and Output 09/30/21 00:00 Intake Total 1280 ml Output Total 1200 ml Balance 80 ml Intake Oral 1280 ml Output Urine Total 1200 ml General: Alert, Oriented X3, Cooperative, No Acute Distress HEENT: PERRLA Neck: Supple Lungs: Clear to Auscultation, Normal Air Movement Heart: Regular Rate, Normal S1, Normal S2, No Murmurs Abdomen: Normal Bowel Sounds, Soft, No Tenderness Extremities: No Clubbing, No Cyanosis, No Edema, Normal Pulses Skin: No Rashes Neuro: Normal Speech Psych/Mental Status: Mental Status NL, Mood NL Results Lab Laboratory Tests 09/30/21 06:21 A/P-Cardiology Admission Diagnosis Syncope Paroxysmal atrial fibrillation Anemia Metabolic acidosis Assessment/Plan Syncope, reported having seizure episode, had another seizure-like episode during the emergency room stay. No further episodes noted on this admission. Managed by primary care team Chest pain nonspecific etiology, musculoskeletal in nature, EKG did not show any acute abnormality, currently feeling better. Continue to monitor COVID-19 illness, management per PCP Left knee and hip pain, x-ray did not show any acute abnormality, managed by primary care team Paroxysmal atrial fibrillation, converted to sinus rhythm in [place] emergency room, has been in sinus rhythm, no further episodes were noted during this admission Anemia, GI bleed, endoscopy showed esophagitis and gastritis in addition to polyp, no identified active bleeding. Received another 2 units of packed RBCs on September 17, 2021, H&H are better. Continue to monitor Patient will be unable to tolerate oral anticoagulation due to the significant blood loss while on anticoagulation. Echocardiogram was done in September 15, 2021 showing normal LV size, ejection fraction 60%, normal PA pressure. Patient was evaluated with Bren Lowe discussed the management plan and reviewed the note Patient is laying down in bed, still having generalized weakness No further episodes of chest pain Continue to monitor blood pressure Cardiac status is stable. NIRANJAN OLIVER Sep 30, 2021 09:53 YESICA ACEVEDO MD Sep 30, 2021 16:09
[2021-09-30] MEDS: LACTULOSE SYRUP 10GM/15ML (ENULOSE) 30ML UDC PO SCH ×4 (10:00→20:30)
[2021-09-30] MEDS: FAMOTIDINE 20 MG (PEPCID) TABLET PO SCH ×2 (10:01→20:30)
[2021-09-30] MEDS: ATENOLOL 25 MG (TENORMIN) TAB PO SCH (10:01)
[2021-09-30] MEDS: polyethylene glycoL POWDER 17 GM (MIRALAX) PACK PO SCH ×2 (10:01→20:31)
[2021-09-30] MEDS: SENNA W/DOCUSATE (SENOKOT S) TABLET PO SCH ×2 (10:01→20:31)
--- NOTE | 2021-09-30 11:34 | Physical Therapy Progress Note ---
Therapy Progress Note Patient refuses physical therapy this morning. He says "I don't feel well at all and I'm not going to do anything right now". Will try back this afternoon if able. ALFONZO GARCIA PT Sep 30, 2021 11:34
[2021-09-30] MEDS: KCL 10 MEQ TAB (MICRO K) PO SCH (12:36)
[2021-09-30] MEDS: FUROSEMIDE 20 MG (LASIX) TAB PO SCH (12:36)
--- NOTE | 2021-09-30 14:45 | Physical Therapy Progress Note ---
Therapy Progress Note Patient refuses physical therapy this afternoon also, says he still feels ill. Will check back tomorrow. ALFONZO GARCIA PT Sep 30, 2021 14:45
[2021-09-30] MEDS: HYDROcodone/APAP 5 MG/325 MG (LORTAB) TAB PO PRN (18:09)
[2021-09-30] MEDS: ZOLPIDEM 5 MG (AMBIEN) TAB PO SCH (20:30)
[2021-09-30] MEDS: AMITRIPTYLINE 50 MG (ELAVIL) TAB PO SCH (20:30)
[2021-09-30] MEDS: NIACIN ER (NIASPAN) 500 MG TAB PO SCH (20:31)
[2021-09-30] MEDS: CHLORASEPTIC LOZENGE MM PRN (20:37)
[2021-10-01] MEDS: CHLORASEPTIC LOZENGE MM PRN ×2 (00:20→20:47)
[2021-10-01] MEDS: HYDROcodone/APAP 5 MG/325 MG (LORTAB) TAB PO PRN (03:09)
--- NOTE | 2021-10-01 05:57 | Progress Note - Hospitalist ---
Subjective HPI/CC On Admission Date Seen by Provider: Oct 01, 2021 Time Seen by Provider: 11:00 CC: AFIB with RVR new onset HPI: This is a 60yoWM who is chronically ill of Dr. Mckenna who presented to [place] ER with AFIB with RVR, Pt was in need of transfer to [facility], empiric antibiotics will be initiated, and Hgb was noted to be decreased, Heparin was DC and Lovenox was initiated by Dr. Servin and Dr. Fajardo will be consulted for colonoscopy and EGD. He will be transferred to the fourth floor. Subjective/Events-last exam No major issues Still in isolation for asymptomatic Covid Awaiting senior care Review of Systems General: Fatigue, Malaise Objective Exam Vital Signs Vital Signs Date Time Temp Pulse Resp B/P (MAP) Pulse Ox O2 Delivery O2 Flow Rate FiO2 10/02/21 01:00 62 10/02/21 00:06 36.5 18 105/66 94 Room Air 09/28/21 12:00 2.00 Capillary Refill : General Appearance: No Apparent Distress, WD/WN, Chronically ill, Other (Asleep) Respiratory: Lungs Clear, Normal Breath Sounds Results/Procedures Lab Patient resulted labs reviewed. Imaging: Reviewed Imaging Report Assessment/Plan Assessment and Plan Assess & Plan/Chief Complaint Pneumonia -Continue ABX Anemia -Pt received transfusion 1 unit HGB stable -Recheck CBC tomorrow -EGD/Colonoscopy showed some internal hemorrhoids but no obvious bleeding -Continue CBCs Hyponatremia -resolved today -Continue routine labs Hypokalemia -KCl supplementation Will work on finding patient placement in senior care or with rehab 09/19/2021: Supportive care Monitor hemoglobin 09/20/2021: Supportive care Ambulate 09/28/2021: Supportive care 09/29/2021: Asymptomatic COVID-19 Monitor liver 09/30/2021: Supportive care Await senior care placement 10/01/2021: Awaiting senior care Diagnosis/Problems Diagnosis/Problems (1) Sepsis (2) Seizures (3) Syncope (4) Right sided weakness (5) Atrial fibrillation with rapid ventricular response (6) Anemia Status: Acute VITO RODRIGUEZ DO Oct 01, 2021 05:57
[2021-10-01] MEDS: PANTOPRAZOLE 40 MG (PROTONIX) TAB PO SCH ×2 (06:01→18:21)
--- NOTE | 2021-10-01 08:25 | Cardiology Progress Note ---
Subjective Date Seen by Provider: Oct 01, 2021 Time Seen by Provider: 08:24 Subjective/Events-last exam Patient is still in isolation. No new complaint reported to me I did not examine the patient today. Objective-Cardiology Exam Last Set of Vital Signs Vital Signs 09/28/21 10/01/21 12:00 07:40 Temp 36.4 Pulse 67 Resp 20 B/P (MAP) 110/61 Pulse Ox 93 O2 Delivery Room Air O2 Flow Rate 2.00 I&O Intake and Output 10/01/21 00:00 Intake Total 1190 ml Output Total 1700 ml Balance -510 ml Intake Oral 1190 ml Output Urine Total 1700 ml General: Alert, No Acute Distress Heart: Regular Rate Psych/Mental Status: Mood NL A/P-Cardiology Admission Diagnosis Syncope Paroxysmal atrial fibrillation Anemia Metabolic acidosis Assessment/Plan Syncope, reported having seizure episode, had another seizure-like episode during the emergency room stay. No further episodes noted on this admission. Managed by primary care team Chest pain nonspecific etiology, musculoskeletal in nature, EKG did not show any acute abnormality, currently feeling better. Continue to monitor COVID-19 illness, management per PCP Left knee and hip pain, x-ray did not show any acute abnormality, managed by primary care team Paroxysmal atrial fibrillation, converted to sinus rhythm in [place] emergency room, has been in sinus rhythm, no further episodes were noted during this admission Anemia, GI bleed, endoscopy showed esophagitis and gastritis in addition to polyp, no identified active bleeding. Received another 2 units of packed RBCs on September 17, 2021, H&H are better. Continue to monitor Patient will be unable to tolerate oral anticoagulation due to the significant blood loss while on anticoagulation. Echocardiogram was done in September 15, 2021 showing normal LV size, ejection fraction 60%, normal PA pressure. No change in management I will sign off at this point, thank you for your consultation and please feel free to reconsult if needed YESICA ACEVEDO MD Oct 01, 2021 08:25
[2021-10-01] MEDS: ENOXAPARIN 40 MG/0.4 ML (LOVENOX) SYR SC SCH (08:37)
[2021-10-01] MEDS: FAMOTIDINE 20 MG (PEPCID) TABLET PO SCH ×2 (08:37→20:47)
[2021-10-01] MEDS: SENNA W/DOCUSATE (SENOKOT S) TABLET PO SCH ×2 (08:37→20:47)
[2021-10-01] MEDS: clonazePAM 0.5 MG (KlonoPIN) TAB PO SCH ×3 (08:37→20:47)
[2021-10-01] MEDS: FLUoxetine HCL 20 MG (PROzac) CAP PO SCH (08:37)
[2021-10-01] MEDS: LACTULOSE SYRUP 10GM/15ML (ENULOSE) 30ML UDC PO SCH ×4 (08:38→20:48)
[2021-10-01] MEDS: ATENOLOL 25 MG (TENORMIN) TAB PO SCH (08:40)
[2021-10-01] MEDS: LORATADINE (CLARITIN) 10 MG TAB PO SCH (09:09)
[2021-10-01] MEDS: polyethylene glycoL POWDER 17 GM (MIRALAX) PACK PO SCH ×2 (09:09→20:48)
[2021-10-01] MEDS: RT--FLUTICASONE/SALMETEROL 232-14 (AIRDUO RespiCLICK) IH SCH ×2 (10:21→19:13)
[2021-10-01] MEDS: UMECLIDINIUM BROMIDE (INCRUSE ELLIPTA) 7'S IH SCH (10:22)
--- NOTE | 2021-10-01 10:41 | Physical Therapy Progress Note ---
Therapy Progress Note Patient refuses physical therapy this morning. Patient states he doesn't feel well and refuses to get out of the bed, he also refuses LE exercise in bed. Patient educated on the benefits of therapy and he continues to refuse. Will check back in the afternoon if able. ALFONZO GARCIA PT Oct 01, 2021 10:41
[2021-10-01] MEDS: KCL 10 MEQ TAB (MICRO K) PO SCH (14:44)
[2021-10-01] MEDS: FUROSEMIDE 20 MG (LASIX) TAB PO SCH (14:44)
[2021-10-01] MEDS: NIACIN ER (NIASPAN) 500 MG TAB PO SCH (20:47)
[2021-10-01] MEDS: AMITRIPTYLINE 50 MG (ELAVIL) TAB PO SCH (20:47)
[2021-10-01] MEDS: ZOLPIDEM 5 MG (AMBIEN) TAB PO SCH (20:47)
[2021-10-02] MEDS: CHLORASEPTIC LOZENGE MM PRN (02:15)
[2021-10-02] MEDS: HYDROcodone/APAP 5 MG/325 MG (LORTAB) TAB PO PRN ×3 (02:15→22:54)
--- NOTE | 2021-10-02 05:53 | Progress Note - Hospitalist ---
Subjective HPI/CC On Admission Date Seen by Provider: Oct 02, 2021 Time Seen by Provider: 10:00 CC: AFIB with RVR new onset HPI: This is a 60yoWM who is chronically ill of Dr. Mckenna who presented to [place] ER with AFIB with RVR, Pt was in need of transfer to [facility], empiric antibiotics will be initiated, and Hgb was noted to be decreased, Heparin was DC and Lovenox was initiated by Dr. Servin and Dr. Fajardo will be consulted for colonoscopy and EGD. He will be transferred to the fourth floor. Subjective/Events-last exam Pt doing about the same Ready for DC Review of Systems General: Fatigue, Malaise Objective Exam Vital Signs Vital Signs Date Time Temp Pulse Resp B/P (MAP) Pulse Ox O2 Delivery O2 Flow Rate FiO2 10/03/21 04:06 36.1 54 16 104/60 92 Room Air 10/02/21 15:55 21 09/28/21 12:00 2.00 Capillary Refill : General Appearance: No Apparent Distress, WD/WN, Chronically ill Respiratory: Lungs Clear, Normal Breath Sounds Cardiovascular: Regular Rate, Rhythm Neurologic/Psychiatric: Alert, Oriented x3, Depressed Affect Results/Procedures Lab Patient resulted labs reviewed. Imaging: Reviewed Imaging Report Assessment/Plan Assessment and Plan Assess & Plan/Chief Complaint Pneumonia -Continue ABX Anemia -Pt received transfusion 1 unit HGB stable -Recheck CBC tomorrow -EGD/Colonoscopy showed some internal hemorrhoids but no obvious bleeding -Continue CBCs Hyponatremia -resolved today -Continue routine labs Hypokalemia -KCl supplementation Will work on finding patient placement in fpc or with rehab 09/19/2021: Supportive care Monitor hemoglobin 09/20/2021: Supportive care Ambulate 09/28/2021: Supportive care 09/29/2021: Asymptomatic COVID-19 Monitor liver 09/30/2021: Supportive care Await fpc placement 10/01/2021: Awaiting fpc 10/02/2021: Discharge tomorrow Diagnosis/Problems Diagnosis/Problems (1) Sepsis (2) Seizures (3) Syncope (4) Right sided weakness (5) Atrial fibrillation with rapid ventricular response (6) Anemia Status: Acute VITO RODRIGUEZ DO Oct 02, 2021 05:53
[2021-10-02] MEDS: PANTOPRAZOLE 40 MG (PROTONIX) TAB PO SCH ×2 (06:38→14:16)
[2021-10-02] MEDS: UMECLIDINIUM BROMIDE (INCRUSE ELLIPTA) 7'S IH SCH (07:58)
[2021-10-02] MEDS: RT--FLUTICASONE/SALMETEROL 232-14 (AIRDUO RespiCLICK) IH SCH ×2 (07:58→19:04)
[2021-10-02] MEDS: LORATADINE (CLARITIN) 10 MG TAB PO SCH (09:56)
[2021-10-02] MEDS: ATENOLOL 25 MG (TENORMIN) TAB PO SCH (10:01)
[2021-10-02] MEDS: ENOXAPARIN 40 MG/0.4 ML (LOVENOX) SYR SC SCH (10:01)
[2021-10-02] MEDS: SENNA W/DOCUSATE (SENOKOT S) TABLET PO SCH ×3 (10:02→21:09)
[2021-10-02] MEDS: LACTULOSE SYRUP 10GM/15ML (ENULOSE) 30ML UDC PO SCH ×4 (10:02→21:08)
[2021-10-02] MEDS: FAMOTIDINE 20 MG (PEPCID) TABLET PO SCH ×2 (10:02→21:08)
[2021-10-02] MEDS: polyethylene glycoL POWDER 17 GM (MIRALAX) PACK PO SCH ×3 (10:02→21:09)
[2021-10-02] MEDS: clonazePAM 0.5 MG (KlonoPIN) TAB PO SCH ×3 (10:07→21:08)
[2021-10-02] MEDS: FLUoxetine HCL 20 MG (PROzac) CAP PO SCH (10:07)
[2021-10-02] MEDS ORDERED: CLON0.5T4 PO (11:07)
[2021-10-02] MEDS ORDERED: FAMO20TA5 PO (11:07)
[2021-10-02] MEDS ORDERED: NIAC-4 PO (11:07)
[2021-10-02] MEDS ORDERED: POTA10TA PO (11:07)
[2021-10-02] MEDS ORDERED: FURO-125 PO (11:07)
[2021-10-02] MEDS ORDERED: ZOLP5TAB7 PO (11:07)
[2021-10-02] MEDS ORDERED: TIOT18CA2 IH (11:07)
[2021-10-02] MEDS ORDERED: ACHD5005 PO (11:07)
[2021-10-02] MEDS ORDERED: ENOX40DI8 SC (11:07)
[2021-10-02] MEDS ORDERED: FLUT1DIS27 INH (11:07)
[2021-10-02] MEDS ORDERED: SIMV20TA26 PO (11:07)
[2021-10-02] MEDS ORDERED: ACET-2840 PO (11:07)
[2021-10-02] MEDS ORDERED: AMIT100T2 PO (11:07)
[2021-10-02] MEDS ORDERED: FLUO40CA PO (11:07)
[2021-10-02] MEDS ORDERED: LISI10TA25 PO (11:07)
[2021-10-02] MEDS ORDERED: RT-ALBUINH IH (11:07)
[2021-10-02] MEDS ORDERED: LEVE10006 PO (11:07)
[2021-10-02] MEDS ORDERED: ATEN50TA PO (11:07)
[2021-10-02] MEDS ORDERED: LACT20SO2 PO (11:07)
[2021-10-02] MEDS ORDERED: PANT40TA52 PO (11:07)
[2021-10-02] MEDS ORDERED: CETI10TA17 PO (11:07)
--- NOTE | 2021-10-02 11:09 | Discharge Inst-Skilled Nursing ---
Discharge Inst-Skilled NF Reconcile Patient Problems Problems Reviewed?: Yes Chief Complaint CC: AFIB with RVR new onset HPI: This is a 60yoWM who is chronically ill of Dr. Mckenna who presented to [place] ER with AFIB with RVR, Pt was in need of transfer to [facility], empiric antibiotics will be initiated, and Hgb was noted to be decreased, Heparin was DC and Lovenox was initiated by Dr. Servin and Dr. Fajardo will be consulted for colonoscopy and EGD. He will be transferred to the fourth floor. Patient Instructions Patient Problems: AF GIB Transfusion Goal: Kell Consult/Follow Up/Orders Follow Up Appt.: PCP [facility] rounds Skilled NF Admit to: Certification (SNF) I certify that SNF services are required to be given on an inpatient basis because of the above named patient's need for intermediate care on a continuing basis for the conditions(s) for which he/she was receiving inpatient hospital services prior to his/her transfer to the SNF. Care Home Facility Order: Nursing Services, [facility] Administrator-Evaluate & Treat, Physical Therapy-Evaluate & Treat, Speech Language-Evaluate & Treat Oxygen Delivery Method: Room Air Discharge Diet: No Restrictions Daily Activity as Tolerated: Yes Resuscitation Status: Full Code New & Resume Previous Orders New Medications: Enoxaparin Sodium (Enoxaparin Sodium) 40 Mg/0.4 Ml Syringe 40 MG SC Q24HR, #30 SYRINGE Famotidine (Famotidine) 20 Mg Tablet 20 MG PO BID, #180 TAB Hydrocodone Bit/Acetaminophen (HYDROcodone/APAP 5 MG/325 MG TAB) 1 Tab Tab 1 EA PO Q4H PRN for PAIN-MODERATE (5-7), #30 TAB Lactulose (Lactulose) 20 Gm/30 Ml Solution 10 GM PO BID, #240 ML Levetiracetam (Levetiracetam) 1,000 Mg Tablet 1000 MG PO BID, #180 TAB Pantoprazole Sodium (Pantoprazole Sodium) 40 Mg Tablet.dr 40 MG PO BIDAC, #180 TAB Continued Medications: Acetaminophen (Tylenol 8 Hour) 650 Mg Tablet.er 1300 MG PO Q8H PRN for PAIN-MILD (1-4), #30 TAB (This prescription has been renewed) Albuterol Sulfate (Proair Hfa) 1 Puff Puff 2 PUFF IH Q4H PRN for SHORTNESS OF BREATH, #3 EA (This prescription has been renewed) Amitriptyline HCl (Amitriptyline HCl) 100 Mg Tablet 100 MG PO HS, #90 TAB (This prescription has been renewed) Atenolol (Atenolol) 50 Mg Tablet 50 MG PO BID, #90 TAB (This prescription has been renewed) Cetirizine HCl (Cetirizine HCl) 10 Mg Tablet 10 MG PO DAILY, #90 TAB (This prescription has been renewed) Clonazepam (Clonazepam) 0.5 Mg Tablet 0.5 MG PO TID, #30 TAB (This prescription has been renewed) Fluoxetine HCl (Fluoxetine HCl) 40 Mg Capsule 40 MG PO DAILY, #90 CAP (This prescription has been renewed) Fluticasone/Salmeterol (Advair 500-50 Diskus) 1 Each Blst.w.dev 1 PUFF INH BID, #1 EA (This prescription has been renewed) Furosemide (Lasix) 20 Mg Tablet 20 MG PO 1400, #90 TAB (This prescription has been renewed) Lisinopril (Lisinopril) 10 Mg Tablet 10 MG PO DAILY, #90 TAB (This prescription has been renewed) Niacin (Niacin ER) 500 Mg Tab.er.24h 500 MG PO HS, #90 TAB (This prescription has been renewed) Potassium Chloride (K-Tab ER) 10 Meq Tablet.er 10 MEQ PO 1400, #90 TAB (This prescription has been renewed) Simvastatin (Simvastatin) 20 Mg Tablet 20 MG PO HS, #90 TAB (This prescription has been renewed) Tiotropium [place] (Spiriva) 1 Inh Aerp 1 INH IH 1400, #90 EA (This prescription has been renewed) Zolpidem Tartrate (Zolpidem Tartrate) 5 Mg Tablet 5 MG PO HS, #90 TAB (This prescription has been renewed) Discontinued Medications: Naproxen (Naproxen) 250 Mg Tablet 500 MG PO BID, TAB TAKES 2 (250MG) TABS Omeprazole (Omeprazole) 40 Mg Capsule.dr 40 MG PO 1400, CAP Merlyn Rodriguez Oct 02, 2021 11:09 MERLYN RODRIGUEZ DO Oct 02, 2021 11:09
[2021-10-02] MEDS: KCL 10 MEQ TAB (MICRO K) PO SCH (14:16)
[2021-10-02] MEDS: FUROSEMIDE 20 MG (LASIX) TAB PO SCH (14:16)
[2021-10-02 15:55] VITALS: BP 110/80
[2021-10-02] MEDS: AMITRIPTYLINE 50 MG (ELAVIL) TAB PO SCH (21:08)
[2021-10-02] MEDS: ZOLPIDEM 5 MG (AMBIEN) TAB PO SCH (21:08)
[2021-10-02] MEDS: NIACIN ER (NIASPAN) 500 MG TAB PO SCH (21:09)
[2021-10-02] MEDS: CALCIUM CARBONATE 500 MG (TUMS) TAB.CHEW PO PRN (22:53)
[2021-10-03] MEDS: PANTOPRAZOLE 40 MG (PROTONIX) TAB PO SCH (06:28)
[2021-10-03 06:42] LABS: BASOPHILS # (AUTO) 0.1 10^3/uL (0.0-0.1); BASOPHILS % (AUTO) 1 % (0-10); EOSINOPHILS # (AUTO) 0.1 10^3/uL (0.0-0.3); EOSINOPHILS % (AUTO) 1 % (0-10); HEMATOCRIT 41 % (40-54); HEMOGLOBIN 12.7 g/dL (13.3-17.7); LYMPHOCYTES # (AUTO) 1.6 10^3/uL (1.0-4.0); LYMPHOCYTES % (AUTO) 21 % (12-44); MEAN CORPUSCULAR HEMOGLOBIN 25 pg (25-34); MEAN CORPUSCULAR HGB CONC 31 g/dL (32-36); MEAN CORPUSCULAR VOLUME 80 fL (80-99); MEAN PLATELET VOLUME 10.2 fL (9.0-12.2); MONOCYTES # (AUTO) 0.8 10^3/uL (0.0-1.0); MONOCYTES % (AUTO) 11 % (0-12); NEUTROPHILS # (AUTO) 4.8 10^3/uL (1.8-7.8); NEUTROPHILS % (AUTO) 62 % (42-75); PLATELET COUNT 387 10^3/uL (130-400); WHITE BLOOD COUNT 7.7 10^3/uL (4.3-11.0)
--- NOTE | 2021-10-03 07:08 | Discharge Summary ---
Discharge Summary Hospital Course Was the Problem List Reviewed?: Yes Problems/Dx: (1) COVID-19 Status: Acute (2) Atrial fibrillation with RVR Status: Acute (3) Debility Status: Acute Hospital Course Date of Admission: Sep 14, 2021 at 20:39 Admission Diagnosis : Family Physician/Provider: Santana Mckenna MD Date of Discharge: 10/03/21 Discharge Diagnosis: Acute respiratory failure, pneumonia, new onset atrial fibrillation, severe anemia requiring transfusions, asymptomatic Covid 19 found in swab in preparation for halfway admission Hospital Course: Hospital Course: Pt had a lengthy hospital course for 19 days before DC. He was admitted for AF with RVR new onset and hypoxia. He was swabbed for Covid and it was negative. Pneumonia was treated with aggressive IV antibiotics and he remained in ICU for several days. He was moved down to the floor in preparation for the halfway. The covid test was positive for covid, he was asymptomatic, and remained so. Overall prognosis was very poor considering lack of motivation and apathy. Labs and Pending Lab Test: Laboratory Tests 10/03/21 06:36: White Blood Count 7.7, Red Blood Count 5.09, Hemoglobin 12.7L, Hematocrit 41, Mean Corpuscular Volume 80, Mean Corpuscular Hemoglobin 25, Mean Corpuscular Hemoglobin Concent 31L, Red Cell Distribution Width 17.8H, Platelet Count 387, Mean Platelet Volume 10.2, Immature Granulocyte % (Auto) 5, Neutrophils (%) (Auto) 62, Lymphocytes (%) (Auto) 21, Monocytes (%) (Auto) 11, Eosinophils (%) (Auto) 1, Basophils (%) (Auto) 1, Neutrophils # (Auto) 4.8, Lymphocytes # (Auto) 1.6, Monocytes # (Auto) 0.8, Eosinophils # (Auto) 0.1, Basophils # (Auto) 0.1, Immature Granulocyte # (Auto) 0.4H, Sodium Level [Pending], Potassium Level [Pending], Chloride Level [Pending], Carbon Dioxide Level [Pending], Anion Gap [Pending], Blood Urea Nitrogen [Pending], Creatinine [Pending], BUN/Creatinine Ratio [Pending], Glucose Level [Pending], Calcium Level [Pending], Corrected Calcium [Pending], Total Bilirubin [Pending], Aspartate Amino Transf (AST/SGOT) [Pending], Alanine Aminotransferase (ALT/SGPT) [Pending], Alkaline Phosphatase [Pending], Total Protein [Pending], Albumin [Pending] Microbiology 09/16/21 MRSA Screen - Final, Complete MRSA not isolated Home Meds Active Pantoprazole Sodium 40 Mg Tablet.dr 40 Mg PO BIDAC Famotidine 20 Mg Tablet 20 Mg PO BID Lactulose 20 Gm/30 Ml Solution 10 Gm PO BID Levetiracetam 1,000 Mg Tablet 1,000 Mg PO BID HYDROcodone/APAP 5 MG/325 MG TAB (Acetaminophen/Hydrocodone Bitart) 1 Tab Tab 1 Ea PO Q4H PRN Enoxaparin Sodium 40 Mg/0.4 Ml Syringe 40 Mg SC Q24HR Tylenol 8 Hour (Acetaminophen) 650 Mg Tablet.er 1,300 Mg PO Q8H PRN Simvastatin 20 Mg Tablet 20 Mg PO HS Clonazepam 0.5 Mg Tablet 0.5 Mg PO TID Amitriptyline HCl 100 Mg Tablet 100 Mg PO HS Zolpidem Tartrate 5 Mg Tablet 5 Mg PO HS K-Tab ER (Potassium Chloride) 10 Meq Tablet.er 10 Meq PO 1400 Fluoxetine HCl 40 Mg Capsule 40 Mg PO DAILY Niacin ER (Niacin) 500 Mg Tab.er.24h 500 Mg PO HS Atenolol 50 Mg Tablet 50 Mg PO BID Advair 500-50 Diskus (Fluticasone/Salmeterol) 1 Each Blst.w.dev 1 Puff INH BID Cetirizine HCl 10 Mg Tablet 10 Mg PO DAILY Proair Hfa (Albuterol Sulfate) 1 Puff Puff 2 Puff IH Q4H PRN Spiriva (Tiotropium Clear) 1 Inh Aerp 1 Inh IH 1400 Lasix (Furosemide) 20 Mg Tablet 20 Mg PO 1400 Lisinopril 10 Mg Tablet 10 Mg PO DAILY Reported Naproxen 250 Mg Tablet 500 Mg PO BID TAKES 2 (250MG) TABS Omeprazole 40 Mg Capsule.dr 40 Mg PO 1400 Assessment/Pt Instructions [facility] rounds in 2 weeks Discharge Planning: <30 minutes discharge planning Discharge Instructions Discharge Diet: No Restrictions Discharge Physical Examination Vital Signs Vital Signs Date Time Temp Pulse Resp B/P (MAP) Pulse Ox O2 Delivery O2 Flow Rate FiO2 10/03/21 04:06 36.1 54 16 104/60 92 Room Air 10/02/21 15:55 21 09/28/21 12:00 2.00 General Appearance: No Apparent Distress, WD/WN, Chronically ill Allergies: Coded Allergies: Sulfa (Sulfonamide Antibiotics) (Unverified Allergy, Unknown, GETS SICK, 09/13/18) meperidine (Unverified Allergy, Unknown, PSYCHOTIC EVENTS WITH RECORDING ENGINEER D EMEROL, 09/13/18) Discharge Summary Date of Admission Sep 14, 2021 at 20:39 Date of Discharge Discharge Date: Oct 03, 2021 Admission Diagnosis Assessment: Sepsis Pneumonia A. fib with RVR Syncopal episode suspicious for new onset seizure disorder Right-sided weakness but MRI showed no evidence of CVA Anemia Plan: Consult Dr. Servin Consult Dr. Scotty Coto Anemia work-up Discharge Diagnosis Pneumonia -Continue ABX Anemia -Pt received transfusion 1 unit HGB stable -Recheck CBC tomorrow -EGD/Colonoscopy showed some internal hemorrhoids but no obvious bleeding -Continue CBCs Hyponatremia -resolved today -Continue routine labs Hypokalemia -KCl supplementation Will work on finding patient placement in halfway or with rehab 09/19/2021: Supportive care Monitor hemoglobin 09/20/2021: Supportive care Ambulate 09/28/2021: Supportive care 09/29/2021: Asymptomatic COVID-19 Monitor liver 09/30/2021: Supportive care Await halfway placement 10/01/2021: Awaiting halfway 10/02/2021: Discharge tomorrow (1) COVID-19 Status: Acute (2) Atrial fibrillation with RVR Status: Acute (3) Debility Status: Acute VITO RODRIGUEZ DO Oct 03, 2021 07:08
[2021-10-03 07:14] LABS: ALBUMIN 3.6 GM/DL (3.2-4.5); BILIRUBIN,TOTAL 0.4 MG/DL (0.1-1.0); CALCIUM 9.7 MG/DL (8.5-10.1); CREATININE SERUM 1.29 MG/DL (0.60-1.30); POTASSIUM 4.7 MMOL/L (3.6-5.0); TOTAL PROTEIN 7.5 GM/DL (6.4-8.2)
[2021-10-03] MEDS: RT--FLUTICASONE/SALMETEROL 232-14 (AIRDUO RespiCLICK) IH SCH (07:35)
[2021-10-03] MEDS: UMECLIDINIUM BROMIDE (INCRUSE ELLIPTA) 7'S IH SCH (07:35)
[2021-10-03] MEDS: clonazePAM 0.5 MG (KlonoPIN) TAB PO SCH (09:30)
[2021-10-03] MEDS: ATENOLOL 25 MG (TENORMIN) TAB PO SCH (09:30)
[2021-10-03] MEDS: FLUoxetine HCL 20 MG (PROzac) CAP PO SCH (09:30)
[2021-10-03] MEDS: ENOXAPARIN 40 MG/0.4 ML (LOVENOX) SYR SC SCH (09:31)
[2021-10-03] MEDS: LORATADINE (CLARITIN) 10 MG TAB PO SCH (09:31)
[2021-10-03] MEDS: FAMOTIDINE 20 MG (PEPCID) TABLET PO SCH (09:31)
[2021-10-03] MEDS: polyethylene glycoL POWDER 17 GM (MIRALAX) PACK PO SCH (09:32)
[2021-10-03] MEDS: SENNA W/DOCUSATE (SENOKOT S) TABLET PO SCH (09:32)
[2021-10-03] MEDS: LACTULOSE SYRUP 10GM/15ML (ENULOSE) 30ML UDC PO SCH (09:33)
== END 2021-10-03 10:18 | DRG 193 ==
LOC: ICU 20:39 → 4TH 09-15 14:59
PROVIDERS: ADMIT Internal Medicine; ATTEND Internal Medicine
PROC: 0DB48ZX Excision of Esophagogastric Junction, Via Natural or Artificial Opening Endoscopic, Diagnostic (ICD-10-PCS; principal; 2021-09-17 10:45)
PROC: 0DBM8ZX Excision of Descending Colon, Via Natural or Artificial Opening Endoscopic, Diagnostic (ICD-10-PCS; 2021-09-17 10:45)
PROC: 8E0ZXY6 Isolation (ICD-10-PCS; 2021-09-24)
DX: J18.9 Pneumonia, unspecified organism (principal); J96.01 Acute respiratory failure with hypoxia; U07.1 COVID-19; K29.71 Gastritis, unspecified, with bleeding; K20.91 Esophagitis, unspecified with bleeding; J44.0 Chronic obstructive pulmonary disease with (acute) lower respiratory infection; E87.1 Hypo-osmolality and hyponatremia; E87.2 Acidosis; I48.0 Paroxysmal atrial fibrillation; D64.9 Anemia, unspecified; I10 Essential (primary) hypertension; F17.210 Nicotine dependence, cigarettes, uncomplicated; E78.00 Pure hypercholesterolemia, unspecified; R29.91 Unspecified symptoms and signs involving the musculoskeletal system; G40.909 Epilepsy, unspecified, not intractable, without status epilepticus; E83.51 Hypocalcemia; K59.00 Constipation, unspecified; K20.90 Esophagitis, unspecified without bleeding; K46.9 Unspecified abdominal hernia without obstruction or gangrene; K22.82 Esophagogastric junction polyp; D50.0 Iron deficiency anemia secondary to blood loss (chronic); K64.8 Other hemorrhoids; K70.0 Alcoholic fatty liver; M25.562 Pain in left knee; M25.552 Pain in left hip; Z88.2 Allergy status to sulfonamides
CPT/HCPCS: 36415; 70553; 71045; 71275; 73560; 76705; 80048; 80053; 80074; 80076; 82140; 82274; 82607; 82728; 82805; 82947; 83540; 83550; 83735; 84100; 84484; 85014; 85018; 85025; 85027; 85610; 85730; 86850; 86900; 86901; 86920; 87081; 87636; 88305; 88312; 93005; 93306; 94640; 94760

== ENCOUNTER 2021-11-14 13:50 | Emergency (ER) | payer MEDICAID ==
[~2021-11-14] VITALS: Ht 172 cm; Wt 75.2 kg
[~2021-11-14 13:50] MED LIST changes: +ACET-2840 PO; +ACHD5005 PO; +CETI10TA17 PO; +CLON0.5T4 PO; +ENOX40DI8 SC; +FAMO20TA5 PO; +LACT20SO2 PO; +LEVE10006 PO; +NAPR-1088 PO; +NIAC-4 PO; +OMEP40CA6 PO; +PANT40TA52 PO; +POTA10TA PO; +SIMV20TA26 PO; +ZOLP5TAB7 PO
--- NOTE | 2021-11-14 14:12 | ED Abdominal Pain ---
General Chief Complaint: Abdominal/GI Problems Stated Complaint: CHEST PAIN/VOMITING/POSS FEVER Source of Information: Patient Exam Limitations: No Limitations History of Present Illness Date Seen by Provider: Nov 14, 2021 Time Seen by Provider: 14:08 Initial Comments Patient is a 60-year-old male who was brought to the ED from residential facility for epigastric abdominal pain and chest pain. Started this morning around 5:00 when he woke up. Vomited 5+ episodes without any blood. Reports burning sensation upper abdomen and chest. History of cholecystectomy. History A. fib currently on blood thinner. Denies of any diarrhea. Possible fever. Rates pain 10 out of 10. Currently on a PPI for history of GERD and hiatal hernia. Denies of any urinary symptoms. Up-to-date on his Covid vaccine. Reports a chronic cough with shortness of breath without any acute changes today. Patient appear in no acute distress. Denies headache, dizziness, visual changes, back pain, dysuria. According to nurse at [facility] patient has been having intermittent vomiting over the past month. Scheduled for swallow study next month. History of duodenitis and vomiting in the past. 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 WITH [employer] DEMEROL, 09/13/18) Patient Home Medication List Home Medication List Reviewed: Yes Acetaminophen (Tylenol 8 Hour) 650 Mg Tablet.er, 1,300 MG PO Q8H PRN for PAIN- MILD (1-4) Prescribed by: VITO RODRIGUEZ on 10/02/211106 Albuterol Sulfate (Proair Hfa) 1 Puff Puff, 2 PUFF IH Q4H PRN for SHORTNESS OF BREATH Prescribed by: VITO RODRIGUEZ on 10/02/211106 Amitriptyline HCl (Amitriptyline HCl) 100 Mg Tablet, 100 MG PO HS Prescribed by: VITO RODRIGUEZ on 10/02/211106 Atenolol (Atenolol) 50 Mg Tablet, 50 MG PO BID Prescribed by: VITO ORDRIGUEZ on 10/02/211106 Cetirizine HCl (Cetirizine HCl) 10 Mg Tablet, 10 MG PO DAILY Prescribed by: VITO RODRIGUEZ on 10/02/211106 Clonazepam (Clonazepam) 0.5 Mg Tablet, 0.5 MG PO TID Prescribed by: VITO RODRIGUEZ on 10/02/21 110 Enoxaparin Sodium (Enoxaparin Sodium) 40 Mg/0.4 Ml Syringe, 40 MG SC Q24HR Prescribed by: VITO RODRIGUEZ on 10/02/21 110 Famotidine (Famotidine) 20 Mg Tablet, 20 MG PO BID Prescribed by: VITO RODRIGUEZ on 10/02/21 110 Fluoxetine HCl (Fluoxetine HCl) 40 Mg Capsule, 40 MG PO DAILY Prescribed by: VITO RODRIGUEZ on 10/02/21 110 Fluticasone/Salmeterol (Advair 500-50 Diskus) 1 Each Blst.w.dev, 1 PUFF INH BID Prescribed by: VITO RODRIGUEZ on 10/02/21 110 Furosemide (Lasix) 20 Mg Tablet, 20 MG PO 1400 Prescribed by: VITO RODRIGUEZ on 10/02/21 110 Hydrocodone Bit/Acetaminophen (HYDROcodone/APAP 5 MG/325 MG TAB) 1 Tab Tab, 1 EA PO Q4H PRN for PAIN-MODERATE (5-7) Prescribed by: VITO RODRIGUEZ on 10/02/21 110 Lactulose (Lactulose) 20 Gm/30 Ml Solution, 10 GM PO BID Prescribed by: VITO RODRIGUEZ on 10/02/21 110 Levetiracetam (Levetiracetam) 1,000 Mg Tablet, 1,000 MG PO BID Prescribed by: VITO RODRIGUEZ on 10/02/21 110 Lisinopril (Lisinopril) 10 Mg Tablet, 10 MG PO DAILY Prescribed by: VITO RODRIGUEZ on 10/02/21 110 Niacin (Niacin ER) 500 Mg Tab.er.24h, 500 MG PO HS Prescribed by: VITO RODRIGUEZ on 10/02/21 110 Ondansetron (Ondansetron Odt) 4 Mg Tab.rapdis, 4 MG PO Q4H PRN for NAUSEA/VOMITING-1ST LINE Prescribed by: HONEY VALVERDE on 11/14/21 1602 Pantoprazole Sodium (Pantoprazole Sodium) 40 Mg Tablet.dr, 40 MG PO BIDAC Prescribed by: VITO RODRIGUEZ on 10/02/21 110 Potassium Chloride (K-Tab ER) 10 Meq Tablet.er, 10 MEQ PO 1400 Prescribed by: VITO RODRIGUEZ on 10/02/21 110 Simvastatin (Simvastatin) 20 Mg Tablet, 20 MG PO HS Prescribed by: VITO RODRIGUEZ on 10/02/21 110 Sucralfate (Sucralfate) 1 Gm Tablet, 1 GM PO QID Prescribed by: HONEY VALVERDE on 11/14/21 1602 Tiotropium [place] (Spiriva) 1 Inh Aerp, 1 INH IH 1400 Prescribed by: VITO RODRIGUEZ on 10/02/21 110 Zolpidem Tartrate (Zolpidem Tartrate) 5 Mg Tablet, 5 MG PO HS Prescribed by: VITO RODRIGUEZ on 10/02/21 110 Review of Systems Review of Systems Constitutional: No chills, No diaphoresis; fever; No malaise EENTM: No Double Vision, No Ear Pain, No Throat Pain, No Throat Swelling Respiratory: Cough, Shortness of Air; Denies SOA With Exertion, Denies SOA at Rest Cardiovascular: Chest Pain; Denies Edema Gastrointestinal: Abdominal Pain; Denies Diarrhea; Nausea, Vomiting Genitourinary: Denies Burning, Denies Discharge Musculoskeletal: No back pain, No joint pain Skin: No change in color, No change in hair/nails All Other Systems Reviewed Negative Unless Noted: Yes Past Bsrtxid-Zxvzej-Jrodsb Hx Immunizations Up To Date Tetanus Booster (TDap): More than 5yrs First/Initial COVID19 Vaccinat: 0 Second COVID19 Vaccination Yoshi: 0 Third COVID19 Vaccination Date: 0 Past Medical History Surgeries: Yes Abdominal, Gallbladder, Tonsillectomy Respiratory: Yes Asthma, COPD Cardiac: Yes Atrial Fibrillation, High Cholesterol, Hypertension Neurological: Yes Seizure Disorder Genitourinary: No Gastrointestinal: Yes Hiatal Hernia, Ulcer Musculoskeletal: Yes Gout Endocrine: Yes (hyponatremia) HEENT: No Cancer: No Psychosocial: Yes Anxiety, Depression Integumentary: No Blood Disorders: No Adverse Reaction/Blood Tranf: No Family Medical History Diabetes Physical Exam Vital Signs Vital Signs - First Documented 11/14/21 14:04 Temp 36.0 Pulse 89 Resp 20 B/P (MAP) 141/92 (108) Pulse Ox 99 Capillary Refill : Height/Weight/BMI Height: 5'9" Weight: 250lbs. oz. 113.276282uw; 29.10 BMI Method:Stated General Appearance: WD/WN, no apparent distress HEENT: PERRL/EOMI, normal ENT inspection, TMs normal, pharynx normal Neck: non-tender, full range of motion, supple, normal inspection Respiratory: chest non-tender, lungs clear, normal breath sounds, no respiratory distress Cardiovascular: regular rate, rhythm, no edema, no gallop, no JVD Gastrointestinal: normal bowel sounds, soft, no organomegaly, tenderness, other (Epigastric tenderness on palpation. Normal bowel sounds throughout. No rebound or guarding.) Extremities: normal range of motion, non-tender Back: normal inspection, no CVA tenderness Progress/Results/Core Measures Results/Orders Lab Results Laboratory Tests Test 11/14/21 14:24 11/14/21 16:14 Range/Units White Blood Count 10.5 4.3-11.0 10^3/uL Red Blood Count 5.59 H 4.30-5.52 10^6/uL Hemoglobin 14.5 13.3-17.7 g/dL Hematocrit 46 40-54 % Mean Corpuscular Volume 83 80-99 fL Mean Corpuscular Hemoglobin 26 25-34 pg Mean Corpuscular Hemoglobin Concent 31 L 32-36 g/dL Red Cell Distribution Width 19.5 H 10.0-14.5 % Platelet Count 257 130-400 10^3/uL Mean Platelet Volume 10.9 9.0-12.2 fL Immature Granulocyte % (Auto) 1 % Neutrophils (%) (Auto) 79 H 42-75 % Lymphocytes (%) (Auto) 10 L 12-44 % Monocytes (%) (Auto) 10 0-12 % Eosinophils (%) (Auto) 1 0-10 % Basophils (%) (Auto) 0 0-10 % Neutrophils # (Auto) 8.2 H 1.8-7.8 10^3/uL Lymphocytes # (Auto) 1.1 1.0-4.0 10^3/uL Monocytes # (Auto) 1.0 0.0-1.0 10^3/uL Eosinophils # (Auto) 0.1 0.0-0.3 10^3/uL Basophils # (Auto) 0.0 0.0-0.1 10^3/uL Immature Granulocyte # (Auto) 0.1 0.0-0.1 10^3/uL Sodium Level 135 135-145 MMOL/L Potassium Level 4.1 3.6-5.0 MMOL/L Chloride Level 100 98-107 MMOL/L Carbon Dioxide Level 21 21-32 MMOL/L Anion Gap 14 5-14 MMOL/L Blood Urea Nitrogen 14 7-18 MG/DL Creatinine 1.12 0.60-1.30 MG/DL Estimat Glomerular Filtration Rate 75 BUN/Creatinine Ratio 13 Glucose Level 99 70-105 MG/DL Calcium Level 9.7 8.5-10.1 MG/DL Corrected Calcium 9.9 8.5-10.1 MG/DL Total Bilirubin 0.4 0.1-1.0 MG/DL Aspartate Amino Transf (AST/SGOT) 14 5-34 U/L Alanine Aminotransferase (ALT/SGPT) 20 0-55 U/L Alkaline Phosphatase 86 40-136 U/L Troponin I < 0.028 <0.028 NG/ML B-Type Natriuretic Peptide 87.0 <100.0 PG/ML Total Protein 7.3 6.4-8.2 GM/DL Albumin 3.8 3.2-4.5 GM/DL Lipase 18 8-78 U/L Influenza Type A Antigen NEGATIVE NEGATIVE Influenza Type B Antigen NEGATIVE NEGATIVE SARS-CoV-2 RNA (RT-PCR) Not Detected Negative Urine Color YELLOW Urine Clarity CLEAR Urine pH 8.5 5-9 Urine Specific [place] 1.015 L 1.016-1.022 Urine Protein NEGATIVE NEGATIVE Urine Glucose (UA) NEGATIVE NEGATIVE Urine Ketones NEGATIVE NEGATIVE Urine Nitrite NEGATIVE NEGATIVE Urine Bilirubin NEGATIVE NEGATIVE Urine Urobilinogen 1.0 < = 1.0 MG/DL Urine Leukocyte Esterase NEGATIVE NEGATIVE Urine RBC (Auto) NEGATIVE NEGATIVE Urine RBC NONE /HPF Urine WBC 0-2 /HPF Urine Squamous Epithelial Cells RARE /HPF Urine Renal Epithelial Cells NONE /HPF Urine Crystals NONE /LPF Urine Bacteria NEGATIVE /HPF Urine Casts NONE /LPF Urine Mucus NEGATIVE /LPF Urine Culture Indicated NO My Orders Orders - ADAN ROWE Cbc With Automated Diff (11/14/21 14:06) Comprehensive Metabolic Panel (11/14/21 14:06) Lipase (11/14/21 14:06) Troponin I [place] (11/14/21 14:06) Bnp [place] (11/14/21 14:06) Chest 1 View, Ap/Pa Only (11/14/21 14:06) Covid 19 Inhouse Test (11/14/21 14:06) Ua Culture If Indicated (11/14/21 14:06) Lidocaine 2% Viscous 15 Ml (Xylocaine Vi (11/14/21 14:15) Antacid Suspension (Mylanta Suspension (11/14/21 14:15) Ekg Tracing (11/14/21 14:06) Ondansetron Injection (Zofran Injectio (11/14/21 14:15) Coronavirus Sars-Cov-2 So 2019 (11/14/21 14:24) Influenza A & B Antigens (11/14/21 14:24) Medications Given in ED Current Medications Medications Dose Ordered Sig/Jarek Route Start Time Stop Time Status Last Admin Dose Admin Al Hydrox/Mg Hydrox/Simethicone 30 ml ONCE ONCE PO 11/14/21 14:15 11/14/21 14:16 DC 11/14/21 14:53 30 ML Lidocaine HCl 15 ml ONCE ONCE PO 11/14/21 14:15 11/14/21 14:16 DC 11/14/21 14:53 15 ML Ondansetron HCl 4 mg ONCE ONCE IVP 11/14/21 14:15 11/14/21 14:16 DC 11/14/21 14:32 4 MG Vital Signs/I&O 11/14/21 11/14/21 14:04 16:20 Temp 36.0 Pulse 89 83 Resp 20 18 B/P (MAP) 141/92 (108) 104/73 Pulse Ox 99 98 Departure Communication (Admissions) Patient presents ED with similar type epigastric pain/chest pain with vomiting. History of cholecystectomy. intermittent vomiting over the past month. Patient was seen here in August and September and was admitted with surgical and cardiology involvement. Patient had a recent EGD that showed gastritis, esophagitis with polyps, peptic ulcer. Patient Had biopsy performed. Had a recent echocardiogram ejection fraction 60%. Recently mid for A. fib with RVR. Does not appear to be on a oral anticoagulant. CT of his chest and abdomen in August with gastritis, esophagitis, duodenitis. Currently on Protonix. Similar type pain today. Vital signs stable. EKG read as A. fib which appears to be more sinus rhythm with P waves noted with similar previous EKGs 09/25/21. Cardiac work-up unremarkable. Patient was not found to be anemic today. Recent colonoscopy internal hemorrhoids. Denies of any hematemesis, hematochezia. Patient lab work otherwise stable. Patient was given GI cocktail with some improvement of pain. Tolerated p.o. fluids at bedside. Urinalysis unremarkable. Patient felt much better at this time. Patient will be discharged back to facility with Zofran. Clear liquid diet for the next 3 to 4 days. We will add on Carafate with known history of ulcers. Schedule follow-up with GI in the next 1 to 2 weeks. If any worsening pain to return back to ED, dark tarry stools. Recommend outpatient follow-up PCP in the next 2 to 3 days for reevaluation. Similar symptoms in the in the past with known gastritis, peptic ulcer disease, duodenitis. Continue monitoring symptoms a [facility]. Impression Primary Impression: Epigastric abdominal pain Disposition: HOME, SELF-CARE Condition: Stable Departure-Patient Inst. Decision time for Depature: 15:59 Referrals: TRENT PAYAN MD (PCP/Family) Primary Care Physician Patient Instructions: Peptic Ulcers (DC) Scripts Sucralfate (Sucralfate) 1 Gm Tablet 1 GM PO QID for 10 Days, #40 TAB Prov: ADAN ROWE 11/14/21 Ondansetron (Ondansetron Odt) 4 Mg Tab.rapdis 4 MG PO Q4H PRN for NAUSEA/VOMITING-1ST LINE, #8 TAB Prov: ADAN ROWE 11/14/21 ADAN ROWE Nov 14, 2021 14:12
[2021-11-14] MEDS ORDERED: ANTACID SUSP 30 ML UDC (MYLANTA) PO ONE (14:15)
[2021-11-14] MEDS ORDERED: ONDANSETRON 4 MG/2 ML (SDV) Z0FRAN IVP ONE (14:15)
[2021-11-14] MEDS ORDERED: LIDOCAINE 2% VISCOUS 15 ML UDC PO ONE (14:15)
[2021-11-14 14:32] LABS: BASOPHILS % (AUTO) 0 % (0-10); EOSINOPHILS # (AUTO) 0.1 10^3/uL (0.0-0.3); EOSINOPHILS % (AUTO) 1 % (0-10); HEMATOCRIT 46 % (40-54); HEMOGLOBIN 14.5 g/dL (13.3-17.7); LYMPHOCYTES # (AUTO) 1.1 10^3/uL (1.0-4.0); LYMPHOCYTES % (AUTO) 10 % (12-44); MEAN CORPUSCULAR HEMOGLOBIN 26 pg (25-34); MEAN CORPUSCULAR HGB CONC 31 g/dL (32-36); MEAN CORPUSCULAR VOLUME 83 fL (80-99); MEAN PLATELET VOLUME 10.9 fL (9.0-12.2); MONOCYTES % (AUTO) 10 % (0-12); NEUTROPHILS # (AUTO) 8.2 10^3/uL (1.8-7.8); NEUTROPHILS % (AUTO) 79 % (42-75); PLATELET COUNT 257 10^3/uL (130-400); WHITE BLOOD COUNT 10.5 10^3/uL (4.3-11.0)
[2021-11-14 14:52] LABS: ALANINE AMINOTRANSFERASE 20 U/L (0-55); ALBUMIN 3.8 GM/DL (3.2-4.5); ALKALINE PHOSPHATASE 86 U/L (40-136); BILIRUBIN,TOTAL 0.4 MG/DL (0.1-1.0); BUN/CREATININE RATIO 13; CALCIUM 9.7 MG/DL (8.5-10.1); CARBON DIOXIDE 21 MMOL/L (21-32); CHLORIDE 100 MMOL/L (98-107); CREATININE SERUM 1.12 MG/DL (0.60-1.30); GFR ESTIMATED 75; GLUCOSE 99 MG/DL (70-105); LIPASE 18 U/L (8-78); POTASSIUM 4.1 MMOL/L (3.6-5.0); SODIUM 135 MMOL/L (135-145); TOTAL PROTEIN 7.3 GM/DL (6.4-8.2)
--- NOTE | 2021-11-14 15:01 | Diagnostic Imaging Report ---
INDICATION: Chest pain. COMPARISON: Prior examination from 09/25/2021. FINDINGS: The heart size, mediastinal configuration, and pulmonary vascularity are within normal limits. There is no pleural effusion, pneumothorax, or pneumonia. The osseous structures are unremarkable. IMPRESSION: No acute cardiopulmonary abnormality. Dictated by: Dictated on workstation # [id number]
[2021-11-14] MEDS ORDERED: SUCR1TAB PO (16:02)
[2021-11-14] MEDS ORDERED: ONDA4TAB11 PO (16:02)
[2021-11-14 16:20] VITALS: BP 104/73
[2021-11-14 16:20] LABS: BILIRUBIN,URINE NEGATIVE (NEGATIVE); CLARITY,URINE CLEAR; COLOR,URINE YELLOW; GLUCOSE, URINE (UA) NEGATIVE (NEGATIVE); KETONES,URINE NEGATIVE (NEGATIVE); LEUKOCYTE ESTERASE ,URINE NEGATIVE (NEGATIVE); NITRITE,URINE NEGATIVE (NEGATIVE); PH,URINE 8.5 (5-9); PROTEIN,URINE NEGATIVE (NEGATIVE)
[2021-11-14 16:28] LABS: BACTERIA,URINE NEGATIVE /HPF; SQUAMOUS EPITHELIAL CELL,UR RARE /HPF; WBC,URINE 0-2 /HPF
== END 2021-11-14 16:20 | disposition home or self-care (01) ==
LOC: EDUNIT# 13:50 → ER 13:55
DX: R10.13 Epigastric pain (principal); R05.3 Chronic cough; I10 Essential (primary) hypertension; I48.91 Unspecified atrial fibrillation; E78.00 Pure hypercholesterolemia, unspecified; E87.1 Hypo-osmolality and hyponatremia; M10.9 Gout, unspecified; G40.909 Epilepsy, unspecified, not intractable, without status epilepticus; F41.9 Anxiety disorder, unspecified; F32.9 Major depressive disorder, single episode, unspecified; K21.9 Gastro-esophageal reflux disease without esophagitis; J44.9 Chronic obstructive pulmonary disease, unspecified; Z87.11 Personal history of peptic ulcer disease; Z90.49 Acquired absence of other specified parts of digestive tract; Z20.822 Contact with and (suspected) exposure to COVID-19; Z88.5 Allergy status to narcotic agent; Z79.01 Long term (current) use of anticoagulants; Z79.899 Other long term (current) drug therapy
CPT/HCPCS: 36415; 71045; 80053; 81000; 83690; 83880; 84484; 85025; 87635; 87636; 87804; 93005

== ENCOUNTER 2021-11-21 16:20 | Emergency (ER) | payer MEDICAID ==
[~2021-11-21] VITALS: Ht 170 cm; Wt 75.0 kg
[~2021-11-21 16:20] MED LIST changes: +ONDA4TAB11 PO
[2021-11-21 17:00] LABS: BASOPHILS # (AUTO) 0.1 10^3/uL (0.0-0.1); BASOPHILS % (AUTO) 0 % (0-10); EOSINOPHILS # (AUTO) 0.1 10^3/uL (0.0-0.3); EOSINOPHILS % (AUTO) 1 % (0-10); HEMATOCRIT 50 % (40-54); HEMOGLOBIN 15.2 g/dL (13.3-17.7); LYMPHOCYTES # (AUTO) 1.8 10^3/uL (1.0-4.0); LYMPHOCYTES % (AUTO) 15 % (12-44); MEAN CORPUSCULAR HEMOGLOBIN 26 pg (25-34); MEAN CORPUSCULAR HGB CONC 31 g/dL (32-36); MEAN CORPUSCULAR VOLUME 86 fL (80-99); MEAN PLATELET VOLUME 10.6 fL (9.0-12.2); MONOCYTES # (AUTO) 0.8 10^3/uL (0.0-1.0); MONOCYTES % (AUTO) 7 % (0-12); NEUTROPHILS # (AUTO) 8.9 10^3/uL (1.8-7.8); NEUTROPHILS % (AUTO) 76 % (42-75); PLATELET COUNT 304 10^3/uL (130-400); WHITE BLOOD COUNT 11.8 10^3/uL (4.3-11.0)
[2021-11-21] MEDS ORDERED: ONDANSETRON 4 MG/2 ML (SDV) Z0FRAN IVP ONE (17:00)
[2021-11-21 17:04] LABS: ALBUMIN 3.8 GM/DL (3.2-4.5); POTASSIUM 4.8 MMOL/L (3.6-5.0)
[2021-11-21 17:05] LABS: CALCIUM 9.6 MG/DL (8.5-10.1)
[2021-11-21 17:07] LABS: TOTAL PROTEIN 7.4 GM/DL (6.4-8.2)
[2021-11-21 17:08] LABS: BILIRUBIN,TOTAL 0.3 MG/DL (0.1-1.0)
[2021-11-21 17:10] LABS: CREATININE SERUM 1.09 MG/DL (0.60-1.30)
--- NOTE | 2021-11-21 17:12 | Diagnostic Imaging Report ---
INDICATION: Pain. EXAMINATION: Abdomen, 11/21/2021. FINDINGS: 2 views of the abdomen. There is a clip in the right mid abdomen. Scattered air and stool is seen throughout the colon to the rectosigmoid. There are no dilated loops of bowel. No free air. Clips in the lower chest also noted. IMPRESSION: Nonobstructive bowel gas pattern. Dictated by: Dictated on workstation # [id number]
--- NOTE | 2021-11-21 17:20 | ED Abdominal Pain ---
General Chief Complaint: Abdominal/GI Problems Stated Complaint: STOMACH ISSUES, N/V Nursing Triage Note: [facility]. PT STATES HAS ABD PAIN IN EPIGASTRIC AREA AND HAS BEEN VOMITING TODAY. PT WAS SEEN A WEEK AGO FOR SAME PROBLEM, IMPROVED AND HAS CAME BACK. PT STATES HAS HIATAL HERNIA THAT PEARL WHEN HE VOMITS. [place] STAFF STATES HE IS COMPLIANT W HIS MEDS. STAFF HAD NOT SEEN PT VOMIT TODAY Source of Information: Patient, Old Records Exam Limitations: No Limitations History of Present Illness Date Seen by Provider: Nov 21, 2021 Time Seen by Provider: 16:52 Initial Comments This 60-year-old gentleman presents to the emergency room [facility] with complaints about persistent nausea and epigastric discomfort. He reports of vomiting today although this was not witnessed by alf staff. He was here about a week ago for the same complaint. He states his symptoms improved but have now come back. He has history of duodenitis and hiatal hernia. He is presently taking Protonix, Pepcid, and Carafate. He has not had any fevers. He reports a profound weight loss in the past several months. Below is a summary copied from an EGD he had performed by Dr. Siegel in August: POSTOPERATIVE DIAGNOSES: Reflux esophagitis stage III with distal esophageal stricture, moderate to large hiatal hernia approximately 4 cm in size, type 4 ulcer along the lesser curvature as well as a type 3 prepyloric ulcer. PROCEDURES PERFORMED: EGD with biopsy and balloon dilatation. SURGEON: Mel Siegel MD. 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 WITH ROENTGENOLOGIST DEMEROL, 09/13/18) Patient Home Medication List Home Medication List Reviewed: Yes Acetaminophen (Tylenol 8 Hour) 650 Mg Tablet.er, 1,300 MG PO Q8H PRN for PAIN- MILD (1-4) Prescribed by: VITO RODRIGUEZ on 10/02/21 110 Albuterol Sulfate (Proair Hfa) 1 Puff Puff, 2 PUFF IH Q4H PRN for SHORTNESS OF BREATH Prescribed by: VITO RODRIGUEZ on 10/02/21 110 Amitriptyline HCl (Amitriptyline HCl) 100 Mg Tablet, 100 MG PO HS Prescribed by: VITO RODRIGUEZ on 10/02/21 110 Atenolol (Atenolol) 50 Mg Tablet, 50 MG PO BID Prescribed by: VITO RODRIGUEZ on 10/02/21 110 Cetirizine HCl (Cetirizine HCl) 10 Mg Tablet, 10 MG PO DAILY Prescribed by: VITO RODRIGUEZ on 10/02/21 110 Clonazepam (Clonazepam) 0.5 Mg Tablet, 0.5 MG PO TID Prescribed by: VITO RODRIGUEZ on 10/02/21 110 Enoxaparin Sodium (Enoxaparin Sodium) 40 Mg/0.4 Ml Syringe, 40 MG SC Q24HR Prescribed by: VITO RODRIGUEZ on 10/02/21 110 Famotidine (Famotidine) 20 Mg Tablet, 20 MG PO BID Prescribed by: VITO RODRIGUEZ on 10/02/21 110 Fluoxetine HCl (Fluoxetine HCl) 40 Mg Capsule, 40 MG PO DAILY Prescribed by: VITO RODRIGUEZ on 10/02/21 110 Fluticasone/Salmeterol (Advair 500-50 Diskus) 1 Each Blst.w.dev, 1 PUFF INH BID Prescribed by: VITO RODRIGUEZ on 10/02/21 110 Furosemide (Lasix) 20 Mg Tablet, 20 MG PO 1400 Prescribed by: VITO RODRIGUEZ on 10/02/21 110 Hydrocodone Bit/Acetaminophen (HYDROcodone/APAP 5 MG/325 MG TAB) 1 Tab Tab, 1 EA PO Q4H PRN for PAIN-MODERATE (5-7) Prescribed by: VITO RODRIGUEZ on 10/02/21 110 Lactulose (Lactulose) 20 Gm/30 Ml Solution, 10 GM PO BID Prescribed by: VITO RODRIGUEZ on 10/02/21 110 Levetiracetam (Levetiracetam) 1,000 Mg Tablet, 1,000 MG PO BID Prescribed by: VITO RODRIGUEZ on 10/02/21 110 Lisinopril (Lisinopril) 10 Mg Tablet, 10 MG PO DAILY Prescribed by: VITO RODRIGUEZ on 10/02/21 110 Niacin (Niacin ER) 500 Mg Tab.er.24h, 500 MG PO HS Prescribed by: VITO RODRIGUEZ on 10/02/21 110 Omeprazole (Omeprazole) 40 Mg Capsule.dr, 40 MG PO HS Prescribed by: MONAE AREVALO on 11/21/21 183 Ondansetron (Ondansetron Odt) 4 Mg Tab.rapdis, 4 MG PO Q4H PRN for NAUSEA/VO MITING-1ST LINE Prescribed by: HONEY VALVERDE on 11/14/21 1602 Pantoprazole Sodium (Pantoprazole Sodium) 40 Mg Tablet.dr, 40 MG PO BIDAC Prescribed by: VITO RODRIGUEZ on 10/02/21 110 Pantoprazole Sodium (Protonix) 40 Mg Tablet.dr, 40 MG PO DAILY Prescribed by: MONAE AREVALO on 11/21/21 183 Potassium Chloride (K-Tab ER) 10 Meq Tablet.er, 10 MEQ PO 1400 Prescribed by: VITO RODRIGUEZ on 10/02/21 110 Simvastatin (Simvastatin) 20 Mg Tablet, 20 MG PO HS Prescribed by: VITO RODRIGUEZ on 10/02/21 110 Sucralfate (Sucralfate) 1 Gm Tablet, 1 GM PO QID Prescribed by: HONEY VALVERDE on 11/14/21 1602 Tiotropium [place] (Spiriva) 1 Inh Aerp, 1 INH IH 1400 Prescribed by: VITO RODRIGUEZ on 10/02/21 110 Zolpidem Tartrate (Zolpidem Tartrate) 5 Mg Tablet, 5 MG PO HS Prescribed by: VITO RODRIUGEZ on 10/02/21 110 Review of Systems Review of Systems Constitutional: no symptoms reported EENTM: No Symptoms Reported Respiratory: No Symptoms Reported Cardiovascular: No Symptoms Reported Gastrointestinal: See HPI Genitourinary: No Symptoms Reported Musculoskeletal: no symptoms reported Skin: no symptoms reported Psychiatric/Neurological: No Symptoms Reported Endocrine: No Symptoms Reported Hematologic/Lymphatic: No Symptoms Reported Past Nkepcqy-Jnjahr-Fjeavq Hx Patient Social History Tobacco Use?: Yes Tobacco type used: Cigarettes Smoking Status: Current Everyday Smoker Substance use?: Yes Additional substance use comme: HX Alcohol Use?: No Pt feels they are or have been: No Immunizations Up To Date Tetanus Booster (TDap): More than 5yrs First/Initial COVID19 Vaccinat: 2020 Second COVID19 Vaccination Yoshi: 2020 Third COVID19 Vaccination Date: 0 COVID19 Vaccine Promotional Representative: IVORYNina Past Medical History Surgery/Hospitalization HX: PMH: GI BLEED, AFIB, GOUT, ANEMIA, GASTRITIS, SEIZURES, HEMIPLEGIA, SYNCOPE Surgeries: Yes Abdominal, Gallbladder, Tonsillectomy Respiratory: Yes Asthma, COPD Cardiac: Yes Atrial Fibrillation, High Cholesterol, Hypertension Neurological: Yes Seizure Disorder Genitourinary: No Gastrointestinal: Yes (Esophageal stricture) Polyps, Esophagitis, Hiatal Hernia, Ulcer Musculoskeletal: Yes Gout Endocrine: Yes (hyponatremia) HEENT: No Cancer: No Psychosocial: Yes Anxiety, Depression Integumentary: No Blood Disorders: No Adverse Reaction/Blood Tranf: No Family Medical History Diabetes Physical Exam Vital Signs Vital Signs - First Documented 11/21/21 16:38 Temp 35.9 Pulse 65 Resp 18 B/P (MAP) 111/76 (88) Pulse Ox 99 Capillary Refill : Less Than 3 Seconds Height/Weight/BMI Height: 5'9" Weight: 250lbs. oz. 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, no motor/sensory deficits, alert, normal mood/affect, oriented x 3 Skin: normal color, warm/dry Progress/Results/Core Measures Results/Orders Lab Results Laboratory Tests Test 11/21/21 16:40 Range/Units White Blood Count 11.8 H 4.3-11.0 10^3/uL Red Blood Count 5.83 H 4.30-5.52 10^6/uL Hemoglobin 15.2 13.3-17.7 g/dL Hematocrit 50 40-54 % Mean Corpuscular Volume 86 80-99 fL Mean Corpuscular Hemoglobin 26 25-34 pg Mean Corpuscular Hemoglobin Concent 31 L 32-36 g/dL Red Cell Distribution Width 19.9 H 10.0-14.5 % Platelet Count 304 130-400 10^3/uL Mean Platelet Volume 10.6 9.0-12.2 fL Immature Granulocyte % (Auto) 0 % Neutrophils (%) (Auto) 76 H 42-75 % Lymphocytes (%) (Auto) 15 12-44 % Monocytes (%) (Auto) 7 0-12 % Eosinophils (%) (Auto) 1 0-10 % Basophils (%) (Auto) 0 0-10 % Neutrophils # (Auto) 8.9 H 1.8-7.8 10^3/uL Lymphocytes # (Auto) 1.8 1.0-4.0 10^3/uL Monocytes # (Auto) 0.8 0.0-1.0 10^3/uL Eosinophils # (Auto) 0.1 0.0-0.3 10^3/uL Basophils # (Auto) 0.1 0.0-0.1 10^3/uL Immature Granulocyte # (Auto) 0.1 0.0-0.1 10^3/uL Sodium Level 137 135-145 MMOL/L Potassium Level 4.8 3.6-5.0 MMOL/L Chloride Level 100 98-107 MMOL/L Carbon Dioxide Level 27 21-32 MMOL/L Anion Gap 10 5-14 MMOL/L Blood Urea Nitrogen 11 7-18 MG/DL Creatinine 1.09 0.60-1.30 MG/DL Estimat Glomerular Filtration Rate 77 BUN/Creatinine Ratio 10 Glucose Level 99 70-105 MG/DL Calcium Level 9.6 8.5-10.1 MG/DL Corrected Calcium 9.8 8.5-10.1 MG/DL Total Bilirubin 0.3 0.1-1.0 MG/DL Aspartate Amino Transf (AST/SGOT) 52 H 5-34 U/L Alanine Aminotransferase (ALT/SGPT) 54 0-55 U/L Alkaline Phosphatase 142 H 40-136 U/L C-Reactive Protein High Sensitivity 0.32 0.00-0.50 MG/DL Total Protein 7.4 6.4-8.2 GM/DL Albumin 3.8 3.2-4.5 GM/DL Lipase 13 8-78 U/L My Orders Orders - MONAE BAUTISTA MD Cbc With Automated Diff (11/21/21 16:52) Comprehensive Metabolic Panel (11/21/21 16:52) Hs C Reactive Protein (11/21/21 16:52) Lipase (11/21/21 16:52) Ua Culture If Indicated (11/21/21 16:52) Ondansetron Injection (Zofran Injectio (11/21/21 17:00) Abdomen, Flat & Upright/Decub (11/21/21 16:52) Pantoprazole Injection (Protonix Injecti (11/21/21 17:30) Ketorolac Injection (Toradol Injection) (11/21/21 18:45) Medications Given in ED Current Medications Medications Dose Ordered Sig/Jarek Route Start Time Stop Time Status Last Admin Dose Admin Ketorolac Tromethamine 10 mg ONCE ONCE IVP 11/21/21 18:45 11/21/21 18:46 DC 11/21/21 18:47 10 MG Ondansetron HCl 4 mg ONCE ONCE IVP 11/21/21 17:00 11/21/21 17:01 DC 11/21/21 17:09 4 MG Pantoprazole 40 mg ONCE ONCE IV 11/21/21 17:30 11/21/21 17:31 DC 11/21/21 18:20 40 MG Vital Signs/I&O 11/21/21 11/21/21 16:38 18:47 Temp 35.9 Pulse 65 62 Resp 18 18 B/P (MAP) 111/76 (88) 112/70 Pulse Ox 99 99 Blood Pressure Mean: 88 Progress Progress Note #1: Time: 17:24 Progress Note Patient seen and examined. Labs pending. Zofran administered. IV fluids ordered. X-ray unremarkable. Progress Note #2: Progress Note Work-up was relatively unremarkable. Patient demonstrated ability to drink water without pain or regurgitation. It appears his current problem is most likely recurrence of stricture as he mainly has problems with solids. I reviewed his medications. It appears that he is currently on Pepcid but his Protonix was discontinued in September. I discussed the situation with Dr. Siegel. Dr. Siegel would like him to present to his clinic at 10:00 on Tuesday to make arrangements for endoscopy on Tuesday. He would also like him to restart Protonix in the morning and add omeprazole in the evening. According to recent research there is no need to continue with an H2 pedro. See discharge instructions for discussion. Diagnostic Imaging Diagonstic Imaging: Xray Plain Films/CT/US/NM/MRI: abdomen Comments Abdominal x-rays viewed by me and report reviewed. See report below: NAME: TARA BARRETT [facility] REC#: [id number] PT STATUS: REG ER : 1960 PHYSICIAN: MONAE BAUTISTA MD ADMIT DATE: 11/21/21/ER Draft Date of Exam:11/21/21 ABDOMEN, FLAT UPRIGHT/DECUB INDICATION: Pain. EXAMINATION: Abdomen, 11/21/2021. FINDINGS: 2 views of the abdomen. There is a clip in the right mid abdomen. Scattered air and stool is seen throughout the colon to the rectosigmoid. There are no dilated loops of bowel. No free air. Clips in the lower chest also noted. IMPRESSION: Nonobstructive bowel gas pattern. Dictated on workstation # [id number] Dict: 11/21/211706 Trans: 11/21/211711 LOCATED WITHIN [facility] [id number] Interpreted by: NESHA MCGUIRE MD Electronically signed by: Departure Impression Primary Impression: Upper abdominal pain Additional Impressions: Esophageal stricture Regurgitation of food Disposition: HOME, SELF-CARE Condition: Stable Departure-Patient Inst. Decision time for Depature: 18:30 Referrals: TRENT PAYAN MD (PCP/Family) Primary Care Physician Patient Instructions: Esophageal Stricture (DC) Add. Discharge Instructions: Per Dr. Siegel's instructions: STOP Pepcid (famotidine) starting Tuesday when you get your other medications filled. RESTART Protonix (Pantoprazole) as prescribed in the morning. ADD Omeprazole at bed time. CONTINUE Carafate. Consume primarily liquids with some soft foods the consistency of yogurt or applesauce. Crush medications that may be crushed. No solid foods. Follow-up at Dr. Siegel's office at 10:00 Tuesday morning. He will set you up for endoscopy and possibly dilation of stricture on Tuesday. Call with questions or concerns. Return to the ER if there are worsening symptoms. All discharge instructions reviewed with patient and/or family. Voiced understanding. Scripts Omeprazole (Omeprazole) 40 Mg Capsule. 40 MG PO HS, #30 CAP Prov: MONAE BAUTISTA MD 11/21/21 Pantoprazole Sodium (Protonix) 40 Mg Tablet. 40 MG PO DAILY, #30 TAB Prov: MONAE BAUTISTA MD 11/21/21 Copy Copies To 1: MEL SIEGEL MD Copies To 2: TRENT PAYAN MD, JOSHUA T MD Nov 21, 2021 17:20
[2021-11-21] MEDS ORDERED: PANTOPRAZOLE 40 MG (PROTONIX) VIAL IV ONE (17:30)
[2021-11-21] MEDS ORDERED: OMEP40CA6 PO (18:35)
[2021-11-21] MEDS ORDERED: PANT40TA2 PO (18:35)
[2021-11-21] MEDS ORDERED: KETOROLAC 30 MG/ML VIAL IVP ONE (18:45)
[2021-11-21 18:47] VITALS: BP 112/70
== END 2021-11-21 18:52 | disposition home or self-care (01) ==
LOC: EDUNIT# 16:20 → ER 16:28
DX: R10.10 Upper abdominal pain, unspecified (principal); K22.2 Esophageal obstruction; R11.10 Vomiting, unspecified; J44.9 Chronic obstructive pulmonary disease, unspecified; I10 Essential (primary) hypertension; I48.91 Unspecified atrial fibrillation; E78.00 Pure hypercholesterolemia, unspecified; F41.9 Anxiety disorder, unspecified; F32.9 Major depressive disorder, single episode, unspecified; G40.909 Epilepsy, unspecified, not intractable, without status epilepticus; F17.210 Nicotine dependence, cigarettes, uncomplicated; Z79.01 Long term (current) use of anticoagulants; Z79.899 Other long term (current) drug therapy
CPT/HCPCS: 36415; 74019; 80053; 83690; 85025; 86141

== ENCOUNTER 2021-11-24 10:00 | Outpatient (CLI) | payer MEDICAID ==
[~2021-11-24] VITALS: Ht 170.2 cm; Wt 77.1 kg
[2021-11-24] MEDS ORDERED: FLUT1DIS27 IH (11:25)
[2021-11-24] MEDS ORDERED: AMIT75TA2 PO (11:25)
[2021-11-24] MEDS ORDERED: ATEN50TA PO (11:25)
[2021-11-24] MEDS ORDERED: ACET325T49 PO (11:25)
[2021-11-24] MEDS ORDERED: CLON0.5T4 PO (11:27)
[2021-11-24] MEDS ORDERED: CETI10TA17 PO (11:27)
[2021-11-24] MEDS ORDERED: FLUO40CA PO (11:27)
[2021-11-24] MEDS ORDERED: SUCR1TAB PO (12:28)
[2021-11-24] MEDS ORDERED: FURO-125 PO (12:28)
[2021-11-24] MEDS ORDERED: LACT20SO2 PO (12:28)
[2021-11-24] MEDS ORDERED: ZOLP5TAB7 PO (12:28)
[2021-11-24] MEDS ORDERED: SIMV20TA26 PO (12:28)
[2021-11-24] MEDS ORDERED: PANT40TA52 PO (12:28)
[2021-11-24] MEDS ORDERED: LEVE10006 PO (12:28)
[2021-11-24] MEDS ORDERED: OMEP40CA6 PO (12:28)
[2021-11-24] MEDS ORDERED: ACHD5005 PO (12:28)
[2021-11-24] MEDS ORDERED: ONDA-105 PO (12:28)
[2021-11-24] MEDS ORDERED: POTA10CA43 PO (12:28)
[2021-11-24] MEDS ORDERED: RT-ALBUINH IH (12:28)
== END 2021-11-24 12:32 | disposition home or self-care (01) ==
LOC: PREOP 10:00
PROVIDERS: ATTEND Surgery
DX: Z01.818 Encounter for other preprocedural examination (principal)

== ENCOUNTER 2021-11-25 11:30 | Day surgery (SDC) | payer MEDICAID ==
[~2021-11-25] VITALS: Ht 170 cm; Wt 77.1 kg
[~2021-11-25 11:30] MED LIST changes: +ACET325T49 PO; +AMIT75TA2 PO; +FLUT1DIS27 IH; +ONDA-105 PO
[2021-11-25] MEDS ORDERED: LACTATED RINGERS 1,000 ML IV STA (11:31)
[2021-11-25] MEDS ORDERED: HURRICAINE EXT TUBE (BENZOCAINE) XX PRN (11:45)
[2021-11-25] MEDS ORDERED: LIDOCAINE JELLY 2% 6 ML SYRINGE MM PRN (11:45)
[2021-11-25 11:50] VITALS: BP 110/73
--- NOTE | 2021-11-25 11:53 | Progress Note-Pre Operative ---
Pre-Operative Progress Note H&P Reviewed The H&P was reviewed, patient examined and no changes noted. Date Seen by Provider: Nov 25, 2021 Time Seen by Provider: 11:30 Date H&P Reviewed: Nov 25, 2021 Time H&P Reviewed: 11:30 Pre-Operative Diagnosis: dysphagia MEL SHOEMAKER MD Nov 25, 2021 11:53
--- NOTE | 2021-11-25 11:55 | Discharge Inst-Surgical ---
D/C Lap Instructions-KIDO New, Converted, or Re-Newed RX: RX on Chart Follow Up Activity as tolerated No driving for 24 hours No driving while on pain medications Incentive Spirometry use every 2 hours while awake High Fiber Diet 25g or more per day Avoid Alcohol, Caffeine, Spicy [place] and Acid foods. Drink 64 fluid oz or more of fluids per day. Symptoms to Report: Fever over 101 degree F, Nausea/Vomiting If any problems/questions: Contact your physician or go to Emergency Room MEL SHOEMAKER MD Nov 25, 2021 11:55
[2021-11-25] MEDS ORDERED: ONDANSETRON 4 MG (ZOFRAN) ORAL DISSOLVE TAB PO PRN (12:00)
[2021-11-25] MEDS ORDERED: ONDANSETRON 4 MG/2 ML (SDV) Z0FRAN IVP PRN (12:00)
[2021-11-25] MEDS ORDERED: proPOfol 200 MG/20 ML (DIPRIVAN) VIAL IV ONE ×2 (14:58→15:52)
[2021-11-25] MEDS ORDERED: LACTATED RINGERS 1,000 ML IV ONE (15:43)
[2021-11-25 15:55] VITALS: BP 85/52
--- NOTE | 2021-11-25 15:59 | Anesthesia-General Post-Op ---
MAC Patient Condition Mental Status/LOC: Same as Preop Cardiovascular: Satisfactory Nausea/Vomiting: Absent Respiratory: Satisfactory Pain: Controlled Complications: Absent Post Op Complications Complications None Follow Up Care/Instructions Patient Instructions None needed. Anesthesiology Discharge Order Discharge Order Patient is doing well, no complaints, stable vital signs, no apparent adverse anesthesia problems. SUELLEN SAUCEDA DO Nov 25, 2021 15:59
[2021-11-25 16:00] VITALS: BP 91/52
[2021-11-25 16:08] VITALS: BP 90/53
--- NOTE | 2021-11-25 16:10 | Progress Note-Post Operative ---
Post-Operative Progess Note Surgeon (s)/Stemming Machine Operator (s) Surgeon MEL SHOEMAKER MD Stemming Machine Operator: none Pre-Operative Diagnosis dysphagia Post-Operative Diagnosis esophagtitis, severe distal esophageal stricture and RE(grade D), moderate HH(3cm), retained food substance throughout stomach, severe gastritis, pyloric stricture, duodenitis. Procedure & Operative Findings Date of Procedure 11/25/21 Procedure Performed/Findings EGD with bx and balloon dilatation x2. Anesthesia Type mac Estimated Blood Loss Estimated blood loss (mL): minimal Specimens/Packing Specimens Removed duodenum, antrum, ge jxn MEL SHOEMAKER MD Nov 25, 2021 16:10
[2021-11-25 16:40] VITALS: BP 97/67
--- NOTE | 2021-11-25 18:57 | OPERATIVE REPORT ---
DATE OF SERVICE: 11/25/2021 ATTENDING PRIMARY CARE PHYSICIAN: Dr. Hernán Hylton. PREOPERATIVE DIAGNOSIS: Dysphagia with history of esophageal stricture. POSTOPERATIVE DIAGNOSES: Esophagitis with retained food substance within the esophagus, severe distal esophageal stricture, moderate size hiatal hernia approximately 3 cm in size, retained food substance within the stomach, pyloric stricture, pyloric ulcer with overlying fibrin clot, duodenitis. PROCEDURE: EGD with biopsy and balloon dilatation of the pylorus and the gastroesophageal junction. SURGEON: Mel Shoemaker MD ANESTHESIA: Monitored anesthesia care. ESTIMATED BLOOD LOSS: Minimal. FINDINGS: Same as postoperative diagnoses. DISPOSITION: The patient tolerated the procedure well. INDICATIONS: The patient is a 60-year-old male with a longstanding history of multiple medical problems as well as a history of noncompliance. He has had a longstanding history of gastroesophageal reflux disease as well as a known hiatal hernia. He also does smoke 1.5 packs of cigarettes daily; however, has also smoked more in the past. On his last upper endoscopy, he was found to have type 3 prepyloric ulcer as well as a distal esophageal stricture. He again is symptomatic with epigastric pressure sensation after food bolus as well as frequent regurgitation and states that he lost approximately 20 pounds. He is currently on omeprazole, Protonix as well as Carafate. DESCRIPTION OF PROCEDURE: The patient was brought to the endoscopy suite, laid in the left lateral decubitus position. After adequate IV pain and sedative medications and monitored anesthesia care, the mouthpiece was applied. The endoscope was placed in the mouth, visualizing the pharynx and hypopharyngeal region. Vocal cords, epiglottis and vallecula identified and appeared to be normal. The endoscope was then gently intubated. Esophageal opening and esophagus insufflated. There was retained liquid food substance within the esophagus. There was also a mild esophagitis. There was a tight distal esophageal stricture. Biopsy was taken with forceps with visualization of good hemostasis. The endoscope hit resistance trying to get through and it was decided to proceed with balloon dilatation of distal esophageal stricture, a balloon was placed in the stomach and then we proceeded in a gradual stepwise fashion from 2 and then 4, then approximately 4.5 atmospheres of pressure or approximately 13.5 mm in luminal diameter with moderate resistance and left this in place for approximately 60 seconds. Good hemostasis was observed as well as no mucosal tears. Biopsies were also taken of the GE junction with forceps with visualization of good hemostasis. The endoscope was then advanced into the stomach and endoscope retroflexed, visualizing the same hiatal hernia approximately 3 to 4 cm in size. There was a significant amount of retained food substance within the stomach as well. This was suctioned out as well as possible. A type 3 prepyloric ulcer was identified with an overlying fibrin clot and this appeared to be chronic. There was a pyloric stricture also identified. The endoscope was able to pass through this and the endoscope was then advanced through the first and second portion of the duodenum where a moderate duodenitis was identified and biopsy was taken of the duodenum with visualization of good hemostasis. We then proceeded with placement of the balloon into the duodenum and pulled back to the area of stricture. We then proceeded with gradual stepwise dilatation from 2 and then 3.5 atmospheres of pressure approximately 18.5 mm in luminal diameter with moderate resistance and left this in place for approximately 60 seconds. The balloon was then desufflated and removed with visualization of good hemostasis as well as no mucosal tears. A biopsy was taken of the antrum to rule out H. pylori with visualization of good hemostasis. The endoscope was then slowly withdrawn while taking a second look and suctioning of residual air with no additional findings. The patient tolerated the procedure well. We feel that he does have significant gastroesophageal reflux disease and peptic ulcer disease, likely secondary to his smoking, which has caused a pyloric an esophageal stricture as well as duodenitis, gastritis, and esophagitis. Smoking cessation would benefit tremendously. Also, the other necessary lifestyle and dietary accommodation including small and more frequent meals, avoidance of eating at night as well as head elevation while lying supine. He is currently on omeprazole as well as Protonix and Carafate, which we will have him continue. We feel that he also probably does have a component of gastroparesis from his longstanding history of smoking as well as possible undiagnosed diabetes and we will start him on a trial of lower dose of Reglan at 5 q.i.d. in hopes of allowing for food material to traverse the stomach and duodenum in a timely manner and prevent the frequent episodes of reflux and regurgitation. If the strictures worsen, there will be a point where he will likely need surgery to repair the esophageal stricture; however, this would encompass an esophageal resection and either transhiatal esophagectomy versus Jarred Farooq procedure. The patient would also need a pyloromyotomy to release the distal obstruction. Job ID: [id number] DocumentID: [id number] Dictated Date: 11/25/2021 16:02:42 Software Computer Specialist Date: 11/25/2021 18:57:11 Dictated By: MEL SHOEMAKER MD
== END 2021-11-25 16:40 | disposition home or self-care (01) ==
LOC: ENDO 11:30
PROVIDERS: ATTEND Surgery
DX: K22.2 Esophageal obstruction (principal); K44.9 Diaphragmatic hernia without obstruction or gangrene; K31.1 Adult hypertrophic pyloric stenosis; K29.80 Duodenitis without bleeding; K25.9 Gastric ulcer, unspecified as acute or chronic, without hemorrhage or perforation; K21.00 Gastro-esophageal reflux disease with esophagitis, without bleeding; F17.210 Nicotine dependence, cigarettes, uncomplicated; K29.50 Unspecified chronic gastritis without bleeding; I10 Essential (primary) hypertension; I48.91 Unspecified atrial fibrillation; M10.9 Gout, unspecified; J44.9 Chronic obstructive pulmonary disease, unspecified; F32.A Depression, unspecified; G89.29 Other chronic pain; M54.9 Dorsalgia, unspecified; Z90.49 Acquired absence of other specified parts of digestive tract; Z98.890 Other specified postprocedural states; Z79.899 Other long term (current) drug therapy
CPT/HCPCS: 88305

== ENCOUNTER 2022-01-17 03:02 | Emergency (ER) | payer MEDICAID ==
[~2022-01-17] VITALS: Ht 172.7 cm; Wt 72.1 kg
[2022-01-17 03:05] VITALS: BP 122/85
[2022-01-17] MEDS ORDERED: LACTATED RINGERS 1,000 ML IV STA (03:12)
[2022-01-17] MEDS ORDERED: LIDOCAINE 2% VISCOUS 15 ML UDC PO ONE (03:15)
[2022-01-17] MEDS ORDERED: ANTACID SUSP 30 ML UDC (MYLANTA) PO ONE (03:15)
[2022-01-17] MEDS ORDERED: PANTOPRAZOLE 40 MG (PROTONIX) VIAL IV ONE (03:15)
[2022-01-17] MEDS ORDERED: ONDANSETRON 4 MG/2 ML (SDV) Z0FRAN IVP ONE (03:15)
[2022-01-17 03:25] LABS: BASOPHILS % (AUTO) 0 % (0-10); EOSINOPHILS # (AUTO) 0.3 10^3/uL (0.0-0.3); EOSINOPHILS % (AUTO) 3 % (0-10); HEMATOCRIT 43 % (40-54); HEMOGLOBIN 14.3 g/dL (13.3-17.7); LYMPHOCYTES # (AUTO) 1.2 10^3/uL (1.0-4.0); LYMPHOCYTES % (AUTO) 14 % (12-44); MEAN CORPUSCULAR HEMOGLOBIN 28 pg (25-34); MEAN CORPUSCULAR HGB CONC 33 g/dL (32-36); MEAN CORPUSCULAR VOLUME 84 fL (80-99); MEAN PLATELET VOLUME 10.9 fL (9.0-12.2); MONOCYTES # (AUTO) 0.8 10^3/uL (0.0-1.0); MONOCYTES % (AUTO) 9 % (0-12); NEUTROPHILS # (AUTO) 6.3 10^3/uL (1.8-7.8); NEUTROPHILS % (AUTO) 73 % (42-75); PLATELET COUNT 207 10^3/uL (130-400); WHITE BLOOD COUNT 8.7 10^3/uL (4.3-11.0)
--- NOTE | 2022-01-17 03:29 | ED Abdominal Pain ---
General Chief Complaint: Abdominal/GI Problems Stated Complaint: N/V Nursing Triage Note: Pt arrives via POV from home for c/o N/V onset three hours ago. Pt reports hx of hiatal hernia states since dx that he has had intermittent N/V. Pt discharged home from [facility] two weeks ago. Pt also reports hx of GI ulcers. Source of Information: Patient, EMS Exam Limitations: No Limitations History of Present Illness Date Seen by Provider: Jan 17, 2022 Time Seen by Provider: 03:01 Initial Comments Patient presents ER by EMS from home with chief complaint that he has had about 2 hours of nausea vomiting without diarrhea. Is also had a productive cough for the past several days. He had a COVID vaccine x2 and has had his flu vaccine. Has had no fevers or chills. He has a hiatal hernia diagnosed about 6 months ago and he had he had endoscopy at that time. She he also has been told he has ulcers in bilateral lower groins and when asked if he meant hernias he said no that they are ulcers. No history of colonoscopy. He does have GERD with history of ulcers in his stomach. Not vomiting up blood. No known sick contacts. 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 WITH ELECTROLYTIC ETCHER DEMEROL, 09/13/18) Patient Home Medication List Home Medication List Reviewed: Yes Acetaminophen (Acetaminophen) 325 Mg Tablet, 650 MG PO Q4H PRN for PAIN-MILD (1- 4), (Reported) Entered as Reported by: RAYMUNDO MONTERO on 11/24/21 1125 Albuterol Sulfate (Proair Hfa) 1 Puff Puff, 2 PUFF IH Q4H PRN for SHORTNESS OF BREATH, (Reported) Entered as Reported by: RAYMUNDO MONTERO on 11/24/21 1228 Amitriptyline HCl (Amitriptyline HCl) 75 Mg Tablet, 75 MG PO HS, (Reported) Entered as Reported by: RAYMUNDO MONTERO on 11/24/21 1125 Atenolol (Atenolol) 50 Mg Tablet, 50 MG PO BID, (Reported) Entered as Reported by: RAYMUNDO MONTERO on 11/24/21 1125 Cetirizine HCl (Cetirizine HCl) 10 Mg Tablet, 10 MG PO DAILY, (Reported) Entered as Reported by: RAYMUNDO MONTERO on 11/24/21 112 Clonazepam (Clonazepam) 0.5 Mg Tablet, 0.5 MG PO TID, (Reported) Entered as Reported by: RAYMUNDO MONTERO on 11/24/21 112 Fluoxetine HCl (Fluoxetine HCl) 40 Mg Capsule, 40 MG PO DAILY, (Reported) Entered as Reported by: RAYMUNDO MONTERO on 11/24/21 112 Fluticasone/Salmeterol (Advair 500-50 Diskus) 1 Each Blst.w.dev, 1 EACH IH BID, (Reported) Entered as Reported by: RAYMUNDO MONTERO on 11/24/211124 Furosemide (Lasix) 20 Mg Tablet, 20 MG PO DAILY, (Reported) Entered as Reported by: RAYMUNDO MONTERO on 11/24/21 122 Hydrocodone/Acetaminophen (Hydrocodone-Acetamin 5-325 mg) 1 Each Tablet, 1 TAB PO Q4H PRN for PAIN-MODERATE (5-7), (Reported) Entered as Reported by: RAYMUNDO MONTERO on 11/24/21 1228 Lactulose (Lactulose) 20 Gm/30 Ml Solution, 10 GM PO BID, (Reported) Entered as Reported by: RAYMUNDO MONTERO on 11/24/21 122 Levetiracetam (Levetiracetam) 1,000 Mg Tablet, 1,000 MG PO BID, (Reported) Entered as Reported by: RAYMUNDO MONTERO on 11/24/21 122 Omeprazole (Omeprazole) 40 Mg Capsule.dr, 40 MG PO HS, (Reported) Entered as Reported by: RAYMUNDO MONTERO on 11/24/21 1228 Ondansetron HCl (Ondansetron HCl) 4 Mg Tablet, 4 MG PO Q4H PRN for NAUSEA/VOMITING, (Reported) Entered as Reported by: RAYMUNDO MONTERO on 11/24/21 1228 Pantoprazole Sodium (Pantoprazole Sodium) 40 Mg Tablet.dr, 40 MG PO DAILY, (Reported) Entered as Reported by: RAYMUNDO MONTERO on 11/24/21 1228 Potassium Chloride (Potassium Chloride) 10 Meq Capsule.er, 10 MEQ PO DAILY, (Reported) Entered as Reported by: RAYMUNDO MONTERO on 11/24/21 1228 Simvastatin (Simvastatin) 20 Mg Tablet, 20 MG PO HS, (Reported) Entered as Reported by: RAYMUNDO MONTERO on 11/24/21 1228 Sucralfate (Sucralfate) 1 Gm Tablet, 1 GM PO QID, (Reported) Entered as Reported by: RAYMUNDO MONTERO on 11/24/21 1228 Zolpidem Tartrate (Zolpidem Tartrate) 5 Mg Tablet, 5 MG PO HS, (Reported) Entered as Reported by: RAYMUNDO MONTERO on 11/24/218 Review of Systems Review of Systems Constitutional: No chills, No diaphoresis EENTM: No Blurred Vision, No Double Vision Respiratory: Denies Cough, Denies Shortness of Air Cardiovascular: Denies Chest Pain, Denies Lightheadedness Gastrointestinal: See HPI, Abdominal Pain; Denies Constipated, Denies Diarrhea; Nausea, Poor Fluid Intake, Vomiting Genitourinary: Denies Burning, Denies Discharge Musculoskeletal: No back pain, No joint pain All Other Systems Reviewed Negative Unless Noted: Yes Past Dhtwsro-Wiysce-Uqxtux Hx Patient Social History Tobacco Use?: Yes Tobacco type used: Cigarettes Smoking Status: Current Everyday Smoker Use of E-Cig and/or Vaping dev: No Substance use?: No Alcohol Use?: No Pt feels they are or have been: No Immunizations Up To Date Tetanus Booster (TDap): Unknown First/Initial COVID19 Vaccinat: 2020 Second COVID19 Vaccination Yoshi: 2020 Third COVID19 Vaccination Date: 0 Seasonal Allergies Seasonal Allergies: No Past Medical History Surgery/Hospitalization HX: PMH: GI BLEED, AFIB, GOUT, ANEMIA, GASTRITIS, SEIZURES, HEMIPLEGIA, SYNCOPE Surgeries: Yes Abdominal, Gallbladder, Tonsillectomy Respiratory: Yes Asthma, COPD Cardiac: Yes Atrial Fibrillation, High Cholesterol, Hypertension Neurological: Yes Seizure Disorder Genitourinary: No Gastrointestinal: Yes (Esophageal stricture) Polyps, Esophagitis, Hiatal Hernia, Ulcer Musculoskeletal: Yes Gout Endocrine: Yes (hyponatremia) HEENT: No Cancer: No Psychosocial: Yes Anxiety, Depression Integumentary: No Blood Disorders: No Adverse Reaction/Blood Tranf: No Family Medical History Diabetes Physical Exam Vital Signs Vital Signs - First Documented 01/17/22 03:05 Temp 36.7 Pulse 67 Resp 18 B/P (MAP) 122/85 (97) Pulse Ox 100 O2 Delivery Room Air Capillary Refill : Less Than 3 Seconds Height/Weight/BMI Height: 5'9" Weight: 250lbs. oz. 113.401661jr; 24.00 BMI Method:Stated General Appearance: WD/WN, mild distress HEENT: PERRL/EOMI, pharynx normal Neck: full range of motion, normal inspection Respiratory: lungs clear, normal breath sounds, no respiratory distress, no accessory muscle use Cardiovascular: normal peripheral pulses, regular rate, rhythm Gastrointestinal: normal bowel sounds, soft, tenderness (Epigastric without Albarado sign or mesenteric signs) Extremities: normal range of motion, normal capillary refill Neurologic/Psychiatric: alert, normal mood/affect, oriented x 3 Skin: normal color, warm/dry Progress/Results/Core Measures Results/Orders Lab Results Laboratory Tests Test 01/17/22 03:20 Range/Units White Blood Count 8.7 4.3-11.0 10^3/uL Red Blood Count 5.16 4.30-5.52 10^6/uL Hemoglobin 14.3 13.3-17.7 g/dL Hematocrit 43 40-54 % Mean Corpuscular Volume 84 80-99 fL Mean Corpuscular Hemoglobin 28 25-34 pg Mean Corpuscular Hemoglobin Concent 33 32-36 g/dL Red Cell Distribution Width 15.0 H 10.0-14.5 % Platelet Count 207 130-400 10^3/uL Mean Platelet Volume 10.9 9.0-12.2 fL Immature Granulocyte % (Auto) 1 % Neutrophils (%) (Auto) 73 42-75 % Lymphocytes (%) (Auto) 14 12-44 % Monocytes (%) (Auto) 9 0-12 % Eosinophils (%) (Auto) 3 0-10 % Basophils (%) (Auto) 0 0-10 % Neutrophils # (Auto) 6.3 1.8-7.8 10^3/uL Lymphocytes # (Auto) 1.2 1.0-4.0 10^3/uL Monocytes # (Auto) 0.8 0.0-1.0 10^3/uL Eosinophils # (Auto) 0.3 0.0-0.3 10^3/uL Basophils # (Auto) 0.0 0.0-0.1 10^3/uL Immature Granulocyte # (Auto) 0.1 0.0-0.1 10^3/uL Sodium Level 130 L 135-145 MMOL/L Potassium Level 4.2 3.6-5.0 MMOL/L Chloride Level 96 L 98-107 MMOL/L Carbon Dioxide Level 18 L 21-32 MMOL/L Anion Gap 16 H 5-14 MMOL/L Blood Urea Nitrogen 35 H 7-18 MG/DL Creatinine 1.12 0.60-1.30 MG/DL Estimat Glomerular Filtration Rate 74 BUN/Creatinine Ratio 31 Glucose Level 112 H 70-105 MG/DL Calcium Level 9.6 8.5-10.1 MG/DL Corrected Calcium 9.9 8.5-10.1 MG/DL Total Bilirubin 0.5 0.1-1.0 MG/DL Aspartate Amino Transf (AST/SGOT) 39 H 5-34 U/L Alanine Aminotransferase (ALT/SGPT) 108 H 0-55 U/L Alkaline Phosphatase 151 H 40-136 U/L C-Reactive Protein High Sensitivity 0.99 H 0.00-0.50 MG/DL Total Protein 6.9 6.4-8.2 GM/DL Albumin 3.6 3.2-4.5 GM/DL Lipase 28 8-78 U/L My Orders Orders - JULIA PUENTE Ondansetron Injection (Zofran Injectio (01/17/22 03:15) Lidocaine 2% Viscous 15 Ml (Xylocaine Vi (01/17/22 03:15) Antacid Suspension (Mylanta Suspension (01/17/22 03:15) Lactated Ringers (Lr 1000 Ml Iv Solution (01/17/22 03:12) Ed Iv/Invasive Line Start (01/17/22 03:12) Pantoprazole Injection (Protonix Injecti (01/17/22 03:15) Cbc With Automated Diff (01/17/22 03:12) Comprehensive Metabolic Panel (01/17/22 03:12) Hs C Reactive Protein (01/17/22 03:12) Lipase (01/17/22 03:12) Medications Given in ED Current Medications Medications Dose Ordered Sig/Jarek Route Start Time Stop Time Status Last Admin Dose Admin Al Hydrox/Mg Hydrox/Simethicone 30 ml ONCE ONCE PO 01/17/22 03:15 01/17/22 03:16 DC 01/17/22 03:38 30 ML Lidocaine HCl 15 ml ONCE ONCE PO 01/17/22 03:15 01/17/22 03:16 DC 01/17/22 03:38 15 ML Ondansetron HCl 8 mg ONCE ONCE IVP 01/17/22 03:15 01/17/22 03:16 DC 01/17/22 03:38 8 MG Pantoprazole 40 mg ONCE ONCE IV 01/17/22 03:15 01/17/22 03:16 DC 01/17/22 03:38 40 MG Vital Signs/I&O 01/17/22 03:05 Temp 36.7 Pulse 67 Resp 18 B/P (MAP) 122/85 (97) Pulse Ox 100 O2 Delivery Room Air Blood Pressure Mean: 97 Progress Progress Note : Time: 04:20 Progress Note Patient is no longer having any pain or nausea after some Zofran and a GI cocktail. Seems like he is having gastritis and his symptoms are better so we will let him go home. Labs demonstrate what is probably consistent with a gastroenteritis. Mild electrolyte derangements. Mild dehydration. Will recommend he follow-up with Dr. Montalvo who did his endoscopy in the past. We will put him on Carafate and pantoprazole. Departure Impression Primary Impression: Gastritis Qualified Codes: K29.00 - Acute gastritis without bleeding Additional Impression: Gastroenteritis Disposition: 01 HOME, SELF-CARE Condition: Stable Departure-Patient Inst. Decision time for Depature: 04:23 Referrals: LYNDSEY MONTALVO DAVID F MD (PCP/Family) Primary Care Physician Patient Instructions: Viral Gastroenteritis, Adult (DC) Add. Discharge Instructions: I suspect you might have a bug causing you to have the nausea and vomiting. You also do have considerable irritation of the lining of the stomach which was eased with the GI cocktail. You can use Tums, Mylanta, Maalox etc. for pain. Start taking pantoprazole twice a day 20 mg each time. Carafate half an hour before meals and at bedtime for the next couple weeks. If not seeing improvement in 2 weeks then follow-up with Dr. Montalvo, general surgery by calling for an appointment. Return to the ER for intractable pain nausea or other worrisome symptoms. Zofran 1 to 2 tablets every 6 hours as needed for nausea or vomiting. All discharge instructions reviewed with patient and/or family. Voiced understanding. Scripts Ondansetron (Ondansetron Odt) 4 Mg Tab.rapdis 4 MG PO Q6H PRN for NAUSEA/VOMITING, #12 TAB 0 Refills Prov: JULIA PUENTE 01/17/22 Sucralfate (Carafate) 1 Gm Tablet 1 GM PO QIDACHS for 14 Days, #56 TAB 0 Refills Prov: JULIA PUENTE 01/17/22 Pantoprazole Sodium (Pantoprazole Sodium) 20 Mg Tablet.dr 20 MG PO BID for 30 Days, #60 TAB 0 Refills Prov: JULIA PUENTE 01/17/22 Copy Copies To 1: LYNDSEY MONTALVO DO JULIA PUENTE Jan 17, 2022 03:29
[2022-01-17 03:51] LABS: ALBUMIN 3.6 GM/DL (3.2-4.5)
[2022-01-17 03:52] LABS: POTASSIUM 4.2 MMOL/L (3.6-5.0)
[2022-01-17 03:53] LABS: CALCIUM 9.6 MG/DL (8.5-10.1)
[2022-01-17 03:54] LABS: TOTAL PROTEIN 6.9 GM/DL (6.4-8.2)
[2022-01-17 03:56] LABS: BILIRUBIN,TOTAL 0.5 MG/DL (0.1-1.0)
[2022-01-17 03:58] LABS: CREATININE SERUM 1.12 MG/DL (0.60-1.30)
[2022-01-17] MEDS ORDERED: ONDA4TAB11 PO (04:28)
[2022-01-17] MEDS ORDERED: PANT20TA18 PO (04:28)
[2022-01-17] MEDS ORDERED: SUCR1TAB36 PO (04:28)
== END 2022-01-17 05:21 | disposition home or self-care (01) ==
LOC: EDUNIT# 03:02 → ER 03:04
DX: K29.70 Gastritis, unspecified, without bleeding (principal); K52.9 Noninfective gastroenteritis and colitis, unspecified; F17.210 Nicotine dependence, cigarettes, uncomplicated
CPT/HCPCS: 36415; 80053; 83690; 85025; 86141

== ENCOUNTER 2022-01-25 11:54 | Emergency (ER) | payer MEDICAID ==
[~2022-01-25] VITALS: Ht 177 cm; Wt 185.0 kg
[~2022-01-25 11:54] MED LIST changes: +PANT20TA18 PO; +SUCR1TAB36 PO
[2022-01-25] MEDS ORDERED: NS IV 500 ML 500 ML IV ONE (12:00)
[2022-01-25] MEDS ORDERED: ONDANSETRON 4 MG/2 ML (SDV) Z0FRAN IVP ONE (12:00)
--- NOTE | 2022-01-25 12:11 | ED Neurological Problem ---
General Stated Complaint: SEIZURE Source: patient Exam Limitations: no limitations History of Present Illness Date Seen by Provider: Jan 25, 2022 Time Seen by Provider: 11:47 Initial Comments Patient ER by EMS chief complaint that he is found having seizures and the doorway of his apartment hallway by fellow residents. He has a history of epilepsy. States he did not take his medications. He was somnolent and little confused when they arrived. States he takes Keppra. He denies being sick recently. Not having any pain anywhere. C-collar was placed by EMS. Shortly before coming into the ER patient had another 30 s tonic-clonic seizure and 2.5 mg of Versed was administered by IV by EMS. Patient is somnolent on arrival and does not immediately participate in history. 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 WITH RECORDS MANAGEMENT DIRECTOR DEMEROL, 09/13/18) Patient Home Medication List Home Medication List Reviewed: Yes Acetaminophen (Acetaminophen) 325 Mg Tablet, 650 MG PO Q4H PRN for PAIN-MILD (1- 4), (Reported) Entered as Reported by: RAYMUNDO MONTERO on 11/24/21 1125 Albuterol Sulfate (Proair Hfa) 1 Puff Puff, 2 PUFF IH Q4H PRN for SHORTNESS OF BREATH, (Reported) Entered as Reported by: RAYMUNDO MONTERO on 11/24/21 1228 Amitriptyline HCl (Amitriptyline HCl) 75 Mg Tablet, 75 MG PO HS, (Reported) Entered as Reported by: RAYMUNDO MONTERO on 11/24/21 112 Atenolol (Atenolol) 50 Mg Tablet, 50 MG PO BID, (Reported) Entered as Reported by: RAYMUNDO MONTERO on 11/24/21 1125 Cetirizine HCl (Cetirizine HCl) 10 Mg Tablet, 10 MG PO DAILY, (Reported) Entered as Reported by: RAYMUNDO MONTERO on 11/24/21 1127 Clonazepam (Clonazepam) 0.5 Mg Tablet, 0.5 MG PO TID, (Reported) Entered as Reported by: RAYMUNDO MONTERO on 11/24/21 1127 Fluoxetine HCl (Fluoxetine HCl) 40 Mg Capsule, 40 MG PO DAILY, (Reported) Entered as Reported by: RAYMUNDO MONTERO on 11/24/21 1127 Fluticasone/Salmeterol (Advair 500-50 Diskus) 1 Each Blst.w.dev, 1 EACH IH BID, (Reported) Entered as Reported by: RAYMUNDO MONTERO on 11/24/21 1125 Furosemide (Lasix) 20 Mg Tablet, 20 MG PO DAILY, (Reported) Entered as Reported by: RAYMUNDO MONTERO on 11/24/21 1228 Hydrocodone/Acetaminophen (Hydrocodone-Acetamin 5-325 mg) 1 Each Tablet, 1 TAB PO Q4H PRN for PAIN-MODERATE (5-7), (Reported) Entered as Reported by: RAYMUNDO MONTERO on 11/24/21 1228 Lactulose (Lactulose) 20 Gm/30 Ml Solution, 10 GM PO BID, (Reported) Entered as Reported by: RAYMUNDO MONTERO on 11/24/21 1228 Levetiracetam (Levetiracetam) 1,000 Mg Tablet, 1,000 MG PO BID, (Reported) Entered as Reported by: RAYMUNDO MONTERO on 11/24/21 1228 Levetiracetam (Keppra) 1,000 Mg Tablet, 1,000 MG PO BID Prescribed by: JULIA PUENTE on 01/25/22 1317 Omeprazole (Omeprazole) 40 Mg Capsule.dr, 40 MG PO HS, (Reported) Entered as Reported by: RAYMUNDO MONTERO on 11/24/21 1228 Ondansetron (Ondansetron Odt) 4 Mg Tab.rapdis, 4 MG PO Q6H PRN for NAUSEA/VOMITING Prescribed by: JULIA PUENTE on 01/17/22 0428 Ondansetron HCl (Ondansetron HCl) 4 Mg Tablet, 4 MG PO Q4H PRN for NAUSEA/VOMI TING, (Reported) Entered as Reported by: RAYMUNDO MONTERO on 11/24/21 1228 Pantoprazole Sodium (Pantoprazole Sodium) 40 Mg Tablet.dr, 40 MG PO DAILY, (Reported) Entered as Reported by: RAYMUNDO MONTERO on 11/24/211227 Pantoprazole Sodium (Pantoprazole Sodium) 20 Mg Tablet.dr, 20 MG PO BID Prescribed by: JULIA PUENTE on 01/17/22427 Potassium Chloride (Potassium Chloride) 10 Meq Capsule.er, 10 MEQ PO DAILY, (Reported) Entered as Reported by: RAYMUNDO MONTERO on 11/24/211227 Simvastatin (Simvastatin) 20 Mg Tablet, 20 MG PO HS, (Reported) Entered as Reported by: RAYMUNDO MONTERO on 11/24/211227 Sucralfate (Sucralfate) 1 Gm Tablet, 1 GM PO QID, (Reported) Entered as Reported by: RAYMUNDO MONTERO on 11/24/211227 Sucralfate (Carafate) 1 Gm Tablet, 1 GM PO QIDACHS Prescribed by: JULIA PUENTE on 01/17/22427 Zolpidem Tartrate (Zolpidem Tartrate) 5 Mg Tablet, 5 MG PO HS, (Reported) Entered as Reported by: RAYMUNDO MONTERO on 11/24/211227 Review of Systems Review of Systems Constitutional: No chills, No diaphoresis, No fever Eyes: Denies Blindness, Denies Pain Ears, Nose, Mouth, Throat: denies ear pain, denies ear discharge Respiratory: No cough, No short of breath Cardiovascular: No chest pain, No palpitations Gastrointestinal: No abdominal pain, No constipation, No diarrhea Musculoskeletal: No back pain, No joint pain All Other Systems Reviewed Negative Unless Noted: Yes Past Futxrju-Xffivc-Cyohza Hx Patient Social History Tobacco Use?: Yes Tobacco type used: Cigarettes Use of E-Cig and/or Vaping dev: No Substance use?: No Immunizations Up To Date Tetanus Booster (TDap): Unknown First/Initial COVID19 Vaccinat: 2020 Second COVID19 Vaccination Yoshi: 2020 Third COVID19 Vaccination Date: 0 Seasonal Allergies Seasonal Allergies: No Past Medical History Surgery/Hospitalization HX: PMH: GI BLEED, AFIB, GOUT, ANEMIA, GASTRITIS, SEIZURES, HEMIPLEGIA, SYNCOPE Surgeries: Yes Abdominal, Gallbladder, Tonsillectomy Respiratory: Yes Asthma, COPD Cardiac: Yes Atrial Fibrillation, High Cholesterol, Hypertension Neurological: Yes Seizure Disorder Genitourinary: No Gastrointestinal: Yes (Esophageal stricture) Polyps, Esophagitis, Hiatal Hernia, Ulcer Musculoskeletal: Yes Gout Endocrine: Yes (hyponatremia) HEENT: No Cancer: No Psychosocial: Yes Anxiety, Depression Integumentary: No Blood Disorders: No Adverse Reaction/Blood Tranf: No Family Medical History Diabetes Physical Exam Vital Signs Vital Signs - First Documented 01/25/22 11:55 Temp 36.4 Pulse 73 Resp 14 B/P (MAP) 141/81 (101) Pulse Ox 99 O2 Delivery Room Air Capillary Refill : Height, Weight, BMI Height: 5'9" Weight: 250lbs. oz. 113.834526pd; 24.00 BMI Method:Stated General Appearance: WD/WN, no apparent distress HEENT: PERRL/EOMI (3mm), normal ENT inspection, TMs normal; No pharynx normal (Dry oral mucosa); other (Atraumatic head) Neck: non-tender, full range of motion, supple, normal inspection Respiratory: lungs clear, normal breath sounds, no respiratory distress, no accessory muscle use Cardiovascular: normal peripheral pulses, regular rate, rhythm Gastrointestinal: normal bowel sounds, non tender, soft Extremities: normal range of motion, non-tender, normal inspection, normal capillary refill Neurologic/Psychiatric: 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-XII nml as tested, no motor/sensory deficits, alert, normal mood/affect, oriented x 3 Crainal Nerves: normal hearing, normal speech, PERRL, other (Initially somnolent.) Skin: normal color, warm/dry Progress/Results/Core Measures Results/Orders Lab Results Laboratory Tests Test 01/25/22 12:00 Range/Units White Blood Count 20.2 H 4.3-11.0 10^3/uL Red Blood Count 5.18 4.30-5.52 10^6/uL Hemoglobin 14.5 13.3-17.7 g/dL Hematocrit 45 40-54 % Mean Corpuscular Volume 87 80-99 fL Mean Corpuscular Hemoglobin 28 25-34 pg Mean Corpuscular Hemoglobin Concent 32 32-36 g/dL Red Cell Distribution Width 14.7 H 10.0-14.5 % Platelet Count 348 130-400 10^3/uL Mean Platelet Volume 9.9 9.0-12.2 fL Immature Granulocyte % (Auto) 1 % Neutrophils (%) (Auto) 76 H 42-75 % Lymphocytes (%) (Auto) 15 12-44 % Monocytes (%) (Auto) 8 0-12 % Eosinophils (%) (Auto) 0 0-10 % Basophils (%) (Auto) 0 0-10 % Neutrophils # (Auto) 15.2 H 1.8-7.8 10^3/uL Lymphocytes # (Auto) 3.1 1.0-4.0 10^3/uL Monocytes # (Auto) 1.6 H 0.0-1.0 10^3/uL Eosinophils # (Auto) 0.0 0.0-0.3 10^3/uL Basophils # (Auto) 0.1 0.0-0.1 10^3/uL Immature Granulocyte # (Auto) 0.2 H 0.0-0.1 10^3/uL Neutrophils % (Manual) 74 % Lymphocytes % (Manual) 16 % Monocytes % (Manual) 10 % Blood Morphology Comment NORMAL Sodium Level 134 L 135-145 MMOL/L Potassium Level 2.8 L 3.6-5.0 MMOL/L Chloride Level 97 L 98-107 MMOL/L Carbon Dioxide Level 12 L 21-32 MMOL/L Anion Gap 25 H 5-14 MMOL/L Blood Urea Nitrogen 8 7-18 MG/DL Creatinine 1.21 0.60-1.30 MG/DL Estimat Glomerular Filtration Rate 68 BUN/Creatinine Ratio 7 Glucose Level 104 70-105 MG/DL Calcium Level 9.2 8.5-10.1 MG/DL Corrected Calcium 9.4 8.5-10.1 MG/DL Total Bilirubin 0.8 0.1-1.0 MG/DL Aspartate Amino Transf (AST/SGOT) 17 5-34 U/L Alanine Aminotransferase (ALT/SGPT) 41 0-55 U/L Alkaline Phosphatase 98 40-136 U/L C-Reactive Protein High Sensitivity 0.14 0.00-0.50 MG/DL Total Protein 6.5 6.4-8.2 GM/DL Albumin 3.8 3.2-4.5 GM/DL Serum Alcohol < 10 <10 MG/DL My Orders Orders - JULIA PUENTE Ed Iv/Invasive Line Start (01/25/22 11:59) Ns Iv 500 Ml (Sodium Chloride 0.9%) (01/25/22 12:00) Ondansetron Injection (Zofran Injectio (01/25/22 12:00) Levetiracetam Injection (Keppra Injectio (01/25/22 12:00) Cbc With Automated Diff (01/25/22 11:59) Comprehensive Metabolic Panel (01/25/22 11:59) Hs C Reactive Protein (01/25/22 11:59) Alcohol (01/25/22 11:59) Accucheck Stat ONCE (01/25/22 12:03) Ekg Tracing (01/25/22 12:12) Manual Differential (01/25/22 12:00) Ed Iv/Invasive Line Start (01/25/22 12:14) Ns Iv 1000 Ml (Sodium Chloride 0.9%) (01/25/22 12:15) Potassium Chloride (Tablet) (K Dur Table (01/25/22 13:15) General/Regular (01/25/22 Lunch) Potassium Cl 10meq/50ml Ivpb (Kcl 10 Meq (01/25/22 13:30) Ed Iv/Invasive Line Start (01/25/22 13:17) Ns Iv 1000 Ml (Sodium Chloride 0.9%) (01/25/22 13:30) Medications Given in ED Current Medications Medications Dose Ordered Sig/Jarek Route Start Time Stop Time Status Last Admin Dose Admin Levetiracetam 1000 mg/Sodium Chloride 110 ml @ 440 mls/hr ONCE ONCE IV 01/25/22 12:00 01/25/22 12:14 DC 01/25/22 12:14 440 MLS/HR Ondansetron HCl 8 mg ONCE ONCE IVP 01/25/22 12:00 01/25/22 12:03 DC 01/25/22 12:14 8 MG Potassium Chloride 40 meq ONCE ONCE PO 01/25/22 13:15 01/25/22 13:16 DC 01/25/22 13:51 40 MEQ Potassium Chloride 50 ml @ 50 mls/hr ONCE ONCE IV 01/25/22 13:30 01/25/22 14:29 DC 01/25/22 13:50 50 MLS/HR Vital Signs/I&O 01/25/22 11:55 Temp 36.4 Pulse 73 Resp 14 B/P (MAP) 141/81 (101) Pulse Ox 99 O2 Delivery Room Air Progress Progress Note #1: Time: 12:19 Progress Note Part of the bed rails and let him rest. Give him a liter of fluids since he looks dry. Gram of Keppra IV. Basic labs and EKG. Progress Note #2: Time: 13:15 Progress Note Patient is only mildly somnolent but answering questions states he is been out of his Keppra for a couple days. We will send a refill to [facility] pharmacy for him. We will give him a low potassium replacement p.o. and something to eat and let him work on getting a ride home. Progress Note #3: Time: 14:37 Progress Note Patient's ride is here. He is sitting up eating and drinking. He is little more alert than before. Should be shortly ready to go home. Initial ECG Impression Date: Jan 25, 2022 Initial ECG Impression Time: 12:13 Initial ECG Rate: 58 Initial ECG Rhythm: Normal Sinus Initial ECG Intervals: Normal Initial ECG Impression: Normal Comment Normal sinus rhythm with incomplete right bundle branch block but no relevant ST elevation or depression. Departure Impression Primary Impression: Seizures Additional Impressions: History of epilepsy Hypokalemia Medicine refill Disposition: 01 HOME, SELF-CARE Condition: Stable Departure-Patient Inst. Decision time for Depature: 16:00 Referrals: VALENTINE HUMPHREY MD (PCP/Family) Primary Care Physician Patient Instructions: Seizures, Adult (DC), High Potassium Diet Add. Discharge Instructions: Eat some bananas and foods high in potassium such as spinach. You can also use potassium supplements or drink sports drinks like Gatorade or Powerade. 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 Scripts Levetiracetam (Keppra) 1,000 Mg Tablet 1000 MG PO BID for 14 Days, #30 TAB 0 Refills Prov: JULIA PUENTE 01/25/22 JULIA PUENTE Jan 25, 2022 12:11
[2022-01-25 12:12] LABS: BASOPHILS # (AUTO) 0.1 10^3/uL (0.0-0.1); BASOPHILS % (AUTO) 0 % (0-10); EOSINOPHILS % (AUTO) 0 % (0-10); HEMATOCRIT 45 % (40-54); HEMOGLOBIN 14.5 g/dL (13.3-17.7); LYMPHOCYTES # (AUTO) 3.1 10^3/uL (1.0-4.0); LYMPHOCYTES % (AUTO) 15 % (12-44); MEAN CORPUSCULAR HEMOGLOBIN 28 pg (25-34); MEAN CORPUSCULAR HGB CONC 32 g/dL (32-36); MEAN CORPUSCULAR VOLUME 87 fL (80-99); MEAN PLATELET VOLUME 9.9 fL (9.0-12.2); MONOCYTES # (AUTO) 1.6 10^3/uL (0.0-1.0); MONOCYTES % (AUTO) 8 % (0-12); NEUTROPHILS # (AUTO) 15.2 10^3/uL (1.8-7.8); NEUTROPHILS % (AUTO) 76 % (42-75); PLATELET COUNT 348 10^3/uL (130-400); WHITE BLOOD COUNT 20.2 10^3/uL (4.3-11.0)
[2022-01-25] MEDS ORDERED: NS IV 1000 ML 1,000 ML IV SCH ×2 (12:15→13:30)
[2022-01-25 12:26] LABS: ALBUMIN 3.8 GM/DL (3.2-4.5); CHLORIDE 97 MMOL/L (98-107); POTASSIUM 2.8 MMOL/L (3.6-5.0); SODIUM 134 MMOL/L (135-145)
[2022-01-25 12:27] LABS: CALCIUM 9.2 MG/DL (8.5-10.1)
[2022-01-25 12:29] LABS: GLUCOSE 104 MG/DL (70-105); TOTAL PROTEIN 6.5 GM/DL (6.4-8.2)
[2022-01-25 12:30] LABS: BILIRUBIN,TOTAL 0.8 MG/DL (0.1-1.0); CARBON DIOXIDE 12 MMOL/L (21-32)
[2022-01-25 12:32] LABS: ALKALINE PHOSPHATASE 98 U/L (40-136); CREATININE SERUM 1.21 MG/DL (0.60-1.30); GFR ESTIMATED 68
[2022-01-25 12:33] LABS: BUN/CREATININE RATIO 7
[2022-01-25 12:35] LABS: ALANINE AMINOTRANSFERASE 41 U/L (0-55)
[2022-01-25 12:40] LABS: LYMPHOCYTES % (MANUAL) 16 %; MONOCYTES % (MANUAL) 10 %; NEUTROPHILS % (MANUAL) 74 %
[2022-01-25 12:41] LABS: RBC MORPH NORMAL
[2022-01-25] MEDS ORDERED: KCL 20 MEQ TAB (K-DUR) PO ONE (13:15)
[2022-01-25] MEDS ORDERED: LEVE100015 PO (13:17)
[2022-01-25] MEDS ORDERED: POTASSIUM CL 10MEQ/50ML IVPB 50 ML IV ONE (13:30)
[2022-01-25 16:03] VITALS: BP 100/73
== END 2022-01-25 16:19 | disposition home or self-care (01) ==
LOC: ER 11:54 → EDUNIT# 11:54 → ER 16:19
DX: R56.9 Unspecified convulsions (principal); E87.6 Hypokalemia; Z76.0 Encounter for issue of repeat prescription
CPT/HCPCS: 36415; 80053; 80320; 85007; 85027; 86141; 93005

== ENCOUNTER 2022-01-28 07:21 | Outpatient (CLI) | payer MEDICAID ==
[~2022-01-28] VITALS: Ht 173 cm; Wt 72.7 kg
[~2022-01-28 07:21] MED LIST changes: +LEVE100015 PO
[2022-02-04] MEDS ORDERED: PANT20TA18 PO ×2 (14:00)
== END 2022-02-04 13:31 | disposition home or self-care (01) ==
LOC: PREOP 07:21
PROVIDERS: ATTEND Surgery
DX: Z01.818 Encounter for other preprocedural examination (principal)

== ENCOUNTER 2022-02-03 23:41 | Inpatient (IN) | payer MEDICAID ==
[~2022-02-03] VITALS: Ht 172.7 cm; Wt 76.5 kg
[2022-02-04] MEDS ORDERED: NS IV 1000 ML 1,000 ML IV SCH
--- NOTE | 2022-02-04 00:08 | ED General ---
General Chief Complaint: General Problems/Pain Stated Complaint: WEAKNESS Nursing Triage Note: TO ED VIA [facility] TO ROOM 7 WITH C/O NOT FEELING WELL TODAY AND VOMITING SINCE 1700 TONIGHT. Source of Information: Patient (VERY VAGUE HISTORIAN), EMS, Old Records History of Present Illness Date Seen by Provider: Feb 03, 2022 Time Seen by Provider: 23:44 Initial Comments PT ARRIVES VIA EMS FROM HOME STATES HE BEGAN NOT FEELING WELL AROUND 1700 THIS EVENING WITH NAUSEA/VOMITING/DIARRHEA HAS VOMITED X 3-4, HAS HAD DIARRHEA X 3. NO HEMATEMESIS OR COFFEE GROUND EMESIS, NO BLACK/BLOODY/TARRY STOOLS NO ABDOMINAL PAIN NO FEVER HAS URINARY URGENCY BUT HAS BEEN UNABLE TO VOID TODAY PT HAS LOST AT LEAST 90 LBS SINCE SEPTEMBER--STATES HE USED TO WEIGH 250 LBS, AND DROPPED DOWN TO 160. PT HOSPITALIZED FOR 3 WEEKS IN SEPTEMBER--HAD COVID-19, DEVELOPED ATRIAL FIB WITH [facility], AND GENERAL DECONDITIONONG. PT THEN WAS ADMITTED TO [facility] AFTER HOSPITALIZATION, AND RECENTLY HE MOVED BACK HOME--LIVES ALONE, AND NOW HAS A WALKER. THIS IS PT'S 3RD VISIT TO ER IN JANUARY SINCE HE HAS BEEN BACK HOME. PT IS NOT ON ASPIRIN OR BLOOD THINNERS PT HAS LONG HISTORY OF SEIZURE DISORDER, WHICH HE CALLS "FALLS" WAS SEEN HERE 01/25/22 AFTER HAVING A WITNESSED SEIZURE. PT STATES HE HAS HAD PAIN IN HIS RIGHT HIP, AND WORSENING OF HIS CHRONIC LOW BACK PAIN SINCE THEN. PT ALSO WITH A LONG HISTORY OF SIGNIFICANT GI ISSUES, WITH HIATAL HERNIA, GERD, ESOPHAGITIS WITH STRICTURES AND DILATIONS, PYLORIC STRICTURES AND ULCERS, AND DUODENITIS. LAST EGD WAS 11/25/[address] SHOEMAKER LAST COLONOSCOPY WAS 10/14/21 ALONG WITH EGD--WITH ADDITIONAL FINDING OF POLYPS HAS HAD PRIOR CHOLECYSTECTOMY PT WITH LONG HISTORY OF EXTREME NON-COMPLIANCE IN ALL ASPECTS OF CARE PT STATES HE HAS MISSED APPOINTMENTS AT DR. HUMPHREY' OFFICE--STATES "AIN'T BEEN ABLE TO WALK UP THERE" PT SMOKES 1 PPD HAS HISTORY OF ETOH ABUSE--CLAIMS NONE FOR 6 MONTHS HAS HISTORY OF EXTENSIVE DRUG USE--STATES HE HAS "TRIED THEM ALL" INCLUDING METH, HEROIN, COCAINE, OTHERS. DENIES IV DRUG USE. CURRENTLY USES MARIJUANA. PCP: DR. HUMPHREY 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 WITH RUBBER COMPOUNDER MIXER DEMEROL, 09/13/18) Patient Home Medication List Home Medication List Reviewed: Yes Acetaminophen (Acetaminophen) 325 Mg Tablet, 650 MG PO Q4H PRN for PAIN-MILD (1- 4), (Reported) Entered as Reported by: RAYMUNDO MONTERO on 11/24/21 112 Albuterol Sulfate (Proair Hfa) 1 Puff Puff, 2 PUFF IH Q4H PRN for SHORTNESS OF BREATH, (Reported) Entered as Reported by: RAYMUNDO MONTERO on 11/24/21 1228 Amitriptyline HCl (Amitriptyline HCl) 75 Mg Tablet, 75 MG PO HS, (Reported) Entered as Reported by: RAYMUNDO MONTERO on 11/24/211124 Atenolol (Atenolol) 50 Mg Tablet, 50 MG PO BID, (Reported) Entered as Reported by: RAYMUNDO MONTERO on 11/24/21 112 Cetirizine HCl (Cetirizine HCl) 10 Mg Tablet, 10 MG PO DAILY, (Reported) Entered as Reported by: RAYMUNDO MONTERO on 11/24/21 112 Clonazepam (Clonazepam) 0.5 Mg Tablet, 0.5 MG PO TID, (Reported) Entered as Reported by: RAYMUNDO MONTERO on 11/24/21 112 Fluoxetine HCl (Fluoxetine HCl) 40 Mg Capsule, 40 MG PO DAILY, (Reported) Entered as Reported by: RAYMUNDO MONTERO on 11/24/21 112 Fluticasone/Salmeterol (Advair 500-50 Diskus) 1 Each Blst.w.dev, 1 EACH IH BID, (Reported) Entered as Reported by: RAYMUNDO MONTERO on 11/24/21 112 Furosemide (Lasix) 20 Mg Tablet, 20 MG PO DAILY, (Reported) Entered as Reported by: RAYMUNDO MONTERO on 11/24/21 1228 Hydrocodone/Acetaminophen (Hydrocodone-Acetamin 5-325 mg) 1 Each Tablet, 1 TAB PO Q4H PRN for PAIN-MODERATE (5-7), (Reported) Entered as Reported by: RAYMUNDO MONTERO on 11/24/218 Lactulose (Lactulose) 20 Gm/30 Ml Solution, 10 GM PO BID, (Reported) Entered as Reported by: RAYMUNDO MONTERO on 11/24/21 122 Levetiracetam (Levetiracetam) 1,000 Mg Tablet, 1,000 MG PO BID, (Reported) Entered as Reported by: RAYMUNDO MONTERO on 11/24/21 122 Levetiracetam (Keppra) 1,000 Mg Tablet, 1,000 MG PO BID Prescribed by: JULIA PUENTE on 01/25/22 1317 Omeprazole (Omeprazole) 40 Mg Capsule.dr, 40 MG PO HS, (Reported) Entered as Reported by: RAYMUNDO MONTERO on 11/24/211227 Ondansetron (Ondansetron Odt) 4 Mg Tab.rapdis, 4 MG PO Q6H PRN for NAUSEA/VOMITING Prescribed by: JULIA PUENTE on 01/17/22 0428 Ondansetron HCl (Ondansetron HCl) 4 Mg Tablet, 4 MG PO Q4H PRN for NAUSEA/VOMITING, (Reported) Entered as Reported by: RAYMUDNO MONTERO on 11/24/211227 Pantoprazole Sodium (Pantoprazole Sodium) 40 Mg Tablet.dr, 40 MG PO DAILY, (Reported) Entered as Reported by: RAYMUNDO MONTERO on 11/24/211227 Pantoprazole Sodium (Pantoprazole Sodium) 20 Mg Tablet.dr, 20 MG PO BID Prescribed by: JULIA PUENTE on 01/17/22 0428 Potassium Chloride (Potassium Chloride) 10 Meq Capsule.er, 10 MEQ PO DAILY, (Reported) Entered as Reported by: RAYMUNDO MONTERO on 11/24/211227 Simvastatin (Simvastatin) 20 Mg Tablet, 20 MG PO HS, (Reported) Entered as Reported by: RAYMUNDO MONTERO on 11/24/211227 Sucralfate (Sucralfate) 1 Gm Tablet, 1 GM PO QID, (Reported) Entered as Reported by: RAYMUNDO MONTERO on 11/24/211227 Sucralfate (Carafate) 1 Gm Tablet, 1 GM PO QIDACHS Prescribed by: JULIA PUENTE on 01/17/22 0428 Zolpidem Tartrate (Zolpidem Tartrate) 5 Mg Tablet, 5 MG PO HS, (Reported) Entered as Reported by: RAYMUNDO MONTERO on 11/24/21 1228 Review of Systems Review of Systems Constitutional: No fever; malaise, weakness EENTM: no symptoms reported Respiratory: no symptoms reported; No cough, No short of breath Cardiovascular: no symptoms reported; No chest pain, No edema, No syncope Gastrointestinal: see HPI; No abdominal pain; diarrhea, loss of appetite, nausea, vomiting Genitourinary: see HPI, decreased output Musculoskeletal: see HPI Skin: no symptoms reported Psychiatric/Neurological: See HPI; Denies Headache, Denies Numbness, Denies Paresthesia, Denies Tingling; Weakness (GENERALIZED WEAKNESS) Hematologic/Lymphatic: No Symptoms Reported Past Urfzqdp-Wuzyit-Jlklpt Hx Patient Social History Tobacco Use?: Yes Tobacco type used: Cigarettes Smoking Status: Current Everyday Smoker Smokeless Tobacco Frequency: Current Everyday User Substance use?: Yes Additional substance use comme: "TRIED 'EM ALL" Alcohol Use?: Yes Immunizations Up To Date Tetanus Booster (TDap): Unknown Influenza Vaccine Up-to-Date: No; Not Current First/Initial COVID19 Vaccinat: 2020 Second COVID19 Vaccination Yoshi: [facility] 2 COVID VACCINES Third COVID19 Vaccination Date: 2020 Seasonal Allergies Seasonal Allergies: No Past Medical History Surgery/Hospitalization HX: PMH: GI BLEED, AFIB, GOUT, ANEMIA, GASTRITIS, SEIZURES, HEMIPLEGIA, SYNCOPE Surgeries: Yes Abdominal, Gallbladder, Tonsillectomy Respiratory: Yes Asthma, COPD Cardiac: Yes Atrial Fibrillation, High Cholesterol, Hypertension Neurological: Yes Seizure Disorder Genitourinary: No Gastrointestinal: Yes (Esophageal stricture) Polyps, Esophagitis, Hiatal Hernia, Ulcer Musculoskeletal: Yes Chronic Back Pain, Gout Endocrine: Yes (hyponatremia) HEENT: No Cancer: No Psychosocial: Yes Anxiety, Depression Integumentary: No Blood Disorders: No Adverse Reaction/Blood Tranf: No Family Medical History Diabetes SOCIAL HISTORY: -SMOKES 1 PPD -ETOH--HISTORY OF ABUSE--BEER + HARD LIQUOR--CLAIMS NONE X 6 MONTHS PER PT ON 02/03/22 -DRUGS--EXTENSIVE HISTORY OF DRUG ABUSE, DENIES IV USE. STATES "TRIED 'EM ALL" --METH, HEROIN, COCAINE, OTHERS. CURRENTLY USES MARIJUANA LONG HISTORY OF NON-COMPLIANCE IN ALL ASPECTS OF CARE PAST SURGICAL HISTORY: -EGD'S AND COLONOSCOPIES: -EGD 11/25/[address] SHOEMAKER: POSTOPERATIVE DIAGNOSES: Esophagitis with retained food substance within the esophagus, severe distal esophageal stricture, moderate size hiatal hernia approximately 3 cm in size, retained food substance within the stomach, pyloric stricture, pyloric ulcer with overlying fibrin clot, duodenitis. PROCEDURE: EGD with biopsy and balloon dilatation of the pylorus and the gastroesophageal junction. -09/17/21--EGD AND COLONOSCOPY BY DR. DOMINGUEZ: Post-Operative Diagnosis Esophagitis Gastritis Hiatal hernia Polyp int hemorrhoids poor prep Procedure & Operative Findings Date of Procedure 09/17/21 Procedure Performed/Findings EGD with biopsy Colonoscopy with cold biopsy -CHOLECYSTECTOMY -HERNIA REPAIR -TONSILLECTOMY Physical Exam Vital Signs Vital Signs - First Documented 02/03/22 23:44 Temp 36.7 Pulse 40 Resp 16 B/P (MAP) 101/64 (76) O2 Delivery Room Air Capillary Refill : Less Than 3 Seconds Height, Weight, BMI Height: 5'9" Weight: 250lbs. oz. [id number]; 24.29 BMI Method:Stated General Appearance: No Apparent Distress, WD/WN, Other (DIRTY, UNKEMPT, MALODOROUS, SOMEWHAT LETHARGIC, SPEECH IS SLOW BUT NOT SLURRED. VERY FLAT AFFECT. PT WITH MUCH LOOSE SKIN NOTED FROM RECENT WEIGHT LOSS--ESPECIALLY TO ABDOMEN. 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 Norm as Tested Skin: Normal Color, Warm/Dry Progress/Results/Core Measures Suspected Sepsis SIRS Temperature: Pulse: 40 Respiratory Rate: 16 Laboratory Tests 02/04/22 00:25: White Blood Count 8.1 Blood Pressure 101 /64 Mean: 76 Laboratory Tests 02/04/22 00:25: Creatinine 0.87, INR Comment 1.0, Platelet Count 196, Total Bilirubin 0.4 Results/Orders Lab Results Laboratory Tests Test 02/03/22 23:59 02/04/22 00:15 02/04/22 00:25 Range/Units Glucometer 81 70-110 MG/DL Urine Color YELLOW Urine Clarity SL CLOUDY Urine pH 6.0 5-9 Urine Specific [place] 1.025 H 1.016-1.022 Urine Protein TRACE H NEGATIVE Urine Glucose (UA) NEGATIVE NEGATIVE Urine Ketones TRACE H NEGATIVE Urine Nitrite NEGATIVE NEGATIVE Urine Bilirubin 1+ H NEGATIVE Urine Urobilinogen 1.0 < = 1.0 MG/DL Urine Leukocyte Esterase NEGATIVE NEGATIVE Urine RBC (Auto) TRACE-I H NEGATIVE Urine RBC 0-2 /HPF Urine WBC NONE /HPF Urine Squamous Epithelial Cells RARE /HPF Urine Renal Epithelial Cells 0-2 /HPF Urine Crystals NONE /LPF Urine Bacteria TRACE /HPF Urine Casts PRESENT /LPF Urine Hyaline Casts RARE /LPF Urine Mucus SMALL H /LPF Urine Culture Indicated NO Urine Opiates Screen NEGATIVE NEGATIVE Urine Oxycodone Screen NEGATIVE NEGATIVE Urine Methadone Screen NEGATIVE NEGATIVE Urine Propoxyphene Screen NEGATIVE NEGATIVE Urine Barbiturates Screen NEGATIVE NEGATIVE Ur Tricyclic Antidepressants Screen POSITIVE H NEGATIVE Urine Phencyclidine Screen NEGATIVE NEGATIVE Urine Amphetamines Screen NEGATIVE NEGATIVE Urine Methamphetamines Screen NEGATIVE NEGATIVE Urine Benzodiazepines Screen NEGATIVE NEGATIVE Urine Cocaine Screen NEGATIVE NEGATIVE Urine Cannabinoids Screen NEGATIVE NEGATIVE White Blood Count 8.1 4.3-11.0 10^3/uL Red Blood Count 4.59 4.30-5.52 10^6/uL Hemoglobin 12.9 L 13.3-17.7 g/dL Hematocrit 40 40-54 % Mean Corpuscular Volume 87 80-99 fL Mean Corpuscular Hemoglobin 28 25-34 pg Mean Corpuscular Hemoglobin Concent 32 32-36 g/dL Red Cell Distribution Width 14.6 H 10.0-14.5 % Platelet Count 196 130-400 10^3/uL Mean Platelet Volume 10.4 9.0-12.2 fL Immature Granulocyte % (Auto) 1 % Neutrophils (%) (Auto) 71 42-75 % Lymphocytes (%) (Auto) 19 12-44 % Monocytes (%) (Auto) 8 0-12 % Eosinophils (%) (Auto) 1 0-10 % Basophils (%) (Auto) 0 0-10 % Neutrophils # (Auto) 5.8 1.8-7.8 10^3/uL Lymphocytes # (Auto) 1.5 1.0-4.0 10^3/uL Monocytes # (Auto) 0.6 0.0-1.0 10^3/uL Eosinophils # (Auto) 0.1 0.0-0.3 10^3/uL Basophils # (Auto) 0.0 0.0-0.1 10^3/uL Immature Granulocyte # (Auto) 0.0 0.0-0.1 10^3/uL Prothrombin Time 14.0 12.2-14.7 SEC INR Comment 1.0 0.8-1.4 Activated Partial Thromboplast Time 28 24-35 SEC Sodium Level 137 135-145 MMOL/L Potassium Level 3.1 L 3.6-5.0 MMOL/L Chloride Level 103 98-107 MMOL/L Carbon Dioxide Level 19 L 21-32 MMOL/L Anion Gap 15 H 5-14 MMOL/L Blood Urea Nitrogen 6 L 7-18 MG/DL Creatinine 0.87 0.60-1.30 MG/DL Estimat Glomerular Filtration Rate 98 BUN/Creatinine Ratio 7 Glucose Level 83 70-105 MG/DL Calcium Level 8.1 L 8.5-10.1 MG/DL Corrected Calcium 8.9 8.5-10.1 MG/DL Magnesium Level 1.6 1.6-2.4 MG/DL Total Bilirubin 0.4 0.1-1.0 MG/DL Aspartate Amino Transf (AST/SGOT) 10 5-34 U/L Alanine Aminotransferase (ALT/SGPT) 16 0-55 U/L Alkaline Phosphatase 73 40-136 U/L Ammonia 13 11-32 UMOL/L Total Creatine Kinase 24 L 30-200 U/L Creatine Kinase MB 0.3 <6.6 NG/ML Myoglobin 46.1 10.0-92.0 NG/ML Troponin I < 0.028 <0.028 NG/ML B-Type Natriuretic Peptide 352.5 H <100.0 PG/ML Total Protein 5.3 L 6.4-8.2 GM/DL Albumin 3.0 L 3.2-4.5 GM/DL Amylase Level 33 25-125 U/L Lipase 13 8-78 U/L Thyroid Stimulating Hormone (TSH) 0.98 0.35-4.94 UIU/ML Salicylates Level < 5.0 L 5.0-20.0 MG/DL Acetaminophen Level < 10 L 10-30 UG/ML Serum Alcohol < 10 <10 MG/DL My Orders Orders - KYLE SULTANA DO Ed Iv/Invasive Line Start (02/03/22 23:48) Ekg Tracing (02/03/22 23:48) O2 (02/03/22:48) Monitor-Rhythm Ecg Trace Only (02/03/22:48) Alcohol (02/03/22:48) Bnp Amy (02/03/22 23:48) Cbc With Automated Diff (02/03/22:48) Comprehensive Metabolic Panel (02/03/22:48) Creatine Kinase (02/03/22:48) Creatine Kinase Mb (02/03/22:48) Drug Screen Stat (Urine) (02/03/22:48) Magnesium (02/03/22:48) Protime With Inr (02/03/22:48) Partial Thromboplastin Time (02/03/22:48) Thyroid Stimulating Hormone (02/03/22 23:48) Ua Culture If Indicated (02/03/22:48) Myoglobin Serum (02/03/22 23:48) Troponin I [place] (02/03/22 23:48) Ed Iv/Invasive Line Start (02/03/22 23:48) Ns Iv 1000 Ml (Sodium Chloride 0.9%) (02/04/22 00:00) Accucheck Stat ONCE (02/04/22 00:01) Catheter(Urinary) Insert & Ass 03,15 (02/04/22 00:01) Ammonia (02/04/22 00:01) Amylase (02/04/22 00:01) Lipase (02/04/22 00:01) Chest 1 View, Ap/Pa Only (02/04/22 00:01) Ed Iv/Invasive Line Start (02/04/22 00:09) Lactated Ringers (Lr 1000 Ml Iv Solution (02/04/22 00:15) Acetaminophen (02/04/22 00:10) Salicylate (02/04/22 00:10) Ct Head/Cervical Spine Wo (02/04/22 00:54) Ct Thoracic/Lumbar Spine Wo (02/04/22 00:54) Ct [place] Chest/Noang Abd-Pelv W (02/04/22 00:54) Medications Given in ED Current Medications Medications Dose Ordered Sig/Jarek Route Start Time Stop Time Status Last Admin Dose Admin Lactated Ringer's 1,000 ml @ 0 mls/hr Q0M ONCE IV 02/04/22 00:15 02/04/22 00:16 DC 02/04/22 00:55 999 MLS/HR Vital Signs/I&O 02/03/22 02/03/22 23:44 23:50 Temp 36.7 Pulse 40 Resp 16 B/P (MAP) 101/64 (76) O2 Delivery Room Air Room Air Capillary Refill : Less Than 3 Seconds Blood Pressure Mean: 76 Point of Care Testing Finger Stick Blood Glucose: 81 Blood Glucose Action Taken: DR. SULTANA NOTIFIED. Progress Note : Progress Note GIVEN IV FLUIDS HEART RATE REMAINED IN THE 40'S, BUT BP REMAINED IN NORMAL RANGE AND WAS 138/67 AT TIME OF ADMIT. NO COMPLAINTS OF ANY KIND FOR ENTIRE ER STAY--PT RESTED QUIETLY NO NAUSEA/VOMITING/DIARRHEA AT ANY TIME NO DETERIORATION IN PT'S CONDITION DURING ER STAY MARKED DELAY IN OBTAINING CT REPORTS ( COMPLETED AT 0148 ) 0309--SPOKE WITH BIOINFORMATICIAN--NO RADIOLOGIST READS AT THIS TIME 0420--CALLED BIOINFORMATICIAN. NO ANSWER 0436--SPOKE WITH BIOINFORMATICIAN. JUST RECEIVED LAST CT REPORT. ECG Initial ECG Impression Date: Feb 03, 2022 Initial ECG Impression Time: 23:52 Initial ECG Rate: 41 Initial ECG Rhythm: S.Yang Initial ECG Impression: Nonspecific Changes Diagnostic Imaging Comments CXR--NO ACUTE PROCESS, PENDING RADIOLOGIST REVIEW CT CHEST ANGIOGRAM/ABDOMEN-PELVIS--PER [facility] VIA FAX AT 0400 NO P.E. 7 MM NODULE LEFT UPPER LOBE. GERD, PERSISTENT ESOPHAGEAL WALL THICKENING. NEW SMALL RIGHT PLEURAL EFFUSION. NEW PERIPORTAL EDEMA AND SMALL PERIPORTAL ASCITES MULTIPLE AREAS OF APPARENT COLON WALL THICKENING, MOST PROMINENT IN ASCENDING COLON--UNDERDISTENTION VS COLITIS. BLADDER WALL THICKENING --UNDERDISTENTION VS HYPERTROPHY VS CYSTITIS CT THORACIC/LUMBAR SPINE--PER [facility] VIA FAX AT 0400 QUESTIONABLE MILD T1 COMPRESSION FRACTURE OF UNCERTAIN AGE CHRONIC COMPRESSIONS OF C7, T10, T12 CHRONIC DEGENERATIVE CHANGES OF LUMBAR SPINE' CT HEAD/CERVICAL SPINE--PER [facility] VIA FAX AT 8979 NO ACUTE INTRACRANIAL FINDINGS CHRONIC LEFT MAXILLARY SINUSITIS NO ACUTE CERVICAL SPINE FINDINGS CHRONIC DEGENERATIVE CHANGES OF CERVICAL SPINE Reviewed: Reviewed by Me Departure Communication (Admissions) 4410--SPOKE WITH DR. OTOOLE, HOSPITALIST. ACCEPTS PT FOR ADMIT. WILL HOLD PT'S BETA AALIYAH. Impression Primary Impression: Symptomatic sinus bradycardia Additional Impressions: Generalized weakness Gastroenteritis ABNORMAL CHEST AND ABDOMIAL CT FINDINGS Physical deconditioning RECENT 90 LB WEIGHT LOSS Seizure disorder Non-compliance Unable to care for self Malnutrition Hypokalemia Hypocalcemia Chronic back pain History of atrial fibrillation Disposition: ADMITTED INPATIENT Condition: Stable Admissions Decision to Admit Reason: Admit from ER (General) Decision to Admit/Date: Feb 04, 2022 Time/Decision to Admit Time: 04:40 Departure-Patient Inst. Referrals: VALENTINE HUMPHREY MD (PCP/Family) Primary Care Physician KYLE SULTANA DO Feb 04, 2022 00:08
[2022-02-04] MEDS ORDERED: LACTATED RINGERS 1,000 ML IV ONE (00:15)
[2022-02-04 00:22] LABS: BILIRUBIN,URINE 1+ (NEGATIVE); CLARITY,URINE SL CLOUDY; COLOR,URINE YELLOW; GLUCOSE, URINE (UA) NEGATIVE (NEGATIVE); KETONES,URINE TRACE (NEGATIVE); LEUKOCYTE ESTERASE ,URINE NEGATIVE (NEGATIVE); NITRITE,URINE NEGATIVE (NEGATIVE); PROTEIN,URINE TRACE (NEGATIVE)
[2022-02-04 00:29] LABS: BACTERIA,URINE TRACE /HPF; RBC,URINE 0-2 /HPF; RENAL EPITHELIAL CELLS,URINE 0-2 /HPF; SQUAMOUS EPITHELIAL CELL,UR RARE /HPF
[2022-02-04 00:30] LABS: HYALINE CASTS, URINE RARE /LPF
[2022-02-04 00:32] LABS: BASOPHILS % (AUTO) 0 % (0-10); EOSINOPHILS # (AUTO) 0.1 10^3/uL (0.0-0.3); EOSINOPHILS % (AUTO) 1 % (0-10); HEMATOCRIT 40 % (40-54); HEMOGLOBIN 12.9 g/dL (13.3-17.7); LYMPHOCYTES # (AUTO) 1.5 10^3/uL (1.0-4.0); LYMPHOCYTES % (AUTO) 19 % (12-44); MEAN CORPUSCULAR HEMOGLOBIN 28 pg (25-34); MEAN CORPUSCULAR HGB CONC 32 g/dL (32-36); MEAN CORPUSCULAR VOLUME 87 fL (80-99); MEAN PLATELET VOLUME 10.4 fL (9.0-12.2); MONOCYTES # (AUTO) 0.6 10^3/uL (0.0-1.0); MONOCYTES % (AUTO) 8 % (0-12); NEUTROPHILS # (AUTO) 5.8 10^3/uL (1.8-7.8); NEUTROPHILS % (AUTO) 71 % (42-75); PLATELET COUNT 196 10^3/uL (130-400); WHITE BLOOD COUNT 8.1 10^3/uL (4.3-11.0)
[2022-02-04 00:33] LABS: AMPHETAMINE SCREEN, URINE NEGATIVE (NEGATIVE); BARBITURATE SCREEN URINE NEGATIVE (NEGATIVE); BENZODIAZEPINES SCREEN URINE NEGATIVE (NEGATIVE); CANNABINOID SCREEN, URINE NEGATIVE (NEGATIVE); COCAINE SCREEN URINE NEGATIVE (NEGATIVE); METHADONE STAT NEGATIVE (NEGATIVE); METHAMPHETAMINE SCREEN URINE S NEGATIVE (NEGATIVE); OPIATE SCREEN URINE NEGATIVE (NEGATIVE); OXYCODONE STAT NEGATIVE (NEGATIVE); PROPOXYPHENE STAT NEGATIVE (NEGATIVE); TRICYCLIC ANTIDEPRESSANTS SCRE POSITIVE (NEGATIVE)
[2022-02-04 00:43] LABS: CHLORIDE 103 MMOL/L (98-107); POTASSIUM 3.1 MMOL/L (3.6-5.0); SODIUM 137 MMOL/L (135-145)
[2022-02-04 00:44] LABS: CALCIUM 8.1 MG/DL (8.5-10.1)
[2022-02-04 00:45] LABS: AMMONIA 13 UMOL/L (11-32); AMYLASE 33 U/L (25-125); GLUCOSE 83 MG/DL (70-105)
[2022-02-04 00:46] LABS: CARBON DIOXIDE 19 MMOL/L (21-32); TOTAL PROTEIN 5.3 GM/DL (6.4-8.2)
[2022-02-04 00:47] LABS: BILIRUBIN,TOTAL 0.4 MG/DL (0.1-1.0)
[2022-02-04 00:49] LABS: ALKALINE PHOSPHATASE 73 U/L (40-136); CREATININE SERUM 0.87 MG/DL (0.60-1.30); GFR ESTIMATED 98
[2022-02-04 00:51] LABS: BUN/CREATININE RATIO 7
[2022-02-04 00:52] LABS: ALANINE AMINOTRANSFERASE 16 U/L (0-55); MAGNESIUM 1.6 MG/DL (1.6-2.4); SALICYLATE < 5.0 MG/DL (5.0-20.0)
[2022-02-04 00:53] LABS: CREATINE KINASE 24 U/L (30-200); LIPASE 13 U/L (8-78)
[2022-02-04 01:01] LABS: ACETAMINOPHEN < 10 UG/ML (10-30); CREATINE KINASE MB 0.3 NG/ML (<6.6)
[2022-02-04] MEDS ORDERED: D5 1/2 NS W/KCL 20 MEQ/L 1,000 ML IV ONE (05:26)
[2022-02-04 05:54] VITALS: BP 113/57
[2022-02-04] MEDS: D5 1/2 NS W/KCL 20 MEQ/L 1,000 ML IV SCH ×3 (06:09→20:11)
--- NOTE | 2022-02-04 06:42 | Diagnostic Imaging Report ---
INDICATION: Weakness and chest pain COMPARISON: 11/14/2021 FINDINGS: Single view of the chest demonstrates clear lungs bilaterally. The heart is normal. There is no pneumothorax. The osseous structures normal. IMPRESSION: Negative chest Dictated by: Dictated on workstation # [id number]
[2022-02-04 06:56] LABS: BASOPHILS % (AUTO) 0 % (0-10); EOSINOPHILS # (AUTO) 0.1 10^3/uL (0.0-0.3); EOSINOPHILS % (AUTO) 1 % (0-10); HEMATOCRIT 42 % (40-54); HEMOGLOBIN 13.3 g/dL (13.3-17.7); LYMPHOCYTES # (AUTO) 1.3 10^3/uL (1.0-4.0); LYMPHOCYTES % (AUTO) 15 % (12-44); MEAN CORPUSCULAR HEMOGLOBIN 28 pg (25-34); MEAN CORPUSCULAR HGB CONC 32 g/dL (32-36); MEAN CORPUSCULAR VOLUME 89 fL (80-99); MEAN PLATELET VOLUME 10.6 fL (9.0-12.2); MONOCYTES # (AUTO) 0.7 10^3/uL (0.0-1.0); MONOCYTES % (AUTO) 8 % (0-12); NEUTROPHILS # (AUTO) 6.6 10^3/uL (1.8-7.8); NEUTROPHILS % (AUTO) 77 % (42-75); PLATELET COUNT 153 10^3/uL (130-400); WHITE BLOOD COUNT 8.6 10^3/uL (4.3-11.0)
--- NOTE | 2022-02-04 07:22 | Diagnostic Imaging Report ---
PROCEDURE: CT thoracic and lumbar spine without contrast. TECHNIQUE: Multiple contiguous axial images were obtained through the thoracic and lumbar spine without the use of intravenous contrast. Sagittal and coronal reformations were then performed. All CT scans use one or more of the following dose optimizing techniques: automated exposure control, MA and/or KvP adjustment based on a patient size and exam type, or iterative reconstruction. INDICATION: Back pain FINDINGS: There is some minimal height loss involving the T2 vertebral body which likely is a chronic compression fracture. There is no malalignment. There is a compression deformity involving the superior endplate of C7. See dictated CT cervical spine. The remainder of the thoracolumbar spine is well aligned and intact. Central canal is unremarkable. IMPRESSION: 1. Chronic appearing T2 compression fracture. No malalignment or retropulsion is seen. 2. See dictated CT cervical spine report. 3. Hiatal hernia. 4. Right-sided pleural effusion. Dictated by: Dictated on workstation # [id number]
[2022-02-04 07:24] LABS: ALBUMIN 2.9 GM/DL (3.2-4.5); BILIRUBIN,TOTAL 0.4 MG/DL (0.1-1.0); CALCIUM 7.9 MG/DL (8.5-10.1); CREATININE SERUM 0.82 MG/DL (0.60-1.30); POTASSIUM 2.7 MMOL/L (3.6-5.0); TOTAL PROTEIN 5.2 GM/DL (6.4-8.2)
--- NOTE | 2022-02-04 07:34 | Diagnostic Imaging Report ---
INDICATION: Trauma CTA chest, abdomen and pelvis Thin axial sections through the chest, abdomen and pelvis are obtained following intravenous contrast bolus. Multiplanar MIP images were reconstructed and reviewed. All CT scans use one or more of the following dose optimizing techniques: automated exposure control, MA and/or KvP adjustment based on patient size and exam type or iterative reconstruction. INDICATION: Injury, chest pain FINDINGS: Moderate distention and thickening of the esophagus is seen with a hiatal hernia. This could represent esophagitis. There is no perforation. Heart is slightly enlarged with coronary artery disease. Pulmonary arteries and aorta normal. No vascular injury identified. There is a nonspecific nodule in the left upper lobe. Follow-up per Fleischner criteria is recommended. There is small right-sided effusion with dependent atelectasis. There is no pneumothorax. There are chronic right-sided rib fractures. Periportal edema is present and may be seen with intrinsic liver disease. There is no mass. Portal vein is widely patent. There is no splenomegaly. The pancreas, adrenal glands, kidneys, vascular structures and bowel are otherwise unremarkable. There is no free air or free fluid. Urinary bladder is decompressed with a Moore catheter. No acute trauma seen within the abdomen or pelvis. Osseous structures are age-appropriate. IMPRESSION: 1. No acute trauma identified within the chest, abdomen, or pelvis. 2. Right-sided pleural effusion with dependent atelectasis. 3. Hiatal hernia with diffuse thickening of the esophagus, suspect esophagitis. 4. Nonspecific nodule left upper lobe. Follow-up per Fleischner criteria. 5. Nonspecific periportal edema. Not mentioned above, there is trace perihepatic ascites. 6. Preliminary report discussed, possible colitis. However, this is felt to be more physiologic decompression of bowel. Dictated by: Dictated on workstation # [id number]
--- NOTE | 2022-02-04 07:44 | Diagnostic Imaging Report ---
PROCEDURE: CT head and CT cervical spine without contrast. TECHNIQUE: Multiple contiguous axial images were obtained through the brain and cervical spine without the use of intravenous contrast. Sagittal and coronal reformations through the cervical spine were then performed. Auto Exposure Controls were utilized during the CT exam to meet ALARA standards for radiation dose reduction. DATE: February 04, 2022. COMPARISON: MRI brain September 15, 2021. INDICATION: 61-year-old male, trauma. Head and neck pain. FINDINGS: There is mild cerebral volume loss. There is no hydrocephalus. There is no mass effect or midline shift. There is no acute intracranial hemorrhage. There is no abnormal extra-axial fluid collection. The visualized portions of the paranasal sinuses, mastoid air cells and middle ears are well aerated. There is no identified facet joint subluxation or dislocation. There is no prominent prevertebral soft tissue swelling. There is no identified acute fracture of the cervical spine. There is moderate disc height loss at C4-C5 and C5-C6 with posterior disc aspect complexes at both levels. CT is limited for assessment of disc pathology as well as additional non-bony causes of pathology in the spinal canal. Visualized portions of the lung apices are clear. IMPRESSION: 1. No identified acute intracranial abnormality. 2. No identified acute fracture of the cervical spine. 3. Disc degenerative changes at C4-C5 and C5-C6. Agree with the provided preliminary report. Dictated by: Dictated on workstation # [id number]
[2022-02-04] MEDS: POTASSIUM CL 10MEQ/50ML IVPB 50 ML IV SCH ×4 (07:58→13:33)
[2022-02-04] MEDS: PANTOPRAZOLE 40 MG (PROTONIX) VIAL IV SCH (07:58)
[2022-02-04 08:26] VITALS: BP 104/54
[2022-02-04] MEDS: MAGNESIUM 1 GM/100 ML IVPB 100 ML IV SCH ×2 (10:17→11:14)
--- NOTE | 2022-02-04 10:34 | History & Physical-Hospitalist ---
History of Present Illness HPI/Chief Complaint Patient 61-year-old male with past medical history of atrial fibrillation, hyperlipidemia, hypertension, COPD, polysubstance abuse who presented to the emergency department due to nausea and vomiting. He states it started yesterday with nausea vomiting and progressed to diarrhea. He denies any black or bloody stools. His last bowel movement was yesterday afternoon. He vomited total 3 or 4 times and felt quite weak. He decided to seek evaluation in the emergency room where he was found incidentally to be bradycardic. His heart rate was 40 on arrival and remained in the 40s. This morning he states he is feeling better. He no longer has nausea. He is currently getting an echo while I am in the room. Date Seen 02/04/22 Time Seen by a Provider: 10:34 Attending Physician Elia Aguirre MD PCP Santana Mckenna MD Referring Physician Date of Admission Feb 04, 2022 at 04:40 Home Medications & Allergies Home Medications Reviewed patient Home Medication Reconciliation performed by pharmacy medication reconciliations mechanical design technician and/or nursing. Patients Allergies have been reviewed. Allergies Allergies Coded Allergies Sulfa (Sulfonamide Antibiotics) (Unverified Allergy, Unknown, GETS SICK, 09/13/18) meperidine (Unverified Allergy, Unknown, PSYCHOTIC EVENTS WITH CERTIFIED MORTICIAN DEMEROL, 09/13/18) Past Zsmszxb-Jncvdv-Pqkygu Hx Patient Social History Tobacco Use?: Yes Tobacco type used: Cigarettes Smoking Status: Current Everyday Smoker Smokeless type used: Sticks Smokeless Tobacco Frequency: Never a User Use of E-Cig and/or Vaping dev: No Substance use?: Yes Substance type: Methamphetamine, Marijuana Additional substance use comme: "TRIED 'EM ALL" Substance frequency: Daily Alcohol Use?: Yes Additional alcohol type: PT REPORTS USE IN THE PAST Additional Alcohol Comments: PAST HX Pt feels they are or have been: No Immunizations Up To Date Date of Influenza Vaccine: Jul 17, 2021 First/Initial COVID19 Vaccinat: STATES 2 COVID VACCINES Second COVID19 Vaccination Yoshi: STATES 2 COVID VACCINES Tetanus Booster (TDap): Unknown Seasonal Allergies Seasonal Allergies: No Current Status Advance Directives: No Communicates: Verbally Primary Language: Citizen Of [place] Preferred Spoken Language: Citizen Of [place] Is interpretation needed?: No Sensory deficits: Vision impairment Implanted or Applied Medical D: None Past Medical History Surgeries: Abdominal, Gallbladder, Tonsillectomy Asthma, COPD Atrial Fibrillation, High Cholesterol, Hypertension Seizure Disorder Polyps, Esophagitis, Hiatal Hernia, Ulcer Chronic Back Pain, Gout Anxiety, Depression Blood Disorders: No Adverse Reaction/Blood Tranf: No Family Medical History Reviewed Nursing Family Hx Diabetes SOCIAL HISTORY: -SMOKES 1 PPD -ETOH--HISTORY OF ABUSE--BEER + HARD LIQUOR--CLAIMS NONE X 6 MONTHS PER PT ON 02/03/22 -DRUGS--EXTENSIVE HISTORY OF DRUG ABUSE, DENIES IV USE. STATES "TRIED 'EM ALL" --METH, HEROIN, COCAINE, OTHERS. CURRENTLY USES MARIJUANA LONG HISTORY OF NON-COMPLIANCE IN ALL ASPECTS OF CARE PAST SURGICAL HISTORY: -EGD'S AND COLONOSCOPIES: -EGD 11/25/[address] SHOEMAKER: POSTOPERATIVE DIAGNOSES: Esophagitis with retained food substance within the esophagus, severe distal esophageal stricture, moderate size hiatal hernia approximately 3 cm in size, retained food substance within the stomach, pyloric stricture, pyloric ulcer with overlying fibrin clot, duodenitis. PROCEDURE: EGD with biopsy and balloon dilatation of the pylorus and the gastroesophageal junction. -09/17/21--EGD AND COLONOSCOPY BY DR. DOMINGUEZ: Post-Operative Diagnosis Esophagitis Gastritis Hiatal hernia Polyp int hemorrhoids poor prep Procedure & Operative Findings Date of Procedure 09/17/21 Procedure Performed/Findings EGD with biopsy Colonoscopy with cold biopsy -CHOLECYSTECTOMY -HERNIA REPAIR -TONSILLECTOMY Review of Systems Constitutional: No chills, No fever; weakness EENTM: no symptoms reported Respiratory: No cough, No short of breath Cardiovascular: No chest pain, No edema, No palpitations Gastrointestinal: diarrhea; No hematemesis, No melena; nausea, vomiting Genitourinary: No dysuria, No frequency Musculoskeletal: no symptoms reported Skin: no symptoms reported Psychiatric/Neurological: No Symptoms Reported Physical Exam Physical Exam Vital Signs Vital Signs - First Documented 02/03/22 02/04/22 23:44 05:10 Temp 36.7 Pulse 40 Resp 16 B/P (MAP) 101/64 (76) Pulse Ox 100 O2 Delivery Room Air Capillary Refill : Less Than 3 Seconds Height, Weight, BMI Height: 5'9" Weight: 250lbs. oz. 113.785087yv; 25.64 BMI Method:Stated General Appearance: No Apparent Distress, Chronically ill HEENT: PERRL/EOMI, Moist Mucous Membranes Neck: Normal Inspection, Supple Respiratory: Lungs Clear, No Accessory Muscle Use, No Respiratory Distress Cardiovascular: No JVD, No Murmur, Bradycardia Gastrointestinal: Normal Bowel Sounds, Non Tender, Soft Extremity: Normal Capillary Refill, No Calf Tenderness, No Pedal Edema Neurologic/Psychiatric: Alert, Oriented x3, Normal Mood/Affect Skin: Normal Color, Warm/Dry Results Results/Procedures Labs Laboratory Tests 02/04/22 00:25 02/04/22 06:34 Patient resulted labs reviewed. Imaging: Reviewed Imaging Report [facility] [place] [place] NAME: TARA BARRETT [facility] REC#: [id number] PT STATUS: ADM IN : 1960 PHYSICIAN: KYLE SULTANA DO ADMIT DATE: 02/04/22 Signed Date of Exam:02/04/22 CHEST 1 VIEW, AP/PA ONLY INDICATION: Weakness and chest pain COMPARISON: 11/14/2021 FINDINGS: Single view of the chest demonstrates clear lungs bilaterally. The heart is normal. There is no pneumothorax. The osseous structures normal. IMPRESSION: Negative chest Dictated by: Dictated on workstation # [id number] Dict: 02/04/22 0639 Trans: 02/04/22 1116 RONDA [id number] Interpreted by: MICKI POE Electronically signed by: MICKI POE 02/04/22 1116 [facility] [place], [place] NAME: TARA BARRETT [facility] REC#: [id number] PT STATUS: ADM IN : 1960 PHYSICIAN: KYLE SULTANA DO ADMIT DATE: 02/04/22 Signed Date of Exam:02/04/22 CT SUZE CHEST/NOANG ABD-PELV W INDICATION: Trauma CTA chest, abdomen and pelvis Thin axial sections through the chest, abdomen and pelvis are obtained following intravenous contrast bolus. Multiplanar MIP images were reconstructed and reviewed. All CT scans use one or more of the following dose optimizing techniques: automated exposure control, MA and/or KvP adjustment based on patient size and exam type or iterative reconstruction. INDICATION: Injury, chest pain FINDINGS: Moderate distention and thickening of the esophagus is seen with a hiatal hernia. This could represent esophagitis. There is no perforation. Heart is slightly enlarged with coronary artery disease. Pulmonary arteries and aorta normal. No vascular injury identified. There is a nonspecific nodule in the left upper lobe. Follow-up per Fleischner criteria is recommended. There is small right-sided effusion with dependent atelectasis. There is no pneumothorax. There are chronic right-sided rib fractures. Periportal edema is present and may be seen with intrinsic liver disease. There is no mass. Portal vein is widely patent. There is no splenomegaly. The pancreas, adrenal glands, kidneys, vascular structures and bowel are otherwise unremarkable. There is no free air or free fluid. Urinary bladder is decompressed with a Moore catheter. No acute trauma seen within the abdomen or pelvis. Osseous structures are age-appropriate. IMPRESSION: 1. No acute trauma identified within the chest, abdomen, or pelvis. 2. Right-sided pleural effusion with dependent atelectasis. 3. Hiatal hernia with diffuse thickening of the esophagus, suspect esophagitis. 4. Nonspecific nodule left upper lobe. Follow-up per Fleischner criteria. 5. Nonspecific periportal edema. Not mentioned above, there is trace perihepatic ascites. 6. Preliminary report discussed, possible colitis. However, this is felt to be more physiologic decompression of bowel. Dictated by: Dictated on workstation # [id number] Dict: 02/04/22 0652 Trans: 02/04/22 1115 [facility] [id number] Interpreted by: MICKI POE Electronically signed by: MICKI POE 02/04/22 1115 [facility] [place], [place] NAME: ARNOLDTARA Ramires [facility] REC#: [id number] PT STATUS: ADM IN : 1960 PHYSICIAN: KYLE SULTANA DO ADMIT DATE: 02/04/22 Signed Date of Exam:02/04/22 CT HEAD/CERVICAL SPINE WO PROCEDURE: CT head and CT cervical spine without contrast. TECHNIQUE: Multiple contiguous axial images were obtained through the brain and cervical spine without the use of intravenous contrast. Sagittal and coronal reformations through the cervical spine were then performed. Auto Exposure Controls were utilized during the CT exam to meet ALARA standards for radiation dose reduction. DATE: February 04, 2022. COMPARISON: MRI brain September 15, 2021. INDICATION: 61-year-old male, trauma. Head and neck pain. FINDINGS: There is mild cerebral volume loss. There is no hydrocephalus. There is no mass effect or midline shift. There is no acute intracranial hemorrhage. There is no abnormal extra-axial fluid collection. The visualized portions of the paranasal sinuses, mastoid air cells and middle ears are well aerated. There is no identified facet joint subluxation or dislocation. There is no prominent prevertebral soft tissue swelling. There is no identified acute fracture of the cervical spine. There is moderate disc height loss at C4-C5 and C5-C6 with posterior disc aspect complexes at both levels. CT is limited for assessment of disc pathology as well as additional non-bony causes of pathology in the spinal canal. Visualized portions of the lung apices are clear. IMPRESSION: 1. No identified acute intracranial abnormality. 2. No identified acute fracture of the cervical spine. 3. Disc degenerative changes at C4-C5 and C5-C6. Agree with the provided preliminary report. Dictated by: Dictated on workstation # [id number] Dict: 02/04/22 0707 Trans: 02/04/22 08[facility] [id number] Interpreted by: LEANN CEDILLO MD Electronically signed by: LEANN CEDILLO MD 02/04/22 0800 [facility] [place], [place] NAME: TARA BARRETT [facility] REC#: [id number] PT STATUS: ADM IN : 1960 PHYSICIAN: KYLE SULTANA DO ADMIT DATE: 02/04/22 Signed Date of Exam:02/04/22 CT THORACIC/LUMBAR SPINE WO PROCEDURE: CT thoracic and lumbar spine without contrast. TECHNIQUE: Multiple contiguous axial images were obtained through the thoracic and lumbar spine without the use of intravenous contrast. Sagittal and coronal reformations were then performed. All CT scans use one or more of the following dose optimizing techniques: automated exposure control, MA and/or KvP adjustment based on a patient size and exam type, or iterative reconstruction. INDICATION: Back pain FINDINGS: There is some minimal height loss involving the T2 vertebral body which likely is a chronic compression fracture. There is no malalignment. There is a compression deformity involving the superior endplate of C7. See dictated CT cervical spine. The remainder of the thoracolumbar spine is well aligned and intact. Central canal is unremarkable. IMPRESSION: 1. Chronic appearing T2 compression fracture. No malalignment or retropulsion is seen. 2. See dictated CT cervical spine report. 3. Hiatal hernia. 4. Right-sided pleural effusion. Dictated by: Dictated on workstation # [id number] Dict: 02/04/22 0647 Trans: 02/04/22 1105 RONDA [id number] Interpreted by: MICKI POE Electronically signed by: MICKI POE 02/04/22 1105 Assessment/Plan Admission Diagnosis Bradycardia Admission Status: Inpatient Order (span 2 midnights) Reason for Inpatient Admission: see below Assessment and Plan Bradycardia Generalized weakness pAF Hold home beta blockers Monitor on tele Echo ordered Cardiology consulted, appreciate recs PT/OT Nausea and vomiting Weight loss Hypokalemia Hypomagnesemia Gastroenteritis likely and contributing to weakness Zofran prn IVF Will need outpatient follow up for weight loss work up Had EGD in November which revealed esophageal structure, moderate hiatal hernia, severe gastritis, and pyloric structure- had balloon dilatation x2 at that time Continue PPI Replace electrolytes Seizure disorder Continue Keppra DVT ppx: JU Emanuel MD Feb 04, 2022 10:34
[2022-02-04 12:00] VITALS: BP 100/58
--- NOTE | 2022-02-04 12:31 | Consultation-Cardiology ---
HPI-Cardiology Cardiology Consultation Date of Consultation 02/04/22 Date of Admission Time Seen by Provider: 12:26 Indication: Bradycardia HPI 62-year-old gentleman with history of hypertension, sinus node dysfunction, started to have nausea and vomiting. GI discomfort. Came into the hospital. He was noting that he was reporting that he is feeling better. He was noted to have bradycardia. Denied any chest pain. No syncope. Home Medications & Allergies Allergies: Coded Allergies: Sulfa (Sulfonamide Antibiotics) (Unverified Allergy, Unknown, GETS SICK, 09/13/18) meperidine (Unverified Allergy, Unknown, PSYCHOTIC EVENTS WITH HIGH REACH OPERATOR DEMEROL, 09/13/18) Home Medication List Reviewed: Yes EHW-Dcndgd-Rggbzo Hx Patient Social History Smoking Status: Current Everyday Smoker Type Used: Cigarettes 2nd Hand Smoke Exposure: No Recent Hopitalizations: No Have you traveled recently?: No Alcohol Use?: Yes Substance type: Methamphetamine, Marijuana Immunizations Up To Date Tetanus Booster (TDap): Unknown Date of Influenza Vaccine: Jul 17, 2021 Past Medical History Discussed below Family Medical History Significant Family History: Diabetes Family Medical Hx Noncontributory Review of Systems-General Review of Systems Constitutional: see HPI; No fever; malaise, weakness EENTM: no symptoms reported Respiratory: no symptoms reported, see HPI; No cough, No short of breath Cardiovascular: no symptoms reported, see HPI; No chest pain, No edema, No syncope Gastrointestinal: see HPI; No abdominal pain; diarrhea, loss of appetite, nausea, vomiting Genitourinary: see HPI, decreased output Musculoskeletal: see HPI Skin: no symptoms reported Psychiatric/Neurological: See HPI; Denies Headache, Denies Numbness, Denies Paresthesia, Denies Tingling; Weakness (GENERALIZED WEAKNESS) Reviewed Test Results Reviewed Test Results Lab Laboratory Tests Test 02/03/22 23:59 02/04/22 00:15 02/04/22 00:25 02/04/22 06:34 Range/Units Glucometer 81 70-110 MG/DL Urine Color YELLOW Urine Clarity SL CLOUDY Urine pH 6.0 5-9 Urine Specific [place] 1.025 H 1.016-1.022 Urine Protein TRACE H NEGATIVE Urine Glucose (UA) NEGATIVE NEGATIVE Urine Ketones TRACE H NEGATIVE Urine Nitrite NEGATIVE NEGATIVE Urine Bilirubin 1+ H NEGATIVE Urine Urobilinogen 1.0 < = 1.0 MG/DL Urine Leukocyte Esterase NEGATIVE NEGATIVE Urine RBC (Auto) TRACE-I H NEGATIVE Urine RBC 0-2 /HPF Urine WBC NONE /HPF Urine Squamous Epithelial Cells RARE /HPF Urine Renal Epithelial Cells 0-2 /HPF Urine Crystals NONE /LPF Urine Bacteria TRACE /HPF Urine Casts PRESENT /LPF Urine Hyaline Casts RARE /LPF Urine Mucus SMALL H /LPF Urine Culture Indicated NO Urine Opiates Screen NEGATIVE NEGATIVE Urine Oxycodone Screen NEGATIVE NEGATIVE Urine Methadone Screen NEGATIVE NEGATIVE Urine Propoxyphene Screen NEGATIVE NEGATIVE Urine Barbiturates Screen NEGATIVE NEGATIVE Ur Tricyclic Antidepressants Screen POSITIVE H NEGATIVE Urine Phencyclidine Screen NEGATIVE NEGATIVE Urine Amphetamines Screen NEGATIVE NEGATIVE Urine Methamphetamines Screen NEGATIVE NEGATIVE Urine Benzodiazepines Screen NEGATIVE NEGATIVE Urine Cocaine Screen NEGATIVE NEGATIVE Urine Cannabinoids Screen NEGATIVE NEGATIVE White Blood Count 8.1 8.6 4.3-11.0 10^3/uL Red Blood Count 4.59 4.75 4.30-5.52 10^6/uL Hemoglobin 12.9 L 13.3 13.3-17.7 g/dL Hematocrit 40 42 40-54 % Mean Corpuscular Volume 87 89 80-99 fL Mean Corpuscular Hemoglobin 28 28 25-34 pg Mean Corpuscular Hemoglobin Concent 32 32 32-36 g/dL Red Cell Distribution Width 14.6 H 14.7 H 10.0-14.5 % Platelet Count 196 153 130-400 10^3/uL Mean Platelet Volume 10.4 10.6 9.0-12.2 fL Immature Granulocyte % (Auto) 1 0 % Neutrophils (%) (Auto) 71 77 H 42-75 % Lymphocytes (%) (Auto) 19 15 12-44 % Monocytes (%) (Auto) 8 8 0-12 % Eosinophils (%) (Auto) 1 1 0-10 % Basophils (%) (Auto) 0 0 0-10 % Neutrophils # (Auto) 5.8 6.6 1.8-7.8 10^3/uL Lymphocytes # (Auto) 1.5 1.3 1.0-4.0 10^3/uL Monocytes # (Auto) 0.6 0.7 0.0-1.0 10^3/uL Eosinophils # (Auto) 0.1 0.1 0.0-0.3 10^3/uL Basophils # (Auto) 0.0 0.0 0.0-0.1 10^3/uL Immature Granulocyte # (Auto) 0.0 0.0 0.0-0.1 10^3/uL Prothrombin Time 14.0 12.2-14.7 SEC INR Comment 1.0 0.8-1.4 Activated Partial Thromboplast Time 28 24-35 SEC Sodium Level 137 139 135-145 MMOL/L Potassium Level 3.1 L 2.7 L 3.6-5.0 MMOL/L Chloride Level 103 105 98-107 MMOL/L Carbon Dioxide Level 19 L 19 L 21-32 MMOL/L Anion Gap 15 H 15 H 5-14 MMOL/L Blood Urea Nitrogen 6 L 5 L 7-18 MG/DL Creatinine 0.87 0.82 0.60-1.30 MG/DL Estimat Glomerular Filtration Rate 98 99 BUN/Creatinine Ratio 7 6 Glucose Level 83 75 70-105 MG/DL Calcium Level 8.1 L 7.9 L 8.5-10.1 MG/DL Corrected Calcium 8.9 8.8 8.5-10.1 MG/DL Magnesium Level 1.6 1.6-2.4 MG/DL Total Bilirubin 0.4 0.4 0.1-1.0 MG/DL Aspartate Amino Transf (AST/SGOT) 10 9 5-34 U/L Alanine Aminotransferase (ALT/SGPT) 16 16 0-55 U/L Alkaline Phosphatase 73 76 40-136 U/L Ammonia 13 11-32 UMOL/L Total Creatine Kinase 24 L 30-200 U/L Creatine Kinase MB 0.3 <6.6 NG/ML Myoglobin 46.1 10.0-92.0 NG/ML Troponin I < 0.028 <0.028 NG/ML B-Type Natriuretic Peptide 352.5 H <100.0 PG/ML Total Protein 5.3 L 5.2 L 6.4-8.2 GM/DL Albumin 3.0 L 2.9 L 3.2-4.5 GM/DL Amylase Level 33 25-125 U/L Lipase 13 8-78 U/L Thyroid Stimulating Hormone (TSH) 0.98 0.35-4.94 UIU/ML Salicylates Level < 5.0 L 5.0-20.0 MG/DL Acetaminophen Level < 10 L 10-30 UG/ML Serum Alcohol < 10 <10 MG/DL Test 02/04/22 08:00 Range/Units Magnesium Level 1.5 L 1.6-2.4 MG/DL Physical Exam Physical Exam Vital Signs Vital Signs - First Documented 02/03/22 02/04/22 23:44 05:10 Temp 36.7 Pulse 40 Resp 16 B/P (MAP) 101/64 (76) Pulse Ox 100 O2 Delivery Room Air Capillary Refill : Less Than 3 Seconds Height, Weight, BMI Height: 5'9" Weight: 250lbs. oz. 113.401633gi; 25.64 BMI Method:Stated General Appearance: No Apparent Distress, WD/WN, Other (DIRTY, UNKEMPT, MALODOROUS, SOMEWHAT LETHARGIC, SPEECH IS SLOW BUT NOT SLURRED. VERY FLAT AFFECT. PT WITH MUCH LOOSE SKIN NOTED FROM RECENT WEIGHT LOSS--ESPECIALLY TO ABDOMEN. ) HEENT: PERRL/EOMI Neck: Normal Inspection Respiratory: Normal Breath Sounds, No Accessory Muscle Use, No Respiratory Distress Cardiovascular: No Edema, No JVD, No Murmur, Normal Peripheral Pulses, Bradycardia Gastrointestinal: Non Tender, Soft Back: No CVA Tenderness Extremity: Normal Capillary Refill, No Pedal Edema Neurologic/Psychiatric: Alert, Oriented x3, No Motor/Sensory Deficits, screen cutter and trimmer II- XII Norm as Tested Skin: Normal Color, Warm/Dry A/P-Cardiology Admission Diagnosis Gastroenteritis Weight loss Dyspnea Hypertension Assessment/Plan Gastroenteritis, nausea and vomiting, reporting improvement at this time, managed by medical team Electrolyte imbalance with hypokalemia, hypomagnesemia, followed and managed by medical team. Sinus bradycardia, patient has been on atenolol. I will stop atenolol and monitor heart rate and blood pressure response. Twelve-lead EKG was reviewed showing sinus bradycardia Stress test was done in August 2020 showing no ischemia or infarction, EF 52%. Continue to monitor Dyspnea on exertion, chronic, probably due to COPD, still an active smoker. Continue to monitor Congestive heart failure, nonischemic cardiomyopathy, echocardiogram was done in August 2021 showing normal LV size with ejection fraction 55 to 65%, PA pressure 25 mmHg. Continue to monitor Hypertension, monitor blood Hyperlipidemia maintained on simvastatin, I am not sure if he was taking his medication, I will evaluate lipid profile BMI 25, patient has significant weight loss recently. Managed by primary care physician COPD, high risk for sleep apnea, consider sleep study. Mild carotid stenosis, continue to monitor History of open cholecystectomy, had gallbladder surgery in the remote past Tobaccoism-educated on importance of smoking cessation. YESICA ACEVEDO MD Feb 04, 2022 12:31
[2022-02-04] MEDS: ENOXAPARIN 40 MG/0.4 ML (LOVENOX) SYR SQ SCH (13:41)
[2022-02-04] MEDS ORDERED: PANT20TA18 PO ×2 (14:00)
[2022-02-04 15:30] VITALS: BP 131/62
[2022-02-04 20:07] VITALS: BP 111/66
[2022-02-05] VITALS (7 sets, daily range): BP systolic 105–129; BP diastolic 55–76
[2022-02-05] MEDS: D5 1/2 NS W/KCL 20 MEQ/L 1,000 ML IV SCH ×4 (02:57→22:12)
[2022-02-05] MEDS: PANTOPRAZOLE 40 MG (PROTONIX) VIAL IV SCH (08:58)
[2022-02-05 08:59] LABS: HEMATOCRIT 37 % (40-54); HEMOGLOBIN 12.2 g/dL (13.3-17.7); MEAN CORPUSCULAR HEMOGLOBIN 28 pg (25-34); MEAN CORPUSCULAR HGB CONC 33 g/dL (32-36); MEAN CORPUSCULAR VOLUME 86 fL (80-99); MEAN PLATELET VOLUME 10.6 fL (9.0-12.2); PLATELET COUNT 176 10^3/uL (130-400); WHITE BLOOD COUNT 4.6 10^3/uL (4.3-11.0)
[2022-02-05 09:19] LABS: CALCIUM 7.7 MG/DL (8.5-10.1); CREATININE SERUM 0.81 MG/DL (0.60-1.30); MAGNESIUM 1.9 MG/DL (1.6-2.4); POTASSIUM 3.4 MMOL/L (3.6-5.0)
--- NOTE | 2022-02-05 12:04 | Progress Note - Hospitalist ---
Subjective HPI/CC On Admission Date Seen by Provider: Feb 05, 2022 Time Seen by Provider: 09:15 Patient 61-year-old male with past medical history of atrial fibrillation, hyperlipidemia, hypertension, COPD, polysubstance abuse who presented to the emergency department due to nausea and vomiting. He states it started yesterday with nausea vomiting and progressed to diarrhea. He denies any black or bloody stools. His last bowel movement was yesterday afternoon. He vomited total 3 or 4 times and felt quite weak. He decided to seek evaluation in the emergency room where he was found incidentally to be bradycardic. His heart rate was 40 on arrival and remained in the 40s. This morning he states he is feeling better. He no longer has nausea. He is currently getting an echo while I am in the room. Subjective/Events-last exam Pt reports doing well. No complaints. Still weak but not worse. Discussed potential need for NH again and he is agreeable if needed. Objective Exam Vital Signs Vital Signs Date Time Temp Pulse Resp B/P (MAP) Pulse Ox O2 Delivery O2 Flow Rate FiO2 02/05/22 08:00 Room Air 02/05/22 07:30 37.2 44 17 121/75 (90) 92 Capillary Refill : Less Than 3 Seconds General Appearance: No Apparent Distress, WD/WN Respiratory: Lungs Clear, No Respiratory Distress Cardiovascular: No Murmur, Bradycardia Gastrointestinal: Normal Bowel Sounds, Non Tender, Soft Neurologic/Psychiatric: Alert, Oriented x3 Results/Procedures Lab Laboratory Tests 02/05/22 08:55 Patient resulted labs reviewed. Imaging: Reviewed Imaging Report Assessment/Plan Assessment and Plan Assess & Plan/Chief Complaint Bradycardia Generalized weakness pAF Hold home beta blockers- remains in the 40s today Monitor on tele Cardiology consulted, appreciate recs PT/OT ordered Echo reveals EF of 55% Nausea and vomiting Weight loss Hypokalemia Hypomagnesemia Gastroenteritis likely and contributing to weakness Zofran prn DC IVF and advance diet as he had needed no more Zofran Will need outpatient follow up for weight loss work up Had EGD in November which revealed esophageal structure, moderate hiatal hernia, severe gastritis, and pyloric structure- had balloon dilatation x2 at that time Continue PPI Replace electrolytes prn Seizure disorder Continue Keppra DVT ppx: JU Emanuel MD Feb 05, 2022 12:04
[2022-02-05] MEDS ORDERED: KCL 20 MEQ TAB (K-DUR) PO NR (12:30)
[2022-02-05] MEDS: ENOXAPARIN 40 MG/0.4 ML (LOVENOX) SYR SQ SCH (13:03)
--- NOTE | 2022-02-05 13:35 | Physical Therapy Evaluation ---
PT Evaluation-General Medical Diagnosis Admission Date Feb 04, 2022 at 04:40 Medical Diagnosis: symptomatic bradycardia/weakness Onset Date: Feb 04, 2022 Therapy Diagnosis Therapy Diagnosis: debility/weakness Height/Weight Height (Feet): 5 Height (Inches): 9 Weight (Pounds): 250 Precautions Precautions/Isolations: Seizure, Fall Prevention, Standard Precautions Referral Physician: Pj Reason for Referral: Evaluation/Treatment Medical History Pertinent Medical History: Atrial Fib, COPD, HTN, Smoking Current History EMS secondary to "not feeling well" (90# wt loss since September 2021) Reviewed History: Yes Social History Home: Apartment Current Living Status: Alone Entry Into Home: Stairs Without Railing PT Steps Into Home: 2 Prior Prior Level of Function SCALE: Activities may be completed with or without assistive devices. 3-Nqemvdmxgu-ashzvky completes the activity by him/herself with no assistance from a helper. 5-Set-up or Clean-up Assistance-helper sets up or cleans up; patient completes activity. [place] assists only prior to or following the activity. 4-Supervision or Touching Assistance-helper provides verbal cues and/or t ouching/steadying and/or contact guard assistance as patient completes activity. Assistance may be provided throughout the activity or intermittently. 3-Partial/Moderate Assistance-helper does LESS THAN HALF the effort. [place] lifts, holds or supports trunk or limbs, but provides less than half the effort. 2-Substantial/Maximal Assistance-helper does MORE THAN HALF the effort. [place] lifts or holds trunk or limbs and provides more than half the effort. 9-Rgwcoooub-xdsvcv does ALL the effort. Patient does none of the effort to complete the activity. Or, the assistance of 2 or more helpers is required for the patient to complete the activity. If activity was not attempted, code reason: 7-Patient Refused. 9-Not Applicable-not attempted and the patient did not perform the activity before the current illness, exacerbation or injury. 10-Not Attempted due to Environmental Limitations-(lack of equipment, weather restraints, etc.). 88-Not Attempted due to Medical Conditions or Safety Concerns. Bed Mobility: 6 Transfers (B,C,W/C): 6 Gait: 6 Stairs: 6 Indoor Mobility (Ambulation): Independent Stairs: Independent Prior Devices Use: Walker PT Evaluation-Current Subjective Patient agrees to PT. No c/o at this time. Objective Patient Orientation: Normal For Age Attachments: IV ROM/Strength ROM Lower Extremities bilateral LE WFL Strength Lower Extremities 4-/5 grossly bilateral LE Integumentary/Posture Bowel Incontinence: No Bladder Incontinence: No Posture WFL Neuromuscular (Tone, Coordination, Reflexes) grossly intact Sensory Vision: Functional Hearing: Functional Transfers Roll Left to Right (QC): 6 Sit to Lying (QC): 6 Lying to Sitting/Side of Bed(Q: 6 Sit to Stand (QC): 4 Chair/Kzv-lu-Mtugz Xfer(QC): 4 Gait Does the Patient Walk?: Yes Mode of Locomotion: Walk Anticipated Mode of Locomotion: Walk Walk 10 feet (QC): 4 Walk 50 ft with 2 Turns(QC): 4 Walk 150 ft (QC): 4 Distance: 300' Gait Assistive Device: FWW Comments/Gait Description safe and functional with no deviation Balance Sitting Static: Normal Sitting Dynamic: Normal Standing Static: Normal Standing Dynamic: Normal Assessment/Needs Patient will be seen short term by skilled PT to address functional mobility to ensure safe return to home at maximum LOF. Rehab Potential: Fair PT Skilled Nursing Goals Marine Safety Officer Goals PT Marine Safety Officer Goals Time Frame: Feb 13, 2022 Roll Left & Right (QC): 6 Sit to Lying (QC): 6 Lying-Sitting on Side/Bed(QC): 6 Sit to Stand (QC): 6 Chair/Gcb-ru-Yfccl Xfer(QC): 6 Toilet Transfer (QC): 6 Walk 10 feet (QC): 6 Walk 50ft with 2 Turns (QC): 6 Walk 150 ft (QC): 6 PT Plan Problem List Problem List: Activity Tolerance, Functional Strength, Safety, Balance, Gait, Transfer Treatment/Plan Treatment Plan: Continue Plan of Care Treatment Plan: Bed Mobility, Education, Functional Activity [place], Functional Strength, Gait, Safety, Therapeutic Exercise, Transfers Treatment Duration: Feb 13, 2022 Frequency: 6 times per week Estimated Hrs Per Day: .25 hour per day Patient and/or Family Agrees t: Yes Time/GCodes Time In: 1300 Time Out: 1311 Total Billed Treatment Time: 11 Total Billed Treatment 1 visit EVModC 11 min DANNIE PRETTY PT Feb 05, 2022 13:35
--- NOTE | 2022-02-05 13:51 | Occupational Therapy Eval ---
OT Evaluation-General/PLF Medical Diagnosis Admission Date Feb 04, 2022 at 04:40 Medical Diagnosis: symptomatic bradycardia/weakness Onset Date: Feb 04, 2022 Therapy Diagnosis Therapy Diagnosis: n/a Height/Weight Height (Feet): 5 Height (Inches): 9 Weight (Pounds): 250 Precautions Precautions/Isolations: Seizure, Fall Prevention, Standard Precautions Referral Physician: Pj Referral Reason: Evaluation/Treatment Medical History Pertinent Medical History: Atrial Fib, COPD, Heart Failure, HTN, Smoking Additional Medical History polysubstance abuse Current History Pt presents to hospital with complaints of N/V and diarrhea. Found to have gastroenteritis. Per patient, he lives alone in a first floor apartment. He was indep with adls and has a caregiver for ~7 hours/week for iadl assistance including laundry, cleaning, groceries and cooking. Pt states that he hasn't seen or heard from his caregiver in over a week. He uses a walker at baseline. Social History Home: Apartment Current Living Status: Alone ADL-Prior Level of Function SCALE: Activities may be completed with or without assistive devices. 3-Lwurkqdcmv-sajekxv completes the activity by him/herself with no assistance from a helper. 5-Set-up or Clean-up Assistance-helper sets up or cleans up; patient completes activity. [place] assists only prior to or following the activity. 4-Supervision or Touching Assistance-helper provides verbal cues and/or touching/steadying and/or contact guard assistance as patient completes activity. Assistance may be provided throughout the activity or intermittently. 3-Partial/Moderate Assistance-helper does LESS THAN HALF the effort. [place] lifts, holds or supports trunk or limbs, but provides less than half the effort. 2-Substantial/Maximal Assistance-helper does MORE THAN HALF the effort. [place] lifts or holds trunk or limbs and provides more than half the effort. 6-Kgeijmzay-xnexxa does ALL the effort. Patient does none of the effort to complete the activity. Or, the assistance of 2 or more helpers is required for the patient to complete the activity. If activity was not attempted, code reason: 7-Patient Refused. 9-Not Applicable-not attempted and the patient did not perform the activity bef ore the current illness, exacerbation or injury. 10-Not Attempted due to Environmental Limitations-(lack of equipment, weather r estraints, etc.). 88-Not Attempted due to Medical Conditions or Safety Concerns. Self Care: Independent Functional Cognition: Needed Some Help DME/Equipment: Bath Chair, Tub/Shower Drive Self: No OT Current Status Subjective Pt denies pain, agreeable to eval. Appearance Pt left sitting in recliner, all needs within reach. Mental Status/Objective Patient Orientation: Person, Place, Situation Attachments: IV Current Upper Extremity ROM WNL Upper Extremity Strength 4/5 throughout ADL-Treatment Eating (QC): 6 (pt recently upgraded to normal diet) Oral Hygiene (QC): 5 Lower Body Dressing (QC): 5 (per clinical judgment) On/Off Footwear (QC): 6 Toileting Hygiene (QC): 4 Pt walking back to room with physical therapist at OT arrival. No unsteadiness observed, SBA with walker. Pt was able to demonstrate toilet transfer and simulate clothing management without assist or safety concerns. He sat to don/d off bilateral socks with figure 4 position. He reports mild fatigue but states that he feels close to his baseline. No further OT services warranted at this time. Education OT Patient Education: Progress toward Goal/Update tx plan, Purpose of tx/functional activities Teaching Recipient: Patient Teaching Methods: Discussion Response to Teaching: Verbalize Understanding, Return Demonstration OT Group Home Goals Group Home Goals 1=Demonstrate adherence to instructed precautions during ADL tasks. 2=Patient will verbalize/demonstrate understanding of assistive devices/modifications for ADL. 3=Patient will improve strength/tolerance for activity to enable patient to perform ADL's. OT Education/Plan Problem List/Assessment Assessment: No Skilled OT Needs ID'd Discharge Recommendations Plan/Recommendations: Discontinue OT Therapy Discharge Recommendati: Scheduled Assistance, Homemaker Support, Home & Family Target Placement Home with continued caregiver support for homemaking tasks Treatment Plan/Plan of Care Treatment,Training & Education: Yes Patient would benefit from OT for education, treatment and training to promote independence in ADL's, mobility, safety and/or upper extremity function for ADL's. Plan of Care: ADL Retraining Treatment Duration: Feb 12, 2022 Frequency: 1 time per week Estimated Hrs Per Day: .25 hour per day Agreement: Yes Time/GCodes Start Time: 13:10 Stop Time: 13:19 Total Time Billed (hr/min): 9 Billed Treatment Time 1 visit Ronda Mi OT Feb 05, 2022 13:51
--- NOTE | 2022-02-05 14:43 | Cardiology Progress Note ---
Subjective Date Seen by Provider: Feb 05, 2022 Time Seen by Provider: 14:41 Subjective/Events-last exam Patient was seen at bedside, sitting comfortably, feeling better. No new complaint Review of Systems General: No Chills, No Night Sweats, No Fatigue, No Malaise, No Appetite, No Other HEENT: No Head Aches, No Visual Changes, No Eye Pain, No Ear Pain, No Dysphasia , No Sinus Congestion, No Post Nasal Drip, No Sore Throat, No Other Pulmonary: No Dyspnea, No Cough, No Pleuritic Chest Pain, No Other Cardiovascular: No: Chest Pain, Palpitations, Orthopnea, Paroxysmal Noc. Dyspnea, Edema, Lt Headedness, Other Objective-Cardiology Exam Last Set of Vital Signs Vital Signs 02/05/22 02/05/22 11:00 12:51 Temp 36.7 Pulse 45 Resp 18 B/P (MAP) 129/76 (93) Pulse Ox 96 O2 Delivery Room Air I&O Intake and Output 02/04/22 23:59 Intake Total 5540 ml Output Total 1150 ml Balance 4390 ml Intake Oral 640 ml IV Total 4900 ml Output Urine Total 1150 ml # Bowel Movements 2 Daily Weight Change No General: Alert, Oriented X3, Cooperative HEENT: Atraumatic, PERRLA Neck: Supple, No JVD, No Thyromegaly Lungs: Clear to Auscultation, Normal Air Movement Heart: Normal S1, Normal S2, No Murmurs, Other (Bradycardia) Abdomen: Soft, No Tenderness, No Hepatosplenomegaly, No Masses Extremities: No Clubbing, No Cyanosis, No Edema, Normal Pulses, No Tenderness/Swelling Skin: No Rashes, No Breakdown, No Significant Lesion Neuro: Normal Speech, Normal Tone, Sensation Intact Psych/Mental Status: Mental Status NL, Mood NL Results Lab Laboratory Tests 02/05/22 08:55 A/P-Cardiology Admission Diagnosis Gastroenteritis Weight loss Dyspnea Hypertension Assessment/Plan Gastroenteritis, nausea and vomiting, reporting improvement at this time, managed by medical team Electrolyte imbalance with hypokalemia, hypomagnesemia, followed and managed by medical team. Sinus bradycardia, patient has been on atenolol. Atenolol was stopped on February 04, 2022 Still bradycardic at this time, asymptomatic Continue to monitor heart rate and blood pressure Stress test was done in August 2020 showing no ischemia or infarction, EF 52%. Continue to monitor Dyspnea on exertion, chronic, probably due to COPD, still an active smoker. Continue to monitor Congestive heart failure, nonischemic cardiomyopathy, echocardiogram was done in August 2021 showing normal LV size with ejection fraction 55 to 65%, PA pressure 25 mmHg. Continue to monitor Hypertension, monitor blood Hyperlipidemia maintained on simvastatin, I am not sure if he was taking his medication, I will evaluate lipid profile BMI 25, patient has significant weight loss recently. Managed by primary care physician COPD, high risk for sleep apnea, consider sleep study. Mild carotid stenosis, continue to monitor History of open cholecystectomy, had gallbladder surgery in the remote past Tobaccoism-educated on importance of smoking cessation. YESICA ACEVEDO MD Feb 05, 2022 14:43
[2022-02-06 04:00] VITALS: BP 127/70
[2022-02-06] MEDS: D5 1/2 NS W/KCL 20 MEQ/L 1,000 ML IV SCH (04:53)
[2022-02-06 05:35] LABS: HEMATOCRIT 37 % (40-54); HEMOGLOBIN 11.9 g/dL (13.3-17.7); MEAN CORPUSCULAR HEMOGLOBIN 28 pg (25-34); MEAN CORPUSCULAR HGB CONC 32 g/dL (32-36); MEAN CORPUSCULAR VOLUME 87 fL (80-99); MEAN PLATELET VOLUME 11.2 fL (9.0-12.2); PLATELET COUNT 152 10^3/uL (130-400); WHITE BLOOD COUNT 4.4 10^3/uL (4.3-11.0)
[2022-02-06 05:47] LABS: POTASSIUM 3.9 MMOL/L (3.6-5.0)
[2022-02-06 05:48] LABS: CALCIUM 7.7 MG/DL (8.5-10.1)
[2022-02-06 05:52] LABS: CREATININE SERUM 0.79 MG/DL (0.60-1.30)
[2022-02-06 08:00] VITALS: BP 129/68
[2022-02-06] MEDS: PANTOPRAZOLE 40 MG (PROTONIX) VIAL IV SCH (08:12)
--- NOTE | 2022-02-06 08:31 | Physical Therapy Progress Note ---
Therapy Progress Note Patient declined PT due to fatigue and stating, "I just want to sleep." Rn notified. 1 ref DANNIE PRETTY PT Feb 06, 2022 08:31
--- NOTE | 2022-02-06 09:29 | Progress Note - Hospitalist ---
Subjective HPI/CC On Admission Date Seen by Provider: Feb 06, 2022 Time Seen by Provider: 09:24 Patient 61-year-old male with past medical history of atrial fibrillation, hyperlipidemia, hypertension, COPD, polysubstance abuse who presented to the emergency department due to nausea and vomiting. He states it started yesterday with nausea vomiting and progressed to diarrhea. He denies any black or bloody stools. His last bowel movement was yesterday afternoon. He vomited total 3 or 4 times and felt quite weak. He decided to seek evaluation in the emergency room where he was found incidentally to be bradycardic. His heart rate was 40 on arrival and remained in the 40s. This morning he states he is feeling better. He no longer has nausea. He is currently getting an echo while I am in the room. Subjective/Events-last exam Pt reports feeling tired. No specific complaints otherwise. Declined PT this morning. Objective Exam Vital Signs Vital Signs Date Time Temp Pulse Resp B/P (MAP) Pulse Ox O2 Delivery O2 Flow Rate FiO2 02/06/22 08:19 Room Air 02/06/22 08:00 36.5 48 18 129/68 (88) 100 Capillary Refill : Less Than 3 Seconds General Appearance: No Apparent Distress, Chronically ill Respiratory: Lungs Clear, No Respiratory Distress Cardiovascular: No Murmur, Bradycardia Neurologic/Psychiatric: Alert, Oriented x3 Results/Procedures Lab Laboratory Tests 02/06/22 05:00 Patient resulted labs reviewed. Imaging: Reviewed Imaging Report Assessment/Plan Assessment and Plan Assess & Plan/Chief Complaint Bradycardia Generalized weakness pAF Hold home beta blockers- HR slowing improve, got up to 60 last night but back down to 40 this AM Monitor on tele Cardiology consulted, appreciate recs PT/OT ordered- patient declined PT this mornign stating he was tired- encouraged patient regarding the importance of working with PT to avoid further deconditioning if he wants to return home instead of back to a [facility] Echo reveals EF of 55% Nausea and vomiting- resolved Weight loss Hypokalemia Hypomagnesemia Zofran prn Will need outpatient follow up for weight loss work up Had EGD in November which revealed esophageal structure, moderate hiatal hernia, severe gastritis, and pyloric structure- had balloon dilatation x2 at that time Continue PPI Replace electrolytes prn Seizure disorder Continue Keppra DVT ppx: JU Emanuel MD Feb 06, 2022 09:29
[2022-02-06] MEDS ORDERED: RT-ALBUTEROL SULF 2.5 MG/3 ML PRE-MIX VIAL IH PRN (09:30)
[2022-02-06 12:00] VITALS: BP 117/57
[2022-02-06] MEDS: ENOXAPARIN 40 MG/0.4 ML (LOVENOX) SYR SQ SCH (12:44)
[2022-02-06] MEDS: ONDANSETRON 4 MG/2 ML (SDV) Z0FRAN IV PRN ×2 (12:44→18:44)
[2022-02-06 15:36] VITALS: BP 115/60
--- NOTE | 2022-02-06 15:57 | Progress Note - Cardiology ---
Cardiology SOAP Progress Note Subjective: No cp or palp or syncope or shortness of breath Gen weakness and malaise Less nausea and diarrhea No swelling Objective: I&O/Vital Signs 02/06/22 02/06/22 02/06/22 02/06/22 04:00 07:00 08:00 08:19 Temp 36.4 36.5 Pulse 47 44 48 Resp 18 18 B/P (MAP) 127/70 (89) 129/68 (88) Pulse Ox 98 100 O2 Delivery Room Air Room Air Room Air 02/06/22 02/06/22 02/06/22 02/06/22 11:11 12:00 12:53 15:36 Temp 36.2 35.7 Pulse 50 49 48 Resp 20 18 B/P (MAP) 117/57 (77) 115/60 (78) Pulse Ox 100 99 98 O2 Delivery Room Air Room Air Room Air O2 Flow Rate 0.00 02/05/22 23:59 Intake Total 1765 ml Balance 1765 ml Weight (Pounds): 250 Weight (Calculated Kilograms): 113.942369 Constitutional: AAO x 3, well-developed, well-nourished Respiratory: No accessory muscle use; other (good, bilateral air entry) Cardiovascular: regular rate-rhythm, S1 and S2, systolic murmur (soft [place] at card base) Gastrointestional: No tender; soft; No guarding, No rebound; audible bowel sounds Extremities: No clubbing, No cyanosis, No significant edema Neurologic/Psychiatric: oriented x 3, other (moves all limbs equally) Skin: No rash on exposed areas, No ulcerations on exposed areas Results/Procedures: Labs Laboratory Tests 02/06/22 05:00: White Blood Count 4.4, Red Blood Count 4.28L, Hemoglobin 11.9L, Hematocrit 37L, Mean Corpuscular Volume 87, Mean Corpuscular Hemoglobin 28, Mean Corpuscular Hemoglobin Concent 32, Red Cell Distribution Width 14.6H, Platelet Count 152, Mean Platelet Volume 11.2, Sodium Level 138, Potassium Level 3.9, Chloride Level 108H, Carbon Dioxide Level 20L, Anion Gap 10, Blood Urea Nitrogen 3L, Creatinine 0.79, Estimat Glomerular Filtration Rate 100, BUN/Creatinine Ratio 4, Glucose Level 93, Calcium Level 7.7L 02/06/22 09:32: Magnesium Level 1.6 Laboratory Tests 02/05/22 08:55 02/06/22 05:00 A/P: Assessment: Ac gastroenteritis - managed by Hospitalist Electrolyte imbalance - improving Sinus bradycardia,chronic, asymptomatic Stress test was done in August 2020: no ischemia or infarction, EF 52% COPD - advised to quit smoking H/o nonischemic cardiomyopathy - echo of August 2021 showed normal LV size with ejection fraction 55 to 65%, PA pressure 25 mmHg Hypertension - controlled Hyperlipidemia - treated chronically with statin Considerable, unintentional wgt loss in the recent past, etiology undetermined - followed and managed by primary care physician Mild carotid stenosis - Dr Servin managing History of open cholecystectomy, had gallbladder surgery in the remote past Tobaccoism -educated on importance of smoking cessation. Plan: * Has multiple comorbidities (see above) * Bradycardia is sinus and is asymptomatic. Continue to monitor * I interviewed and examined. I reviewed his records. I discussed his CV issues with him and answered CV-related questions YULIANA AREVALO MD FACP FAC CCDS Feb 06, 2022 15:57
[2022-02-06 19:42] VITALS: BP 110/65
[2022-02-06] MEDS ORDERED: NON-FORMULARY MEDICATION 1 EA EA (Fluticasone/Salmeterol (Advair 500-50 Diskus) 1 EACH) IH SCH (21:00)
[2022-02-06] MEDS ORDERED: NON-FORMULARY MEDICATION 1 EA EA (Amitriptyline HCl 75 MG) PO SCH (21:00)
[2022-02-06] MEDS: SIMvastatin 20 MG (ZOCOR) TAB PO SCH ×2 (21:00→21:02)
[2022-02-06] MEDS: AMITRIPTYLINE 25 MG (ELAVIL) TAB PO SCH ×2 (21:00→21:01)
[2022-02-06 23:14] VITALS: BP 128/68
[2022-02-07 04:16] VITALS: BP 133/72
[2022-02-07 05:22] LABS: HEMATOCRIT 37 % (40-54); HEMOGLOBIN 12.2 g/dL (13.3-17.7); MEAN CORPUSCULAR HEMOGLOBIN 28 pg (25-34); MEAN CORPUSCULAR HGB CONC 33 g/dL (32-36); MEAN CORPUSCULAR VOLUME 87 fL (80-99); MEAN PLATELET VOLUME 10.2 fL (9.0-12.2); PLATELET COUNT 165 10^3/uL (130-400); WHITE BLOOD COUNT 5.3 10^3/uL (4.3-11.0)
[2022-02-07 05:33] LABS: POTASSIUM 4.3 MMOL/L (3.6-5.0)
[2022-02-07 05:38] LABS: CREATININE SERUM 0.87 MG/DL (0.60-1.30)
[2022-02-07 05:41] LABS: MAGNESIUM 1.7 MG/DL (1.6-2.4)
[2022-02-07 08:00] VITALS: BP 131/67
[2022-02-07] MEDS: FLUoxetine HCL 20 MG (PROzac) CAP PO SCH (08:52)
[2022-02-07] MEDS: ONDANSETRON 4 MG/2 ML (SDV) Z0FRAN IV PRN (08:52)
[2022-02-07] MEDS: PANTOPRAZOLE 40 MG (PROTONIX) TAB PO SCH (08:52)
[2022-02-07] MEDS ORDERED: NON-FORMULARY MEDICATION 1 EA EA (Fluoxetine HCl 40 MG) PO SCH (09:00)
--- NOTE | 2022-02-07 09:48 | Progress Note - Hospitalist ---
Subjective HPI/CC On Admission Date Seen by Provider: Feb 07, 2022 Time Seen by Provider: 09:45 Patient 61-year-old male with past medical history of atrial fibrillation, hyperlipidemia, hypertension, COPD, polysubstance abuse who presented to the emergency department due to nausea and vomiting. He states it started yesterday with nausea vomiting and progressed to diarrhea. He denies any black or bloody stools. His last bowel movement was yesterday afternoon. He vomited total 3 or 4 times and felt quite weak. He decided to seek evaluation in the emergency room where he was found incidentally to be bradycardic. His heart rate was 40 on arrival and remained in the 40s. This morning he states he is feeling better. He no longer has nausea. He is currently getting an echo while I am in the room. Subjective/Events-last exam Pt reports doing well. No complaints but RN noticed increasing vomiting again. Objective Exam Vital Signs Vital Signs Date Time Temp Pulse Resp B/P (MAP) Pulse Ox O2 Delivery O2 Flow Rate FiO2 02/07/22 08:06 Room Air 02/07/22 08:00 36.6 50 17 131/67 (88) 97 02/06/22 11:11 0.00 Capillary Refill : Less Than 3 Seconds General Appearance: No Apparent Distress, Chronically ill Respiratory: Lungs Clear, No Respiratory Distress Cardiovascular: Regular Rate, Rhythm, No Murmur Gastrointestinal: Normal Bowel Sounds, Non Tender, Soft Neurologic/Psychiatric: Alert, Oriented x3 Results/Procedures Lab Laboratory Tests 02/07/22 05:12 Patient resulted labs reviewed. Imaging: Reviewed Imaging Report Assessment/Plan Assessment and Plan Assess & Plan/Chief Complaint Bradycardia Generalized weakness pAF Hold home beta blockers- HR slowing improve, averaging low 50s now Monitor on tele Cardiology consulted, appreciate recs PT/OT Echo reveals EF of 55% Nausea and vomiting- resolved Weight loss Hypokalemia Hypomagnesemia Zofran prn Will need outpatient follow up for weight loss work up Had EGD in November which revealed esophageal structure, moderate hiatal hernia, severe gastritis, and pyloric structure- had balloon dilatation x2 at that time Continue PPI Replace electrolytes prn Vomiting again this AM, discussed with Dr Siegel- RODRIGUE and he may rescope Seizure disorder Continue Keppra switch to IV as he is vomiting again DVT ppx: JU Emanuel MD Feb 07, 2022 09:48
[2022-02-07 12:02] VITALS: BP 128/77
[2022-02-07] MEDS: ENOXAPARIN 40 MG/0.4 ML (LOVENOX) SYR SQ SCH (14:07)
[2022-02-07 15:31] VITALS: BP 114/74
--- NOTE | 2022-02-07 17:53 | Progress Note - Cardiology ---
Cardiology SOAP Progress Note Subjective: No cp or palp or syncope No n/v/d Gen weakness and malaise Objective: I&O/Vital Signs 02/07/22 02/07/22 02/07/22 02/07/22 07:00 08:00 08:00 08:06 Temp 36.6 Pulse 51 50 Resp 17 B/P (MAP) 131/67 (88) Pulse Ox 97 O2 Delivery Room Air Room Air Room Air 02/07/22 02/07/22 02/07/22 12:02 14:00 15:31 Temp 36.4 35.9 Pulse 52 54 42 Resp 18 18 B/P (MAP) 128/77 (94) 114/74 (87) Pulse Ox 96 96 O2 Delivery Room Air Room Air 02/07/22 00:00 Intake Total 1625 ml Output Total 550 ml Balance 1075 ml Weight (Pounds): 250 Weight (Calculated Kilograms): 113.191509 Constitutional: AAO x 3, well-developed, well-nourished Respiratory: No accessory muscle use; other (good, bilateral air entry) Cardiovascular: regular rate-rhythm, S1 and S2, systolic murmur (soft [place] at card base) Gastrointestional: No tender; soft; No guarding, No rebound; audible bowel sounds Extremities: No clubbing, No cyanosis, No significant edema Neurologic/Psychiatric: oriented x 3, other (moves all limbs equally) Skin: No rash on exposed areas, No ulcerations on exposed areas Results/Procedures: Labs Laboratory Tests 02/07/22 05:12: White Blood Count 5.3, Red Blood Count 4.30, Hemoglobin 12.2L, Hematocrit 37L, Mean Corpuscular Volume 87, Mean Corpuscular Hemoglobin 28, Mean Corpuscular Hemoglobin Concent 33, Red Cell Distribution Width 14.5, Platelet Count 165, [place] n Platelet Volume 10.2, Sodium Level 137, Potassium Level 4.3, Chloride Level 106, Carbon Dioxide Level 22, Anion Gap 9, Blood Urea Nitrogen 3L, Creatinine 0.87, Estimat Glomerular Filtration Rate 98, BUN/Creatinine Ratio 3, Glucose Le alpa 77, Calcium Level 8.0L, Magnesium Level 1.7 A/P: Assessment: Ac gastroenteritis - managed by Hospitalist Electrolyte imbalance - improving Sinus bradycardia,chronic, asymptomatic Stress test was done in August 2020: no ischemia or infarction, EF 52% COPD - advised to quit smoking H/o nonischemic cardiomyopathy - echo of August 2021 showed normal LV size with ejection fraction 55 to 65%, PA pressure 25 mmHg Hypertension - controlled Hyperlipidemia - treated chronically with statin Considerable, unintentional wgt loss in the recent past, etiology undetermined - followed and managed by primary care physician Mild carotid stenosis - Dr Servin managing History of open cholecystectomy, had gallbladder surgery in the remote past Tobaccoism -educated on importance of smoking cessation. Plan: * Bradycardia is sinus and is asymptomatic. Continue to monitor * Monitor labs YULIANA AREVALO MD FACP FAC CCDS Feb 07, 2022 17:53
--- NOTE | 2022-02-07 19:13 | CONSULTATION REPORT ---
DATE OF SERVICE: 02/07/2022 ATTENDING PRIMARY CARE PHYSICIAN: Dr. Santana Mckenna. ADMITTING PHYSICIAN: Dr. Oliva. HISTORY: The patient is a 61-year-old male known to us. He presented with nausea and vomiting and also developed diarrhea. He does have an extensive past medical history including atrial fibrillation, hypertension, hyperlipidemia, COPD as well as polysubstance abuse. Due to the diarrhea, he did feel weak as well. In the emergency room, he was found to be bradycardic with a heart rate in the 40s. Once hydrated, he did feel better. He was placed on a clear liquid diet; however, he has had issues with dysphagia as well as nausea. We had done EGD on him on 11/25/2021 and was found to have reflux esophagitis, Colbert grade C with retained food substance within the esophagus, severe distal esophageal stricture, moderate size hiatal hernia 3 cm in size. There was also retained food substance within the stomach and a pyloric stricture. There was also a small pyloric ulcer with an overlying fibrin clot and no active bleeding. There was also a mild to moderate duodenitis. He underwent biopsies as well as balloon dilatation of the pylorus to 18.5 mm in luminal diameter. We were able to dilate the distal esophageal stricture to 13.5 mm in diameter. We had also recommended the necessary lifestyle and dietary accommodation including smoking cessation as well as avoidance of alcohol, caffeinated beverages, spicy, greasy and acidic foods. We also proceeded with a trial of Reglan due to the high probability of some level of gastroparesis as well. The patient has been noncompliant at home and not taking his medications. PAST MEDICAL HISTORY: Atrial fibrillation, hypercholesterolemia, hypertension, asthma, COPD, degenerative joint disease, gout, depression, history of polysubstance abuse. PAST SURGICAL HISTORY: Tonsillectomy, laparoscopic cholecystectomy. ALLERGIES: SULFA, MEPERIDINE. MEDICATIONS: Albuterol 1 puff q.4 hours p.r.n., amitriptyline 75 mg daily, atenolol 50 mg daily, clonazepam 0.5 mg daily, fluoxetine 40 mg daily, Advair Diskus b.i.d., furosemide 20 mg daily, levetiracetam 1000 mg b.i.d., Protonix 40 mg daily, simvastatin 20 mg daily, potassium 20 mEq daily, zolpidem 5 mg each night at bedtime. SOCIAL HISTORY: Positive smoke. States that he used to drink significant amounts of alcohol; however, did quit more recently. He also states other illicit drugs in the past. FAMILY HISTORY: Noncontributory. VITAL SIGNS: Temperature 36.4, blood pressure 128/77, pulse 54, respirations 18, pulse ox 96% on room air. REVIEW OF SYSTEMS: Well-nourished male, currently in no acute distress. He is not experiencing any shortness of breath or difficulty breathing. No chest pain, palpitations or diaphoresis. Dysphagia as well as intermittent episodes of nausea; however, no vomiting since admission. No hematemesis, no coffee ground emesis. He also has been having loose stools. No red blood per rectum, no dark tarry stools. No fever, chills. No recent inadvertent weight loss. All other review of systems negative. PHYSICAL EXAMINATION: CHEST: Scattered wheezes and rhonchi bilaterally. HEART: Regular, no murmurs. EXTREMITIES: No lower extremity edema, negative Homans sign. HEENT: No scleral icterus. NECK: No cervical lymphadenopathy. ABDOMEN: Soft, nondistended. There is mild discomfort in the epigastric region upon deep palpation. No peritoneal signs. No hernias. SKIN: Warm, dry. LABORATORY DATA: WBC 5.3, hemoglobin 12.2, hematocrit 32, platelets 165. BUN 3, creatinine 0.87. ASSESSMENT AND PLAN: A 61-year-old male with dysphagia, nausea, vomiting and diarrhea as well as medical noncompliance. He did have a significant stricture of the lower esophageal region as well as the pylorus and he has been noncompliant with medications lately and this may represent redevelopment as well as exacerbation of the strictures and we will schedule him for an EGD as well as likely a balloon dilatation of the distal esophagus as well as the pylorus. Job ID: [id number] DocumentID: [id number] Dictated Date: 02/07/2022 14:32:19 Head Paper Tester Date: 02/07/2022 19:13:00 Dictated By: MEL SHOEMAKER MD
[2022-02-07 19:31] VITALS: BP 112/71
[2022-02-07] MEDS: AMITRIPTYLINE 25 MG (ELAVIL) TAB PO SCH (21:02)
[2022-02-07] MEDS: SIMvastatin 20 MG (ZOCOR) TAB PO SCH (21:02)
[2022-02-08 00:37] VITALS: BP 99/59
[2022-02-08 04:36] VITALS: BP 111/61
[2022-02-08 07:44] VITALS: BP 113/73
[2022-02-08] MEDS: FLUoxetine HCL 20 MG (PROzac) CAP PO SCH (08:50)
[2022-02-08] MEDS: PANTOPRAZOLE 40 MG (PROTONIX) TAB PO SCH (08:50)
--- NOTE | 2022-02-08 09:25 | Physical Therapy Progress Note ---
Therapy Progress Note Patient declined PT stating,"I'm tired and I just want to sleep." PT may return to attempt later today 1 ref DANNIE PRETTY PT Feb 08, 2022 09:25
--- NOTE | 2022-02-08 11:05 | Cardiology Progress Note ---
Subjective Date Seen by Provider: Feb 08, 2022 Time Seen by Provider: 11:02 Subjective/Events-last exam Patient is laying down in bed, complaining of fatigue and loss of energy. No chest pain. Review of Systems General: No Chills, No Night Sweats; Fatigue, Malaise; No Appetite, No Other HEENT: No Head Aches, No Visual Changes, No Eye Pain, No Ear Pain, No Dysphasia, No Sinus Congestion, No Post Nasal Drip, No Sore Throat, No Other Pulmonary: No Dyspnea, No Cough, No Pleuritic Chest Pain, No Other Cardiovascular: No: Chest Pain, Palpitations, Orthopnea, Paroxysmal Noc. Dyspnea, Edema, Lt Headedness, Other Objective-Cardiology Exam Last Set of Vital Signs Vital Signs 02/06/22 02/08/22 11:11 07:44 Temp 36.4 Pulse 47 Resp 18 B/P (MAP) 113/73 (86) Pulse Ox 96 O2 Delivery Room Air O2 Flow Rate 0.00 I&O Intake and Output 02/08/22 00:00 Intake Total 4820 ml Output Total 2150 ml Balance 2670 ml Intake Oral 1320 ml IV Total 3500 ml Output Urine Total 2150 ml # Voids 2 # Bowel Movements 1 General: Alert, Oriented X3, Cooperative HEENT: Atraumatic, PERRLA Neck: Supple, No JVD, No Thyromegaly Lungs: Clear to Auscultation, Normal Air Movement Heart: Normal S1, Normal S2, No Murmurs, Other (Bradycardia) Abdomen: Soft, No Tenderness, No Hepatosplenomegaly, No Masses Extremities: No Clubbing, No Cyanosis, No Edema, Normal Pulses, No Tenderness/Swelling Skin: No Rashes, No Breakdown, No Significant Lesion Neuro: Normal Speech, Normal Tone, Sensation Intact Psych/Mental Status: Mental Status NL, Mood NL A/P-Cardiology Admission Diagnosis Gastroenteritis Weight loss Dyspnea Hypertension Assessment/Plan Gastroenteritis, nausea and vomiting, reporting improvement at this time, managed by medical team Status post work-up done at another facility which showed esophageal stricture and pyloric stricture, had multiple dilatation. Seen by Dr. Siegel Sinus bradycardia, patient has been on atenolol. Atenolol was stopped on February 04, 2022 Still bradycardic at this time, complaining of generalized fatigue I had a long discussion with the patient regarding the management plan, he might require a pacemaker in the future. I am concerned due to the fact that he is noncompliant. He has history of polysubstance abuse which increases his risk of endocarditis I still prefer conservative management until it is my last choice. Stress test was done in August 2020 showing no ischemia or infarction, EF 52%. Continue to monitor Dyspnea on exertion, chronic, probably due to COPD, still an active smoker. Continue to monitor Congestive heart failure, nonischemic cardiomyopathy, echocardiogram was done in August 2021 showing normal LV size with ejection fraction 55 to 65%, PA pr essure 25 mmHg. Continue to monitor Hypertension, monitor blood Hyperlipidemia maintained on simvastatin, I am not sure if he was taking his medication, I will evaluate lipid profile BMI 25, patient has significant weight loss recently. Managed by primary care physician COPD, high risk for sleep apnea, consider sleep study. Mild carotid stenosis, continue to monitor History of open cholecystectomy, had gallbladder surgery in the remote past Tobaccoism-educated on importance of smoking cessation. YESICA ACEVEDO MD Feb 08, 2022 11:05
[2022-02-08 11:34] VITALS: BP 136/84
[2022-02-08] MEDS: ENOXAPARIN 40 MG/0.4 ML (LOVENOX) SYR SQ SCH (12:13)
--- NOTE | 2022-02-08 14:00 | Progress Note - Hospitalist ---
Subjective HPI/CC On Admission Date Seen by Provider: Feb 08, 2022 Time Seen by Provider: 09:30 Patient 61-year-old male with past medical history of atrial fibrillation, hyperlipidemia, hypertension, COPD, polysubstance abuse who presented to the emergency department due to nausea and vomiting. He states it started yesterday with nausea vomiting and progressed to diarrhea. He denies any black or bloody stools. His last bowel movement was yesterday afternoon. He vomited total 3 or 4 times and felt quite weak. He decided to seek evaluation in the emergency room where he was found incidentally to be bradycardic. His heart rate was 40 on arrival and remained in the 40s. This morning he states he is feeling better. He no longer has nausea. He is currently getting an echo while I am in the room. Subjective/Events-last exam He is feeling well. He has been tolerating the clear liquid diet without issue. He has not had any nausea or vomiting. He denies lightheadedness and dizziness. He denies chest pain. Objective Exam Vital Signs Vital Signs Date Time Temp Pulse Resp B/P (MAP) Pulse Ox O2 Delivery O2 Flow Rate FiO2 02/08/22 13:00 59 02/08/22 11:34 36.1 18 136/84 (101) 97 Room Air 02/06/22 11:11 0.00 Capillary Refill : Less Than 3 Seconds General Appearance: No Apparent Distress, WD/WN Respiratory: Lungs Clear, No Respiratory Distress Cardiovascular: Regular Rate, Rhythm, No Murmur Gastrointestinal: Normal Bowel Sounds, Soft Extremity: Normal Inspection, No Pedal Edema Neurologic/Psychiatric: Alert, Normal Mood/Affect Skin: Normal Color, Warm/Dry Results/Procedures Lab Patient resulted labs reviewed. Imaging: Reviewed Imaging Report Assessment/Plan Assessment and Plan Assess & Plan/Chief Complaint Bradycardia Generalized weakness pAF Holding Atenolol Cardiology following PT/OT Echo revealed EF of 55% Esophageal stricture Zofran prn Continue PPI Replace electrolytes prn Surgery consulted, planning for endoscopy this hospital stay Seizure disorder Continue Keppra switch to IV as he is vomiting again DVT ppx: Lovenox Nausea and vomiting, resolved Hypokalemia, resolved Hypomagnesemia, resolved Diagnosis/Problems Diagnosis/Problems (1) Esophageal stricture Status: Acute (2) Symptomatic bradycardia Status: Acute (3) Generalized weakness Status: Acute (4) Seizure disorder Status: Acute CM HUGO MD Feb 08, 2022 14:00
[2022-02-08 16:00] VITALS: BP 110/71
--- NOTE | 2022-02-08 17:57 | Progress Note ---
Subjective Date Seen by a Provider: Feb 08, 2022 Time Seen by a Provider: 18:00 Subjective/Events-last exam doing ok. tolerating clears however continues to have issues with solids. hx of dist esoph and pyloric stricture identified 12/08. Objective Exam Vital Signs Date Time Temp Pulse Resp B/P (MAP) Pulse Ox O2 Delivery O2 Flow Rate FiO2 02/08/22 16:00 36.4 51 18 110/71 (84) 94 Room Air 02/08/22 13:00 59 02/08/22 11:34 36.1 70 18 136/84 (101) 97 Room Air 02/08/22 08:00 96 Room Air 02/08/22 07:44 36.4 47 18 113/73 (86) 96 Room Air 02/08/22 04:36 36.5 38 17 111/61 (78) 95 Room Air 02/08/22 01:00 50 02/08/22 00:37 36.7 48 17 99/59 (72) 98 Room Air 02/07/22 22:36 Room Air 02/07/22 19:31 35.9 51 18 112/71 (85) 95 Room Air 02/07/22 19:25 Room Air 02/07/22 19:00 53 I & O 02/08/22 07:00 Intake Total 4120 ml Output Total 3900 ml Balance 220 ml Capillary Refill : Less Than 3 Seconds General Appearance: No Apparent Distress HEENT: PERRL/EOMI Neck: Full Range of Motion Respiratory: Chest Non Tender, Lungs Clear Cardiovascular: Regular Rate, Rhythm Gastrointestinal: normal bowel sounds, soft Extremity: Normal Capillary Refill Neurologic/Psychiatric: Alert, Oriented x3 Skin: Normal Color Lymphatic: No Adenopathy Assessment/Plan Assessment/Plan Assess & Plan/Chief Complaint dysphagia with hx severe dist esoph stricture and moderate pyloric stricture. will plan on EGD and dilatation of the 2 strictured areas in am tomorrow. MEL SHOEMAKER MD Feb 08, 2022 17:57
--- NOTE | 2022-02-08 17:58 | Progress Note-Pre Operative ---
Pre-Operative Progress Note H&P Reviewed The H&P was reviewed, patient examined and no changes noted. Date Seen by Provider: Feb 08, 2022 Time Seen by Provider: 18:00 Date H&P Reviewed: Feb 08, 2022 Time H&P Reviewed: 18:00 Pre-Operative Diagnosis: dysphagia with hx esoph and pyloric stricture MEL SHOEMAKER MD Feb 08, 2022 17:58
[2022-02-08] MEDS: SIMvastatin 20 MG (ZOCOR) TAB PO SCH (19:59)
[2022-02-08 20:00] VITALS: BP 123/71
[2022-02-08] MEDS: AMITRIPTYLINE 25 MG (ELAVIL) TAB PO SCH (21:26)
[2022-02-08] MEDS: RT--FLUTICASONE/SALMETEROL 232-14 (AIRDUO RespiCLICK) IH SCH (21:54)
[2022-02-09] VITALS (9 sets, daily range): BP systolic 95–134; BP diastolic 56–82
[2022-02-09 06:42] LABS: CALCIUM 8.3 MG/DL (8.5-10.1); CREATININE SERUM 0.85 MG/DL (0.60-1.30); POTASSIUM 3.6 MMOL/L (3.6-5.0)
[2022-02-09] MEDS: PANTOPRAZOLE 40 MG (PROTONIX) TAB PO SCH (08:28)
[2022-02-09] MEDS: FLUoxetine HCL 20 MG (PROzac) CAP PO SCH (08:29)
--- NOTE | 2022-02-09 08:45 | Cardiology Progress Note ---
Subjective Date Seen by Provider: Feb 09, 2022 Time Seen by Provider: 08:15 Subjective/Events-last exam Patient asleep in bed, easily awakens to answer questions. Denies any chest pain or dyspnea. Objective-Cardiology Exam Last Set of Vital Signs Vital Signs 02/09/22 02/09/22 13:30 14:17 Temp 35.8 Pulse 53 Resp 18 B/P (MAP) 134/82 (99) Pulse Ox 97 O2 Delivery Room Air O2 Flow Rate 10 I&O Intake and Output 02/09/22 00:00 Intake Total 2350 ml Output Total 3150 ml Balance -800 ml Intake Oral 1850 ml IV Total 500 ml Output Urine Total 3150 ml # Bowel Movements 1 General: Alert, Oriented X3, Cooperative HEENT: Atraumatic, PERRLA Neck: Supple, No JVD, No Thyromegaly Lungs: Clear to Auscultation, Normal Air Movement Heart: Normal S1, Normal S2, No Murmurs, Other (Bradycardia) Abdomen: Soft, No Tenderness, No Hepatosplenomegaly, No Masses Extremities: No Clubbing, No Cyanosis, No Edema, Normal Pulses, No Tenderness/Swelling Skin: No Rashes, No Breakdown, No Significant Lesion Neuro: Normal Speech, Normal Tone, Sensation Intact Psych/Mental Status: Mental Status NL, Mood NL Results Lab Laboratory Tests 02/09/22 05:43 A/P-Cardiology Admission Diagnosis Gastroenteritis Weight loss Dyspnea Hypertension Assessment/Plan Gastroenteritis, nausea and vomiting, reporting improvement at this time, managed by medical team Status post work-up done at another facility which showed esophageal stricture and pyloric stricture, had multiple dilatation. Seen by Dr. Siegel Sinus bradycardia, patient has been on atenolol. Atenolol was stopped on February 04, 2022 Still bradycardic at this time, complaining of generalized fatigue, denies any dizziness I had a long discussion with the patient regarding the management plan, he might require a pacemaker in the future. I am concerned due to the fact that he is noncompliant. He has history of polysubstance abuse which increases his risk of endocarditis Still prefer conservative management until it is my last choice. Stress test was done in August 2020 showing no ischemia or infarction, EF 52%. Continue to monitor Dyspnea on exertion, chronic, probably due to COPD, still an active smoker. Continue to monitor Congestive heart failure, nonischemic cardiomyopathy, echocardiogram was done in August 2021 showing normal LV size with ejection fraction 55 to 65%, PA pressure 25 mmHg. Continue to monitor Hypertension, monitor blood pressure. Hyperlipidemia maintained on simvastatin, I am not sure if he was taking his medication, I will evaluate lipid profile BMI 25, patient has significant weight loss recently. Managed by primary care physician COPD, high risk for sleep apnea, consider sleep study. Mild carotid stenosis, continue to monitor History of open cholecystectomy, had gallbladder surgery in the remote past Tobaccoism-educated on importance of smoking cessation. Supervisory-Addendum Brief Supervisory Addendum Participated in pt care: history, MDM, physical Personally performed: exam, history, MDM Care discussed with: HONEY Results interpretation: Verified all documentation Notes: Patient was seen and evaluated with Niranjan, examination performed, management plan was discussed, agree with the current scribed note, I made few changes to the note using Italic font Patient was seen at bedside, laying down comfortably Scheduled for endoscopy and esophageal dilation Heart rate is slightly better Continue to monitor NIRANJAN OLIVER Feb 09, 2022 08:45 YESICA ACEVEDO MD Feb 09, 2022 15:56
[2022-02-09] MEDS: RT--FLUTICASONE/SALMETEROL 232-14 (AIRDUO RespiCLICK) IH SCH (09:19)
--- NOTE | 2022-02-09 09:51 | Physical Therapy Daily Note ---
PT Daily Note-Current Subjective Pt agrees to PT. Pt complains of hip pain while performing EX. Mental Status Patient Orientation: Normal For Age Transfers SCALE: Activities may be completed with or without assistive devices. 8-Kzcqfteufm-hwmwlmd completes the activity by him/herself with no assistance from a helper. 5-Set-up or Clean-up Assistance-helper sets up or cleans up; patient completes activity. [place] assists only prior to or following the activity. 4-Supervision or Touching Assistance-helper provides verbal cues and/or touching/steadying and/or contact guard assistance as patient completes activity. Assistance may be provided throughout the activity or intermittently. 3-Partial/Moderate Assistance-helper does LESS THAN HALF the effort. [place] lifts, holds or supports trunk or limbs, but provides less than half the effort. 2-Substantial/Maximal Assistance-helper does MORE THAN HALF the effort. [place] lifts or holds trunk or limbs and provides more than half the effort. 9-Deavuopje-jwzoap does ALL the effort. Patient does none of the effort to complete the activity. Or, the assistance of 2 or more helpers is required for the patient to complete the activity. If activity was not attempted, code reason: 7-Patient Refused. 9-Not Applicable-not attempted and the patient did not perform the activity before the current illness, exacerbation or injury. 10-Not Attempted due to Environmental Limitations-(lack of equipment, weather restraints, etc.). 88-Not Attempted due to Medical Conditions or Safety Concerns. Roll Left & Right (QC): 4 Sit to Lying (QC): 4 Lying to Sitting/Side of Bed(Q: 4 Sit to Stand (QC): 4 Chair/Kxf-pf-Hzhxv Xfer(QC): 4 Gait Training Does the Patient Walk?: Yes Distance: 250' Walk 10 feet (QC): 4 Walk 50 ft with 2 Turns(QC): 4 Walk 150 ft (QC): 4 Gait Persons Needed: 1 Gait Assistive Device: FWW Wheelchair Training Does the Pt Use a Wheelchair?: No Exercises Supine Ex: Ankle pumps, Quad Set, Glut sets, Heel Slides, Straight leg raise, Hip abd/add Supine Reps: 12 Seated Therapy Exercises: Ankle pumps, Sit to stand, Long arc quads, Hip flexion, Hip abd/add, Glut set Seated Reps: 12 Assessment Current Status: Good Progress Pt performs EX with ease and has no LOB while amb. Pt laying in bed with all needs met, call light in hand. PT Senior Electronics Engineer Goals Shelter Goals PT Senior Electronics Engineer Goals Time Frame: Feb 13, 2022 Roll Left & Right (QC): 6 Sit to Lying (QC): 6 Lying-Sitting on Side/Bed(QC): 6 Sit to Stand (QC): 6 Chair/Hvp-bm-Vurdn Xfer(QC): 6 Toilet Transfer (QC): 6 Walk 10 feet (QC): 6 Walk 50ft with 2 Turns (QC): 6 Walk 150 ft (QC): 6 PT Plan Treatment/Plan Treatment Plan: Continue Plan of Care Treatment Plan: Bed Mobility, Education, Functional Activity Shannon, Functional Strength, Gait, Safety, Therapeutic Exercise, Transfers Treatment Duration: Feb 13, 2022 Frequency: 6 times per week Estimated Hrs Per Day: .25 hour per day Patient and/or Family Agrees t: Yes Time/GCodes Time In: 850 Time Out: 913 Total Billed Treatment Time: 23 Total Billed Treatment 1, EX (13 min) GT (10 min) DANNIE PRETTY PT Feb 09, 2022 09:51
[2022-02-09] MEDS ORDERED: LACTATED RINGERS 1,000 ML IV STA (12:41)
[2022-02-09] MEDS ORDERED: MIDAZOLAM 2 MG/2 ML (VERSED) VIAL ONE (12:45)
[2022-02-09] MEDS ORDERED: HURRICAINE EXT TUBE (BENZOCAINE) XX PRN (12:45)
[2022-02-09] MEDS ORDERED: PROPOFOL INJECTION 50 ML IV ONE (12:46)
[2022-02-09] MEDS ORDERED: HURRICAINE EXT TUBE (BENZOCAINE) ONE (12:51)
[2022-02-09] MEDS ORDERED: LIDOCAINE JELLY 2% 6 ML SYRINGE ONE (12:51)
[2022-02-09] MEDS ORDERED: LIDOCAINE JELLY 2% 6 ML SYRINGE TOP ONE (13:15)
[2022-02-09] MEDS: ENOXAPARIN 40 MG/0.4 ML (LOVENOX) SYR SQ SCH (13:30)
--- NOTE | 2022-02-09 13:45 | Progress Note-Post Operative ---
Post-Operative Progess Note Surgeon (s)/Quarrying Specialist (s) Surgeon MEL SHOEMAKER MD Quarrying Specialist: none Pre-Operative Diagnosis dysphagia with hx esoph and pyloric stricture Post-Operative Diagnosis reflux esophagitis(grade D), severe distal esophageal stricture, moderate HH(4cm), moderate pyloric stricture. Procedure & Operative Findings Date of Procedure 02/09/22 Procedure Performed/Findings EGD with bx and balloon dilatation x2. Anesthesia Type mac Estimated Blood Loss Estimated blood loss (mL): minimal Specimens/Packing Specimens Removed ge jxn, antrum MEL SHOEMAKER MD Feb 09, 2022 13:45
--- NOTE | 2022-02-09 13:47 | Discharge Inst-Surgical ---
D/C Lap Instructions-SAHARA Follow Up Appt in 4 weeks Activity as tolerated High Fiber Diet 25g or more per day Avoid Alcohol, Caffeine, Spicy [place] and Acid foods. Drink 64 fluid oz or more of fluids per day. Symptoms to Report: Fever over 101 degree F, Nausea/Vomiting If any problems/questions: Contact your physician or go to Emergency Room MEL SHOEMAKER MD Feb 09, 2022 13:47
--- NOTE | 2022-02-09 14:47 | Discharge Summary ---
Discharge Summary Hospital Course Was the Problem List Reviewed?: Yes Problems/Dx: (1) Esophageal stricture Status: Acute (2) Symptomatic bradycardia Status: Acute (3) Generalized weakness Status: Acute (4) Seizure disorder Status: Acute Hospital Course Date of Admission: Feb 04, 2022 at 04:40 Admission Diagnosis : Bradycardia Family Physician/Provider: Santana Mckenna MD Date of Discharge: 02/09/22 Discharge Diagnosis: Esophageal stricture, bradycardia Hospital Course: Zeus Carrasco is a 61 year old male who was admitted with bradycardia. Cardology was consulted and assisted with his care. His Atenolol was discontinued. His bradycardia improved and he was asymptomatic. His course was complicated by nausea and vomiting. Surgery was consulted and performed EGD with balloon dilatation. He had a known esophageal structure. He was debilitated but refused skilled placement and home health. He was discharged home in stable condition. Labs and Pending Lab Test: Laboratory Tests 02/08/22 18:38: SARS-CoV-2 RNA (RT-PCR) Not Detected 02/09/22 05:43: Sodium Level 143, Potassium Level 3.6, Chloride Level 105, Carbon Dioxide Level 24, Anion Gap 14, Blood Urea Nitrogen 4L, Creatinine 0.85, Estimat Glomerular Filtration Rate 98, BUN/Creatinine Ratio 5, Glucose Level 75, Calcium Level 8.3L Home Meds Active Reported Pantoprazole Sodium 20 Mg Tablet.dr 20 Mg PO BID Zolpidem Tartrate 5 Mg Tablet 5 Mg PO HS LAST FILLED 01-04-2022 #12 DAY SUPPLY Simvastatin 20 Mg Tablet 20 Mg PO HS LAST FILLED 12-09-2021 #17 DAY SUPPLY Proair Hfa (Albuterol Sulfate) 1 Puff Puff 2 Puff IH Q4H PRN Potassium Chloride 10 Meq Capsule.er 10 Meq PO DAILY LAST FILLED 12-18-2021 # DAY SUPPLY Levetiracetam 1,000 Mg Tablet 1,000 Mg PO BID Lasix (Furosemide) 20 Mg Tablet 20 Mg PO DAILY LAST FILLED 12-20-2021 # DAY SUPPLY Fluoxetine HCl 40 Mg Capsule 40 Mg PO DAILY LAST FILLED 12-09-2021 # DAY SUPPLY Clonazepam 0.5 Mg Tablet 0.5 Mg PO TID LAST FILLED 01-04-2022 # DAY SUPPLY Amitriptyline HCl 75 Mg Tablet 75 Mg PO HS LAST FILLED 12-09-2021 # DAY SUPPLY Advair 500-50 Diskus (Fluticasone/Salmeterol) 1 Each Blst.w.dev 1 Each IH BID LAST FILLED 08-28-2021 #11/15 DAY SUPPLY Assessment/Pt Instructions Take medications as prescribed. Follow up with your PCP. Return with intractable nausea and vomiting, lightheadeness/dizziness, of if you feel like you are getting worse. Discharge Planning: >30 minutes discharge planning Discharge Instructions Discharge Diet: No Restrictions Activity as Tolerated: Yes Consultations Surgery Discharge Physical Examination Vital Signs Vital Signs Date Time Temp Pulse Resp B/P (MAP) Pulse Ox O2 Delivery O2 Flow Rate FiO2 02/09/22 14:17 35.8 53 18 134/82 (99) 97 Room Air 02/09/22 13:30 10 General Appearance: No Apparent Distress, WD/WN Respiratory: Lungs Clear, No Respiratory Distress Cardiovascular: Regular Rate, Rhythm, No Murmur Gastrointestinal: Normal Bowel Sounds, Soft Extremity: Normal Inspection, No Pedal Edema Skin: Normal Color, Warm/Dry Neurologic/Psychiatric: Alert, Normal Mood/Affect Allergies: Coded Allergies: Sulfa (Sulfonamide Antibiotics) (Unverified Allergy, Unknown, GETS SICK, 09/13/18) meperidine (Unverified Allergy, Unknown, PSYCHOTIC EVENTS WITH REGRADER DEMEROL, 09/13/18) Discharge Summary Date of Admission Feb 04, 2022 at 04:40 Date of Discharge Discharge Date: Feb 09, 2022 Discharge Time: 14:42 Admission Diagnosis Bradycardia Consults/Procedures Consulations Surgery Procedures EGD with balloon dilatation Discharge Diagnosis Esophageal stricture Bradycardia Generalized weakness AFib (1) Esophageal stricture Status: Acute (2) Symptomatic bradycardia Status: Acute (3) Generalized weakness Status: Acute (4) Seizure disorder Status: Acute MC HUGO MD Feb 09, 2022 14:41
--- NOTE | 2022-02-09 14:49 | Anesthesia-General Post-Op ---
MAC Patient Condition Mental Status/LOC: Same as Preop Cardiovascular: Satisfactory Nausea/Vomiting: Absent Respiratory: Satisfactory Pain: Controlled Complications: Absent Post Op Complications Complications None Follow Up Care/Instructions Patient Instructions None needed. Anesthesiology Discharge Order Discharge Order Patient is doing well, no complaints, stable vital signs, no apparent adverse anesthesia problems. No complications reported per nursing. KINZA PAZ CRNA Feb 09, 2022 14:49
--- NOTE | 2022-02-09 16:33 | OPERATIVE REPORT ---
DATE OF SERVICE: 02/09/2022 ATTENDING PRIMARY CARE PHYSICIAN: Dr. Elia Aguirre. PREOPERATIVE DIAGNOSIS: Dysphagia with known history of esophageal as well as pyloric strictures. POSTOPERATIVE DIAGNOSES: Reflux esophagitis, Hunt grade D with a severe distal esophageal stricture. Moderate size hiatal hernia, 4 cm in size, moderate gastritis, and moderate pyloric stenosis. No distal obstructions. PROCEDURES PERFORMED: EGD with biopsy and balloon dilatation x2. SURGEON: Mel Shoemaker MD. ANESTHESIA: Monitored anesthesia care. ESTIMATED BLOOD LOSS: Minimal. FINDINGS: Reflux esophagitis, Hunt grade D with a severe distal esophageal stricture. Moderate size hiatal hernia, 4 cm in size, moderate gastritis, and moderate pyloric stenosis. No distal obstructions. DISPOSITION: The patient tolerated the procedure well. INDICATION FOR PROCEDURE: The patient is a 61-year-old male known to us. He has a history of gastroesophageal reflux disease, which progressively worsened to dysphagia and recurrent episodes of substernal pressure sensation as well as regurgitation. He underwent an EGD 11/2021 and was found to have a significant stricture of the distal esophagus and we were only able to dilate to 13.5 mm in luminal diameter. He was also found to have a hiatal hernia as well as a pyloric stricture; however, no formal ulcerations. He was started on medical management as well; however, has been noncompliant with medications. He returned with a recurrent dysphagia and regurgitation. DESCRIPTION OF PROCEDURE: The patient was brought to the endoscopy suite and laid in the left lateral decubitus position. After adequate IV pain and sedative medications and monitored anesthesia care, the mouthpiece was applied. The endoscope was placed in the mouth, visualizing the pharynx and the hypopharyngeal region. Vocal cords, epiglottis and vallecula identified and appeared to be normal. The endoscope was then gently intubated. The esophageal opening and esophagus insufflated. The endoscope was then advanced of the first, second and third portion of the esophagus. At the level of the GE junction, severe reflux esophagitis, Hunt grade D was identified. A significant distal esophageal stricture was also identified. A biopsy was taken with forceps with visualization of good hemostasis. With slow gentle pressure of the gastroscope, we were able to get past the stricture and the endoscope retroflexed, visualizing a moderate-sized hiatal hernia approximately 4 cm in size. There was a moderate severity gastritis. A pyloric stricture was also identified. The endoscope was easily intubated through the pyloric stricture and the endoscope advanced into the first and second portion of the duodenum, which appeared normal with no distal obstructions. A biopsy was taken of the antrum to rule out H. pylori with visualization of good hemostasis. We then proceeded with balloon dilatation of the pyloric stricture by placing the balloon into the duodenum and pulling it back to the area of the stricture. We then proceeded in a graded stepwise fashion from 2, 4, and then 6 atmospheres of pressure or 20 mm in luminal diameter with moderate resistance and left this in place for approximately 60 seconds. The balloon was then desufflated and removed with visualization and good hemostasis as well as no mucosal tears. The second balloon was placed in the stomach and pulled back to the area of the esophageal stricture. We then proceeded in a grade ulloa fashion from 2, 4 and 6 atmospheres of pressure or 15 mm in luminal diameter with moderate resistance and left this in place for approximately 60 seconds. The balloon was then desufflated and removed with visualization and good hemostasis as well as no mucosal tears. Endoscope was then slowly withdrawn while taking a second look and suctioning of residual air with no additional findings. The patient tolerated the procedure well. We will recommend the necessary lifestyle and dietary accommodations including small and more frequent meals, avoidance of eating at night as well as head elevation while lying supine. 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 Due to the severity of his esophageal stricture, we will recommend follow up in four weeks to continue with dilatation until we reach approximately 20 mm in luminal diameter. Job ID: [id number] DocumentID: [id number] Dictated Date: 02/09/2022 13:29:52 Drain Tiler Date: 02/09/2022 16:32:43 Dictated By: MEL SHOEMAKER MD
== END 2022-02-09 17:22 | disposition home or self-care (01) | DRG 392 ==
LOC: EDUNIT# 23:41 → ER 23:42 → 4TH 02-04 04:40 → EDLOC 02-04 04:40
PROVIDERS: ADMIT Internal Medicine; ATTEND Internal Medicine
PROC: 0D778ZZ Dilation of Stomach, Pylorus, Via Natural or Artificial Opening Endoscopic (ICD-10-PCS; 2022-02-09)
PROC: 0DB48ZX Excision of Esophagogastric Junction, Via Natural or Artificial Opening Endoscopic, Diagnostic (ICD-10-PCS; 2022-02-09)
PROC: 0DB78ZX Excision of Stomach, Pylorus, Via Natural or Artificial Opening Endoscopic, Diagnostic (ICD-10-PCS; 2022-02-09)
PROC: 0D738ZZ Dilation of Lower Esophagus, Via Natural or Artificial Opening Endoscopic (ICD-10-PCS; principal; 2022-02-09 12:50)
DX: K22.2 Esophageal obstruction (principal); E46 Unspecified protein-calorie malnutrition; I42.9 Cardiomyopathy, unspecified; K31.1 Adult hypertrophic pyloric stenosis; I49.5 Sick sinus syndrome; Z68.25 Body mass index [BMI] 25.0-25.9, adult; E87.6 Hypokalemia; E83.51 Hypocalcemia; Z20.822 Contact with and (suspected) exposure to COVID-19; E83.42 Hypomagnesemia; I48.0 Paroxysmal atrial fibrillation; G40.909 Epilepsy, unspecified, not intractable, without status epilepticus; I11.0 Hypertensive heart disease with heart failure; I50.9 Heart failure, unspecified; K44.9 Diaphragmatic hernia without obstruction or gangrene; K21.00 Gastro-esophageal reflux disease with esophagitis, without bleeding; F17.210 Nicotine dependence, cigarettes, uncomplicated; J44.9 Chronic obstructive pulmonary disease, unspecified; E78.00 Pure hypercholesterolemia, unspecified; Z86.16 Personal history of COVID-19; Z91.19 Patient's noncompliance with other medical treatment and regimen; Z88.5 Allergy status to narcotic agent; Z88.2 Allergy status to sulfonamides
CPT/HCPCS: 36415; 51702; 70450; 71045; 71275; 72125; 72128; 72131; 74177; 80048; 80053; 80306; 80320; 80329; 81000; 82140; 82150; 82550; 82553; 82947; 83690; 83735; 83874; 83880; 84443; 84484; 85025; 85027; 85610; 85730; 87081; 87636; 93005; 93041; 93306; 94640; 94760

== ENCOUNTER 2022-02-24 05:35 | Outpatient (CLI) | payer MEDICAID ==
[~2022-02-24] VITALS: Ht 170.2 cm; Wt 56.7 kg
== END 2022-02-24 16:34 | disposition home or self-care (01) ==
LOC: PREOP 05:35
PROVIDERS: ATTEND Surgery
DX: Z01.818 Encounter for other preprocedural examination (principal)

== ENCOUNTER 2022-03-03 09:45 | Day surgery (SDC) | payer MEDICAID ==
--- NOTE | 2022-02-24 08:59 | HISTORY AND PHYSICAL ---
DATE OF SERVICE: DATE OF ADMISSION: 03/03/2022. HISTORY OF PRESENT ILLNESS: The patient is a 61-year-old male known to us. He developed dysphagia as well as nausea and vomiting. He has an extensive past medical history including atrial fibrillation, hypertension, hyperlipidemia, and COPD as well as a history of polysubstance abuse. We had done an EGD on him on 11/25/2021 and was found to have a significant distal esophageal stricture as well as a moderate size hiatal hernia, 3 cm in size and a small pyloric ulcer, not actively bleeding. There was also a pyloric stricture. We were able to dilate to the esophageal stricture, initially to 13.5 mm and the pylorus to 18.5 mm. He had recurrence of dysphagia and underwent a more recent EGD on 02/04/2022 and again found to have a significant stricture, especially at the esophagus. At this time, we were able to dilate to 15 mm of the esophagus and to 20 mm at the pyloric stricture. It was recommended that he proceed with a graded dilatation of the lower esophageal sphincter stricture to a goal of 20 mm due to his high frequency of recurrent symptoms and we will schedule him for an EGD and balloon dilatation. PAST MEDICAL HISTORY: Atrial fibrillation, hypercholesterolemia, hypertension, asthma, COPD, degenerative joint disease, gout, depression, and history of polysubstance abuse. PAST SURGICAL HISTORY: Tonsillectomy and laparoscopic cholecystectomy. ALLERGIES: SULFA and MEPERIDINE. MEDICATIONS: Albuterol 1 puff q.4 hours p.r.n., amitriptyline 75 mg daily, atenolol 50 mg daily, clonazepam 0.5 mg daily, fluoxetine 40 mg daily, Advair Diskus b.i.d., furosemide 20 mg daily, levetiracetam 1000 mg b.i.d., Protonix 40 mg daily, simvastatin 40 mg daily, potassium 20 mEq daily, and zolpidem 5 mg each day at bedtime. SOCIAL HISTORY: Positive smoke, states that he did drink heavily in the past; however, quit recently. He also states previous illicit drug use; however, none now. FAMILY HISTORY: Noncontributory. REVIEW OF SYSTEMS: A well-nourished male currently in no acute distress. He is not experiencing any shortness of breath or difficulty breathing. No chest pain, palpitations, diaphoresis. Intermittent episodes of dysphagia, especially for specific types of foods, no deena episodes of vomiting. No hematemesis, no coffee ground emesis. No known diarrhea, nor constipation, no red blood per rectum, and no dark tarry stools. No fever, chills, no recent inadvertent weight loss. All other review of systems negative. PHYSICAL EXAMINATION: VITAL SIGNS: Blood pressure 120/70, pulse 54, and respirations 18. CHEST: Scattered wheezes and rhonchi bilaterally. HEART: Regular and no murmurs. EXTREMITIES: No lower extremity edema and negative Homans sign. HEENT: No scleral icterus. NECK: No cervical lymphadenopathy. ABDOMEN: Soft and nondistended with mild discomfort in the epigastric region. SKIN: Warm and dry. ASSESSMENT AND PLAN: A 61-year-old male with severe symptomatic esophageal stricture as well as a pyloric stricture. We will proceed with graded dilatation of both strictures. He will also need to continue with medical management and lifestyle compliance. Job ID: [id number] DocumentID: [id number] Dictated Date: 02/20/2022 09:58:04 Education Program Coordinator Date: 02/20/2022 11:33:13 Dictated By: MEL SHOEMAKER MD
[~2022-03-03] VITALS: Ht 170 cm; Wt 56.7 kg
[2022-03-03] MEDS ORDERED: LACTATED RINGERS 1,000 ML IV STA (09:47)
[2022-03-03] MEDS ORDERED: LACTATED RINGERS 1,000 ML IV ONE (09:50)
[2022-03-03 09:57] VITALS: BP 119/86
[2022-03-03] MEDS ORDERED: LIDOCAINE JELLY 2% 6 ML SYRINGE MM PRN (10:00)
[2022-03-03] MEDS ORDERED: HURRICAINE EXT TUBE (BENZOCAINE) XX PRN (10:00)
[2022-03-03] MEDS ORDERED: PROPOFOL INJECTION 50 ML IV ONE (10:13)
[2022-03-03 10:41] LABS: AMPHETAMINE SCREEN, URINE NEGATIVE (NEGATIVE); BARBITURATE SCREEN URINE NEGATIVE (NEGATIVE); BENZODIAZEPINES SCREEN URINE NEGATIVE (NEGATIVE); CANNABINOID SCREEN, URINE NEGATIVE (NEGATIVE); COCAINE SCREEN URINE NEGATIVE (NEGATIVE); METHADONE STAT NEGATIVE (NEGATIVE); OPIATE SCREEN URINE NEGATIVE (NEGATIVE); OXYCODONE STAT NEGATIVE (NEGATIVE); PROPOXYPHENE STAT NEGATIVE (NEGATIVE); TRICYCLIC ANTIDEPRESSANTS SCRE POSITIVE (NEGATIVE)
--- NOTE | 2022-03-03 10:43 | Progress Note-Pre Operative ---
Pre-Operative Progress Note H&P Reviewed The H&P was reviewed, patient examined and no changes noted. Date Seen by Provider: March 03, 2022 Time Seen by Provider: 10:00 Date H&P Reviewed: March 03, 2022 Time H&P Reviewed: 10:00 Pre-Operative Diagnosis: dysphagia MEL SHOEMAKER MD March 03, 2022 10:43
[2022-03-03] MEDS ORDERED: ONDANSETRON 4 MG (ZOFRAN) ORAL DISSOLVE TAB PO PRN (10:45)
[2022-03-03] MEDS ORDERED: ONDANSETRON 4 MG/2 ML (SDV) Z0FRAN IVP PRN (10:45)
--- NOTE | 2022-03-03 10:45 | Discharge Inst-Surgical ---
D/C Lap Instructions-SAHARA Follow Up 4 weeks Activity as tolerated High Fiber Diet 25g or more per day Avoid Alcohol, Caffeine, Spicy [place] and Acid foods. Drink 64 fluid oz or more of fluids per day. Symptoms to Report: Fever over 101 degree F, Nausea/Vomiting If any problems/questions: Contact your physician or go to Emergency Room MEL SHOEMAKER MD March 03, 2022 10:45
[2022-03-03 12:05] VITALS: BP 126/84
[2022-03-03 12:10] VITALS: BP 123/89
[2022-03-03 12:15] VITALS: BP 118/84
[2022-03-03 12:20] VITALS: BP 120/86
--- NOTE | 2022-03-03 12:21 | Progress Note-Post Operative ---
Post-Operative Progess Note Surgeon (s)/Head Of It (s) Surgeon MEL SHOEMAKER MD Head Of It: none Pre-Operative Diagnosis dysphagia Post-Operative Diagnosis severe, recurrent esophageal and pyloric stricture. reflux esophagitis(grade D), severe dist esoph stricture and moderate pyoric stricture, mod-severe gasrtitis, large HH(5cm). Procedure & Operative Findings Date of Procedure 03/03/22 Procedure Performed/Findings EGD with dilatation lower esophageal stricture and pyloric stricture. Anesthesia Type mac Estimated Blood Loss Estimated blood loss (mL): minimal Specimens/Packing Specimens Removed none MEL SHOEMAKER MD March 03, 2022 12:21
[2022-03-03 13:00] VITALS: BP 128/85
--- NOTE | 2022-03-03 19:54 | OPERATIVE REPORT ---
DATE OF SERVICE: 03/03/2022 ATTENDING PRIMARY CARE PHYSICIAN: Dr. Santana Mckenna. PREOPERATIVE DIAGNOSES: Severe symptomatic dysphagia and history of esophageal and pyloric stricture. POSTOPERATIVE DIAGNOSES: Severe distal esophageal stricture, large hiatal hernia 5 cm in size, moderate to severe gastritis, pyloric stricture. No ulcerations, no bleeding. PROCEDURE: EGD with balloon dilatation of the distal esophagus and pylorus. SURGEON: Mel Shoemaker MD ANESTHESIA: Monitored anesthesia care. ESTIMATED BLOOD LOSS: Minimal. FINDINGS: Severe distal esophageal stricture, large hiatal hernia 5 cm in size, moderate to severe gastritis, pyloric stricture. No ulcerations, no bleeding. DISPOSITION: The patient tolerated the procedure well. INDICATIONS: The patient is a 61-year-old male known to us. He developed dysphagia and nausea and vomiting. He has an extensive past medical history including atrial fibrillation, hypertension, hyperlipidemia, COPD as well as a history of polysubstance abuse and currently does smoke and also states a history of drinking alcohol heavily in the past; however, quit recently. We have been doing graded dilatation associated with the distal esophagus. Initially, we were able to get to 13.5 mm; however, on the second EGD to 15 mm. We were able to get the pylorus from 18.5 mm to 20 mm. He again has continued symptomatic dysphagia. DESCRIPTION OF PROCEDURE: The patient was brought to the endoscopy suite, laid in left lateral decubitus position. After adequate IV pain and sedative medications and monitored anesthesia care, the mouthpiece was applied. The endoscope was placed in the mouth, visualizing the pharynx and hypopharyngeal region. Vocal cords, epiglottis and vallecula identified and appeared to be normal. Endoscope was then gently abated; the esophageal opening and esophagus insufflated. The endoscope was then advanced to the first, second and third portion of esophagus at the level of the GE junction, reflux esophagitis, [place] grade D identified with severe distal esophageal stricture. The endoscope was attempted to pass; however, there was a resistance. We then proceeded with a dilatation of distal esophageal stricture and the medium size balloon was placed through the area of the stricture without any resistance and we proceeded in a graded ulloa systematic fashion with dilatation. We first proceeded with 2 atmospheres of pressure with mild to moderate resistance. We were then able to go slowly to 3.5 atmospheres of pressure or approximately 16 mm in luminal diameter with significant resistance and left this in place for 60 seconds. The balloon was desufflated and removed with visualization of good hemostasis as well as no mucosal tears as well as successful dilatation. The endoscope was then advanced into the stomach and the endoscope retroflexed, visualizing a large hiatal hernia 5 cm in size. There was a moderate to severe diffuse gastritis. Again, a pyloric stricture was identified. The endoscope was able to pass through the area and the pylorus and the duodenum appeared normal with no ulcerations. The balloon was then placed in the duodenum and pulled back to the area of the stricture and then we proceeded in a stepwise graded fashion from 2, 4, then eventually 6 atmospheres of pressure or 20 mm in luminal diameter with moderate resistance and left this in place for 60 seconds. The balloon was then desufflated and removed with visualization of good hemostasis as well as no mucosal tears. Endoscope was then slowly withdrawn while taking a second look and suctioning of residual air with no additional findings. The patient tolerated the procedure well. We will have him follow up in 4 weeks to continue graded dilatation. He also needs to continue with medical management. However, he really does need to stop drinking alcohol, which is a significant risk factor for recurrent gastroesophageal reflux disease and stricture formation. He also needs to avoid caffeinated beverages, spicy, greasy and acidic foods. He is on Protonix 40 mg daily; however, he continues to have significant reflux as well as gastritis and we will also add omeprazole 40 mg daily to be taken at a separate time during the day. Job ID: [id number] DocumentID: [id number] Dictated Date: 03/03/2022 12:11:51 Knitting Machine Mechanic Date: 03/03/2022 19:53:22 Dictated By: MEL SHOEMAKER MD
--- NOTE | 2022-03-05 14:34 | Anesthesia-General Post-Op ---
MAC Significant Intra-Op Events Notes addendum 03-03-22 at 1400 Patient Condition Mental Status/LOC: Same as Preop Cardiovascular: Satisfactory Nausea/Vomiting: Absent Respiratory: Satisfactory Pain: Controlled Complications: Absent Post Op Complications Complications None Follow Up Care/Instructions Patient Instructions None needed. Anesthesiology Discharge Order Discharge Order Patient is doing well, no complaints, stable vital signs, no apparent adverse anesthesia problems. No complications reported per nursing. BUDDY BRIDGES CRNA March 05, 2022 14:34
== END 2022-03-03 13:15 | disposition home or self-care (01) ==
LOC: ENDO 09:45
PROVIDERS: ATTEND Surgery
DX: K22.2 Esophageal obstruction (principal); K31.1 Adult hypertrophic pyloric stenosis; K29.70 Gastritis, unspecified, without bleeding; K21.00 Gastro-esophageal reflux disease with esophagitis, without bleeding; K44.9 Diaphragmatic hernia without obstruction or gangrene; F17.210 Nicotine dependence, cigarettes, uncomplicated
CPT/HCPCS: 80306

== ENCOUNTER → 2022-04-12 | Outpatient (CLI) | payer MEDICAID ==
[~2022-04-12] VITALS: Ht 170.2 cm; Wt 73.0 kg
[~2022-04-12] MED LIST changes: +CLON2TAB12 PO; +FLUO20CA42 PO; +POTA-179 PO; +SIMV40TA25 PO
== END | disposition home or self-care (01) ==
LOC: PREOP 05:29
PROVIDERS: ATTEND Surgery
DX: Z01.818 Encounter for other preprocedural examination (principal)

== ENCOUNTER 2022-04-14 10:51 | Day surgery (SDC) | payer MEDICAID ==
[~2022-04-14] VITALS: Ht 170 cm; Wt 73.0 kg
[2022-04-14] MEDS ORDERED: LACTATED RINGERS 1,000 ML IV ONE (11:01)
[2022-04-14] MEDS ORDERED: LACTATED RINGERS 1,000 ML IV STA (11:07)
[2022-04-14 11:15] VITALS: BP 120/88
[2022-04-14] MEDS ORDERED: HURRICAINE EXT TUBE (BENZOCAINE) XX PRN (11:15)
[2022-04-14] MEDS ORDERED: LIDOCAINE JELLY 2% 6 ML SYRINGE TOP ONE (11:30)
--- NOTE | 2022-04-14 11:40 | Progress Note-Pre Operative ---
Pre-Operative Progress Note H&P Reviewed The H&P was reviewed, patient examined and no changes noted. Date Seen by Provider: Apr 14, 2022 Time Seen by Provider: : Date H&P Reviewed: Apr 14, 2022 Time H&P Reviewed: : Pre-Operative Diagnosis: GERD, dysphagia MEL SHOEMAKER MD Apr 14, 2022 11:40
--- NOTE | 2022-04-14 11:41 | Discharge Inst-Surgical ---
D/C Lap Instructions-SAHARA Follow Up Appt in 6 weeks Activity as tolerated High Fiber Diet 25g or more per day Avoid Alcohol, Caffeine, Spicy [place] and Acid foods. Drink 64 fluid oz or more of fluids per day. Symptoms to Report: Fever over 101 degree F, Nausea/Vomiting If any problems/questions: Contact your physician or go to Emergency Room MEL SHOEMAKER MD Apr 14, 2022 11:41
[2022-04-14] MEDS ORDERED: ONDANSETRON 4 MG (ZOFRAN) ORAL DISSOLVE TAB PO PRN (11:45)
[2022-04-14] MEDS ORDERED: ONDANSETRON 4 MG/2 ML (SDV) Z0FRAN IVP PRN (11:45)
[2022-04-14] MEDS ORDERED: PROPOFOL INJECTION 50 ML IV ONE (12:47)
[2022-04-14] MEDS ORDERED: LIDOCAINE JELLY 2% 6 ML SYRINGE ONE (13:07)
[2022-04-14 13:45] VITALS: BP 125/74
--- NOTE | 2022-04-14 13:47 | Anesthesia-General Post-Op ---
MAC Patient Condition Mental Status/LOC: Same as Preop Cardiovascular: Satisfactory Nausea/Vomiting: Absent Respiratory: Satisfactory Pain: Controlled Complications: Absent Post Op Complications Complications None Follow Up Care/Instructions Patient Instructions None needed. Anesthesiology Discharge Order Discharge Order Patient is doing well, no complaints, stable vital signs, no apparent adverse anesthesia problems. No complications reported per nursing. MAC DAVIS CRNA Apr 14, 2022 13:47
[2022-04-14 13:50] VITALS: BP 120/80
--- NOTE | 2022-04-14 13:55 | Progress Note-Post Operative ---
Post-Operative Progess Note Surgeon (s)/Topographical Engineer (s) Surgeon MEL SHOEMAKER MD Topographical Engineer: none Pre-Operative Diagnosis GERD, dysphagia Post-Operative Diagnosis reflux esophagitis(grade D), severe distal esophageal stricture, large HH(5cm), moderate gastritis, retained gastric food, pyloric stricture. Procedure & Operative Findings Date of Procedure 04/14/22 Procedure Performed/Findings EGD with bx and GE jxn dilatation, pyloric dilatation. Anesthesia Type mac Estimated Blood Loss Estimated blood loss (mL): minimal Specimens/Packing Specimens Removed ge jxn, antrum MEL SHOEMAKER MD Apr 14, 2022 13:55
[2022-04-14 14:20] VITALS: BP 122/82
[2022-04-14 14:40] VITALS: BP 122/82
--- NOTE | 2022-04-15 00:27 | OPERATIVE REPORT ---
DATE OF SERVICE: 04/14/2022 ATTENDING PRIMARY CARE PHYSICIAN: Dr. Jian Mckenna. PREOPERATIVE DIAGNOSES: Dysphagia with history of distal esophageal and pyloric stricture. POSTOPERATIVE DIAGNOSES: Reflux esophagitis, [place] grade B with severe distal esophageal stricture, large hiatal hernia approximately 5 cm in size, moderate gastritis, pyloric stricture. No distal obstructions. PROCEDURE: EGD with biopsy and balloon dilatation of the pylorus and the gastroesophageal junction. SURGEON: Mel Shoemaker MD ANESTHESIA: Monitored anesthesia care. ESTIMATED BLOOD LOSS: Minimal. FINDINGS: Same as postoperative diagnosis. DISPOSITION: The patient tolerated the procedure well. INDICATIONS: The patient is a 61-year-old male known to us. He developed dysphagia as well as nausea and vomiting. He does have an extensive past medical history including atrial fibrillation, hypertension, hyperlipidemia, COPD as well as history of polysubstance abuse and currently smokes. He also has a history of drinking alcohol heavily in the past; however, reports that he recently quit. He is undergoing graded dilatation of the distal esophagus as well as the pylorus. We were able to stretch the pylorus to 20 mm on last EGD, which was on 03/03/2022. The distal esophageal stricture was able to reach 60 mm in luminal diameter. DESCRIPTION OF PROCEDURE: The patient was brought to the endoscopy suite, laid in the left lateral decubitus position. After adequate IV pain and sedative medications and monitored anesthesia care, the mouthpiece was applied. The endoscope was placed in the mouth, visualizing the pharynx and hypopharyngeal region. Vocal cords, epiglottis and vallecula identified and appeared to be normal. The endoscope was then gently intubated the esophageal opening and esophagus insufflated. The endoscope was then advanced through the first, second and third portion of esophagus at the level of the GE junction, a reflux esophagitis, [place] grade D identified with severe distal esophageal stricture. A biopsy was taken with forceps with visualization of good hemostasis. The endoscope was able to pass through the area of stricture. The endoscope retroflexed, once again identifying a large hiatal hernia approximately 5 cm in size. There was a moderate severity gastritis as well as retained food substance within the stomach. Again, there was a pyloric stricture once again identified. A biopsy was taken of the antrum to rule out H. pylori. The endoscope was advanced through the stricture into the first and second portion of the duodenum, which appeared normal with no distal obstructions. We first proceeded with dilatation of the pylorus by placing the balloon into the duodenum and pulling it out to the area of stricture. We then proceeded in a graded stepwise fashion from 2, 4, then 6 atmospheres of pressure or 20 mm in luminal diameter with moderate resistance and left this in place for 60 seconds. The balloon was then desufflated and removed with visualization of good hemostasis as well as no mucosal tears. A second medium size balloon was then placed in the stomach and pulled back to the area of the stricture. We then proceeded in a graded stepwise fashion from 2, 4, then eventually 5 atmospheres of pressure or approximately 17 mm in luminal diameter with moderate resistance and left this in place for approximately 60 seconds. The balloon was then desufflated and removed with visualization of good hemostasis as well as no mucosal tears. A biopsy was taken of the GE junction as well. The endoscope was then slowly withdrawn while taking a second look and suctioning of residual air with no additional findings. The patient tolerated the procedure well. We will again continue with graded dilatation; however, we feel that due to his past history and medical noncompliance with smoking this may continue and may eventually need surgery for the distal esophageal stricture. However, he will need to stop smoking beforehand to the risks involved. For now, we will have him follow up in approximately 6 weeks for again continued graded dilatation. Job ID: [id number] DocumentID: [id number] Dictated Date: 04/14/2022 13:46:56 Manager Salt Date: 04/15/2022 00:26:34 Dictated By: MEL SHOEMAKER MD
== END 2022-04-14 14:40 | disposition home or self-care (01) ==
LOC: ENDO 10:51
PROVIDERS: ATTEND Surgery
DX: K21.00 Gastro-esophageal reflux disease with esophagitis, without bleeding (principal); K44.9 Diaphragmatic hernia without obstruction or gangrene; K22.2 Esophageal obstruction; K29.60 Other gastritis without bleeding; K31.1 Adult hypertrophic pyloric stenosis; F17.210 Nicotine dependence, cigarettes, uncomplicated
CPT/HCPCS: 88305

== ENCOUNTER 2022-06-02 11:01 | Day surgery (SDC) | payer MEDICAID ==
[~2022-06-02] VITALS: Ht 170 cm; Wt 73.0 kg
[2022-06-02] MEDS ORDERED: LACTATED RINGERS 1,000 ML IV STA (11:23)
[2022-06-02] MEDS ORDERED: HURRICAINE EXT TUBE (BENZOCAINE) XX PRN (11:30)
[2022-06-02] MEDS ORDERED: LIDOCAINE JELLY 2% 6 ML SYRINGE MM PRN (11:30)
[2022-06-02 11:51] VITALS: BP 104/70
--- NOTE | 2022-06-02 12:06 | Progress Note-Pre Operative ---
Pre-Operative Progress Note Date of Available H&P: Jun 02, 2022 Date H&P Reviewed: Jun 02, 2022 Time H&P Reviewed: 11:00 History & Physical: No changes noted Pre-Operative Diagnosis: dysphagia with eosp stricture MEL SHOEMAKER MD Jun 02, 2022 12:06
--- NOTE | 2022-06-02 12:07 | Discharge Inst-Surgical ---
D/C Lap Instructions-SAHARA Follow Up Activity as tolerated High Fiber Diet 25g or more per day Avoid Alcohol, Caffeine, Spicy [place] and Acid foods. Drink 64 fluid oz or more of fluids per day. Symptoms to Report: Fever over 101 degree F, Nausea/Vomiting If any problems/questions: Contact your physician or go to Emergency Room MEL SHOEMAKER MD Jun 02, 2022 12:07
[2022-06-02] MEDS ORDERED: ONDANSETRON 4 MG/2 ML (SDV) Z0FRAN IVP PRN (12:15)
[2022-06-02] MEDS ORDERED: ONDANSETRON 4 MG (ZOFRAN) ORAL DISSOLVE TAB PO PRN (12:15)
[2022-06-02] MEDS ORDERED: PROPOFOL INJECTION 50 ML IV ONE (13:18)
[2022-06-02 13:50] VITALS: BP 126/75
[2022-06-02 13:55] VITALS: BP 120/69
--- NOTE | 2022-06-02 13:55 | Anesthesia-General Post-Op ---
MAC Patient Condition Mental Status/LOC: Same as Preop Cardiovascular: Satisfactory Nausea/Vomiting: Absent Respiratory: Satisfactory Pain: Controlled Complications: Absent Post Op Complications Complications None Follow Up Care/Instructions Patient Instructions None needed. Anesthesiology Discharge Order Discharge Order Patient is doing well, no complaints, stable vital signs, no apparent adverse anesthesia problems. No complications reported per nursing. BUDDY BRIDGES CRNA Jun 02, 2022 13:55
--- NOTE | 2022-06-02 14:00 | Progress Note-Post Operative ---
Post-Operative Progess Note Surgeon (s)/Environmental Remediation Consultant (s) Surgeon MEL SHOEMAKER MD Environmental Remediation Consultant: none Pre-Operative Diagnosis dysphagia with esoph stricture Post-Operative Diagnosis same, large HH(6cm), severe esoph stricture, moderate gastritis, no pyloric stricture Procedure & Operative Findings Date of Procedure 06/02/22 Procedure Performed/Findings EGD with bx and balloon dilatation Anesthesia Type mac Estimated Blood Loss Estimated blood loss (mL): minimal Specimens/Packing Specimens Removed ge jxn MEL SHOEMAKER MD Jun 02, 2022 14:00
[2022-06-02 14:15] VITALS: BP 112/77
[2022-06-02 14:25] VITALS: BP 112/77
--- NOTE | 2022-06-02 20:24 | OPERATIVE REPORT ---
DATE OF SERVICE: 06/02/2022 ATTENDING PRIMARY CARE PHYSICIAN: Dr. Santana Mckenna. PREOPERATIVE DIAGNOSIS: Dysphagia with history of severe esophageal stricture. POSTOPERATIVE DIAGNOSES: Dysphagia with history of severe esophageal stricture, large hiatal hernia, moderate gastritis. PROCEDURE: EGD with biopsy and balloon dilatation. SURGEON: Mel Shoemaker MD ANESTHESIA: Monitored anesthesia care. ESTIMATED BLOOD LOSS: Minimal. FINDINGS: Dysphagia with history of severe esophageal stricture, large hiatal hernia, moderate gastritis. DISPOSITION: The patient tolerated the procedure well. INDICATION: The patient is a 61-year-old male known to us. He developed dysphagia as well as nausea, vomiting and regurgitation. He has an extensive past medical history including atrial fibrillation, hypertension, hypercholesterolemia, COPD as well as polysubstance abuse and currently smokes. He also has a history of drinking heavy amounts of alcohol; however, reports that he quit. He has been going graded dilatation of the distal esophagus as well as the pylorus. The last time we had done this was on 04/14/2022 and we were able to dilate it to 17 mm, however, again he is symptomatic. DESCRIPTION OF PROCEDURE: The patient was brought to the endoscopy suite, laid in the left lateral decubitus position. After adequate IV pain and sedative medications and monitored anesthesia care, the mouthpiece was applied. The endoscope was placed in the mouth, visualizing the pharynx and hypopharyngeal region. Vocal cords, epiglottis and vallecula identified and appeared to be normal. The endoscope was then gently intubated at the esophageal opening, esophagus insufflated. The endoscope was then advanced to the first, second, and third portion of the esophagus. At the level of the GE junction, again a very tight stricture was identified. Two biopsies were taken to rule out malignancy with visualization of good hemostasis. Direct visualization of the stomach through the stricture was made and the balloon was placed into the stomach and we proceeded in a graded stepwise fashion from 2, 4, then eventually 6 atmospheres of pressure or 18 mm in luminal diameter and left this in place for 60 seconds. The balloon was then desufflated and removed with visualization of good hemostasis as well as no mucosal tears. The endoscope was then advanced into the stomach, endoscope retroflexed, visualizing a large hiatal hernia approximately 6 cm in size. There was a moderate severity gastritis. The previous pyloric stricture was not severe and the endoscope was able to easily pass through this, identifying no distal obstructions and a normal first and second portion of the duodenum. The endoscope was then slowly withdrawn while taking a second look and suctioning of residual air with no additional findings. The patient tolerated the procedure well. Again, he needs to proceed with the necessary lifestyle and dietary accommodation including cessation of smoking, alcohol as well as caffeinated beverages, spicy, greasy and acidic foods as well as take in small and more frequent meals and avoid eating at night and continues to take Protonix and Carafate. We feel that if he is going to continue with this nonoperative route of balloon dilatation, he needs to have the dilatation procedure more frequently for every six weeks. He seems to progress back to the initial phases. We will recommend that he proceed with this graded balloon dilatation every four weeks until we can get to 20 mm and hopefully keep him at that stage; however, again he would need to be medically compliant before this could ever happen. Job ID: [id number] DocumentID: [id number] Dictated Date: 06/02/2022 13:55:17 Manager Production Date: 06/02/2022 20:23:39 Dictated By: MEL SHOEMAKER MD
== END 2022-06-02 14:25 | disposition home or self-care (01) ==
LOC: ENDO 11:01
PROVIDERS: ATTEND Surgery
DX: K21.00 Gastro-esophageal reflux disease with esophagitis, without bleeding (principal); K22.2 Esophageal obstruction; K44.9 Diaphragmatic hernia without obstruction or gangrene; F17.210 Nicotine dependence, cigarettes, uncomplicated; K29.30 Chronic superficial gastritis without bleeding

== ENCOUNTER 2022-07-28 10:17 | Outpatient (CLI) | payer MEDICAID ==
[~2022-07-28] VITALS: Ht 170.2 cm; Wt 78.0 kg
== END 2022-07-28 10:36 | disposition home or self-care (01) ==
LOC: PREOP 10:17
PROVIDERS: ATTEND Surgery
DX: Z01.818 Encounter for other preprocedural examination (principal)

== ENCOUNTER 2022-08-04 11:00 | Day surgery (SDC) | payer MEDICAID ==
[~2022-08-04] VITALS: Ht 170 cm; Wt 78.0 kg
[2022-08-04] MEDS ORDERED: LACTATED RINGERS 1,000 ML IV STA (11:05)
[2022-08-04 11:15] VITALS: BP 125/84
[2022-08-04] MEDS ORDERED: HURRICAINE EXT TUBE (BENZOCAINE) XX PRN (11:15)
[2022-08-04] MEDS ORDERED: LIDOCAINE JELLY 2% 6 ML SYRINGE MM PRN (11:15)
--- NOTE | 2022-08-04 11:20 | Progress Note-Pre Operative ---
Pre-Operative Progress Note Date of Available H&P: Aug 04, 2022 Date H&P Reviewed: Aug 04, 2022 Time H&P Reviewed: 11:15 History & Physical: No changes noted Pre-Operative Diagnosis: dysphagia MEL SHOEMAKER MD Aug 04, 2022 11:20
--- NOTE | 2022-08-04 11:22 | Discharge Inst-Surgical ---
D/C Lap Instructions-SAHARA Follow Up Activity as tolerated High Fiber Diet 25g or more per day Avoid Alcohol, Caffeine, Spicy [place] and Acid foods. Drink 64 fluid oz or more of fluids per day. Symptoms to Report: Fever over 101 degree F, Nausea/Vomiting If any problems/questions: Contact your physician or go to Emergency Room MEL SHOEMAKER MD Aug 04, 2022 11:22
[2022-08-04] MEDS ORDERED: ONDANSETRON 4 MG (ZOFRAN) ORAL DISSOLVE TAB PO PRN (11:30)
[2022-08-04] MEDS ORDERED: ONDANSETRON 4 MG/2 ML (SDV) Z0FRAN IVP PRN (11:30)
[2022-08-04] MEDS ORDERED: PROPOFOL INJECTION 50 ML IV ONE (12:49)
[2022-08-04] MEDS ORDERED: LACTATED RINGERS 1,000 ML IV ONE (13:08)
--- NOTE | 2022-08-04 13:34 | Anesthesia-General Post-Op ---
MAC Patient Condition Mental Status/LOC: Same as Preop Cardiovascular: Satisfactory Nausea/Vomiting: Absent Respiratory: Satisfactory Pain: Controlled Complications: Absent Post Op Complications Complications None Follow Up Care/Instructions Patient Instructions None needed. Anesthesiology Discharge Order Discharge Order Patient is doing well, no complaints, stable vital signs, no apparent adverse anesthesia problems. No complications reported per nursing. BUDDY BRIDGES CRNA Aug 04, 2022 13:34
[2022-08-04 13:35] VITALS: BP 166/99
[2022-08-04 13:40] VITALS: BP 139/84
--- NOTE | 2022-08-04 13:41 | Progress Note-Post Operative ---
Post-Operative Progess Note Surgeon (s)/Creative Guru (s) Surgeon MEL SHOEMAKER MD Creative Guru: none Pre-Operative Diagnosis dysphagia Post-Operative Diagnosis reflux esophagitis(grade D), severe dist esoph stricture, large HH, severe gastritis. Procedure & Operative Findings Date of Procedure 08/04/22 Procedure Performed/Findings EGD with bx and balloon dilation Anesthesia Type mac Estimated Blood Loss Estimated blood loss (mL): minimal Specimens/Packing Specimens Removed ge jxn MEL SHOEMAKER MD Aug 04, 2022 13:41
--- NOTE | 2022-08-04 22:01 | OPERATIVE REPORT ---
DATE OF SERVICE: 08/04/2022 ATTENDING PRIMARY CARE PHYSICIAN: Dr. Jian Mckenna. PREOPERATIVE DIAGNOSES: Severe distal esophageal stricture, large hiatal hernia and dysphagia. POSTOPERATIVE DIAGNOSES: Severe distal esophageal stricture, large hiatal hernia and dysphagia. PROCEDURE: EGD with biopsy and balloon dilatation. SURGEON: Mel Shoemaker MD ANESTHESIA: Monitored anesthesia care. ESTIMATED BLOOD LOSS: Minimal. FINDINGS: Severe distal esophageal stricture, large hiatal hernia and dysphagia. DISPOSITION: The patient tolerated the procedure well. INDICATIONS: The patient is a 61-year-old male known to us. He has significant dysphagia and regurgitation. He has an extensive past medical history including atrial fibrillation, hypertension, hypercholesterolemia, COPD as well as history of polysubstance abuse and currently smokes. He also has a history of drinking alcohol heavily in the past; however, reports quitting. He has a known severe stricture of the distal esophagus, which has been biopsied multiple times and negative for malignancy. His last EGD and balloon dilatation was on 04/14/2022 and we were able to get a 17 mm. We feel that he needs continued graded dilatation or else this stricture will continue to become more severe in nature as well as his symptomatology. We also feel that he is a poor candidate for surgical resection of that portion of the esophagus due to his other medical comorbidities. DESCRIPTION OF PROCEDURE: The patient was brought to the endoscopy suite, laid in the left lateral decubitus position. After adequate IV pain and sedative medications and monitored anesthesia care, the mouthpiece was applied. The endoscope was placed in the mouth, visualized the pharynx and hypopharyngeal region. Vocal cords, epiglottis and vallecula identified and appeared to be normal. The endoscope was then gently intubated the esophageal opening and esophagus insufflated. The endoscope was then advanced to the first, second and third portion of esophagus at the level of the GE junction, a severe stricture and reflux esophagitis, grade B identified. Biopsies were taken with forceps again with visualization of good hemostasis. The endoscope was then advanced into the stomach and endoscope retroflexed, visualizing the stricture as well as a large hiatal hernia approximately 5 cm in size. The patient also does have severe gastritis, which is unchanged from last EGD. No ulcers identified. Endoscope was then advanced to the pylorus and first and second portion of the duodenum, which appeared normal with no distal obstructions. The balloon was then placed in the stomach and pulled back to the area of stricture. We then proceeded with a graded dilatation in a stepwise fashion from 2, 4, then eventually 5 atmospheres of pressure and equivalent to approximately 17.5 mm in luminal diameter with moderate resistance and left this in place for 120 seconds. The balloon was then desufflated and removed with visualization of good hemostasis as well as no mucosal tears. Endoscope was then slowly withdrawn while taking a second look and suctioning of residual air with no additional findings. We will have the patient scheduled again for repeat dilatation in 4 weeks for a goal of 20 mm and again he will likely need maintenance dilatation due to his continuation of risk factors including his smoking and caffeinated beverages. Job ID: [id number] DocumentID: [id number] Dictated Date: 08/04/2022 13:37:49 Lens Engraver Date: 08/04/2022 22:00:51 Dictated By: MEL SHOEMAKER MD MTDD
== END 2022-08-04 14:30 | disposition home or self-care (01) ==
LOC: ENDO 11:00
PROVIDERS: ATTEND Surgery
DX: K22.2 Esophageal obstruction (principal); K44.9 Diaphragmatic hernia without obstruction or gangrene; F17.210 Nicotine dependence, cigarettes, uncomplicated; Z79.899 Other long term (current) drug therapy; K21.00 Gastro-esophageal reflux disease with esophagitis, without bleeding

== ENCOUNTER 2022-09-16 03:07 | Emergency (ER) | payer MEDICAID ==
[~2022-09-16] VITALS: Ht 90.7 cm; Wt 172.0 kg
[~2022-09-16 03:07] MED LIST changes: +ALBU8.5H6 IH; -RT-ALBUINH IH
[2022-09-16 03:26] LABS: BILIRUBIN,URINE NEGATIVE (NEGATIVE); CLARITY,URINE CLEAR; COLOR,URINE YELLOW; GLUCOSE, URINE (UA) NEGATIVE (NEGATIVE); KETONES,URINE TRACE (NEGATIVE); LEUKOCYTE ESTERASE ,URINE NEGATIVE (NEGATIVE); NITRITE,URINE NEGATIVE (NEGATIVE); PROTEIN,URINE NEGATIVE (NEGATIVE)
[2022-09-16] MEDS ORDERED: LIDOCAINE 2% VISCOUS 15 ML UDC PO ONE (03:30)
[2022-09-16] MEDS ORDERED: ANTACID SUSP 30 ML UDC (MYLANTA) PO ONE (03:30)
[2022-09-16] MEDS ORDERED: PANTOPRAZOLE 40 MG (PROTONIX) VIAL IV ONE (03:30)
[2022-09-16] MEDS ORDERED: ONDANSETRON 4 MG/2 ML (SDV) Z0FRAN IVP ONE (03:30)
[2022-09-16 03:33] LABS: BACTERIA,URINE NEGATIVE /HPF; SQUAMOUS EPITHELIAL CELL,UR RARE /HPF
[2022-09-16 03:34] LABS: BASOPHILS % (AUTO) 1 % (0-10); EOSINOPHILS # (AUTO) 0.1 10^3/uL (0.0-0.3); EOSINOPHILS % (AUTO) 1 % (0-10); HEMATOCRIT 51 % (40-54); HEMOGLOBIN 16.7 g/dL (13.3-17.7); LYMPHOCYTES # (AUTO) 1.7 10^3/uL (1.0-4.0); LYMPHOCYTES % (AUTO) 19 % (12-44); MEAN CORPUSCULAR HEMOGLOBIN 30 pg (25-34); MEAN CORPUSCULAR HGB CONC 33 g/dL (32-36); MEAN CORPUSCULAR VOLUME 90 fL (80-99); MEAN PLATELET VOLUME 10.1 fL (9.0-12.2); MONOCYTES # (AUTO) 0.6 10^3/uL (0.0-1.0); MONOCYTES % (AUTO) 7 % (0-12); NEUTROPHILS # (AUTO) 6.3 10^3/uL (1.8-7.8); NEUTROPHILS % (AUTO) 73 % (42-75); PLATELET COUNT 199 10^3/uL (130-400); WHITE BLOOD COUNT 8.7 10^3/uL (4.3-11.0)
[2022-09-16 03:45] LABS: ALBUMIN 4.4 GM/DL (3.2-4.5); CHLORIDE 97 MMOL/L (98-107); POTASSIUM 3.8 MMOL/L (3.6-5.0); SODIUM 134 MMOL/L (135-145)
[2022-09-16 03:48] LABS: GLUCOSE 76 MG/DL (70-105); TOTAL PROTEIN 7.7 GM/DL (6.4-8.2)
[2022-09-16 03:49] LABS: CARBON DIOXIDE 22 MMOL/L (21-32)
[2022-09-16 03:50] LABS: BILIRUBIN,TOTAL 0.8 MG/DL (0.1-1.0)
[2022-09-16 03:51] LABS: ALKALINE PHOSPHATASE 95 U/L (40-136)
[2022-09-16 03:52] LABS: CREATININE SERUM 1.13 MG/DL (0.60-1.30); GFR ESTIMATED 73
[2022-09-16 03:53] LABS: BUN/CREATININE RATIO 9
[2022-09-16 03:54] LABS: ALANINE AMINOTRANSFERASE 11 U/L (0-55)
[2022-09-16 03:55] LABS: LIPASE 12 U/L (8-78)
--- NOTE | 2022-09-16 05:22 | ED Abdominal Pain ---
General Chief Complaint: Abdominal/GI Problems Stated Complaint: ABD PAIN Nursing Triage Note: COMPLAINT OF INDIGESTION, STATES HAS A HITIAL HERNIA. VERBALIZED HE IS NEASUATED. PATIENT SMELLS HEAVY OF SMOKE Source of Information: Patient, Old Records Exam Limitations: No Limitations History of Present Illness Date Seen by Provider: Sep 16, 2022 Time Seen by Provider: 03:09 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 WITH UNDERWRITING SPECIALIST DEMEROL, 09/13/18) Patient Home Medication List Amitriptyline HCl (Amitriptyline HCl) 75 Mg Tablet, 75 MG PO HS, (Reported) Entered as Reported by: RAYMUNDO MONTERO on 11/24/21 1125 Clonazepam (Clonazepam) 2 Mg Tablet, 2 MG PO DAILY, (Reported) Entered as Reported by: ERICK CLARKE on 04/12/22 1349 Fluoxetine HCl (Prozac) 20 Mg Capsule, 20 MG PO DAILY, (Reported) Entered as Reported by: ERICK CLARKE on 04/12/22 1349 Fluticasone/Salmeterol (Advair 500-50 Diskus) 500 Mcg-50 Mcg/Dose Blst.w.dev, 1 EACH IH BID, (Reported) Entered as Reported by: RAYMUNDO MONTERO on 11/24/21 1125 Furosemide (Lasix) 20 Mg Tablet, 20 MG PO DAILY, (Reported) Entered as Reported by: RAYMUNDO MONTERO on 11/24/21 1228 Levetiracetam (Levetiracetam) 1,000 Mg Tablet, 1,000 MG PO BID, (Reported) Entered as Reported by: RAYMUNDO MONTERO on 11/24/21 1228 Ondansetron (Ondansetron Odt) 4 Mg Tab.rapdis, 4 MG PO PRN, (Reported) Entered as Reported by: ERICK CLARKE on 04/12/22 1349 Pantoprazole Sodium (Pantoprazole Sodium) 20 Mg Tablet.dr, 20 MG PO BID, (Reported) Entered as Reported by: CAIO BUENO on 02/04/22 1400 Potassium Chloride (Potassium Chloride) 20 Meq Tab.er.prt, 20 MEQ PO DAILY, (Reported) Entered as Reported by: ERICK CLARKE on 04/12/22 1349 Simvastatin (Simvastatin) 40 Mg Tablet, 40 MG PO DAILY, (Reported) Entered as Reported by: ERICK CLARKE on 04/12/22 1349 Sucralfate (Sucralfate) 1 Gram Tablet, 1 GM PO QID, (Reported) Entered as Reported by: ERICK CLRAKE on 04/12/22 1349 Zolpidem Tartrate (Zolpidem Tartrate) 5 Mg Tablet, 5 MG PO HS, (Reported) Entered as Reported by: RAYMUNDO MONTERO on 11/24/21 1228 Past Czoraum-Oqeucn-Kaebhv Hx Immunizations Up To Date Tetanus Booster (TDap): Unknown First/Initial COVID19 Vaccinat: STATES 2 COVID VACCINES Second COVID19 Vaccination Yoshi: STATES 2 COVID VACCINES Third COVID19 Vaccination Date: STATES 2 COVID VACCINES Seasonal Allergies Seasonal Allergies: No Past Medical History Surgery/Hospitalization HX: PMH: GI BLEED, AFIB, GOUT, ANEMIA, GASTRITIS, SEIZURES, HEMIPLEGIA, SYNCOPE Surgeries: Yes Abdominal (Dilation of esophageal strictures), Gallbladder, Tonsillectomy Respiratory: Yes Asthma, COPD Cardiac: Yes Atrial Fibrillation, High Cholesterol, Hypertension Neurological: Yes Seizure Disorder Genitourinary: No Gastrointestinal: Yes (Esophageal stricture) Polyps, Esophagitis, Hiatal Hernia, Ulcer Musculoskeletal: Yes Chronic Back Pain, Gout Endocrine: Yes (hyponatremia) HEENT: No Cancer: No Psychosocial: Yes Anxiety, Depression Integumentary: No Blood Disorders: No Adverse Reaction/Blood Tranf: No Family Medical History Diabetes SOCIAL HISTORY: -SMOKES 1 PPD -ETOH--HISTORY OF ABUSE--BEER + HARD LIQUOR--CLAIMS NONE X 6 MONTHS PER PT ON 02/03/22 -DRUGS--EXTENSIVE HISTORY OF DRUG ABUSE, DENIES IV USE. STATES "TRIED 'EM ALL" --METH, HEROIN, COCAINE, OTHERS. CURRENTLY USES MARIJUANA LONG HISTORY OF NON-COMPLIANCE IN ALL ASPECTS OF CARE PAST SURGICAL HISTORY: -EGD'S AND COLONOSCOPIES: -EGD 11/25/[address] SIEGEL: POSTOPERATIVE DIAGNOSES: Esophagitis with retained food substance within the esophagus, severe distal esophageal stricture, moderate size hiatal hernia approximately 3 cm in size, retained food substance within the stomach, pyloric stricture, pyloric ulcer with overlying fibrin clot, duodenitis. PROCEDURE: EGD with biopsy and balloon dilatation of the pylorus and the gastroesophageal junction. -09/17/21--EGD AND COLONOSCOPY BY DR. DOMINGUEZ: Post-Operative Diagnosis Esophagitis Gastritis Hiatal hernia Polyp int hemorrhoids poor prep Procedure & Operative Findings Date of Procedure 09/17/21 Procedure Performed/Findings EGD with biopsy Colonoscopy with cold biopsy -CHOLECYSTECTOMY -HERNIA REPAIR -TONSILLECTOMY Physical Exam Vital Signs Vital Signs - First Documented 09/16/22 03:17 Temp 36.9 Pulse 65 Resp 20 B/P (MAP) 130/104 (113) Pulse Ox 97 O2 Delivery Room Air Capillary Refill : Less Than 3 Seconds Height/Weight/BMI Height: 5'9" Weight: 250lbs. oz. 113.475909wl; 209.00 BMI Method:Stated Progress/Results/Core Measures Results/Orders Lab Results Laboratory Tests Test 09/16/22 03:20 09/16/22 03:29 Range/Units Urine Color YELLOW Urine Clarity CLEAR Urine pH 6.0 5-9 Urine Specific [place] <=1.005 1.016-1.022 Urine Protein NEGATIVE NEGATIVE Urine Glucose (UA) NEGATIVE NEGATIVE Urine Ketones TRACE H NEGATIVE Urine Nitrite NEGATIVE NEGATIVE Urine Bilirubin NEGATIVE NEGATIVE Urine Urobilinogen 0.2 < = 1.0 MG/DL Urine Leukocyte Esterase NEGATIVE NEGATIVE Urine RBC (Auto) NEGATIVE NEGATIVE Urine RBC NONE /HPF Urine WBC NONE /HPF Urine Squamous Epithelial Cells RARE /HPF Urine Crystals NONE /LPF Urine Bacteria NEGATIVE /HPF Urine Casts NONE /LPF Urine Mucus NEGATIVE /LPF Urine Culture Indicated NO White Blood Count 8.7 4.3-11.0 10^3/uL Red Blood Count 5.67 H 4.30-5.52 10^6/uL Hemoglobin 16.7 13.3-17.7 g/dL Hematocrit 51 40-54 % Mean Corpuscular Volume 90 80-99 fL Mean Corpuscular Hemoglobin 30 25-34 pg Mean Corpuscular Hemoglobin Concent 33 32-36 g/dL Red Cell Distribution Width 13.8 10.0-14.5 % Platelet Count 199 130-400 10^3/uL Mean Platelet Volume 10.1 9.0-12.2 fL Immature Granulocyte % (Auto) 0 % Neutrophils (%) (Auto) 73 42-75 % Lymphocytes (%) (Auto) 19 12-44 % Monocytes (%) (Auto) 7 0-12 % Eosinophils (%) (Auto) 1 0-10 % Basophils (%) (Auto) 1 0-10 % Neutrophils # (Auto) 6.3 1.8-7.8 10^3/uL Lymphocytes # (Auto) 1.7 1.0-4.0 10^3/uL Monocytes # (Auto) 0.6 0.0-1.0 10^3/uL Eosinophils # (Auto) 0.1 0.0-0.3 10^3/uL Basophils # (Auto) 0.0 0.0-0.1 10^3/uL Immature Granulocyte # (Auto) 0.0 0.0-0.1 10^3/uL Sodium Level 134 L 135-145 MMOL/L Potassium Level 3.8 3.6-5.0 MMOL/L Chloride Level 97 L 98-107 MMOL/L Carbon Dioxide Level 22 21-32 MMOL/L Anion Gap 15 H 5-14 MMOL/L Blood Urea Nitrogen 10 7-18 MG/DL Creatinine 1.13 0.60-1.30 MG/DL Estimat Glomerular Filtration Rate 73 BUN/Creatinine Ratio 9 Glucose Level 76 70-105 MG/DL Calcium Level 10.0 8.5-10.1 MG/DL Corrected Calcium 9.7 8.5-10.1 MG/DL Total Bilirubin 0.8 0.1-1.0 MG/DL Aspartate Amino Transf (AST/SGOT) 11 5-34 U/L Alanine Aminotransferase (ALT/SGPT) 11 0-55 U/L Alkaline Phosphatase 95 40-136 U/L Total Protein 7.7 6.4-8.2 GM/DL Albumin 4.4 3.2-4.5 GM/DL Lipase 12 8-78 U/L Serum Alcohol < 10 <10 MG/DL My Orders Orders - MONAE BAUTISTA MD Alcohol (09/16/22 03:17) Cbc With Automated Diff (09/16/22 03:17) Comprehensive Metabolic Panel (09/16/22 03:17) Lipase (09/16/22 03:17) Ua Culture If Indicated (09/16/22 03:17) Ed Iv/Invasive Line Start (09/16/22 03:17) Pantoprazole Injection (Protonix Injecti (09/16/22 03:30) Ondansetron Injection (Zofran Injectio (09/16/22 03:30) Lidocaine 2% Viscous 15 Ml (Xylocaine Vi (09/16/22 03:30) Antacid Suspension (Mylanta Suspension (09/16/22 03:30) Medications Given in ED Current Medications Medications Dose Ordered Sig/Jarek Route Start Time Stop Time Status Last Admin Dose Admin Al Hydrox/Mg Hydrox/Simethicone 30 ml ONCE ONCE PO 09/16/22 03:30 09/16/22 03:31 DC 09/16/22 03:30 30 ML Lidocaine HCl 15 ml ONCE ONCE PO 09/16/22 03:30 09/16/22 03:31 DC 09/16/22 03:30 15 ML Ondansetron HCl 4 mg ONCE ONCE IVP 09/16/22 03:30 09/16/22 03:31 DC 09/16/22 03:30 4 MG Pantoprazole 40 mg ONCE ONCE IV 09/16/22 03:30 09/16/22 03:31 DC 09/16/22 03:30 40 MG Vital Signs/I&O 09/16/22 03:17 Temp 36.9 Pulse 65 Resp 20 B/P (MAP) 130/104 (113) Pulse Ox 97 O2 Delivery Room Air 2 Blood Pressure Mean: 113 Progress Progress Note : Progress Note Patient had improvement with GI cocktail and Protonix. We reviewed the appropriate way to take his medication, in particular the Carafate. Labs were unremarkable. See discharge instructions for further discussion. Departure Impression Primary Impression: Epigastric abdominal pain Additional Impression: Hiatal hernia Departure-Patient Inst. Referrals: [facility] [place] (PCP) Primary Care Physician Patient Instructions: Abdominal Pain, Adult ED, Hiatal Hernia Add. Discharge Instructions: Continue taking pantoprazole 20 mg twice daily. Continue taking Carafate (sucralfate) 4 times daily 30 minutes before your meals and again before bed. If they will not dissolve well, crush them and mix into 5 to 10 mL water to make a slurry. Follow-up with Dr. Siegel for your usual maintenance visit for your esophageal strictures. Be sure to chew food very thoroughly and drink plenty of water with your meals. Avoid the following: Eating large meals, eating close to bedtime, caffeine, chocolate, carbonation, citrus fruits and juices, tomato products, mints, spicy foods, fatty/greasy foods, tobacco, alcohol, NSAID medications such as ibuprofen or naproxen, add anything else you do not irritate your stomach. Return to care if you have worsening symptoms despite following these instructions. All discharge instructions reviewed with patient and/or family. Voiced understanding. MONAE BAUTISTA MD Sep 16, 2022 05:22
[2022-09-16 05:29] VITALS: BP 135/99
== END 2022-09-16 05:30 | disposition home or self-care (01) ==
LOC: EDUNIT# 03:07 → ER 03:09
DX: K44.9 Diaphragmatic hernia without obstruction or gangrene (principal); F17.210 Nicotine dependence, cigarettes, uncomplicated; Z90.49 Acquired absence of other specified parts of digestive tract
CPT/HCPCS: 36415; 80053; 80320; 81000; 83690; 85025; 99283

== ENCOUNTER 2023-01-26 06:44 | Outpatient (CLI) | payer MEDICAID ==
[~2023-01-26] VITALS: Ht 170.2 cm; Wt 80.6 kg
[~2023-01-26 06:44] MED LIST changes: -POTA10CA43 PO; +POTA10CA44 PO
[2023-01-26] MEDS ORDERED: TRZ50T PO (15:41)
== END 2023-01-26 15:45 | disposition home or self-care (01) ==
LOC: PREOP 06:44
PROVIDERS: ATTEND Surgery
DX: Z01.818 Encounter for other preprocedural examination (principal)

== ENCOUNTER 2023-02-02 13:05 | Day surgery (SDC) | payer MEDICAID ==
[~2023-02-02] VITALS: Ht 170.2 cm; Wt 80.6 kg
[~2023-02-02 13:05] MED LIST changes: +TRZ50T PO
[2023-02-02] MEDS ORDERED: LACTATED RINGERS 1,000 ML IV STA (13:10)
[2023-02-02] MEDS ORDERED: LIDOCAINE JELLY 2% 6 ML SYRINGE MM PRN (13:15)
[2023-02-02] MEDS ORDERED: HURRICAINE EXT TUBE (BENZOCAINE) XX PRN (13:15)
[2023-02-02] MEDS ORDERED: HURRICAINE EXT TUBE (BENZOCAINE) ONE (13:17)
[2023-02-02] MEDS ORDERED: LACTATED RINGERS 1,000 ML IV ONE (13:17)
[2023-02-02 13:25] VITALS: BP 112/90
--- NOTE | 2023-02-02 13:55 | Progress Note-Pre Operative ---
Pre-Operative Progress Note Date of Available H&P: Feb 02, 2023 Date H&P Reviewed: Feb 02, 2023 Time H&P Reviewed: 13:00 History & Physical: No changes noted Pre-Operative Diagnosis: dysphagia MEL SHOEMAKER MD Feb 02, 2023 13:54
--- NOTE | 2023-02-02 13:56 | Discharge Inst-Surgical ---
D/C Lap Instructions-SAHARA Follow Up Activity as tolerated High Fiber Diet 25g or more per day Avoid Alcohol, Caffeine, Spicy [place] and Acid foods. Drink 64 fluid oz or more of fluids per day. Symptoms to Report: Fever over 101 degree F, Nausea/Vomiting If any problems/questions: Contact your physician or go to Emergency Room MEL SHOEMAKER MD Feb 02, 2023 13:56
[2023-02-02] MEDS ORDERED: ONDANSETRON 4 MG/2 ML (SDV) Z0FRAN IVP PRN (14:00)
[2023-02-02] MEDS ORDERED: ONDANSETRON 4 MG (ZOFRAN) ORAL DISSOLVE TAB PO PRN (14:00)
[2023-02-02] MEDS ORDERED: PROPOFOL INJECTION 50 ML IV ONE (14:58)
[2023-02-02] MEDS ORDERED: LIDOCAINE JELLY 2% 6 ML SYRINGE ONE (15:11)
[2023-02-02 15:40] VITALS: BP 104/65
[2023-02-02 15:45] VITALS: BP 103/68
[2023-02-02 15:50] VITALS: BP 103/68
--- NOTE | 2023-02-02 15:58 | Progress Note-Post Operative ---
Post-Operative Progess Note Surgeon (s)/Metal Mold Dresser (s) Surgeon MEL SHOEMAKER MD Metal Mold Dresser: none Pre-Operative Diagnosis dysphagia Post-Operative Diagnosis reflux esophagitis(grade D), severe esophageal stricture, mod-severe gastritis. Procedure & Operative Findings Date of Procedure 02/02/23 Procedure Performed/Findings EGD with bx and dilatation. Anesthesia Type mac Estimated Blood Loss Estimated blood loss (mL): minimal Specimens/Packing Specimens Removed ge jxn, antrum MEL SHOEMAKER MD Feb 02, 2023 15:57
[2023-02-02 16:15] VITALS: BP 103/68
--- NOTE | 2023-02-02 16:46 | Anesthesia-General Post-Op ---
MAC Patient Condition Mental Status/LOC: Same as Preop Cardiovascular: Satisfactory Nausea/Vomiting: Absent Respiratory: Satisfactory Pain: Controlled Complications: Absent Post Op Complications Complications None Follow Up Care/Instructions Patient Instructions None needed. Anesthesiology Discharge Order Discharge Order Patient is doing well, no complaints, stable vital signs, no apparent adverse anesthesia problems. No complications reported per nursing. MAC DAVIS CRNA Feb 02, 2023 16:46
--- NOTE | 2023-02-03 00:28 | OPERATIVE REPORT ---
DATE OF SERVICE: 02/02/2023 ATTENDING PRIMARY CARE PHYSICIAN: Santana Mckenna MD PREOPERATIVE DIAGNOSES: Dysphagia with history of severe lower esophageal stricture. POSTOPERATIVE DIAGNOSES: Reflux esophagitis, Shackelford grade D with a severe distal esophageal stricture, moderate to severe gastritis, no distal obstructions. PROCEDURE: EGD with biopsy and balloon dilatation. SURGEON: Mel Shoemaker MD ANESTHESIA: Monitored anesthesia care. ESTIMATED BLOOD LOSS: Minimal. FINDINGS: Reflux esophagitis, Shackelford grade D with a severe distal esophageal stricture, moderate to severe gastritis, no distal obstructions. DISPOSITION: The patient tolerated the procedure well. INDICATIONS: The patient is a 62-year-old male known to us. He has a longstanding history of dysphagia and regurgitation. He has extensive past medical history including atrial fibrillation, hypertension, hypercholesterolemia, COPD as well as history of polysubstance abuse and does currently smoke and has a previous history of alcohol abuse; however, states that he quit. He has had multiple upper endoscopies as well as biopsies and his last EGD with balloon dilatation was on 08/04/2022 where we were able to dilate a 17.5 mm and he was instructed to follow up in 4 weeks; however, never did. He has once again recurrent severe dysphagia. DESCRIPTION OF PROCEDURE: The patient was brought to the endoscopy suite and laid in the left lateral decubitus position. After adequate IV pain and sedative medications and monitored anesthesia care, the mouthpiece was applied. A pediatric gastroscope was then placed in the mouth, visualizing the pharynx and hypopharyngeal region. Vocal cords, epiglottis and vallecula identified and appeared normal. The endoscope was then gently intubated in the esophageal opening and esophagus insufflated. The endoscope was then advanced into the first, second, third portions of esophagus. At the level of the GE junction, reflux esophagitis, Shackelford grade D identified with a severe distal esophageal stricture. The endoscope was able to pass through this region and endoscope retroflexed visualizing no hiatal hernia. There was a moderate diffuse gastritis. No formal ulcerations, polyps or any neoplasms. A biopsy was taken of the antrum to rule out H. pylori with visualization of good hemostasis. The endoscope was advanced through the pylorus and first and second portion of the duodenum, which appeared normal with no distal obstructions. We then proceeded with the standard gastroscope and balloon was placed in the stomach and pulled back to the area of the stricture. We then proceeded with graded dilatation in a stepwise fashion from 2 and then eventually 4 atmospheres of pressure or 16.5 mm in luminal diameter with moderate resistance and left this in place for approximately 60 seconds. The balloon was then desufflated and removed with visualization of good hemostasis as well as no mucosal tears. The endoscope was then slowly withdrawn while taking a second look and suctioning of residual air with no additional findings. The patient tolerated the procedure well. We feel that if he is a noncompliant and does not follow up that his treatment success would be unobtainable. Again, he was instructed to follow up every 4 weeks for graded dilatation and we were able to dilate a 17.5 mm; however, this was in 07/2022 and this is almost 6 months later. We will have him followup in the office and talked to him about potential referral to an esophageal specialist for possible resection of the affected portion of the esophagus. For now, he will need to continue with the necessary lifestyle and dietary accommodation including small and more frequent meals, avoidance of eating at night as well as head elevation while lying supine. He also needs to avoid smoking, caffeinated beverages as well as spicy, greasy and acidic foods and continues to take his Carafate and proton pump inhibitor. Job ID: [id number] DocumentID: [id number] Dictated Date: 02/02/2023 15:47:33 Market Analysis Director Date: 02/03/2023 00:26:00 Dictated By: MEL SHOEMAKER MD
== END 2023-02-02 16:50 | disposition home or self-care (01) ==
LOC: ENDO 13:05
PROVIDERS: ATTEND Surgery
DX: K21.00 Gastro-esophageal reflux disease with esophagitis, without bleeding (principal); K22.2 Esophageal obstruction; K22.10 Ulcer of esophagus without bleeding; K29.70 Gastritis, unspecified, without bleeding; K44.9 Diaphragmatic hernia without obstruction or gangrene; F17.210 Nicotine dependence, cigarettes, uncomplicated

== ENCOUNTER 2023-02-17 05:36 | Outpatient (CLI) | payer MEDICAID ==
[~2023-02-17] VITALS: Ht 175 cm; Wt 80.6 kg
== END 2023-02-17 14:08 | disposition home or self-care (01) ==
LOC: PREOP 05:36
PROVIDERS: ATTEND Surgery
DX: Z01.818 Encounter for other preprocedural examination (principal)

== ENCOUNTER 2023-02-23 12:58 | Day surgery (SDC) | payer MEDICAID ==
--- NOTE | 2023-02-18 09:04 | HISTORY AND PHYSICAL ---
DATE OF ADMISSION: 02/23/2023 ATTENDING MATCH UP PERSON: Sravan Ham [place]. HISTORY OF PRESENT ILLNESS: The patient is a 62-year-old male known to us. He has a longstanding history of dysphagia and regurgitation and gastroesophageal reflux disease. He does have an extensive past medical history including atrial fibrillation, hypertension, hypercholesterolemia, COPD as well as history of polysubstance abuse and does currently smoke and has a previous history of alcohol abuse; however, states that he quit. He has had multiple upper endoscopies and biopsies with the last EGD done on 08/04/2022 where we were able to dilate to 17.5 mm and he was instructed to follow up in 4 weeks, however, did not and did not return until again symptomatic and approximately 6 months later on 02/02/2023, we had repeated EGD and again he had a recurrence of the extremely tight stricture of the lower esophageal junction and we were only able to dilate to approximately 16.5 mm in luminal diameter. He continues to be symptomatic from a standpoint of dysphagia. PAST MEDICAL HISTORY: Hypertension, depression, gout, chronic back pain, COPD, gastroesophageal reflux disease, dysphagia, history of polysubstance abuse. PAST SURGICAL HISTORY: Tonsillectomy, right inguinal hernia repair, laparoscopic cholecystectomy. ALLERGIES: SULFA, DEMEROL. MEDICATIONS: Lasix, potassium, zolpidem, simvastatin, clonazepam, fluoxetine, levetiracetam, Carafate, Protonix, Zofran, trazodone. SOCIAL HISTORY: Positive smoke 1.5 packs per day approximately 60 pack years, negative alcohol. FAMILY HISTORY: Mother and children, diabetes. VITAL SIGNS: Blood pressure 108/64. Current weight 180.9 pounds and height is 5 feet 7 inches. REVIEW OF SYSTEMS: A well-nourished male, currently in no acute distress. He is not experiencing any shortness of breath or difficulty breathing. No chest pain, palpitations, diaphoresis. No nausea, vomiting; however, has frequent episodes of epigastric burning sensation as well as substernal pressure sensation after food boluses, which would eventually reduce; however, certain percentage would also be regurgitated. He does not report any hematemesis, no coffee-ground emesis. He states that he does have some issues with constipation, no red blood per rectum, no dark tarry stools. No fever or chills. He does not state any recent inadvertent weight loss. All other review of systems negative. PHYSICAL EXAMINATION: CHEST: Scattered wheezes and rhonchi bilaterally. HEART: Regular. No murmurs. EXTREMITIES: No lower extremity edema. Negative Homans sign. HEENT: No scleral icterus. No cervical lymphadenopathy. ABDOMEN: Soft with pain in the right epigastric region. No peritoneal signs. No hernias. SKIN: Warm, dry. ASSESSMENT AND PLAN: A 62-year-old male with severe distal esophageal stricture. Recommendation was to proceed with scheduled graded dilatation; however, he was lost to followup and we will again recommend that he proceed with outpatient graded dilatation every 3 weeks to a goal of 20 mm in luminal diameter and then to maintain this. He also needs to proceed with the necessary lifestyle and dietary accommodation including smoking cessation, small and more frequent meals and avoidance of eating at night. Job ID: [id number] DocumentID: [id number] Dictated Date: 02/15/2023 16:18:29 Wire Mesh Gate Assembler Date: 02/15/2023 17:16:00 Dictated By: MEL SHOEMAKER MD
[~2023-02-23] VITALS: Ht 175 cm; Wt 80.6 kg
[2023-02-23] MEDS ORDERED: LACTATED RINGERS 1,000 ML IV STA (13:07)
[2023-02-23] MEDS ORDERED: LIDOCAINE JELLY 2% 6 ML SYRINGE MM PRN (13:15)
[2023-02-23] MEDS ORDERED: HURRICAINE EXT TUBE (BENZOCAINE) XX PRN (13:15)
--- NOTE | 2023-02-23 13:44 | Progress Note-Pre Operative ---
Pre-Operative Progress Note Date of Available H&P: February 23, 2023 Date H&P Reviewed: February 23, 2023 Time H&P Reviewed: 13:00 History & Physical: No changes noted Pre-Operative Diagnosis: dysphagia, esoph stricture MEL SHOEMAKER MD February 23, 2023 13:44
[2023-02-23] MEDS ORDERED: ONDANSETRON 4 MG/2 ML (SDV) Z0FRAN IVP PRN (13:45)
[2023-02-23] MEDS ORDERED: ONDANSETRON 4 MG (ZOFRAN) ORAL DISSOLVE TAB PO PRN (13:45)
--- NOTE | 2023-02-23 13:45 | Discharge Inst-Surgical ---
D/C Lap Instructions-SAHARA Follow Up Appt in 2 weeks Activity as tolerated High Fiber Diet 25g or more per day Avoid Alcohol, Caffeine, Spicy [place] and Acid foods. Drink 64 fluid oz or more of fluids per day. Symptoms to Report: Fever over 101 degree F, Nausea/Vomiting If any problems/questions: Contact your physician or go to Emergency Room MEL SHOEMAKER MD February 23, 2023 13:45
[2023-02-23 13:52] VITALS: BP 128/83
[2023-02-23] MEDS ORDERED: fentaNYL INJ 100 MCG/2 ML AMP ONE (15:32)
[2023-02-23] MEDS ORDERED: fentaNYL INJ 100 MCG/2 ML AMP IVP PRN (15:45)
[2023-02-23] MEDS ORDERED: proPOfol 200 MG/20 ML (DIPRIVAN) VIAL IV ONE ×2 (15:56→16:55)
[2023-02-23] MEDS ORDERED: LIDOCAINE JELLY 2% 6 ML SYRINGE ONE (16:06)
[2023-02-23 17:01] VITALS: BP 147/101
--- NOTE | 2023-02-23 17:01 | Anesthesia-General Post-Op ---
MAC Patient Condition Mental Status/LOC: Same as Preop Cardiovascular: Satisfactory Nausea/Vomiting: Absent Respiratory: Satisfactory Pain: Controlled Complications: Absent Post Op Complications Complications None Follow Up Care/Instructions Patient Instructions None needed. Anesthesiology Discharge Order Discharge Order Patient is doing well, no complaints, stable vital signs, no apparent adverse anesthesia problems. No complications reported per nursing. PAULINA SHEEHAN CRNA February 23, 2023 17:01
[2023-02-23 17:05] VITALS: BP 141/100
[2023-02-23 17:15] VITALS: BP 141/100
--- NOTE | 2023-02-23 17:24 | Progress Note-Post Operative ---
Post-Operative Progess Note Surgeon (s)/Terrazzo Worker Helper (s) Surgeon MEL SHOEMAKER MD Terrazzo Worker Helper: none Pre-Operative Diagnosis dysphagia, esoph stricture Post-Operative Diagnosis reflux esophagitis(grade D), severe distal esophageal stricture, large HH(5cm), moderate gastritis. Procedure & Operative Findings Date of Procedure 02/23/23 Procedure Performed/Findings EGD with bx and balloon dilatation. Anesthesia Type mac Estimated Blood Loss Estimated blood loss (mL): minimal Specimens/Packing Specimens Removed ge jxn MEL SHOEMAKER MD February 23, 2023 17:24
--- NOTE | 2023-02-23 23:34 | OPERATIVE REPORT ---
DATE OF SERVICE: 02/23/2023 ATTENDING CLAM SHUCKING MACHINE TENDER: [facility]. PREOPERATIVE DIAGNOSES: Severe dysphagia and known severe distal esophageal stricture. POSTOPERATIVE DIAGNOSES: Severe dysphagia and known severe distal esophageal stricture, large hiatal hernia(5cm), moderate gastritis, no distal obstructions. PROCEDURES PERFORMED: EGD with biopsy and balloon dilatation. SURGEON: Mel Shoemaker MD. ANESTHESIA: Monitored anesthesia care. ESTIMATED BLOOD LOSS: Minimal. FINDINGS: Same as postop diagnoses. DISPOSITION: The patient tolerated the procedure well. INDICATIONS: The patient is a 62-year-old male known to us. He has a longstanding history of dysphagia and regurgitation and gastroesophageal reflux disease. He also has an extensive past medical history including atrial fibrillation, hypertension, hypercholesterolemia, COPD as well as polysubstance abuse and does currently smoke and has a previous history of alcohol abuse; however, states that he has quit the alcohol. He has had multiple upper endoscopies and biopsies with the last one done on 02/02/2023. Before this, we had recommended that he undergo repeat dilatation approximately every month; however, we did not see him for approximately six months. On his last EGD, again he was found to have an extremely tight stricture and we were only able to dilate to 16.5 mm in luminal diameter. He continues to have symptomatic dysphagia. Multiple biopsies have also been taken of the area of stricture; however, all of these have come back negative for malignancy. DESCRIPTION OF PROCEDURE: The patient was brought to the endoscopy suite and laid in the left lateral decubitus position. After adequate IV pain and sedative medications and monitored anesthesia care, the mouthpiece was applied. The endoscope was placed in the mouth, visualizing the pharynx and hypopharyngeal region. Vocal cords, epiglottis and vallecula identified and appeared to be normal. The endoscope was then gently intubated into the esophageal opening and esophagus insufflated. The endoscope was then advanced through the first, second and third portions of esophagus at the level of the GE junction. Again, a severe distal esophageal stricture was identified and biopsies were taken with forceps with visualization of good hemostasis. We had direct visualization of the stomach through the gastroscope and then balloon was placed into the stomach under direct visualization. We then proceeded with graded dilatation from 2, 4, then eventually 5 and then to 5.5 atmospheres of pressure with moderate resistance for approximately 17.5 mm in luminal diameter with moderate resistance and left this in place for approximately 120 seconds. The balloon was then desufflated and removed with visualization of good hemostasis as well as no mucosal tears. The endoscope was then advanced into the stomach and endoscope retroflexed again visualizing a large hiatal hernia approximately 5 cm in size. There was a moderate severity gastritis. The endoscope was then advanced through the pylorus and the first and second portion of the duodenum with no distal obstructions identified. The endoscope was then slowly withdrawn while taking a second look and suctioning of residual air with no additional findings. The patient tolerated the procedure well. We will again recommend the necessary lifestyle and dietary accommodation including smoking cessation and avoidance of caffeinated and alcoholic beverages as well as spicy, greasy and acidic foods. He also needs to take in small and more frequent meals, chew thoroughly and avoid the foods that do cause dysphagia. Goal is to proceed with graded dilatation to hopefully 20 mm; however, this will take some time and he needs to follow up now every three weeks on an automatic basis for continued dilatation again in hopes of getting to 20 mm and maintaining this so he is asymptomatic for he is not a surgical candidate for esophageal resection and repair. As of now, he is already scheduled for a repeat EGD and dilatation in three weeks. We will also recommend that he continue with his Protonix and Carafate daily. Job ID: [id number] DocumentID: [id number] Dictated Date: 02/23/2023 17:05:02 Urban Designer Date: 02/23/2023 23:32:00 Dictated By: MEL SHOEMAKER MD [facility]
== END 2023-02-23 17:17 | disposition home or self-care (01) ==
LOC: ENDO 12:58
PROVIDERS: ATTEND Surgery
DX: K22.10 Ulcer of esophagus without bleeding (principal); K22.2 Esophageal obstruction; K29.70 Gastritis, unspecified, without bleeding; K44.9 Diaphragmatic hernia without obstruction or gangrene; K21.00 Gastro-esophageal reflux disease with esophagitis, without bleeding; F17.210 Nicotine dependence, cigarettes, uncomplicated

== ENCOUNTER 2023-03-16 11:56 | Day surgery (SDC) | payer MEDICAID ==
[~2023-03-16] VITALS: Ht 175 cm; Wt 80.6 kg
[2023-03-16] MEDS ORDERED: LACTATED RINGERS 1,000 ML IV STA (11:57)
[2023-03-16] MEDS ORDERED: LIDOCAINE JELLY 2% 6 ML SYRINGE MM PRN (12:00)
[2023-03-16] MEDS ORDERED: HURRICAINE EXT TUBE (BENZOCAINE) XX PRN (12:00)
[2023-03-16 12:10] VITALS: BP 108/93
[2023-03-16] MEDS ORDERED: proPOfol 200 MG/20 ML (DIPRIVAN) VIAL IV ONE ×2 (12:47→13:58)
--- NOTE | 2023-03-16 12:48 | Progress Note-Pre Operative ---
Pre-Operative Progress Note Date of Available H&P: March 16, 2023 Date H&P Reviewed: March 16, 2023 Time H&P Reviewed: 12:30 History & Physical: No changes noted Pre-Operative Diagnosis: dysphagia MEL SHOEMAKER MD March 16, 2023 12:48
--- NOTE | 2023-03-16 12:49 | Discharge Inst-Surgical ---
D/C Lap Instructions-SAHARA Follow Up Activity as tolerated High Fiber Diet 25g or more per day Avoid Alcohol, Caffeine, Spicy [place] and Acid foods. Drink 64 fluid oz or more of fluids per day. Symptoms to Report: Fever over 101 degree F, Nausea/Vomiting If any problems/questions: Contact your physician or go to Emergency Room MEL SHOEMAKER MD March 16, 2023 12:49
[2023-03-16] MEDS ORDERED: ONDANSETRON 4 MG/2 ML (SDV) Z0FRAN IVP PRN (13:00)
[2023-03-16] MEDS ORDERED: ONDANSETRON 4 MG (ZOFRAN) ORAL DISSOLVE TAB PO PRN (13:00)
[2023-03-16 14:08] VITALS: BP 166/96
--- NOTE | 2023-03-16 14:12 | Progress Note-Post Operative ---
Post-Operative Progess Note Surgeon (s)/Tongue Trimmer (s) Surgeon MEL SHOEMAKER MD Tongue Trimmer: none Pre-Operative Diagnosis dysphagia Post-Operative Diagnosis reflux esophagitis(grade D), severe esophageal stricture, large HH(5cm), mod-severe gastritis. Procedure & Operative Findings Date of Procedure 03/16/23 Procedure Performed/Findings EGD with bx and balloon dilatation. Anesthesia Type mac Estimated Blood Loss Estimated blood loss (mL): minimal Specimens/Packing Specimens Removed ge jxn. MEL SHOEMAKER MD March 16, 2023 14:12
[2023-03-16 14:15] VITALS: BP 172/96
--- NOTE | 2023-03-16 14:24 | Anesthesia-General Post-Op ---
MAC Patient Condition Mental Status/LOC: Same as Preop Cardiovascular: Satisfactory Nausea/Vomiting: Absent Respiratory: Satisfactory Pain: Controlled Complications: Absent Post Op Complications Complications None Follow Up Care/Instructions Patient Instructions None needed. Anesthesiology Discharge Order Discharge Order Patient is doing well, no complaints, stable vital signs, no apparent adverse anesthesia problems. No complications reported per nursing. PAULINA SHEEHAN CRNA March 16, 2023 14:24
[2023-03-16 14:25] VITALS: BP 172/96
--- NOTE | 2023-03-16 22:13 | OPERATIVE REPORT ---
DATE OF SERVICE: 03/16/2023 ATTENDING PRIMARY OUTREACH LIBRARIAN: [facility]. PREOPERATIVE DIAGNOSIS: Severe dysphagia and known severe distal esophageal stricture. POSTOPERATIVE DIAGNOSES: Severe dysphagia with known severe distal esophageal stricture, large hiatal hernia, 5 cm in size, moderate gastritis, no distal obstructions. PROCEDURE: EGD with biopsy and balloon dilatation. SURGEON: Mel Shoemaker MD ANESTHESIA: Monitored anesthesia care. ESTIMATED BLOOD LOSS: Minimal. FINDINGS: Severe dysphagia with known severe distal esophageal stricture, large hiatal hernia, 5 cm in size, moderate gastritis, no distal obstructions. DISPOSITION: The patient tolerated the procedure well. INDICATIONS: The patient is a 62-year-old male known to us. He has a longstanding history of dysphagia and regurgitation and gastroesophageal reflux disease. He also has an extensive past medical history including atrial fibrillation, hypertension, hypercholesterolemia, COPD as well as polysubstance abuse and does currently smoke and has a previous history of alcohol abuse. He states that he did quit alcohol a few years ago. He has had multiple upper endoscopies and biopsies with the last one done on 02/23/2023 where we were able to dilate to approximately 17.5 mm in luminal diameter. All the biopsies thus far of the GE junction had been negative for malignancy. The options for the patient were given including referral to an esophageal surgical lead; however, he does not appear to be a surgical candidate and did decide on continued conservative therapy with repeat dilatation. Again, he is on a schedule to proceed with continued graded dilatation to a point where he is asymptomatic for approximately 20 mm in luminal diameter and to maintain this. DESCRIPTION OF PROCEDURE: The patient was brought to the endoscopy suite and laid in the left lateral decubitus position. After adequate IV pain and sedative medications and monitored anesthesia care, the mouthpiece was applied. The endoscope was placed in the mouth, visualizing pharynx and hypopharyngeal region. Vocal cords, epiglottis and vallecula identified and appeared to be normal. The endoscope was then gently intubated into the esophageal opening and esophagus insufflated. The endoscope was then advanced through the first, second and third portion of esophagus; at the level of the GE junction, a reflux esophagitis, Bartholomew grade D identified as well as a severe distal esophageal stricture. Biopsies were taken with forceps with visualization of good hemostasis. We had direct visualization of the stomach with the gastroscope and then the balloon was placed into the stomach under direct visualization. We then proceeded with graded dilatation from 2, 4, then eventually 6 atmospheres of pressure with moderate resistance or approximately 18.0 mm in luminal diameter and left this in place for approximately 120 seconds. The balloon was then desufflated and removed with visualization of good hemostasis as well as no mucosal tears. The endoscope was then advanced in the stomach and endoscope retroflexed again visualizing a large hiatal hernia approximately 5 cm in size, which we know contributed to his symptomatology as well as stricture. There was a moderate severity gastritis. No formal ulcerations, polyps or any neoplasms. The endoscope was then advanced through the pylorus and the first and second portions of the duodenum with no distal obstructions identified. The endoscope was slowly withdrawn while taking a second look and suctioning of residual air with no additional findings. The patient tolerated the procedure well. We will recommend continued graded dilatation and schedule him for another dilatation in approximately 3 weeks. He also needs to proceed with the necessary lifestyle and dietary accommodation including avoidance of caffeinated and alcoholic beverages as well as spicy, greasy and acidic foods and to quit smoking. Again, he did opt with a more conservative therapy with continued graded dilatation and we will once again schedule him for another dilatation in 3 weeks. Job ID: [id number] DocumentID: [id number] Dictated Date: 03/16/2023 14:18:08 Dining Room Captain Date: 03/16/2023 22:11:00 Dictated By: MEL SHOEMAKER MD
== END 2023-03-16 14:35 | disposition home or self-care (01) ==
LOC: ENDO 11:56
PROVIDERS: ATTEND Surgery
DX: K22.2 Esophageal obstruction (principal); K21.00 Gastro-esophageal reflux disease with esophagitis, without bleeding; K29.70 Gastritis, unspecified, without bleeding; K44.9 Diaphragmatic hernia without obstruction or gangrene; K31.89 Other diseases of stomach and duodenum; F17.210 Nicotine dependence, cigarettes, uncomplicated
CPT/HCPCS: 88305

== ENCOUNTER 2023-04-06 11:09 | Day surgery (SDC) | payer MEDICAID ==
[~2023-04-06] VITALS: Ht 175 cm; Wt 80.6 kg
[2023-04-06] MEDS ORDERED: LACTATED RINGERS 1,000 ML IV STA (11:10)
[2023-04-06 11:15] VITALS: BP 129/91
[2023-04-06] MEDS ORDERED: LIDOCAINE JELLY 2% 6 ML SYRINGE MM PRN (11:15)
[2023-04-06] MEDS ORDERED: HURRICAINE EXT TUBE (BENZOCAINE) XX PRN (11:15)
--- NOTE | 2023-04-06 11:20 | Progress Note-Pre Operative ---
Pre-Operative Progress Note Date of Available H&P: Apr 06, 2023 Date H&P Reviewed: Apr 06, 2023 Time H&P Reviewed: 11:00 History & Physical: No changes noted Pre-Operative Diagnosis: dysphagia MEL SHOEMAKER MD Apr 06, 2023 11:20
--- NOTE | 2023-04-06 11:21 | Discharge Inst-Surgical ---
D/C Lap Instructions-SAHARA Follow Up Activity as tolerated High Fiber Diet 25g or more per day Avoid Alcohol, Caffeine, Spicy [place] and Acid foods. Drink 64 fluid oz or more of fluids per day. Symptoms to Report: Fever over 101 degree F, Nausea/Vomiting If any problems/questions: Contact your physician or go to Emergency Room MEL SHOEMAKER MD Apr 06, 2023 11:21
[2023-04-06] MEDS ORDERED: ONDANSETRON 4 MG (ZOFRAN) ORAL DISSOLVE TAB PO PRN (11:30)
[2023-04-06] MEDS ORDERED: ONDANSETRON 4 MG/2 ML (SDV) Z0FRAN IVP PRN (11:30)
[2023-04-06] MEDS ORDERED: PROPOFOL INJECTION 50 ML IV ONE (11:30)
[2023-04-06] MEDS ORDERED: LIDOCAINE JELLY 2% 6 ML SYRINGE ONE (11:30)
[2023-04-06 12:00] VITALS: BP 175/96
--- NOTE | 2023-04-06 12:10 | Progress Note-Post Operative ---
Post-Operative Progess Note Surgeon (s)/Electrical Automation Engineer (s) Surgeon MEL SHOEMAKER MD Electrical Automation Engineer: none Pre-Operative Diagnosis dysphagia Post-Operative Diagnosis reflux esophagitis(grade C), severe distal esophageal stricture, large HH(5cm), moderate gastritis. Procedure & Operative Findings Date of Procedure 04/06/23 Procedure Performed/Findings EGD with bx and balloon dilatation. Anesthesia Type mac Estimated Blood Loss Estimated blood loss (mL): minimal Specimens/Packing Specimens Removed ge jxn, antrum MEL SHOEMAKER MD Apr 06, 2023 12:10
--- NOTE | 2023-04-06 12:12 | Anesthesia-General Post-Op ---
MAC Patient Condition Mental Status/LOC: Same as Preop Cardiovascular: Satisfactory Nausea/Vomiting: Absent Respiratory: Satisfactory Pain: Controlled Complications: Absent Post Op Complications Complications None Follow Up Care/Instructions Patient Instructions None needed. Anesthesiology Discharge Order Discharge Order Patient is doing well, no complaints, stable vital signs, no apparent adverse anesthesia problems. No complications reported per nursing. MCA DAVIS CRNA Apr 06, 2023 12:12
[2023-04-06 12:22] VITALS: BP 175/96
--- NOTE | 2023-04-06 19:15 | HISTORY AND PHYSICAL ---
DATE OF ADMISSION: 04/06/2023 ATTENDING OXYGEN THERAPY TEACHER: [facility]. HISTORY OF PRESENT ILLNESS: The patient is a 62-year-old male known to us. He has a longstanding history of dysphagia and regurgitation and gastroesophageal reflux disease as well as a large hiatal hernia. He also has an extensive past medical history including atrial fibrillation, hypertension, hypercholesterolemia, COPD as well as polysubstance abuse and does currently smoke and also has a previous history of alcohol abuse. He did quit the alcohol a few years ago. He has had multiple upper endoscopies and biopsies with the last one done on 03/16/2023 where again a severe stricture identified. We had been dilating his stricture in a graded fashion due to the severity. We have also biopsied the GE junction multiple times where no malignancy has been identified. The option was given to the patient to be referred to an esophageal performance solutions specialist; however, he does not appear to be a surgical candidate and also wanted to proceed with continued conservative therapy with repeat dilatations. Again, his last dilatation was on 03/16/2023 and we were able to dilate to 18 mm in luminal diameter. We will schedule him for a repeat dilatation approximately every 3 weeks. PAST MEDICAL HISTORY: Hypertension, depression, gout, chronic back pain, COPD, gastroesophageal reflux disease, large hiatal hernia, dysphagia, history of polysubstance abuse. PAST SURGICAL HISTORY: Tonsillectomy, right inguinal hernia repair, laparoscopic cholecystectomy. ALLERGIES: SULFA, DEMEROL. MEDICATIONS: Lasix, potassium, zolpidem, simvastatin, clonazepam, fluoxetine, levetiracetam, Carafate, Protonix, Zofran, trazodone. SOCIAL HISTORY: Positive smoke 1.5 packs per day approximately 60 pack years, negative alcohol. FAMILY HISTORY: Mother, diabetes. VITAL SIGNS: Blood pressure 108/64. Current weight 180.9 pounds at 5 feet 7 inches. REVIEW OF SYSTEMS: Well-nourished male, currently in no acute distress. He is not experiencing any shortness of breath or difficulty breathing. No chest pain, palpitations, diaphoresis. Intermittent episodes of dysphagia, which has slowly improved with graded dilatation. He does not report any deena episodes of nausea, no vomiting as well as no hematemesis nor coffee-ground emesis. No fever, chills. No recent inadvertent weight loss. All other review of systems negative. PHYSICAL EXAMINATION: CHEST: Distant breath sounds and scattered wheezes bilaterally. HEART: Regular. No murmurs. EXTREMITIES: No lower extremity edema. Negative Homans sign. HEENT: No scleral icterus. No cervical lymphadenopathy. ABDOMEN: Soft, nondistended. There is mild discomfort in the epigastric region upon deep palpation. No hernias. SKIN: Warm, dry. ASSESSMENT AND PLAN: A 62-year-old male with severe distal esophageal stricture and large hiatal hernia. We will again proceed with a graded dilatation and schedule him for a repeat dilatation and slightly increase her EGD and dilatation to a goal of 20 mm or asymptomatic and maintaining this diameter long-term. Job ID: [id number] DocumentID: [id number] Dictated Date: 03/17/2023 20:13:21 Legal Financial Specialist Date: 03/17/2023 21:22:00 Dictated By: MEL SHOEMAKER MD
--- NOTE | 2023-04-06 19:44 | OPERATIVE REPORT ---
DATE OF SERVICE: 04/06/2023 ATTENDING ELECTRICAL CHECKOUT MECHANIC: [facility]. PREOPERATIVE DIAGNOSIS: Severe dysphagia with known severe distal esophageal stricture. POSTOPERATIVE DIAGNOSES: Severe dysphagia with known severe distal esophageal stricture, large hiatal hernia, 5 cm in size, moderate gastritis, no distal obstructions. PROCEDURE: EGD with biopsy and balloon dilatation to 18.5 mm. SURGEON: Mel Shoemaker MD ANESTHESIA: Monitored anesthesia care. ESTIMATED BLOOD LOSS: Minimal. FINDINGS: Severe dysphagia with known severe distal esophageal stricture, large hiatal hernia, 5 cm in size, moderate gastritis, no distal obstructions. INDICATIONS: The patient is a 62-year-old male known to us. He has a longstanding history of dysphagia, regurgitation and gastroesophageal reflux disease. He also has an extensive past medical history including atrial fibrillation, hypertension, hypercholesterolemia, COPD as well as polysubstance abuse and currently does smoke and has a previous history of alcohol abuse. He did quit alcohol a few years ago. He has had multiple upper endoscopies and biopsies with the last one done on 03/16/2023. He has again a known history of a severe distal esophageal stricture and multiple biopsies have been negative for malignancy. The option was given to refer the patient to an esophageal surgical territory manager; however, he did not want this and he also does not appear to be a surgical candidate and did decide on continued conservative therapy with repeat dilatation. We were able to dilate to 18.0 mm diameter on his last EGD, and initially we had started out at approximately 12-14 mm. He does state that he is improving in terms of his ability to eat with less dysphagia. DESCRIPTION OF PROCEDURE: The patient was brought to the endoscopy suite and laid in the left lateral decubitus position. After adequate IV pain and sedative medications and monitored anesthesia care, the mouthpiece was applied. The endoscope was placed in the mouth, visualizing the pharynx and hypopharyngeal region. Vocal cords, epiglottis and vallecula identified and appeared to be normal. The endoscope was then placed into the mouth, visualizing the pharynx and hypopharyngeal region. Vocal cords, epiglottis and vallecula identified and appeared to be normal. The endoscope was then gently intubated into the esophageal opening and esophagus insufflated. The endoscope was then advanced into the first, second and third portions of esophagus at the level of the GE junction, a severe distal esophageal stricture and reflux esophagitis grade D identified. This was slightly larger than previous upper endoscopies. A biopsy was taken with forceps with visualization of good hemostasis. The endoscope was then advanced into the stomach and endoscope retroflexed visualizing a known hiatal hernia approximately 5 cm in size. There was a moderate gastritis. The endoscope was then advanced through the pylorus and the first and second portions of the duodenum, which appeared normal with no distal obstructions. The balloon was then placed in the stomach and pulled back to the area of the stricture. We then proceeded with a graded dilatation from 2, 2.5 and then 3.5 mmHg pressure with moderate resistance and left this in place for approximately 120 seconds. This equates to approximately 18.5 mm in luminal diameter. The balloon was desufflated and removed with visualization of good hemostasis as well as no mucosal tears. The endoscope was then slowly withdrawn while taking a second look and suctioning of residual air with no additional findings. The patient tolerated the procedure well. The patient is improving from these repeat dilatations and the stricture is physically appearing to open up. Also multiple repeat biopsies of the GE jxn have been negative for malignancy. We will again schedule him in 3 weeks for another EGD and again graded dilatation until a goal of 20 mm and then maintaining this long-term. Job ID: [id number] DocumentID: [id number] Dictated Date: 04/06/2023 12:04:26 Scratch Brusher Date: 04/06/2023 19:42:00 Dictated By: MEL SHOEMAKER MD [facility]
== END 2023-04-06 12:43 | disposition home or self-care (01) ==
LOC: ENDO 11:09
PROVIDERS: ATTEND Surgery
DX: K22.2 Esophageal obstruction (principal); K44.9 Diaphragmatic hernia without obstruction or gangrene; K29.70 Gastritis, unspecified, without bleeding; K21.00 Gastro-esophageal reflux disease with esophagitis, without bleeding; F17.210 Nicotine dependence, cigarettes, uncomplicated; Z79.899 Other long term (current) drug therapy; K22.10 Ulcer of esophagus without bleeding

== ENCOUNTER 2023-04-27 11:41 | Day surgery (SDC) | payer MEDICAID ==
[~2023-04-27] VITALS: Ht 175 cm; Wt 80.6 kg
[~2023-04-27 11:41] MED LIST changes: +POTA-185 PO; -POTA10CA44 PO; +POTA10CA84 PO; -POTA10TA PO
[2023-04-27] MEDS ORDERED: LACTATED RINGERS 1,000 ML IV STA (11:47)
[2023-04-27] MEDS ORDERED: LIDOCAINE JELLY 2% 6 ML SYRINGE MM PRN (12:00)
[2023-04-27] MEDS ORDERED: HURRICAINE EXT TUBE (BENZOCAINE) XX PRN (12:00)
[2023-04-27 12:15] VITALS: BP 126/91
[2023-04-27] MEDS ORDERED: LACTATED RINGERS 1,000 ML IV ONE (12:18)
[2023-04-27] MEDS ORDERED: HURRICAINE EXT TUBE (BENZOCAINE) ONE (12:18)
--- NOTE | 2023-04-27 12:27 | Progress Note-Pre Operative ---
Pre-Operative Progress Note Date of Available H&P: Apr 27, 2023 Date H&P Reviewed: Apr 27, 2023 Time H&P Reviewed: 11:30 History & Physical: No changes noted Pre-Operative Diagnosis: dysphagia MEL SHOEMAKER MD Apr 27, 2023 12:27
--- NOTE | 2023-04-27 12:28 | Discharge Inst-Surgical ---
D/C Lap Instructions-SAHARA Follow Up Activity as tolerated High Fiber Diet 25g or more per day Avoid Alcohol, Caffeine, Spicy [place] and Acid foods. Drink 64 fluid oz or more of fluids per day. Symptoms to Report: Fever over 101 degree F, Nausea/Vomiting If any problems/questions: Contact your physician or go to Emergency Room MEL SHOEMAKER MD Apr 27, 2023 12:28
[2023-04-27] MEDS ORDERED: ONDANSETRON 4 MG (ZOFRAN) ORAL DISSOLVE TAB PO PRN (12:30)
[2023-04-27] MEDS ORDERED: ONDANSETRON 4 MG/2 ML (SDV) Z0FRAN IVP PRN (12:30)
[2023-04-27] MEDS ORDERED: PROPOFOL INJECTION 50 ML IV ONE (13:13)
[2023-04-27] MEDS ORDERED: LIDOCAINE JELLY 2% 6 ML SYRINGE ONE (13:17)
--- NOTE | 2023-04-27 13:55 | Anesthesia-General Post-Op ---
MAC Patient Condition Mental Status/LOC: Same as Preop Cardiovascular: Satisfactory Nausea/Vomiting: Absent Respiratory: Satisfactory Pain: Controlled Complications: Absent Post Op Complications Complications None Follow Up Care/Instructions Patient Instructions None needed. Anesthesiology Discharge Order Discharge Order Patient is doing well, no complaints, stable vital signs, no apparent adverse anesthesia problems. No complications reported per nursing. BUDDY BRIDGES CRNA Apr 27, 2023 13:55
[2023-04-27 13:57] VITALS: BP 174/97
[2023-04-27 14:21] VITALS: BP 174/97
--- NOTE | 2023-04-27 14:27 | Progress Note-Post Operative ---
Post-Operative Progess Note Surgeon (s)/Header Up (s) Surgeon MEL SHOEMAKER MD Header Up: none Pre-Operative Diagnosis dysphagia Post-Operative Diagnosis reflux esophagitis(grade D), severe dist esoph stricture, large HH(5cm), mod-severe gastritis, no distal obstructions. Procedure & Operative Findings Date of Procedure 04/27/23 Procedure Performed/Findings EGD with bx and balloon dilatation. Anesthesia Type mac Estimated Blood Loss Estimated blood loss (mL): minimal Specimens/Packing Specimens Removed ge jxn MEL SHOEMAKER MD Apr 27, 2023 14:27
[2023-04-27 14:32] VITALS: BP 174/97
--- NOTE | 2023-04-27 20:03 | OPERATIVE REPORT ---
DATE OF SERVICE: 04/27/2023 ATTENDING PRIMARY SLICER MACHINE OPERATOR: [facility]. PREOPERATIVE DIAGNOSIS: Severe dysphagia with known severe distal esophageal stricture with no malignancy identified and multiple biopsies. POSTOPERATIVE DIAGNOSES: Severe dysphagia with known severe distal esophageal stricture, large hiatal hernia, 5 cm in size, moderate to severe gastritis, no distal obstructions. PROCEDURE: EGD with biopsy and balloon dilatation to 19.5 mm in luminal diameter and 5 atmospheres of pressure. SURGEON: Mel Shoemaker MD ANESTHESIA: Monitored anesthesia care. ESTIMATED BLOOD LOSS: Minimal. FINDINGS: Severe dysphagia with known severe distal esophageal stricture, large hiatal hernia, 5 cm in size, moderate to severe gastritis, no distal obstructions. DISPOSITION: The patient tolerated the procedure well. INDICATIONS: The patient is a 62-year-old male known to us. He has a longstanding history of dysphagia, regurgitation and gastroesophageal reflux disease. He has an extensive past medical history including atrial fibrillation, hypertension, hypercholesterolemia, COPD as well as polysubstance abuse and currently does smoke and has a previous history of alcohol abuse. He did quit alcohol a few years ago. He has had multiple upper endoscopies and biopsies with the last one being done on 04/06/2023. He again has a known history of severe distal esophageal stricture. Multiple biopsies have been negative for malignancy. The option was given to the patient to be referred to an esophageal carpet installation specialist; however, he did not want to do this and he also does not appear to be a surgical candidate and did decide on continued conservative therapy with repeat dilatations. Since this process, he has improved in terms of lessening of his dysphagia and ability to swallow. We had initially started out at approximately 12-14 mm and on last dilatation, we were able to achieve 18.5 mm in diameter. DESCRIPTION OF PROCEDURE: The patient was brought to the endoscopy suite and laid in the left lateral decubitus position. After adequate IV pain and sedative medications and monitored anesthesia care, the mouthpiece was applied. The endoscope was placed in the mouth, visualizing pharynx and hypopharyngeal region. Vocal cords, epiglottis and vallecula identified and appeared to be normal. The endoscope was then gently intubated into the esophageal opening and esophagus insufflated. The endoscope was then advanced through the first, second and third portion of esophagus at the level of the GE junction, reflux esophagitis, [place] grade D identified with severe distal esophageal stricture. A biopsy was taken with forceps with visualization of good hemostasis. The endoscope was then advanced into the stomach and endoscope retroflexed visualizing a large hiatal hernia approximately 5 cm in size. There was a moderate to severe gastritis. No formal ulcerations, polyps or any neoplasms. The endoscope was then advanced through the pylorus and first and second portion of the duodenum, which appeared normal with no distal obstructions. The balloon was then placed in the stomach and pulled back to the area of the stricture and we then proceeded with a graded dilatation from 2, 4, then eventually 5 atmospheres of pressure or approximately 19.5 mm in luminal diameter with moderate resistance and left this in place for 120 seconds. The balloon was desufflated and removed with visualization of good hemostasis as well as no mucosal tears. The endoscope was then slowly withdrawn while taking a second look and suctioning of residual air with no additional findings. The patient tolerated the procedure well. We will recommend continued dilatation therapy until we were able to reach 20 mm in diameter and then maintain this and once he is able to maintain this and have his gastritis and reflux esophagitis under control and is asymptomatic and able to swallow, we will then make this less frequent in terms of dilatations. Job ID: [id number] DocumentID: [id number] Dictated Date: 04/27/2023 13:58:55 Pipe Processor Date: 04/27/2023 20:01:00 Dictated By: MEL SHOEMAKER MD [facility]
--- NOTE | 2023-05-13 13:03 | HISTORY AND PHYSICAL ---
DATE OF SERVICE: 04/27/2023 HISTORY OF PRESENT ILLNESS: The patient is a 62-year-old male known to us. He has a longstanding history of dysphagia and regurgitation as well as gastroesophageal reflux disease and a large hiatal hernia. He has an extensive past medical history including atrial fibrillation, hypertension, hypercholesterolemia, COPD as well as polysubstance abuse and does currently smoke. He has had multiple upper endoscopies and biopsies with the last one done 03/16/2023 where a severe stricture was identified. We had been dilating the stricture in a graded stepwise fashion due to its severity and his symptoms. We have also biopsied the GE junction multiple times where no malignancy has been identified. The option was given for the patient to be referred to an esophageal specialist; however, he does not appear to be a surgical candidate and also wanted to proceed with continuing conservative therapy with repeat dilatations. His last dilatation was on 03/16/2023 and we were able to dilate to 18 mm in luminal diameter. PAST MEDICAL HISTORY: Hypertension, depression, gout, chronic back pain, COPD, gastroesophageal reflux disease, large hiatal hernia, dysphagia, history of polysubstance abuse. PAST SURGICAL HISTORY: Tonsillectomy, right inguinal hernia repair, laparoscopic cholecystectomy. ALLERGIES: SULFA, DEMEROL. MEDICATIONS: Lasix, potassium, zolpidem, simvastatin, clonazepam, fluoxetine, levetiracetam, Carafate, Protonix, Zofran, trazodone. SOCIAL HISTORY: Positive smoke 1.5 packs per day approximately 60 pack years, negative alcohol. FAMILY HISTORY: Mother, diabetes. VITAL SIGNS: Blood pressure 110/60. Current weight 180.9 pounds at 5 feet 7 inches. REVIEW OF SYSTEMS: Well-nourished male in no acute distress. He is not experiencing any shortness of breath or difficulty breathing. No chest pain, palpitations, diaphoresis. Intermittent episodes of reflux as well as regurgitation as well as dysphagia; however, this has improved over the past 6 months due to repeat dilatations. No hematemesis, no coffee-ground emesis. No diarrhea, constipation. No red blood per rectum, no dark tarry stools. No fever, chills, no recent inadvertent weight loss. All other review of systems negative. PHYSICAL EXAMINATION: CHEST: Scattered wheezes and rhonchi bilaterally. HEART: Regular. No murmurs. EXTREMITIES: No lower extremity edema. Negative Homans sign. HEENT: No scleral icterus. No cervical lymphadenopathy. ABDOMEN: Soft, nontender, nondistended. SKIN: Warm, dry. ASSESSMENT AND PLAN: A 62-year-old male with symptomatic dysphagia and longstanding history of gastroesophageal reflux disease, distal esophageal stricture and large hiatal hernia. The patient chose to proceed with conservative management with repeat dilatation in a graded fashion. He states that over time, his dysphagia has improved significantly. On his last EGD, we were able to dilate to 18 mm and we will proceed with another EGD as well as dilatation as well as biopsies as appropriate. Job ID: [id number] DocumentID: [id number] Dictated Date: 05/13/2023 12:46:45 Food And Drug Research Scientist Date: 05/13/2023 13:01:00 Dictated By: MEL SHOEMAKER MD
== END 2023-04-27 14:35 | disposition home or self-care (01) ==
LOC: ENDO 11:41
PROVIDERS: ATTEND Surgery
DX: K22.2 Esophageal obstruction (principal); K44.9 Diaphragmatic hernia without obstruction or gangrene; K29.70 Gastritis, unspecified, without bleeding; K21.00 Gastro-esophageal reflux disease with esophagitis, without bleeding; F17.210 Nicotine dependence, cigarettes, uncomplicated
CPT/HCPCS: 88305

== ENCOUNTER → 2023-05-18 | Day surgery (SDC) | payer MEDICAID ==
[~2023-05-18] VITALS: Ht 175 cm; Wt 80.6 kg
[~2023-05-18] MED LIST changes: +HURRICAINE EXT TUBE (BENZOCAINE) XX PRN; +LACTATED RINGERS 1,000 ML IV STA; +LIDOCAINE JELLY 2% 6 ML SYRINGE MM PRN; +LIDOCAINE JELLY 2% 6 ML SYRINGE ONE; +MIDAZOLAM 2 MG/2 ML (VERSED) VIAL ONE; +ONDANSETRON 4 MG (ZOFRAN) ORAL DISSOLVE TAB PO PRN; +ONDANSETRON 4 MG/2 ML (SDV) Z0FRAN IVP PRN; +PROPOFOL INJECTION 50 ML IV ONE
[2023-05-18 11:30] VITALS: BP 134/88
--- NOTE | 2023-05-18 11:41 | Progress Note-Pre Operative ---
Pre-Operative Progress Note Date of Available H&P: May 18, 2023 Date H&P Reviewed: May 18, 2023 Time H&P Reviewed: 11:30 History & Physical: No changes noted Pre-Operative Diagnosis: dysphagia and eosph stricture MEL SHOEMAKER MD May 18, 2023 11:41
--- NOTE | 2023-05-18 11:43 | Discharge Inst-Surgical ---
D/C Lap Instructions-SAHARA Follow Up Activity as tolerated High Fiber Diet 25g or more per day Avoid Alcohol, Caffeine, Spicy [place] and Acid foods. Drink 64 fluid oz or more of fluids per day. Symptoms to Report: Fever over 101 degree F, Nausea/Vomiting If any problems/questions: Contact your physician or go to Emergency Room MEL SHOEMAKER MD May 18, 2023 11:43
[2023-05-18 13:03] VITALS: BP 150/77
[2023-05-18 13:08] VITALS: BP 102/77
--- NOTE | 2023-05-18 13:10 | Progress Note-Post Operative ---
Post-Operative Progess Note Surgeon (s)/Supply Coordinator (s) Surgeon MEL SHOEMAKER MD Supply Coordinator: none Pre-Operative Diagnosis dysphagia and eosph stricture Post-Operative Diagnosis reflux esophagitis(grade C), severe distal esophageal stricture however visually improved, large HH(5cm), moderate gastritis, no distal obstruction. Procedure & Operative Findings Date of Procedure 05/18/23 Procedure Performed/Findings EGD with bx and balloon dilatation. Anesthesia Type mac Estimated Blood Loss Estimated blood loss (mL): minimal Specimens/Packing Specimens Removed ge jxn, antrum MEL SHOEMAKER MD May 18, 2023 13:10
[2023-05-18 13:13] VITALS: BP 101/77
[2023-05-18 13:35] VITALS: BP 115/74
[2023-05-18 13:41] VITALS: BP 115/74
--- NOTE | 2023-05-18 14:48 | Anesthesia-General Post-Op ---
MAC Patient Condition Mental Status/LOC: Same as Preop Cardiovascular: Satisfactory Nausea/Vomiting: Absent Respiratory: Satisfactory Pain: Controlled Complications: Absent Post Op Complications Complications None Follow Up Care/Instructions Patient Instructions None needed. Anesthesiology Discharge Order Discharge Order Patient is doing well, no complaints, stable vital signs, no apparent adverse anesthesia problems. No complications reported per nursing. KINZA PAZ CRNA May 18, 2023 14:48
--- NOTE | 2023-05-18 17:36 | OPERATIVE REPORT ---
DATE OF SERVICE: 05/18/2023 ATTENDING PRIMARY REVERSE LOGISTICS ANALYST: [facility]. PREOPERATIVE DIAGNOSES: Dysphagia with gastroesophageal reflux disease, large hiatal hernia, and severe distal esophageal stricture. POSTOPERATIVE DIAGNOSES: Dysphagia with gastroesophageal reflux disease, large hiatal hernia, and severe distal esophageal stricture. PROCEDURE: EGD with biopsy and balloon dilatation to 19.25mm SURGEON: Mel Shoemaker MD ANESTHESIA: Monitored anesthesia care. ESTIMATED BLOOD LOSS: Minimal. FINDINGS: Dysphagia with gastroesophageal reflux disease, large hiatal hernia, and severe distal esophageal stricture. Dilatation to 19.25mm DISPOSITION: The patient tolerated the procedure well. INDICATIONS: The patient is a 62-year-old male known to us. He has a longstanding history of dysphagia and regurgitation as well as gastroesophageal reflux disease and a large hiatal hernia. He has an extensive past medical history including atrial fibrillation, hypertension, hypercholesterolemia, COPD as well as polysubstance abuse and does currently smoke. He has had multiple upper endoscopies and biopsies with the last one done approximately 3 weeks ago where again a severe stricture identified. We have been dilating the stricture in a graded stepwise fashion due to its severity and his symptoms. We have also biopsied the GE junction multiple times where no malignancy was identified. The option was given to the patient to proceed with a referral to an esophageal specialist or cardiothoracic surgeon for surgical intervention; however, the patient does not appear to be a surgical candidate and continues to smoke and wanted to proceed with continuing with conservative therapy and repeated dilatations. His last dilatation, we were able to get to approximately 19 mm in luminal diameter. DESCRIPTION OF PROCEDURE: The patient was brought to the endoscopy suite and laid in the left lateral decubitus position. After adequate IV pain and sedative medications and monitored anesthesia care, the mouthpiece was applied. The endoscope was placed in the mouth, visualizing the pharynx and hypopharyngeal region. Vocal cords, epiglottis and vallecula identified and appeared to be normal. The endoscope was then gently intubated in the esophageal opening and esophagus insufflated. The endoscope was then advanced into the first, second, and third portions of esophagus at the level of the GE junction, reflux esophagitis, [place] grade C identified as well as a distal esophageal stricture. This continues to look to improve. The luminal diameter was larger and the endoscope was easily passable through this region. There were no masses identified and a biopsy was taken of the GE junction with forceps with visualization of good hemostasis. The endoscope was then advanced in the stomach and endoscope retroflexed, again visualizing a large hiatal hernia, approximately 5 cm in size. There was a moderate severity gastritis and a biopsy was taken of the antrum to rule out H pylori. The endoscope was then advanced through the pylorus and the first and second portion of the duodenum, which appeared normal with no distal obstructions. The balloon was then placed in the stomach and pulled back to the area of the stricture. We then proceeded with dilatation in a stepwise graded fashion. We first proceeded with 2 atmospheres of pressure or 18 mm in luminal diameter with mild resistance. We then proceeded to 3 and eventually 4 atmospheres of pressure with 60 seconds at each level. We were then able to insufflate to approximately 4.25 atmospheres of pressure or approximately 19.25 mm in luminal diameter with moderate resistance and left this in place for approximately 120 seconds. The balloon was then desufflated and removed with visualization of good hemostasis as well as no mucosal tears. The endoscope was then slowly withdrawn while taking a second look and suctioning of residual air with no additional findings. The patient tolerated the procedure well. We will recommend continued graded dilatation to a goal of 20 mm and then also maintenance of this. He states that he has been improving from a symptomatic standpoint and our goal is to have him be asymptomatic and have to do left EGDs and balloon dilatation to maintain being asymptomatic. Job ID: [id number] DocumentID: [id number] Dictated Date: 05/18/2023 13:03:24 Mule Operator Date: 05/18/2023 16:32:00 Dictated By: MEL SHOEMAKER MD [facility]
== END ==
LOC: ENDO 11:11
PROVIDERS: ATTEND Surgery
DX: K21.00 Gastro-esophageal reflux disease with esophagitis, without bleeding (principal); K22.2 Esophageal obstruction; K29.50 Unspecified chronic gastritis without bleeding; K31.89 Other diseases of stomach and duodenum; K44.9 Diaphragmatic hernia without obstruction or gangrene; F17.210 Nicotine dependence, cigarettes, uncomplicated
CPT/HCPCS: 88305

== ENCOUNTER 2023-06-08 11:04 | Day surgery (SDC) | payer MEDICAID ==
[~2023-06-08] VITALS: Ht 170.2 cm; Wt 80.6 kg
[~2023-06-08 11:04] MED LIST changes: -HURRICAINE EXT TUBE (BENZOCAINE) XX PRN; -LACTATED RINGERS 1,000 ML IV STA; -LIDOCAINE JELLY 2% 6 ML SYRINGE MM PRN; -LIDOCAINE JELLY 2% 6 ML SYRINGE ONE; -MIDAZOLAM 2 MG/2 ML (VERSED) VIAL ONE; -ONDANSETRON 4 MG (ZOFRAN) ORAL DISSOLVE TAB PO PRN; -ONDANSETRON 4 MG/2 ML (SDV) Z0FRAN IVP PRN; -PROPOFOL INJECTION 50 ML IV ONE
--- NOTE | 2023-06-08 11:06 | Progress Note-Pre Operative ---
Pre-Operative Progress Note Date of Available H&P: Jun 08, 2023 Date H&P Reviewed: Jun 08, 2023 Time H&P Reviewed: 11:00 History & Physical: No changes noted Pre-Operative Diagnosis: GERD, dysphagia MEL SHOEMAKER MD Jun 08, 2023 11:06
--- NOTE | 2023-06-08 11:07 | Discharge Inst-Surgical ---
D/C Lap Instructions-SAHARA Follow Up Activity as tolerated High Fiber Diet 25g or more per day Avoid Alcohol, Caffeine, Spicy [place] and Acid foods. Drink 64 fluid oz or more of fluids per day. Symptoms to Report: Fever over 101 degree F, Nausea/Vomiting If any problems/questions: Contact your physician or go to Emergency Room MEL SHOEMAKER MD Jun 08, 2023 11:07
[2023-06-08] MEDS ORDERED: LACTATED RINGERS 1,000 ML 1,000 ML IV STA (11:09)
[2023-06-08] MEDS ORDERED: ONDANSETRON 4 MG ORAL DISSOLVE TABLET PO PRN (11:15)
[2023-06-08] MEDS ORDERED: ONDANSETRON INJECTION 4 MG/2 ML (SDV) IVP PRN (11:15)
[2023-06-08] MEDS ORDERED: LIDOCAINE JELLY 2% 6 ML SYRINGE MM PRN (11:15)
[2023-06-08] MEDS ORDERED: HURRICAINE EXT TUBE (BENZOCAINE) XX PRN (11:15)
[2023-06-08 11:24] VITALS: BP 102/83
[2023-06-08] MEDS ORDERED: proPOfol INJECTION 200 MG/20 ML VIAL IV ONE ×2 (11:42→12:17)
[2023-06-08] MEDS ORDERED: LIDOCAINE JELLY 2% 6 ML SYRINGE ONE (11:58)
[2023-06-08 12:30] VITALS: BP 167/104
[2023-06-08 12:35] VITALS: BP 176/93
--- NOTE | 2023-06-08 12:42 | Progress Note-Post Operative ---
Post-Operative Progess Note Surgeon (s)/Necktie Turner (s) Surgeon MEL SHOEMAKER MD Necktie Turner: none Pre-Operative Diagnosis GERD, dysphagia Post-Operative Diagnosis reflux esophagitis(grade C) with distal esoph stricture, large hiatal hernia(5cm), moderate gastritis. Procedure & Operative Findings Date of Procedure 06/08/23 Procedure Performed/Findings EGD with bx and balloon dilatation. Anesthesia Type mac Estimated Blood Loss Estimated blood loss (mL): minimal Specimens/Packing Specimens Removed ge jxn, antrum MEL SHOEMAKER MD Jun 08, 2023 12:42
[2023-06-08 13:00] VITALS: BP 160/95
--- NOTE | 2023-06-08 13:30 | Anesthesia-General Post-Op ---
MAC Patient Condition Mental Status/LOC: Same as Preop Cardiovascular: Satisfactory Nausea/Vomiting: Absent Respiratory: Satisfactory Pain: Controlled Complications: Absent Post Op Complications Complications None Follow Up Care/Instructions Patient Instructions None needed. Anesthesiology Discharge Order Discharge Order Patient is doing well, no complaints, stable vital signs, no apparent adverse anesthesia problems. No complications reported per nursing. PAULINA SHEEHAN CRNA Jun 08, 2023 13:30
--- NOTE | 2023-06-08 16:25 | Anesthesia-General Post-Op ---
MAC Patient Condition Mental Status/LOC: Same as Preop Cardiovascular: Satisfactory Nausea/Vomiting: Absent Respiratory: Satisfactory Pain: Controlled Complications: Absent Post Op Complications Complications None Follow Up Care/Instructions Patient Instructions None needed. Anesthesiology Discharge Order Discharge Order Patient is doing well, no complaints, stable vital signs, no apparent adverse anesthesia problems. No complications reported per nursing. MAC DAVIS CRNA Jun 08, 2023 16:25
--- NOTE | 2023-06-08 21:07 | OPERATIVE REPORT ---
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 PREOPERATIVE DIAGNOSES: Dysphagia with gastroesophageal reflux disease, large hiatal hernia and severe distal esophageal stricture. POSTOPERATIVE DIAGNOSES: Dysphagia with gastroesophageal reflux disease, large hiatal hernia and severe distal esophageal stricture. PROCEDURE: EGD with biopsy and balloon dilatation to 19.25 mm. SURGEON: Mel Shoemaker MD ANESTHESIA: Monitored anesthesia care. ESTIMATED BLOOD LOSS: Minimal. FINDINGS: Dysphagia with gastroesophageal reflux disease, large hiatal hernia, 5 cm in size with a severe distal esophageal stricture, able to dilate to 19.5 mm. DISPOSITION: The patient tolerated the procedure well. INDICATIONS: The patient is a 62-year-old male known to us. He has a longstanding history of dysphagia, regurgitation and gastroesophageal reflux disease and a large hiatal hernia. He has an extensive past medical history including atrial fibrillation, hypertension, hypercholesterolemia, COPD as well as polysubstance abuse and does currently smoke 2 packs of cigarettes daily. He has had multiple upper endoscopies and biopsies with the last one done approximately 3 weeks ago and again a severe stricture identified. We have been dilating the stricture in a graded stepwise fashion due to its severity and its symptoms. We have a biopsy of the GE junction multiple times where there was no malignancy identified. The option was given to proceed with a referral to an esophageal specialist for cardiothoracic surgeon for surgical intervention; however, the patient does not appear to be a surgical candidate and continues to smoke. He wanted to proceed with continuation with conservative therapy with repeated dilatations. Again, his last dilatation was approximately 3 weeks ago and to 19.25 mm in diameter. DESCRIPTION OF PROCEDURE: The patient was brought to the endoscopy suite in the left lateral decubitus position. After adequate IV pain and sedative medications and monitored anesthesia care, the mouthpiece was applied. The endoscope was placed in the mouth, visualizing the pharynx and hypopharyngeal region. Vocal cords, epiglottis and vallecula identified and appeared to be normal. The endoscope was then gently abated esophageal opening and esophagus insufflated. The endoscope was then advanced into the first, second and third portion of esophagus at the level of the GE junction, a reflux esophagitis, [place] grade C identified. A significant distal esophageal stricture was once again identified; however, the larger from the initial phases of dilatations. A biopsy was taken of the GE junction with forceps with visualization of good hemostasis. The endoscope was then advanced into the stomach and endoscope retroflexed visualizing again a large hiatal hernia, 5 cm in size. There was a moderate severity gastritis. No formal ulcerations, polyps or any neoplasms. A biopsy was taken of the stomach, antrum with visualization of good hemostasis. The endoscope was then advanced through the pylorus and the first and second portion of the duodenum, which appeared normal with no distal obstructions. The balloon was then placed in the stomach and pulled back to the area of the stricture. We proceeded in a graded stepwise fashion from 2, 4, then eventually approximately 4.5 atmospheres of pressure or approximately 19.25 mm in luminal diameter with moderate resistance and left this in place for approximately 60 seconds at each level then approximately 120 seconds at 4.5 pressure. The balloon was then desufflated and removed with visualization of good hemostasis as well as no mucosal tears. The endoscope was then slowly withdrawn while taking a second look and suctioning of residual air with no additional findings. The patient tolerated the procedure well. We will recommend continued medical management, which would include small and more frequent meals, avoidance of eating at night as well as head elevation while lying supine. He also needs to proceed with smoking cessation. He is to also continue his Protonix and Carafate. We feel that he has continued to improve clinically, however, since the last dilatation, we were only able to dilate with the same level of approximately 19.25 mm. We had been going every 3 weeks graded dilatation. However, again from a clinical standpoint, he is able to eat and drink well with minimal difficulty and now we will increase the timeframe in between and dilatation and have him follow up and schedule him for another EGD and dilatation in 4 weeks. Job ID: [id number] DocumentID: [id number] Dictated Date: 06/08/2023 12:40:16 Chief Compliance Officer Date: 06/08/2023 20:37:00 Dictated By: MEL SHOEMAKER MD [facility]Jesus
== END 2023-06-08 12:50 | disposition home or self-care (01) ==
LOC: ENDO 11:04
PROVIDERS: ATTEND Surgery
DX: K21.9 Gastro-esophageal reflux disease without esophagitis (principal); K44.9 Diaphragmatic hernia without obstruction or gangrene; K22.2 Esophageal obstruction; K29.70 Gastritis, unspecified, without bleeding; K31.89 Other diseases of stomach and duodenum; K22.10 Ulcer of esophagus without bleeding; F17.210 Nicotine dependence, cigarettes, uncomplicated; Z79.899 Other long term (current) drug therapy

== ENCOUNTER 2023-07-06 11:05 | Day surgery (SDC) | payer MEDICAID ==
[~2023-07-06] VITALS: Ht 175 cm; Wt 80.6 kg
[2023-07-06] MEDS ORDERED: LACTATED RINGERS 1,000 ML 1,000 ML IV STA (11:10)
[2023-07-06 11:30] VITALS: BP 137/101
[2023-07-06] MEDS ORDERED: LIDOCAINE JELLY 2% 6 ML SYRINGE TOP ONE (11:45)
[2023-07-06] MEDS ORDERED: HURRICAINE EXT TUBE (BENZOCAINE) XX ONE (11:45)
--- NOTE | 2023-07-06 12:31 | Progress Note-Pre Operative ---
Pre-Operative Progress Note Date of Available H&P: Jul 06, 2023 Date H&P Reviewed: Jul 06, 2023 Time H&P Reviewed: 12:00 History & Physical: No changes noted Pre-Operative Diagnosis: dysphagia, GERD MEL SHOEMAKER MD Jul 06, 2023 12:31
--- NOTE | 2023-07-06 12:32 | Discharge Inst-Surgical ---
D/C Lap Instructions-SAHARA Follow Up Appt in 4 weeks Activity as tolerated High Fiber Diet 25g or more per day Avoid Alcohol, Caffeine, Spicy [place] and Acid foods. Drink 64 fluid oz or more of fluids per day. Symptoms to Report: Fever over 101 degree F, Nausea/Vomiting If any problems/questions: Contact your physician or go to Emergency Room MEL SHOEMAKER MD Jul 06, 2023 12:32
[2023-07-06] MEDS ORDERED: ONDANSETRON 4 MG ORAL DISSOLVE TABLET PO PRN (12:45)
[2023-07-06] MEDS ORDERED: ONDANSETRON INJECTION 4 MG/2 ML (SDV) IVP PRN (12:45)
[2023-07-06] MEDS ORDERED: LACTATED RINGERS 1,000 ML 1,000 ML IV ONE (13:25)
[2023-07-06] MEDS ORDERED: MIDAZOLAM INJ 2 MG/2 ML VIAL ONE (14:17)
[2023-07-06] MEDS ORDERED: LIDOCAINE JELLY 2% 6 ML SYRINGE ONE (14:18)
[2023-07-06] MEDS ORDERED: LABETALOL 5 mg/ml 4 ML SINGLE DOSE SYRINGE ONE (14:34)
[2023-07-06 14:45] VITALS: BP 199/108
--- NOTE | 2023-07-06 14:48 | Anesthesia-General Post-Op ---
MAC Patient Condition Mental Status/LOC: Same as Preop Cardiovascular: Satisfactory Nausea/Vomiting: Absent Respiratory: Satisfactory Pain: Controlled Complications: Absent Post Op Complications Complications None Follow Up Care/Instructions Patient Instructions None needed. Anesthesiology Discharge Order Discharge Order Patient is doing well, no complaints, stable vital signs, no apparent adverse anesthesia problems. No complications reported per nursing. KAMILLE CAPELLAN CRNA Jul 06, 2023 14:48
[2023-07-06 14:50] VITALS: BP 180/100
[2023-07-06 14:55] VITALS: BP 177/107
--- NOTE | 2023-07-06 15:10 | Progress Note-Post Operative ---
Post-Operative Progess Note Surgeon (s)/Mobile Home Mechanic (s) Surgeon MEL SHOEMAKER MD Mobile Home Mechanic: none Pre-Operative Diagnosis dysphagia, GERD Post-Operative Diagnosis reflux esophagitis(grade C) with distal esoph stricture, large HH(5cm), moderate gastritis. no distal obstructions Procedure & Operative Findings Date of Procedure 07/06/23 Procedure Performed/Findings EGD with bx and balloon dilatation. Anesthesia Type mac Estimated Blood Loss Estimated blood loss (mL): minimal Specimens/Packing Specimens Removed ge jxn, antrum MEL SHOEMAKER MD Jul 06, 2023 15:10
[2023-07-06 15:25] VITALS: BP 177/107
--- NOTE | 2023-07-06 20:25 | OPERATIVE REPORT ---
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 PREOPERATIVE DIAGNOSES: Dysphagia with gastroesophageal reflux disease, large hiatal hernia, severe distal esophageal stricture. POSTOPERATIVE DIAGNOSES: Dysphagia with gastroesophageal reflux disease, large hiatal hernia, severe distal esophageal stricture. PROCEDURE: EGD with biopsy and balloon dilatation to 19.5 mm. SURGEON: Mel Shoemaker MD ANESTHESIA: Monitored anesthesia care. ESTIMATED BLOOD LOSS: Minimal. INDICATIONS: Severe distal esophageal stricture; however, significantly improved from earlier EGDs and dilatations. A large hiatal hernia was identified, 5 cm in size. We were able to dilate to 19.5 mm in luminal diameter. The patient is a 62-year-old male known to us. He has a longstanding history of dysphagia, regurgitation and gastroesophageal reflux disease as well as a large hiatal hernia. He has an extensive past medical history including atrial fibrillation, hypertension, hypercholesterolemia, COPD and polysubstance abuse and does currently smoke 2 packs of cigarettes daily. He has had multiple upper endoscopies and biopsies with the last one done 4 weeks ago. He has had a severe distal esophageal stricture identified. We have been dilating the stricture in a graded stepwise fashion due to the severity of the symptoms. The option was given to proceed with a referral to an esophageal specialist as well as cardiothoracic surgery for possible surgical intervention; however, the patient did not appear to be a surgical candidate and continues to smoke and he also wanted to proceed with continuation of conservative therapy. His last dilatation was 4 weeks ago and we were able to dilate to 19.25 mm in diameter. DESCRIPTION OF PROCEDURE: The patient was brought to the endoscopy suite and laid in the left lateral decubitus position. After adequate IV pain and sedative medications and monitored anesthesia care, the mouthpiece was applied. The endoscope was placed in the mouth, visualized the pharynx and hypopharyngeal region. Vocal cords, epiglottis and vallecula identified and appeared to be normal. The endoscope was then gently intubated in the esophageal opening and esophagus insufflated. The endoscope was then advanced into the first, second and third portion of esophagus; at the level of the GE junction, a reflux esophagitis, [place] grade C and the distal esophageal stricture identified. No formal lesions or masses identified in this region. A biopsy was taken with forceps with visualization of good hemostasis. The endoscope was then advanced into the stomach and endoscope retroflexed visualizing again a large hiatal hernia, 5 cm in size. There was a moderate severity gastritis. No formal ulcerations, polyps or any neoplasms. A biopsy was taken of the antrum to rule out H. pylori with visualization of good hemostasis. The endoscope was then advanced into the pylorus and the first and second portion of the duodenum, which appeared normal with no distal obstructions. The balloon was then placed in the stomach and pulled back to the area of the stricture. We then proceeded with graded dilatation from 1, 2, 3, 4, then eventually 5 atmospheres of pressure for 60 seconds in between until we had moderate resistance or approximately 19.5 mm in luminal diameter and left this in place for 120 seconds. The balloon was then desufflated and removed with visualization of good hemostasis as well as no mucosal tears. Endoscope was then slowly withdrawn while taking a second look and suctioning of residual air with no additional findings. The patient tolerated the procedure well. We will recommend continued medical management with a small and more frequent meals, avoidance of eating at night as well as head elevation while lying supine. He also needs to avoid caffeinated beverages, spicy, greasy and acidic foods. The importance of smoking cessation was also again reiterated to the patient. The patient continues to make process with repeated dilatations and we will have him follow up in approximately 4 weeks with again a goal of 20 mm in luminal diameter and then maintenance of this and then also to decrease the frequency of the dilatation procedure and continuation of not having symptoms of dysphagia. Job ID: [id number] DocumentID: [id number] Dictated Date: 07/06/2023 14:56:51 Flange Turner Date: 07/06/2023 20:23:00 Dictated By: MEL SHOEMAKER MD
--- NOTE | 2023-07-19 16:02 | HISTORY AND PHYSICAL ---
HISTORY OF PRESENT ILLNESS: The patient is a 62-year-old male known to us. He has a longstanding history of dysphagia and regurgitation as well as gastroesophageal reflux disease and a large hiatal hernia. He also does have an extensive past medical history including atrial fibrillation, hypertension, hypercholesterolemia, COPD as well as polysubstance abuse and currently does smoke cigarettes. He has had multiple endoscopies and biopsies with the last one done on 06/08/2023. He has a known distal esophageal severe stricture, which has been graded in a stepwise fashion due to its severity and his symptoms. Multiple biopsies of the GE junction had been taken and no malignancy identified. The option was given for the patient to be referred to an esophageal specialist; however, he does not appear to be a surgical candidate and also wanted to proceed with continuing with conservative therapy with repeat dilatations. PAST MEDICAL HISTORY: Hypertension, depression, gout, chronic back pain, COPD, gastroesophageal reflux disease, large hiatal hernia, dysphagia and distal esophageal stricture, history of polysubstance abuse. PAST SURGICAL HISTORY: Tonsillectomy, right inguinal hernia repair, laparoscopic cholecystectomy. ALLERGIES: SULFA, DEMEROL. MEDICATIONS: Lasix, potassium, zolpidem, simvastatin, clonazepam, fluoxetine, levetiracetam, Carafate, Protonix, Zofran, trazodone. SOCIAL HISTORY: Positive smoke 1.5 packs per day for approximately 60 pack years, negative alcohol. FAMILY HISTORY: Mother, diabetes. VITAL SIGNS: Blood pressure 120/60. Current weight 180 pounds at 5 feet 7 inches. REVIEW OF SYSTEMS: Well-nourished male, currently in no acute distress. He is not experiencing any shortness of breath or difficulty breathing. No chest pain, palpitations, diaphoresis. Intermittent episodes of dysphagia. No nausea or vomiting. No diarrhea or constipation. No red blood per rectum. No dark tarry stools. No fever or chills. No recent inadvertent weight loss. All other review of systems negative. PHYSICAL EXAMINATION: CHEST: Clear. Good breath sounds bilaterally. HEART: Regular. No murmurs. CHEST: Scattered rales and rhonchi bilaterally. HEART: Regular. No murmurs. EXTREMITIES: No lower extremity edema. Negative Homans sign. HEENT: No scleral icterus. No cervical lymphadenopathy. ABDOMEN: Soft, nontender, nondistended. SKIN: Warm, dry. ASSESSMENT AND PLAN: A 62-year-old male with symptomatic severe distal esophageal stricture, who has been responding well to repeat dilatations. In the last dilatation, we were able to achieve a luminal diameter of approximately 19.25 mm in diameter. He would like to continue with repeat dilatations to a goal of 20 mm in luminal diameter and becoming asymptomatic and then maintaining this. Once we reached his goal, we may then schedule the repeat dilatations further apart and again recommend continued medical management and cessation of smoking to prevent further development and recurrence. Job ID: [id number] DocumentID: [id number] Dictated Date: 07/19/2023 15:28:08 Household Appliance Installer Date: 07/19/2023 16:00:00 Dictated By: MEL SHOEMAKER MD MTDD
== END 2023-07-06 15:25 | disposition home or self-care (01) ==
LOC: ENDO 11:05
PROVIDERS: ATTEND Surgery
DX: K29.50 Unspecified chronic gastritis without bleeding (principal); K22.10 Ulcer of esophagus without bleeding; K22.2 Esophageal obstruction; K31.89 Other diseases of stomach and duodenum; K44.9 Diaphragmatic hernia without obstruction or gangrene; F17.210 Nicotine dependence, cigarettes, uncomplicated
CPT/HCPCS: 88305; 88312

== ENCOUNTER 2023-08-03 10:59 | Day surgery (SDC) | payer MEDICAID ==
[~2023-08-03] VITALS: Ht 177 cm; Wt 80.6 kg
--- NOTE | 2023-08-03 11:09 | Progress Note-Pre Operative ---
Pre-Operative Progress Note Date of Available H&P: Aug 03, 2023 Date H&P Reviewed: Aug 03, 2023 Time H&P Reviewed: 11:00 History & Physical: No changes noted Pre-Operative Diagnosis: GERD, dysphagia MEL SHOEMAKER MD Aug 03, 2023 11:09
[2023-08-03] MEDS ORDERED: HURRICAINE EXT TUBE (BENZOCAINE) ONE (11:10)
[2023-08-03] MEDS ORDERED: LACTATED RINGERS 1,000 ML 1,000 ML IV ONE (11:10)
--- NOTE | 2023-08-03 11:11 | Discharge Inst-Surgical ---
D/C Lap Instructions-SAHARA Follow Up Activity as tolerated High Fiber Diet 25g or more per day Avoid Alcohol, Caffeine, Spicy [place] and Acid foods. Drink 64 fluid oz or more of fluids per day. Symptoms to Report: Fever over 101 degree F, Nausea/Vomiting If any problems/questions: Contact your physician or go to Emergency Room MEL SHOEMAKER MD Aug 03, 2023 11:11
[2023-08-03 11:12] VITALS: BP 154/58
[2023-08-03] MEDS ORDERED: ONDANSETRON INJECTION 4 MG/2 ML (SDV) IVP PRN (11:15)
[2023-08-03] MEDS ORDERED: ONDANSETRON 4 MG ORAL DISSOLVE TABLET PO PRN (11:15)
[2023-08-03] MEDS ORDERED: LACTATED RINGERS 1,000 ML 1,000 ML IV STA (11:21)
[2023-08-03] MEDS ORDERED: LIDOCAINE JELLY 2% 6 ML SYRINGE MM PRN (11:30)
[2023-08-03] MEDS ORDERED: HURRICAINE EXT TUBE (BENZOCAINE) XX PRN (11:30)
[2023-08-03] MEDS ORDERED: LIDOCAINE JELLY 2% 6 ML SYRINGE ONE (11:52)
[2023-08-03 13:00] VITALS: BP 128/78
[2023-08-03 13:05] VITALS: BP 148/89
--- NOTE | 2023-08-03 13:12 | Progress Note-Post Operative ---
Post-Operative Progess Note Surgeon (s)/Pressure Dispatcher (s) Surgeon MEL SHOEMAKER MD Pressure Dispatcher: none Pre-Operative Diagnosis GERD, dysphagia Post-Operative Diagnosis reflux esophagitis(grade D), mod-severe dist esoph stricture, large HH(5cm), moderate gastritis. Procedure & Operative Findings Date of Procedure 08/03/23 Procedure Performed/Findings EGD with bx and balloon dilatation. Anesthesia Type mac Estimated Blood Loss Estimated blood loss (mL): minimal Specimens/Packing Specimens Removed ge jxn, antrum MEL SHOEMAKER MD Aug 03, 2023 13:12
[2023-08-03 13:45] VITALS: BP 148/89
--- NOTE | 2023-08-03 20:17 | OPERATIVE REPORT ---
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 PREOPERATIVE DIAGNOSES: Gastroesophageal reflux disease and history of a severe distal esophageal stricture and dysphagia. POSTOPERATIVE DIAGNOSES: Reflux esophagitis [place] grade D with an improving distal esophageal stricture, large hiatal hernia 5 cm in size, moderate gastritis, no distal obstructions. PROCEDURE: EGD with biopsy and balloon dilatation. SURGEON: Mel Shoemaker MD ANESTHESIA: Monitored anesthesia care. ESTIMATED BLOOD LOSS: Minimal. FINDINGS: Reflux esophagitis [place] grade D with an improving distal esophageal stricture, large hiatal hernia 5 cm in size, moderate gastritis, no distal obstructions. DISPOSITION: The patient tolerated the procedure well. INDICATIONS: The patient is a 62-year-old male known to us. He has a longstanding history of dysphagia and regurgitation as well as gastroesophageal reflux disease as well as a known large hiatal hernia. He also does have an extensive past medical history including atrial fibrillation, hypertension, hypercholesterolemia as well as COPD as well as polysubstance abuse and currently continues to smoke cigarettes. He has had multiple endoscopies and biopsies with the last one done approximately 1 month ago in 06/2023. Again, he has a known severe distal esophageal stricture, then has been undergoing graded dilatation in a stepwise fashion due to the severity of the symptoms. Multiple biopsies of the GE junction have also been taken, which have not shown any malignancies. The option was given to be referred to an esophageal specialist for surgery, however, he does not appear to be a surgical candidate and otherwise wanted to proceed with continuing with conservative therapy with repeat dilatations. On his last dilatation, we were able to dilate to 19.5 mm. The patient's distal esophageal region has improved dramatically as well as the luminal diameter has increased since we started this process of a graded dilatation. DESCRIPTION OF PROCEDURE: The patient was brought to the endoscopy suite and laid in the left lateral decubitus position. After adequate IV pain and sedative medications and monitored anesthesia care, the mouthpiece was applied. The endoscope was placed in the mouth, visualized the pharynx and hypopharyngeal region. Vocal cords, epiglottis and vallecula identified and appeared to be normal. The endoscope was then gently intubated in the esophageal opening and esophagus insufflated. The endoscope was then advanced through the first, second, third portions of esophagus, at the level of the GE junction, a reflux esophagitis, [place] grade D identified as well as severe distal esophageal stricture; however, this area has improved dramatically with a more normal-appearing esophageal mucosa and the stricture significantly less in severity. No masses identified. A biopsy was taken with forceps with visualization of good hemostasis. The endoscope was then advanced into the stomach and endoscope retroflexed visualizing a large hiatal hernia approximately 5 cm in size. There was a moderate severity gastritis. No formal ulcerations, polyps or any neoplasms. A biopsy was taken of the antrum to rule out H. pylori with visualization of good hemostasis. The endoscope was then advanced into the pylorus into the first and second portion of the duodenum, which appeared normal with no distal obstructions. The balloon was then placed in the stomach and pulled back to the area of the stricture. We then proceeded with graded dilatation from 2, 4, 5 and eventually 6 atmospheres of pressure with 60 seconds in between and once we reached 6 atmospheres of pressure or 20 mm in luminal diameter, we met moderate resistance and left this in place for 120 seconds. The balloon was desufflated and removed with visualization of good hemostasis as well as no mucosal tears. The endoscope was then slowly withdrawn while taking a second look and suctioning of residual air with no additional findings. The patient tolerated the procedure well. We once again recommend the necessary lifestyle and dietary accommodation including small and more frequent meals, avoidance of eating at night as well as head elevation while lying supine. He is also instructed to chew thoroughly and eat slowly. 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 We feel that he has improved significantly. However, there is always a high chance for recurrence, in his case being a current smoker. We had been going at 4-week intervals; however, we will increase to 5 weeks and if this gentleman is asymptomatic in terms of dysphagia and continues to have patency of the lower esophageal stricture, we will continue to elongate the timeframe in between repeat dilatations per week until we reach a maintenance zone where there is no recurrence of the stricture. He continues to be asymptomatic and it is also the longest possible interval before reoccurrence develops. For now, we will schedule him for followup EGD and dilatation in 5 weeks. Job ID: [id number] DocumentID: [id number] Dictated Date: 08/03/2023 13:06:33 Customer Success Specialist Date: 08/03/2023 20:15:00 Dictated By: MEL SHOEMAKER MD
== END 2023-08-03 13:45 | disposition home or self-care (01) ==
LOC: ENDO 10:59
PROVIDERS: ATTEND Surgery
DX: K21.00 Gastro-esophageal reflux disease with esophagitis, without bleeding (principal); K29.50 Unspecified chronic gastritis without bleeding; K22.10 Ulcer of esophagus without bleeding; K22.2 Esophageal obstruction; K44.9 Diaphragmatic hernia without obstruction or gangrene; F17.210 Nicotine dependence, cigarettes, uncomplicated

== ENCOUNTER 2023-09-07 10:40 | Day surgery (SDC) | payer MEDICAID ==
--- NOTE | 2023-08-30 11:13 | HISTORY AND PHYSICAL ---
This is for procedure date 09/07/2023. ATTENDING PRIMARY CARE PHYSICIAN: [facility]. The patient is a 62-year-old male who is known to us. He has a longstanding history of dysphagia and regurgitation as well as gastroesophageal reflux disease as well as a known large hiatal hernia. He does have an extensive past history including atrial fibrillation, hypertension, hypercholesterolemia, COPD as well as polysubstance abuse and currently continues to smoke cigarettes. He has had multiple endoscopies and biopsies with his last one being done on 08/03/2023. He was found to have a reflux esophagitis, [place] grade D with an improving distal esophageal stricture, large hiatal hernia, 5 cm in size and a moderate gastritis. Biopsies were negative for H. pylori as well as negative for Davies's esophagus. He has been undergoing graded dilatations in a stepwise fashion due to the severity of his symptoms. He was also given the option for referral to an esophageal specialist for surgery; however, he to be a surgical candidate and otherwise wanted to proceed with conservative therapy with repeat dilatations. He was able to be dilated to 20 mm in luminal diameter with moderate resistance on his last EGD. MEDICAL HISTORY: Hypertension, depression, gout, chronic back pain, COPD, gastroesophageal reflux disease, large hiatal hernia, dysphagia and distal esophageal stricture, history of polysubstance abuse. PAST SURGICAL HISTORY: Tonsillectomy, right inguinal hernia repair, laparoscopic cholecystectomy. ALLERGIES: SULFA and DEMEROL. MEDICATIONS: Lasix, potassium, zolpidem, simvastatin, clonazepam, fluoxetine, Carafate, Protonix, Zofran, trazodone, and levetiracetam. SOCIAL HISTORY: Positive for tobacco, smoking 1-1/2 packs for approximately 60 pack years, negative for alcohol. FAMILY HISTORY: Mother diabetes. Vital signs stable. Current weight is 180 pounds at 5 feet 7 inches. REVIEW OF SYSTEMS: This is a well-nourished male in no acute distress. He is not experiencing any shortness of breath or difficulty breathing. No chest pain, palpitations or diaphoresis. He does have intermittent episodes of dysphagia. No nausea or vomiting. No diarrhea or constipation. No red blood per rectum. No dark tarry stools. No fever or chills. No recent inadvertent weight loss. All other review of systems negative. PHYSICAL EXAMINATION: Chest: Clear. Good breath sounds bilaterally. Heart: Regular, no murmurs. Extremities: No lower extremity edema. Negative Homans sign. HEENT: No scleral icterus. No cervical lymphadenopathy. Abdomen: Soft, nontender, nondistended. Skin: Warm, dry and pink. Neurologic: Awake, alert, oriented x3. ASSESSMENT AND PLAN: A 62-year-old male with symptomatic severe distal esophageal stricture, who has been responding well to repeated balloon dilatations. His last dilatation was able to be achieved to a luminal diameter of approximately 28 mm in diameter. We will again continue with this in order for him to continue to be asymptomatic and to make sure he is maintaining this. We will also recommend continued medical management as well as a sensation of smoking to prevent further development and reoccurrence. At this time, we will proceed with scheduling him for followup EGD as well as a possible balloon dilatation. Job ID: [id number] DocumentID: [id number] Dictated Date: 08/30/2023 09:22:43 Air Conditioning Unit Tester Date: 08/30/2023 11:00:00 Dictated By: SATHYA HARVEY APRN
[~2023-09-07] VITALS: Ht 170.8 cm; Wt 80.6 kg
[2023-09-07] MEDS ORDERED: HURRICAINE EXT TUBE (BENZOCAINE) XX PRN (10:45)
[2023-09-07] MEDS ORDERED: LACTATED RINGERS 1,000 ML 1,000 ML IV STA (10:45)
[2023-09-07] MEDS ORDERED: LIDOCAINE JELLY 2% 6 ML SYRINGE MM PRN (10:45)
[2023-09-07 10:58] VITALS: BP 134/92
[2023-09-07] MEDS ORDERED: LIDOCAINE JELLY 2% 6 ML SYRINGE ONE (11:11)
--- NOTE | 2023-09-07 11:34 | Progress Note-Pre Operative ---
Pre-Operative Progress Note Date of Available H&P: Sep 07, 2023 Date H&P Reviewed: Sep 07, 2023 Time H&P Reviewed: 11:00 History & Physical: No changes noted Pre-Operative Diagnosis: dysphagia, GERD MEL SHOEMAKER MD Sep 07, 2023 11:34
[2023-09-07] MEDS ORDERED: MIDAZOLAM INJ 2 MG/2 ML VIAL ONE (11:36)
--- NOTE | 2023-09-07 11:36 | Discharge Inst-Surgical ---
D/C Lap Instructions-SAHARA Follow Up Activity as tolerated High Fiber Diet 25g or more per day Avoid Alcohol, Caffeine, Spicy [place] and Acid foods. Drink 64 fluid oz or more of fluids per day. Symptoms to Report: Fever over 101 degree F, Nausea/Vomiting If any problems/questions: Contact your physician or go to Emergency Room MEL SHOEMAKER MD Sep 07, 2023 11:35
[2023-09-07] MEDS ORDERED: ONDANSETRON 4 MG ORAL DISSOLVE TABLET PO PRN (11:45)
[2023-09-07] MEDS ORDERED: ONDANSETRON INJECTION 4 MG/2 ML (SDV) IVP PRN (11:45)
[2023-09-07 12:15] VITALS: BP 189/105
[2023-09-07 12:20] VITALS: BP 156/88
--- NOTE | 2023-09-07 12:26 | Progress Note-Post Operative ---
Post-Operative Progess Note Surgeon (s)/Fence Manufacture Supervisor (s) Surgeon MEL SHOEMAKER MD Fence Manufacture Supervisor: none Pre-Operative Diagnosis dysphagia, GERD Post-Operative Diagnosis reflux esophagitis(grade D), moderate dist esoph stricture, large HH(5cm), moderate gastritis, no distal obstructions. Procedure & Operative Findings Date of Procedure 09/07/23 Procedure Performed/Findings EGD with bx and balloon dilatation. Anesthesia Type mac Estimated Blood Loss Estimated blood loss (mL): minimal Specimens/Packing Specimens Removed ge jxn, antrum MEL SHOEMAKER MD Sep 07, 2023 12:26
[2023-09-07 12:55] VITALS: BP 156/88
--- NOTE | 2023-09-07 19:03 | OPERATIVE REPORT ---
DATE OF SERVICE: 09/07/2023 ATTENDING SENIOR HUMAN RESOURCES REPRESENTATIVE: [facility]. PREOPERATIVE DIAGNOSES: Gastroesophageal reflux disease, dysphagia. POSTOPERATIVE DIAGNOSES: Reflux esophagitis, [place] grade D with distal esophageal stricture, large hiatal hernia 5 cm in size, moderate gastritis, no distal obstructions. PROCEDURE: EGD with biopsy and balloon dilatation. SURGEON: Mel Shoemaker MD ANESTHESIA: Monitored anesthesia care. ESTIMATED BLOOD LOSS: Minimal. FINDINGS: Reflux esophagitis, [place] grade D with distal esophageal stricture, large hiatal hernia 5 cm in size, moderate gastritis, no distal obstructions. DISPOSITION: The patient tolerated the procedure well. INDICATIONS: The patient is a 62-year-old male known to us. He has a longstanding history of dysphagia, regurgitation and gastroesophageal reflux disease and a known large hiatal hernia, greater than 5 cm in size. He does have an extensive past medical history including atrial fibrillation, hypertension, hypercholesterolemia, COPD as well as previous polysubstance abuse and currently does smoke significant amounts of cigarettes. He has had multiple endoscopies and biopsies done in the past with the last one done on 08/03/2023. He has always had a significant reflux esophagitis and consider [place] grade D with an improving, however, significant distal esophageal stricture and a large hiatal hernia, 5 cm in size. All biopsies of the GE junction had been negative for malignancy and the stomach has been negative for H. pylori. He continues to improve with these repeat graded dilatations. We gave him the option for referral to esophageal specialist for surgery; however, he did not want to do this and he otherwise does not appear to be a surgical candidate. On his last EGD, we were able to dilate to 19.5 mm. DESCRIPTION OF PROCEDURE: The patient was brought to the endoscopy suite and laid in the left lateral decubitus position. After adequate IV pain and sedative medications and monitored anesthesia care, the mouthpiece was applied. The endoscope was placed in the mouth, visualized the pharynx and hypopharyngeal region. Vocal cords, epiglottis and vallecula identified and appeared to be normal. The endoscope was then gently intubated into the esophageal opening, the esophagus insufflated. The endoscope was then advanced through the first, second and third portions of esophagus; at the level of the GE junction, reflux esophagitis, [place] grade D identified. There was also a moderate stricture identified. A biopsy was taken with forceps with visualization of good hemostasis. The endoscope was then advanced in the stomach and endoscope retroflexed visualizing again a large hiatal hernia approximately 5 cm in size. A moderate gastritis was noted. No formal ulcerations, polyps or any neoplasms and a biopsy was taken of the stomach antrum with forceps with visualization of good hemostasis. The endoscope was then advanced through the pylorus and the first and second portion of the duodenum, which appeared normal with no distal obstructions. The balloon was then placed in the stomach and pulled back to the area of the stricture. We then proceeded with graded dilatation from 2, 4, 5, 5.5 and then eventually 6 atmospheres of pressure with 60 seconds in between. Once we hit 6 atmospheres of pressure and moderate resistance or approximately 20 mm in luminal diameter, we left the balloon in place for 120 seconds. The balloon was then desufflated and removed with visualization of good hemostasis as well as no mucosal tears. The endoscope was then slowly withdrawn while taking a second look and suctioning of residual air with no additional findings. The patient tolerated the procedure well. We will continue with dilatation to prevent symptomatic dysphagia; however, we feel that we can increase that time distance in between and we will schedule his next EGD and balloon dilatation in 6 weeks. Job ID: [id number] DocumentID: [id number] Dictated Date: 09/07/2023 12:18:53 Director Project Management Date: 09/07/2023 19:01:00 Dictated By: MEL SHOEMAKER MD
== END 2023-09-07 12:55 | disposition home or self-care (01) ==
LOC: ENDO 10:40
PROVIDERS: ATTEND Surgery
DX: K21.00 Gastro-esophageal reflux disease with esophagitis, without bleeding (principal); K22.2 Esophageal obstruction; K44.9 Diaphragmatic hernia without obstruction or gangrene; K29.70 Gastritis, unspecified, without bleeding; K22.10 Ulcer of esophagus without bleeding; F17.210 Nicotine dependence, cigarettes, uncomplicated
CPT/HCPCS: 88305; 88312